=== PATIENT | female | born 1955 | race Caucasian/White ===

== ENCOUNTER 2019-08-26 16:29 | Emergency (ER) | payer OTHER, SELFPAY ==
--- NOTE | ~2019-08-26 | CT_ITS ---
EXAMINATION: CTA chest PE protocol DATE: 08/26/2019 17:50 INDICATION: Chest pain TECHNIQUE: Computed tomography angiography (CTA) of the chest was performed with 100 mL Omnipaque-350 intravenous contrast timed to evaluate the pulmonary arteries. Coronal maximum intensity projection 3D-reconstructions were created by the technologist. The dose-length product (DLP) was 184.20 mGy-cm. Automated exposure control and iterative reconstruction technique were employed. COMPARISON: 12/30/2014 FINDINGS: The pulmonary arteries are well-opacified. No pulmonary embolism is identified. The lungs a re free of acute opacities. There is no pleural effusion or pneumothorax. There is chronic pleural-ba sed scarring in the left upper lobe. A few scattered stable pulmonary nodules are consistent with old granulomatous disease. No pathologically enlarged thoracic lymph nodes are identified. The heart siz e is normal. There is mild thoracic spondylosis. IMPRESSION: 1. No pulmonary embolism or acute cardiopulmonary abnormality. Reviewed, dictated and finalized at location A.
--- NOTE | 2019-08-26 16:35 | ECG_ITS ---
Measurements Intervals [place] Rate: 75 P: 19 OR: 142 QRS: 14 QRSD: 93 T: 59 QT: 362 QTc: 405 Interpretive Statements SINUS RHYTHM POSSIBLE LEFT ATRIAL ENLARGEMENT BORDERLINE ECG Electronically Signed On 08-26-2019 17:41:47 CDT by Jhony Segovia D.O.
[2019-08-26 16:40] VITALS: BP 147/63; PULSE 92; RESP 16; TEMP 36.1; O2SAT 97
[2019-08-26 17:08] LABS: Basophils Absolute Auto 0.1 K/mm3 (0.0-0.1); Eosinophils Absolute Auto 0.2 K/mm3 (0-0.3); Eosinophils Percent Auto 2.9 % (0-4.4); Hematocrit 35.3 % (37.0-47.0); Hemoglobin 11.9 g/dL (12.0-15.0); Immature Granulocyte Absolute 0.02 K/mm3 (0.00-0.031); Immature Granulocyte Percent A 0.3 % (0-0.5); Lymphocytes Absolute Auto 2.25 K/mm3 (0.9-3.2); Lymphocytes Percent Auto 31.2 % (18.3-44.2); Mean Corpuscular HGB Conc 33.7 g/dl (32-36); Mean Corpuscular Hemoglobin 31.6 pg (26-34); Mean Corpuscular Volume 93.9 fl (80-100); Mean Platelet Volume 10.4 fl (7.4-10.4); Monocytes Absolute Auto 0.5 K/mm3 (0.1-0.6); Monocytes Percent Auto 7.1 % (2.6-8.5); Neutrophils Absolute Auto 4.2 K/mm3 (1.3-6.7); Neutrophils Percent Auto 57.5 % (45.5-73.1); Platelet Count Result 308 k/mm3 (150-375); Red Blood Count 3.76 M/mm3 (4.2-5.4); Red Cell Distribution Width 12.1 % (11.5-14.5); White Blood Count 7.2 K/mm3 (4.5-10.0)
[2019-08-26 17:18] LABS: INR 0.9; Prothrombin Time 11.4 Seconds (11.1-14.7)
[2019-08-26 17:19] LABS: Partial Thromboplastin Time 24.7 SECONDS (22.3-36.8)
[2019-08-26 17:26] LABS: Blood Urea Nitrogen 12 mg/dL (7-17); Calcium 9.2 mg/dL (8.4-10.2); Carbon Dioxide 24 mmol/L (22-30); Chloride 103 mmol/L (98-107); Estimated CRCL calculation 65 ml/min; Estimated Glomerular Filt Rate > 60; Glucose 86 mg/dL (65-105); Potassium 3.9 mmol/L (3.4-5.0); Sodium 136 mmol/L (137-145)
[2019-08-26 17:37] LABS: Troponin I < 0.012 ng/mL (0.000-0.034)
[2019-08-26 19:39] VITALS: BP 158/86; PULSE 75; RESP 16; TEMP 36.6; O2SAT 99
[2019-08-26 19:41] VITALS: PULSE 77; O2SAT 99
--- NOTE | 2019-08-26 19:53 | ED.CHESTPAIN ---
HPI - Chest Pain General Chief Complaint: Chest Pain Stated Complaint: CHEST HURTING Time Seen by Provider: 08/26/19 19:36 History of Present Illness HPI narrative: Patient is a 63-year-old female who presents ER with chest pain. Central and intermittent over the last 4 days. Worse in the morning and then she will take ibuprofen. Reports its associated with a hacking cough that is nonproductive. Occasional dyspnea. No fevers or chills or sweats. Had a similar episode in March of this year that improved with prednisone. Patient is noticed some wheezing with her symptoms. No exertional chest discomfort. No nausea/vomiting. She had an outpatient infusion today that showed her pulse oximeter reading was in the 80s and so her doctor referred her here for further evaluation for possible PE. Patient had a lower extremity DVT when she was 45 years ago. She also had superficial thrombophlebitis 6 months ago. Related Data Home Medications Medication Instructions Recorded Confirmed Ca cmb no.[id number] 1 tablet PO DAILY 08/26/19 08/26/19 [Vitamin D-3 with Aloe] aspirin [Aspir-81] 81 mg PO DAILY 08/26/19 08/26/19 magnesium 400 mg PO DAILY 08/26/19 08/26/19 Allergies Allergy/AdvReac Type Severity Reaction Status Date / Time propoxyphene Allergy Unknown Unknown Verified 08/26/19 15:51 meperidine AdvReac Intermediate NAUSEA Verified 08/26/19 15:51 Review of Systems Review of Systems: All systems reviewed & are unremarkable except as noted in HPI and below Constitutional: Constitutional: Denies chills, Denies fatigue, Denies fever(s) and Denies weakness ENT: Denies dizziness, Denies nasal congestion and Denies sore throat Cardiovascular: Cardiovascular: Reports chest pain, Denies rapid heart rate and Denies radiating jaw, neck or arm pain Respiratory: Respiratory: Reports cough and Reports dyspnea Gastrointestinal: Gastrointestinal: Denies abdominal pain, Denies nausea and Denies vomiting Musculoskeletal: Musculoskeletal: Denies back pain and Denies myalgias [facility] Past Medical History Medical History (Updated 08/27/19 @ 00:00 by Josué Perdue) Asthma Bronchitis DVT (deep venous thrombosis) GERD (gastroesophageal reflux disease) Surgical History Surgical History (Updated 08/26/19 @ 19:57 by Hilario Velazquez MD) History of appendectomy History of hysterectomy History of tonsillectomy and adenoidectomy Family History Family History (Updated 09/28/18 @ 13:19 by DOCTOR UNKNOWN) Father Family history of elevated blood lipids Family history of diabetes mellitus in first degree relative Family history of coronary artery disease Patient's father is Family history of heart disease in male family member before age 55 Mother Family history of coronary artery disease Patient's mother is Family history of emphysema Family history of heart disease in male family member before age 55 Family history of mental disorder Depression Other Diabetes mellitus Family history of cardiovascular disease Hypertension Social History Social History Smoking status: Former smoker Second hand tobacco smoke exposure: No Smoking end date: 03/06/08 Alcohol intake: current Exam Narrative: Exam Narrative: GENERAL: Well-appearing, well-nourished, and in no acute distress. HEAD: Normocephalic, atraumatic. CHEST: Rare high pitched wheezing. No respiratory distress. HEART: Regular rate and rhythm. No murmur heard. Normal peripheral pulses. ABDOMEN: Soft, nontender, nondistended. EXTREMITIES: Normal range of motion. No edema. SKIN: Warm, dry, no rash. NEURO: Alert and oriented x3. PSYCH: Normal mood and affect. Course Course Emergency Course: Patient resting comfortably. Informed of results. Will start on prednisone for home, likely chronic lung disease flare vs bronchitis. Pt has albuterol at home. Vital Signs Vital signs: Vital Signs Temperature
--- NOTE | 2019-08-26 20:08 | PC.NURSE ---
Per JUANJO Velazquez, no Aspirin needed.
[2019-08-26 20:24] LABS: Troponin I < 0.012 ng/mL (0.000-0.034)
[2019-08-26 21:00] VITALS: BP 144/73; PULSE 77; RESP 17; TEMP 36.7; O2SAT 99
== END 2019-08-26 21:16 | disposition home or self-care (01) ==
PROVIDERS: Emergency Medicine; Emergency Provider Emergency Medicine; PCP Obstetrics & Gynecology
DX: J45.909 Unspecified asthma, uncomplicated (principal); Z86.718 Personal history of other venous thrombosis and embolism; K21.9 Gastro-esophageal reflux disease without esophagitis; Z79.82 Long term (current) use of aspirin; R94.31 Abnormal electrocardiogram [ECG] [EKG]
CPT/HCPCS: 36415; 71275; 80048; 84484; 85025; 85610; 85730; 93005; 99284; Q9967

== ENCOUNTER 2019-09-02 10:54 | Emergency (ER) | payer OTHER, SELFPAY ==
--- NOTE | ~2019-09-02 | CT_ITS ---
EXAMINATION: CT abdomen pelvis w con DATE: 09/02/2019 12:53 INDICATION: Nausea, vomiting and diarrhea TECHNIQUE: Computed tomography (CT) of the abdomen and pelvis was performed with 100 mL Omnipaque-350 intravenous contrast. Automated exposure control and iterative reconstruction technique were employe d. The dose-length product was 262.63 mGy-cm. COMPARISON: 06/28/2018 FINDINGS: A few small regions of atelectasis in the right middle and bilateral lower lobes. Heart size is sravan l. No pericardial or pleural effusion. 1 cm cyst in the left hepatic lobe. Small geographic region of focal hepatic steatosis along the melany hepatis. A few small splenic calcifications consistent with old granulomatous disease. Gallbladder, pancreas, bilateral adrenal glands and right kidney are sravan l. 1.3 cm left renal cyst. There is mild wall thickening in the colon most prominent in the ascending and transverse colon consistent with colitis. Small bowel and appendix are normal. Bladder is normal . The uterus is not identified and has likely been surgically resected. Bilateral adnexa are unremark able. No free intraperitoneal gas or fluid. No pathologically enlarged abdominal or pelvic lymphadeno ra. Severe lower lumbar spondylosis. IMPRESSION: 1. Mild wall thickening in the proximal colon consistent with colitis which could be infectious, infl ammatory or ischemic in etiology. Reviewed, dictated and finalized at location A. IMPRESSION: 1. Mild wall thickening in the proximal colon consistent with colitis which cou ld be infectious, inflammatory or ischemic in etiology.
[2019-09-02 11:03] VITALS: BP 119/60; PULSE 96; RESP 16; TEMP 36.2; O2SAT 99
--- NOTE | 2019-09-02 11:36 | ED.NAVMDI ---
HPI - Nausea/Vomiting/Diarrhea General Chief complaint: Nausea/Vomiting/Diarrhea <Emilee Smith PA-C - Last Filed: 09/02/19 13:47> Stated complaint: ABD PAIN, DIARRHEA <TARIQ Hough Last Filed: 09/02/19 13:47> Time Seen by Provider: 09/02/19 11:28 <TARIQ Hough Last Filed: 09/02/19 13:47> Source: patient <TARIQ Hough Last Filed: 09/02/19 13:47> Mode of arrival: ambulatory <TARIQ Hough Last Filed: 09/02/19 13:47> Limitations: no limitations <TARIQ Hough Last Filed: 09/02/19 13:47> History of Present Illness HPI Narrative: This is a 63-year-old female that presents the emergency department for abdominal pain x2 days. Reports intermittent, crampy abdominal pain. Also reports diarrhea. Denies fever, recent antibiotic use, vomiting, dysuria, hematuria, or hematochezia. <TARIQ Hough Last Filed: 09/02/19 13:47> Related Data Home medications: Home Medications Medication Instructions Recorded Confirmed Ca cmb no.[id number] 1 tablet PO DAILY 08/26/19 08/26/19 [Vitamin D-3 with Aloe] aspirin [Aspir-81] 81 mg PO DAILY 08/26/19 08/26/19 magnesium 400 mg PO DAILY 08/26/19 08/26/19 <TARIQ Hough Last Filed: 09/02/19 13:47> Allergies/Adverse reactions: Allergies Allergy/AdvReac Type Severity Reaction Status Date / Time propoxyphene Allergy Unknown Unknown Verified 09/02/19 11:07 meperidine AdvReac Intermediate NAUSEA Verified 09/02/19 11:07 <TARIQ Hough Last Filed: 09/02/19 13:47> Review of Systems Review of Systems: Narrative: CONSTITUTIONAL: Denies fever GASTROINTESTINAL: Reports abdominal pain, diarrhea. Denies nausea or vomiting GENITOURINARY: Denies dysuria or hematuria. <Emilee Smith PA-C - Last Filed: 09/02/19 13:47> All systems reviewed & are unremarkable except as noted in HPI and below <Emilee Smith PA-C - Last Filed: 09/02/19 13:47> PMFSH Past Medical History Medical History: Medical History (Updated 09/02/19 @ 13:44 by Emilee Smith PA-C) Asthma Bronchitis DVT (deep venous thrombosis) GERD (gastroesophageal reflux disease) <Emilee Smith PA-C - Last Filed: 09/02/19 13:47> Surgical History Surgical History: Surgical History (Updated 08/26/19 @ 19:57 by Hilario Velazquez MD) History of appendectomy History of hysterectomy History of tonsillectomy and adenoidectomy <Emilee Smith PA-C - Last Filed: 09/02/19 13:47> Family History Family History: Family History (Updated 09/28/18 @ 13:19 by DOCTOR UNKNOWN) Father Family history of elevated blood lipids Family history of diabetes mellitus in first degree relative Family history of coronary artery disease Patient's father is Family history of heart disease in male family member before age 55 Mother Family history of coronary artery disease Patient's mother is Family history of emphysema Family history of heart disease in male family member before age 55 Family history of mental disorder Depression Other Diabetes mellitus Family history of cardiovascular disease Hypertension <Emilee Smith PA-C - Last Filed: 09/02/19 13:47> Social History Social History: Social History Smoking status: Former smoker Second hand tobacco smoke exposure: No Smoking end date: 03/06/08 Alcohol intake: current Gender identity (if verbalized by the patient): Female <Emilee Smith PA-C - Last Filed: 09/02/19 13:47> Exam Narrative: Exam Narrative: GENERAL: Well-appearing, well-nourished, and in no acute distress. HEAD: Normocephalic, atraumatic. EYES: EOMI. CHEST: Clear to auscultation. No respiratory distress. No wheezes rales or rhonchi HEART: Regular rate and rhythm. No murmur heard. Normal peripheral pulses. ABDOMEN: Soft, nondistended, normal active bowel sounds. Mild tenderness palpation throughout t
[2019-09-02 11:56] LABS: Basophils Absolute Auto 0.1 K/mm3 (0.0-0.1); Basophils Percent Auto 0.5 % (0.2-1.2); Eosinophils Absolute Auto 0.3 K/mm3 (0-0.3); Eosinophils Percent Auto 2.1 % (0-4.4); Hematocrit 41.9 % (37.0-47.0); Hemoglobin 13.9 g/dL (12.0-15.0); Immature Granulocyte Absolute 0.08 K/mm3 (0.00-0.031); Immature Granulocyte Percent A 0.7 % (0-0.5); Lymphocytes Absolute Auto 3.74 K/mm3 (0.9-3.2); Lymphocytes Percent Auto 30.6 % (18.3-44.2); Mean Corpuscular HGB Conc 33.2 g/dl (32-36); Mean Corpuscular Hemoglobin 31.3 pg (26-34); Mean Corpuscular Volume 94.4 fl (80-100); Mean Platelet Volume 10.2 fl (7.4-10.4); Monocytes Absolute Auto 0.8 K/mm3 (0.1-0.6); Monocytes Percent Auto 6.7 % (2.6-8.5); Neutrophils Absolute Auto 7.3 K/mm3 (1.3-6.7); Neutrophils Percent Auto 59.4 % (45.5-73.1); Platelet Count Result 340 k/mm3 (150-375); Red Blood Count 4.44 M/mm3 (4.2-5.4); White Blood Count 12.2 K/mm3 (4.5-10.0)
[2019-09-02 12:01] LABS: Add Urine Microscopic? YES; Appearance Urine Clear (Clear); Bilirubin Urine Negative (Negative); Blood Urine Negative (Negative); Color Urine Yellow (Yellow); Glucose Urine UA Negative (Negative); Ketones Urine Negative (Negative); Leukocyte Esterase Ur 1+ LEU/UL (Negative); Mucus Urine Rare /lpf; Nitrate Urine Negative (Negative); Protein Urine Negative (Negative); RBC Urine 0-2 /hpf (0-2); Squamous Epithelial Cell Urine Rare /hpf (Few); Transitional Epi Cells Urine Rare /hpf (None Seen)
[2019-09-02 12:13] LABS: Alanine Aminotransferase 17 U/L (4-35); Albumin Level 4.5 g/dL (3.5-5.1); Alkaline Phosphatase 59 U/L (38-126); Aspartate Amino Transferase 23 U/L (14-36); Bilirubin,Total 0.4 mg/dL (0.2-1.3); Blood Urea Nitrogen 19 mg/dL (7-17); Calcium 8.7 mg/dL (8.4-10.2); Carbon Dioxide 25 mmol/L (22-30); Chloride 102 mmol/L (98-107); Estimated CRCL calculation 44 ml/min; Estimated Glomerular Filt Rate > 60; Glucose 99 mg/dL (65-105); Lipase 74 U/L (23-300); Potassium 3.6 mmol/L (3.4-5.0); Sodium 135 mmol/L (137-145)
--- NOTE | 2019-09-02 12:39 | PC.NURSE ---
Pt to CT scan via stretcher.
[2019-09-02] MEDS: SODIUM CHLORIDE 0.9% IV 1,000 ML 999 ML IV CONT (13:13)
[2019-09-02 13:15] VITALS: BP 123/79; PULSE 77; RESP 14; O2SAT 96
--- NOTE | 2019-09-02 14:31 | PC.NURSE ---
Pt attempted to provide stool sample, states not able to go at this time. EDP aware, gave verbal okay for discharge.
[2019-09-02 14:32] VITALS: BP 128/86; PULSE 69; RESP 13; O2SAT 98
== END 2019-09-02 14:33 | disposition home or self-care (01) ==
PROVIDERS: Physician Assistant; Emergency Provider General Practice; PCP Family Medicine
DX: K52.9 Noninfective gastroenteritis and colitis, unspecified (principal); Z86.718 Personal history of other venous thrombosis and embolism; J45.909 Unspecified asthma, uncomplicated; K21.9 Gastro-esophageal reflux disease without esophagitis; Z87.891 Personal history of nicotine dependence
CPT/HCPCS: 36415; 74177; 80053; 81001; 83690; 85025; 87086; 96360; 99284; J7030; Q9967

== ENCOUNTER 2019-09-04 04:58 | Inpatient (IN) | payer OTHER, SELFPAY ==
[2019-09-04] VITALS (10 sets, daily range): BP systolic 111–151; BP diastolic 54–70; PULSE 68–92; RESP 12–24; TEMP 36.2–36.8; O2SAT 96–100; BMI 24.3
--- NOTE | ~2019-09-04 | XR_ITS ---
EXAMINATION: XR abdomen obstructive series DATE: 09/04/2019 07:04 INDICATION: Lower abdominal pain, vomiting and colitis. TECHNIQUE: Frontal supine and upright views of the abdomen were obtained. COMPARISON: CT dated 09/02/2019 FINDINGS: Small amount of gas scattered throughout the bowels. No pneumatosis or dilated gas-filled loops of allison wel. No free intraperitoneal gas. Blunting at the left costophrenic angle corresponding to a pericar dial fat pad. IMPRESSION: 1. No free intraperitoneal gas or dilated gas-filled loops of bowel to suggest obstruction. Reviewed, dictated and finalized at location A.
--- NOTE | ~2019-09-04 | XR_ITS ---
EXAMINATION: XR chest 2V DATE: 09/04/2019 05:38 INDICATION: Midline chest pain TECHNIQUE: PA and lateral views of the chest were obtained. COMPARISON: Chest radiograph dated 11/13/[address] dated 08/26/2019 FINDINGS: Mild biapical pleural-parenchymal scarring. Unchanged mild discoid atelectasis/scarring at the latera l left midlung zone. Calcified nodule at the right upper lung zone along with calcified right hilar a nd mediastinal lymph nodes consistent with old granulomatous disease. No pulmonary edema, pleural eff usion or pneumothorax. The cardiomediastinal silhouette is normal. Mild 3 component S-shaped curvatur e of the thoracolumbar spine. IMPRESSION: 1. No acute cardiopulmonary disease. Reviewed, dictated and finalized at location A.
--- NOTE | ~2019-09-04 | CT_ITS ---
EXAMINATION: CT abdomen pelvis w con EXAM DATE: 09/04/2019 08:34 INDICATION: Recent episode colitis. Chest pain after dry heaving. Diarrhea. TECHNIQUE: Spiral CT of the abdomen and pelvis was performed following intravenous injection of 100 m L Omnipaque 350. Axial, coronal and sagittal images were reviewed. The dose-length product (DLP) fo r this examination was 255.19 mGy-cm. The exposure was tailored according to patient size (auto mA e xposure control), and iterative reconstruction (ASIR) was used as additional dose reduction technique . Comparison is made to prior examination from 09/02/2019. FINDINGS: There is more fluid and stool in the colon than on previous examination, equivocal mild per sistent ascending and transverse colonic wall edema. Again there is small geographic region hepatic steatosis in the left liver lobe. The liver, spleen, adrenal glands and pancreas are otherwise unrem arkable. Gallbladder is unremarkable. No biliary obstruction. Portal and splenic veins are patent. Kidneys enhance symmetrically. There is no hydronephrosis. The uterus is not identified and has likely been surgically resected. The bladder is unremarkable. There is no retroperitoneal or pelvic lymphadenopathy. There is mild scattered arteriosclerotic disease. The appendix is not positively visualized. There is no pericecal inflammatory change to suggest appe ndicitis. There is small sliding gastroesophageal hiatal hernia. No free intraperitoneal gas. T he heart is normal in size. There are no pericardial or pleural effusions. The lung bases are unrem arkable. There are no osteoblastic or osteolytic lesions identified. IMPRESSION: 1. Equivocal mild persistent ascending and transverse colonic colitis. Reviewed, dictated and finalized at location B.
--- NOTE | 2019-09-04 05:15 | ECG_ITS ---
Measurements Intervals [place] Rate: 89 P: 49 [place]: 133 QRS: 55 QRSD: 94 T: 33 QT: 336 QTc: 409 Interpretive Statements SINUS RHYTHM POSSIBLE LEFT ATRIAL ENLARGEMENT BASELINE ARTIFACT- V5 BORDERLINE ECG Electronically Signed On 09-04-2019 7:15:32 CDT by Jhony Segovia D.O.
[2019-09-04 05:37] LABS: Basophils Percent Auto 0.3 % (0.2-1.2); Eosinophils Absolute Auto 0.2 K/mm3 (0-0.3); Eosinophils Percent Auto 1.8 % (0-4.4); Hematocrit 34.4 % (37.0-47.0); Hemoglobin 11.7 g/dL (12.0-15.0); Immature Granulocyte Absolute 0.04 K/mm3 (0.00-0.031); Immature Granulocyte Percent A 0.4 % (0-0.5); Lymphocytes Percent Auto 8.8 % (18.3-44.2); Mean Corpuscular Hemoglobin 31.7 pg (26-34); Mean Corpuscular Volume 93.2 fl (80-100); Mean Platelet Volume 10.5 fl (7.4-10.4); Monocytes Absolute Auto 0.6 K/mm3 (0.1-0.6); Monocytes Percent Auto 4.8 % (2.6-8.5); Neutrophils Absolute Auto 9.5 K/mm3 (1.3-6.7); Neutrophils Percent Auto 83.9 % (45.5-73.1); Platelet Count Result 274 k/mm3 (150-375); Red Blood Count 3.69 M/mm3 (4.2-5.4); Red Cell Distribution Width 11.9 % (11.5-14.5); White Blood Count 11.4 K/mm3 (4.5-10.0)
[2019-09-04] MEDS: FAMOTIDINE 20 MG/2 ML VIAL (05:40)
[2019-09-04] MEDS: SODIUM CHLORIDE 0.9% IV 1,000 ML 999 ML IV CONT (05:40)
[2019-09-04] MEDS: ONDANSETRON INJ 4 MG/2 ML VIAL IV PUSH ×5 (05:42→19:53)
[2019-09-04 05:49] LABS: Partial Thromboplastin Time 28.1 SECONDS (22.3-36.8)
[2019-09-04 05:55] LABS: Alanine Aminotransferase 16 U/L (4-35); Albumin Level 4.1 g/dL (3.5-5.1); Alkaline Phosphatase 62 U/L (38-126); Aspartate Amino Transferase 23 U/L (14-36); Bilirubin,Total 0.4 mg/dL (0.2-1.3); Blood Urea Nitrogen 13 mg/dL (7-17); Calcium 8.6 mg/dL (8.4-10.2); Carbon Dioxide 21 mmol/L (22-30); Chloride 105 mmol/L (98-107); Estimated CRCL calculation 65 ml/min; Estimated Glomerular Filt Rate > 60; Glucose 133 mg/dL (65-105); Potassium 3.7 mmol/L (3.4-5.0); Sodium 134 mmol/L (137-145)
[2019-09-04 05:59] LABS: Prothrombin Time 12.4 Seconds (11.1-14.7)
[2019-09-04 06:03] LABS: Troponin I < 0.012 ng/mL (0.000-0.034)
[2019-09-04 06:26] LABS: Add Urine Microscopic? YES; Appearance Urine Clear (Clear); Bilirubin Urine Negative (Negative); Blood Urine Negative (Negative); Color Urine Yellow (Yellow); Glucose Urine UA Negative (Negative); Ketones Urine Negative (Negative); Leukocyte Esterase Ur Trace LEU/UL (Negative); Nitrate Urine Negative (Negative); Protein Urine Negative (Negative); RBC Urine 0-2 /hpf (0-2); Specific Grav Ur 1.017 (1.001-1.035); Squamous Epithelial Cell Urine Occasional /hpf (Few); Urobilinogen Urine Negative mg/dL (<2.0); WBC Urine 0-3 /hpf
--- NOTE | 2019-09-04 06:35 | ED.GENADULT ---
HPI - General Adult General Chief complaint: Unspecified <Rachele Piper MD - Last Filed: 09/05/19 19:42> Stated complaint: n/v <Rachele Piper MD - Last Filed: 09/05/19 19:42> Time Seen by Provider: 09/04/19 05:00 <Rachele Piper MD - Last Filed: 09/05/19 19:42> History of Present Illness HPI narrative: Patient presents with her for increasing abdominal pain and vomiting. This illness started 4 days ago with diarrhea. She was seen here 2 days ago in the emergency room with Emilee Smith and diagnosed with colitis by CAT scan. She was treated with antibiotic. She has not had any fever, but has had chills. She has not had colitis previously. She had a colonoscopy with Dr. Gonzalez in June, which did not show colitis. Yesterday she started vomiting, her last emesis was in the car arriving here. Her pain at home was 10 out of 10. Her pain now is 9-1/2 out of 10. She has not had blood in either the stool or the emesis. See the note from Emilee Smith 2 days ago. <Rachele Piper MD - Last Filed: 09/05/19 19:42> Onset (ago): day(s) <Rachele Piper MD - Last Filed: 09/05/19 19:42> Related Data Home medications: Home Medications Medication Instructions Recorded Confirmed Ca cmb no.[id number]-[id number] 1 tablet PO DAILY 08/26/19 09/04/19 [Vitamin D-3 with Aloe] aspirin [Aspir-81] 81 mg PO DAILY 08/26/19 09/04/19 magnesium 400 mg PO DAILY 08/26/19 09/04/19 <Rachele Piper MD - Last Filed: 09/05/19 19:42> Allergies/adverse reactions: Allergies Allergy/AdvReac Type Severity Reaction Status Date / Time propoxyphene Allergy Unknown Unknown Verified 09/04/19 05:13 meperidine AdvReac Intermediate NAUSEA Verified 09/04/19 05:13 <Rachele Piper MD - Last Filed: 09/05/19 19:42> Review of Systems Review of Systems: Narrative: CONSTITUTIONAL: Denies fever, but has had chills. EYES: Denies visual changes, redness, or discharge. ENT: Denies rhinorrhea, congestion, sore throat, or otalgia. CARDIOVASCULAR: Denies chest pain, palpitations, or edema. RESPIRATORY: Denies cough or dyspnea. GASTROINTESTINAL: She has abdominal pain, nausea, vomiting, and diarrhea. GENITOURINARY: Denies dysuria or hematuria. SKIN: Denies rash or itching. MUSCULOSKELETAL: Denies back pain, joint pain, or myalgia. NEUROLOGIC. <Rachele Piper MD - Last Filed: 09/05/19 19:42> [facility] Past Medical History Medical History: Medical History (Updated 09/04/19 @ 23:43 by Chelle Austin PA-C) Asthma Gastritis [place] EGD in [address] Gonzalez. Gastroesophageal reflux disease Osteoporosis <Rachele Piper MD - Last Filed: 09/05/19 19:42> Surgical History Surgical History: Surgical History (Updated 09/04/19 @ 23:40 by Chelle Austin PA-C) History of appendectomy History of basal cell carcinoma excision History of bunionectomy of both great toes History of hysterectomy (~1984) History of tonsillectomy and adenoidectomy <Rachele Piper MD - Last Filed: 09/05/19 19:42> Family History Family History: Family History Father Family history of elevated blood lipids Family history of diabetes mellitus in first degree relative Family history of coronary artery disease Patient's father is Family history of heart disease in male family member before age 55 Mother Family history of coronary artery disease Patient's mother is Family history of emphysema Family history of heart disease in male family member before age 55 Family history of mental disorder Depression Other Diabetes mellitus Family history of cardiovascular disease Hypertension <Rachele Piper MD - Last Filed: 09/05/19 19:42> Social History Social History: Social History (Updated 09/04/19 @ 23:41 by Chelle Austin PA-C) Social History: Surrogate decision maker: Escobar Olea, . Code status: Full code.
[2019-09-04] MEDS: MORPHINE SULFATE 4 MG/ML INJ IV PUSH (06:54)
--- NOTE | 2019-09-04 07:10 | PC.NURSE ---
Report received from MALIA Og, to continue care. Pt resting on stretcher, continues to c/o abd pain. Pt has received morpine IVP.
[2019-09-04] MEDS: CIPROFLOXACIN 400 MG/D5W 200ML 200 ML 200 MG IVPB ×2 (08:43→19:59)
--- NOTE | 2019-09-04 09:15 | ADMGEN ---
This patient, Carol Olea, was admitted to Medical Room 349-01. Patient/family oriented to hospital policies and general routines including ID bracelet, bed and alarms, visiting hours, pain management, procedures, bathroom and other care routines, personal items, smoking policy, room service/diet, and visiting hours. Valuables list has been completed. Information on how to activate the Rapid Response Team has been discussed. Patient/Family are encouraged to report perceived risks to care and to ask questions if they do not understand what they are told or what they should do.
[2019-09-04 09:16] LABS: Troponin I < 0.012 ng/mL (0.000-0.034)
--- NOTE | 2019-09-04 11:22 | WPDGICN ---
Assessment and Plan Assessment and plan (1) Abdominal pain: Code(s): R10.9 - Unspecified abdominal pain Status: Acute Assessment and Plan: Abdominal pain is rather severe. Most likely related to the colitis identified by CT scan. However abdominal pain appears much more significant and out of proportion to physical findings. We need to be cautious about whether this could be ischemic injury. (2) Colitis: Code(s): K52.9 - Noninfective gastroenteritis and colitis, unspecified Status: Acute Assessment and Plan: Colitis suggested by recent CT scan. This would correlate with a recent diarrheal illness. Plan is to obtain stool cultures. Continue intravenous broad-spectrum antibiotic coverage until culture reports are available. Most likely the abdominal pain is related to this colitis. GI Consult Note Consult date/time: 09/04/19 11:22 HPI: Carol Olea is a 63 year old female seen in evaluation at the request of the emergency room. Patient reports that on Monday 4-5 days ago began to have diarrhea. Diarrhea is rather profuse. She presented to the emergency room [address] scan was performed revealing ascending colon colitis. Patient was treated with Cipro Flagyl allowed to go home. Pre yesterday she began to have rather severe abdominal pain. The pain became very intense and this prompted her to come to the emergency room. A CT scan reveals the colitis is improved to some degree. The pain is very intense and for this reason she was admitted for further evaluation observation and therapy. Patient denies any recent travel. She has not eaten any unusual foods. No one else in the family is sick. She denies a fever. She denies any weight loss. She denies any bleeding. In the past she describes having had upper abdominal pain 1 year ago. Endoscopy at that period time did reveal gastritis. A colonoscopy in 2009 was unremarkable. recent colonoscopy several weeks ago for surveillance was also unremarkable. Review of Systems Review of Systems: All systems reviewed & are unremarkable except as noted in HPI and below PMFSH Past Medical History Medical History Asthma Bronchitis Colitis DVT (deep venous thrombosis) GERD (gastroesophageal reflux disease) Surgical History Surgical History History of appendectomy History of hysterectomy History of tonsillectomy and adenoidectomy Family History Family History Father Family history of elevated blood lipids Family history of diabetes mellitus in first degree relative Family history of coronary artery disease Patient's father is Family history of heart disease in male family member before age 55 Mother Family history of coronary artery disease Patient's mother is Family history of emphysema Family history of heart disease in male family member before age 55 Family history of mental disorder Depression Other Diabetes mellitus Family history of cardiovascular disease Hypertension Social History Social History Smoking status: Never smoker Second hand tobacco smoke exposure: No Smoking end date: 03/06/08 Alcohol intake: current Drinks per week: 14 Substance use: never Gender identity (if verbalized by the patient): Female Spiritual care concerns: No Meds Home Medications and Allergies Home Medications Medication Instructions Recorded Confirmed Type bupropion HCl 75 mg tablet 75 mg PO BID #180 tablet 01/08/19 08/26/19 Rx pantoprazole 40 mg tablet,delayed 40 mg PO BID #180 tablet 04/04/19 08/26/19 Rx release lorazepam 0.5 mg tablet 0.5 mg PO TID PRN #90 tablet 08/19/19 08/26/19 Rx Ca cmb no.2-K7-[id number]-[id number] 1 tablet PO DAILY 08/26/19 08/26/19 History [Vitami
[2019-09-04] MEDS: SODIUM CHLORIDE 0.9% IV 1,000 ML 125 ML IV CONT (11:29)
[2019-09-04] MEDS: metroNIDAZOLE 500 MG/ISO 100ML 500 MG/100 ML BAG 100 MG IVPB ×2 (11:31→18:07)
[2019-09-04 11:39] LABS: Troponin I < 0.012 ng/mL (0.000-0.034)
[2019-09-04] MEDS: MORPHINE SULFATE 2 MG/ML INJ 1 MG IV PUSH ×2 (12:33→18:06)
[2019-09-04 16:44] LABS: IFOB Positive Control Positive; Immunochemical Fecal Occult Bl Negative (N)
--- NOTE | 2019-09-04 22:45 | PM.IMHP ---
H&P: HPI History of Present Illness Chief complaint: Abdominal pain and dry heaves. Narrative: Carol Olea is a very pleasant 63-year-old female with a history of GERD who presented to the emergency department earlier this morning via private vehicle from home for evaluation of abdominal pain and dry heaves. About 5 days ago she began having diarrhea, upwards of 10 to 15 bouts per day, for which she was seen in the emergency department 2 days ago. At that time a CT of the abdomen and pelvis showed ascending colitis for which she was given ciprofloxacin and metronidazole. Since that time she has had frequent nausea, anorexia, dry heaves, and more recently she has had a burning sensation in the epigastrium radiating up into the chest. She continues to have mid upper quadrant abdominal pain that she has a difficult time describing but it seems to be quite intense. Her abdomen is also been a bit distended and she has also been belching and passing flatus. She denies fever, chills, and sweats. No hematemesis, melena, or hematochezia. She denies change in weight. No recent travel or sick contacts. She has not been on antibiotics recently. No history of C diff. Review of Systems Review of Systems: Narrative: Twelve systems were reviewed with pertinent positives and negatives as per HPI. She denies headache. Weight has remained stable. No sinus congestion, rhinorrhea, otalgia, or odynophagia. She denies exertional chest pain and shortness of breath. No cough. No sick contacts. She denies dysuria. Except as documented, all other systems were reviewed and are negative. [facility] Past Medical History Medical History (Updated 09/04/19 @ 23:43 by Chelle Austin PA-C) Asthma Gastritis [place] EGD [place] [address] Gonzalez. Gastroesophageal reflux disease Osteoporosis Surgical History Surgical History (Updated 09/04/19 @ 23:40 by Chelle Austin PA-C) History of appendectomy History of basal cell carcinoma excision History of bunionectomy of both great toes History of hysterectomy (~1984) History of tonsillectomy and adenoidectomy Family History Family History Father Family history of elevated blood lipids Family history of diabetes mellitus in first degree relative Family history of coronary artery disease Patient's father is Family history of heart disease in male family member before age 55 Mother Family history of coronary artery disease Patient's mother is Family history of emphysema Family history of heart disease in male family member before age 55 Family history of mental disorder Depression Other Diabetes mellitus Family history of cardiovascular disease Hypertension Social History Social History (Updated 09/04/19 @ 23:41 by Chelle Austin PA-C) Social History: Surrogate decision maker: Escobar Olea, . Code status: Full code. Smoking packs per day: 1 Smoking cigarettes per day: 20.0 Years smoked: 30 Smoking pack-years: 30.00 Smoking status: Former smoker Tobacco type: cigarettes Second hand tobacco smoke exposure: Yes Smoking end date: 03/06/09 Alcohol intake: current Drinks per week: 14 Substance use: never Gender identity (if verbalized by the patient): Female Spiritual care concerns: No Meds Home Medications and Allergies Home Medications Medication Instructions Recorded Confirmed Type bupropion HCl 75 mg tablet 75 mg PO BID #180 tablet 01/08/19 09/04/19 Rx pantoprazole 40 mg tablet,delayed 40 mg PO BID #180 tablet 04/04/19 09/04/19 Rx release lorazepam 0.5 mg tablet 0.5 mg PO TID PRN #90 tablet 08/19/19 09/04/19 Rx Ca cmb no.7-[id number]-[id number] 1 tablet PO DAILY 08/26/19 09/04/19 History [Vitamin D-3 with Aloe] aspirin [Aspir-81] 81 mg PO DAILY 08/26/19 09/04/19 History magnesium 400 mg PO DAILY 08/26/19 09/04/19 History ciprofloxacin HCl 500 mg PO
[2019-09-05] VITALS: BP 125/55; PULSE 77; RESP 18; TEMP 36.4; O2SAT 99
[2019-09-05] MEDS: PANTOPRAZOLE SODIUM IV 40 MG VIAL IV PUSH ×3 (00:05→21:18)
[2019-09-05] MEDS: MORPHINE SULFATE 2 MG/ML INJ 1 MG IV PUSH ×2 (00:05→06:03)
[2019-09-05] MEDS: ONDANSETRON INJ 4 MG/2 ML VIAL IV PUSH ×3 (00:05→09:29)
[2019-09-05] MEDS: SODIUM CHLORIDE 0.9% IV 1,000 ML 75 ML IV CONT ×2 (00:06→14:44)
[2019-09-05] MEDS: buPROPion HCL 75 MG TABLET PO ×3 (00:07→17:23)
[2019-09-05] MEDS: metroNIDAZOLE 500 MG/ISO 100ML 500 MG/100 ML BAG 100 MG IVPB ×3 (02:58→18:03)
[2019-09-05 04:00] VITALS: BP 119/57; PULSE 78; RESP 16; TEMP 37; O2SAT 97
[2019-09-05 05:36] LABS: Hematocrit 33.1 % (37.0-47.0); Hemoglobin 11.2 g/dL (12.0-15.0); Mean Corpuscular HGB Conc 33.8 g/dl (32-36); Mean Corpuscular Hemoglobin 31.4 pg (26-34); Mean Corpuscular Volume 92.7 fl (80-100); Mean Platelet Volume 10.3 fl (7.4-10.4); Platelet Count Result 256 k/mm3 (150-375); Red Blood Count 3.57 M/mm3 (4.2-5.4); Red Cell Distribution Width 11.9 % (11.5-14.5)
[2019-09-05 05:50] LABS: Blood Urea Nitrogen 4 mg/dL (7-17); Calcium 7.4 mg/dL (8.4-10.2); Carbon Dioxide 22 mmol/L (22-30); Chloride 104 mmol/L (98-107); Estimated CRCL calculation 65 ml/min; Estimated Glomerular Filt Rate > 60; Glucose 90 mg/dL (65-105); Magnesium 1.8 mg/dL (1.6-2.3); Potassium 3.2 mmol/L (3.4-5.0); Sodium 134 mmol/L (137-145)
[2019-09-05 08:00] VITALS: BP 118/62; PULSE 65; RESP 16; TEMP 35.9; O2SAT 100
--- NOTE | 2019-09-05 08:07 | WPDGIPROGNO ---
Progress Note: A&P Additional Plan patient alert and oriented this morning. Continues to complain diffuse abdominal pain. She notes ongoing significant diarrhea. Complains of nausea and with no appetite at present. Physical exam reveals her to be afebrile. She is anicteric. Vital signs are stable. Lungs are clear to auscultation percussion. Heart without murmur. Abdomen bowel sounds are present. Soft no localized tenderness. Impression 1. Diffuse abdominal pain. With minimal abdominal findings somewhat concerned about ischemia. Plan is check lactic acid levels. continue empiric antibiotics for presumed colitis. 2. Diarrhea. [place] to be infectious in etiology. CT scan reveals colitis that is appears to be improving for compared to recent CT scan. Will continue broad-spectrum antibiotic coverage. Pending stool culture reports. 3. Abnormal CT scan suggesting colitis appears improved by this exam. Subjective Date/time seen: 09/05/19 08:07 Objective Data Vital Signs Vital Signs: Vital Signs - 24 hr 09/04/19 08:44 09/04/19 09:22 09/04/19 15:09 Temperature 98.2 F 97.6 F Pulse Rate 84 68 79 Respiratory Rate 16 12 12 Blood Pressure 111/69 135/68 113/54 L Pulse Oximetry 99 99 99 09/04/19 16:50 09/04/19 20:00 09/05/19 00:00 Temperature 98.2 F 97.1 F L 97.5 F L Pulse Rate 77 86 77 Respiratory Rate 12 24 H 18 Blood Pressure 151/67 H 130/65 125/55 L Pulse Oximetry 100 100 99 09/05/19 04:00 Temperature 98.6 F Pulse Rate 78 Respiratory Rate 16 Blood Pressure 119/57 L Pulse Oximetry 97 Intake/Output Intake/Output: Intake & Output 09/02/19 09/03/19 09/04/19 09/05/19 23:59 23:59 23:59 23:59 Intake Total 2850 300 Output Total 600 600 Balance 2250 -300 Meds/Results Medications: Active Medications Generic Name Dose Route Start Last Admin Trade Name Freq PRN Reason Stop Dose Admin Bupropion HCl 75 mg 09/04/19 23:55 09/05/19 00:07 Wellbutrin PO 75 mg BID CISCO Administration Sodium Chloride 1,000 mls @ 75 mls/hr 09/04/19 08:05 09/05/19 01:06 Normal Saline Iv IV CONT Not Given .[id number] CISCO Ciprofloxacin/Dextrose 200 mls @ 200 mls/hr 09/04/19 09:00 09/04/19 21:00 Cipro 400 Mg/D5w 200 Ml IVPB Infused Q12H CISCO Infusion Metronidazole 500 mg in 100 mls @ 100 mls/hr 09/04/19 10:00 09/05/19 04:57 Flagyl 500 Mg/Iso Soln 100 Ml IVPB Infused Q8H CISCO Infusion Acetaminophen 1,000 mg in 100 mls @ 400 mls/hr 09/05/19 08:03 Ofirmev 1,000 Mg Ivpb IVPB 09/06/19 08:04 Q6H PRN Pain Rated 4-6 Potassium Chloride 500 mls @ 125 mls/hr 09/05/19 08:03 Kcl 40 Meq/D5w 500 Ml Peripheral IVPB 09/05/19 12:02 ONCE ONE Lorazepam 0.5 mg 09/04/19 23:45 Ativan Tablet PO TID PRN anxiety Morphine Sulfate 1 mg 09/04/19 11:47 09/05/19 06:03 Morphine Sulfate Inj IV PUSH 1 mg Q6HR PRN Administration Pain Rated 7-10 Ondansetron HCl 4 mg 09/04/19 08:00 09/05/19 05:02 Zofran Inj IV PUSH 4 mg Q4H PRN Administration Nausea Pantoprazole Sodium 40 mg 09/04/19 23:45 09/05/19 00:05 Protonix Iv IV PUSH 40 mg Q12HR CISCO Administration Radiology Results: ITS Impressions Chest X-Ray 09/04/19 06:58 IMPRESSION: 1. No acute cardiopulmonary disease. Abdomen X-Ray 09/04/19 07:07 IMPRESSION: 1. No free intraperitoneal gas or dilated gas-filled loops of bowel to suggest obstruction. Abdomen/Pelvis CT 09/04/19 08:35 IMPRESSION: 1. Equivocal mild persistent ascending and transverse colonic colitis. Labs Labs: Laboratory Results - last 24 hr 09/04/19 09/04/19 09/04/19 08:38 11:08 15:44 WBC RBC Hgb Hct MCV MCH MCHC RDW Plt Count MPV Sodium Potassium Chloride Carbon Dioxide BUN Creatinine Estim Creat Clear Calc Estimated GFR Glucose Calcium Magnesium Troponin I < 0.012 < 0.012 St
[2019-09-05] MEDS: CIPROFLOXACIN 400 MG/D5W 200ML 200 ML 200 MG IVPB ×2 (09:36→21:32)
--- NOTE | 2019-09-05 11:52 | PM.IMPN ---
Progress Note: A&P Assessment and Plan (1) Colitis: Code(s): K52.9 - Noninfective gastroenteritis and colitis, unspecified Status: Acute Assessment and Plan: Mild persistent ascending and transverse colonic colitis noted on CT. Lactic acid is within normal limits. Continue IV levofloxacin and metronidazole. Will attempt trial of phenergan to see if that gives any relief. Stool studies have been obtained and are pending. Appreciate Dr Gonzalez's input. (2) Dehydration: Code(s): E86.0 - Dehydration Status: Acute Assessment and Plan: Continue IV fluids for now. (3) Gastroesophageal reflux disease: Code(s): K21.9 - Gastro-esophageal reflux disease without esophagitis Status: Acute Assessment and Plan: IV Protonix BID. Subjective Date/time seen: 09/05/19 11:45 Interval history: Ms. Olea is a 63yo F admitted for colitis. She reports her abdominal pain is a little improved from yesterday but her nausea and dry heaving is persistent with no improvement. She continues with diarrhea this morning. Denies hematochezia or melena. She reports some midsternal burning with her dry heaving but no chest pain or shortness of breath. Her symptoms began 6 days ago. Review of Systems Review of Systems: Narrative: Twelve systems were reviewed with pertinent positives and negatives as per HPI. Exam Narrative: Exam Narrative: General: Female resting sitting up in bed, dry heaving. Tearful. HEENT: Normocephalic, EOMI, oral mucosa tacky. Cardiovascular: Rate and rhythm are regular. Respiratory: Very faint expiratory wheeze CARIE. Non-labored breathing. Abdomen: Soft, some mild mid upper quadrant tenderness to palpation without guarding, bowel sounds present. Extremities: Peripheral pulses intact. No edema. Neuro: No focal neurological deficits. Speech is clear. Objective Data Vital Signs Vital Signs: Last Vital Signs Temp 96.6 F L 09/05/19 08:00 Pulse 65 09/05/19 08:00 Resp 16 09/05/19 08:00 BP 118/62 09/05/19 08:00 Pulse Ox 100 09/05/19 08:00 Intake/Output Intake/Output: Intake & Output 09/02/19 09/03/19 09/04/19 09/05/19 23:59 23:59 23:59 23:59 Intake Total 2850 490 Output Total 600 600 Balance 2250 -110 Meds/Results Medications: Active Medications Generic Name Dose Route Start Last Admin Trade Name Freq PRN Reason Stop Dose Admin Bupropion HCl 75 mg 09/04/19 23:55 09/05/19 09:31 Wellbutrin PO 75 mg BID CISCO Administration Sodium Chloride 1,000 mls @ 75 mls/hr 09/04/19 08:05 09/05/19 01:06 Normal Saline Iv IV CONT Not Given .[id number] CISCO Ciprofloxacin/Dextrose 200 mls @ 200 mls/hr 09/04/19 09:00 09/05/19 10:36 Cipro 400 Mg/D5w 200 Ml IVPB Infused Q12H CISCO Infusion Metronidazole 500 mg in 100 mls @ 100 mls/hr 09/04/19 10:00 09/05/19 10:58 Flagyl 500 Mg/Iso Soln 100 Ml IVPB 100 mls/hr Q8H CISCO Administration Acetaminophen 1,000 mg in 100 mls @ 400 mls/hr 09/05/19 08:03 Ofirmev 1,000 Mg Ivpb IVPB 09/06/19 08:04 Q6H PRN Pain Rated 4-6 Potassium Chloride 500 mls @ 125 mls/hr 09/05/19 08:03 Kcl 40 Meq/D5w 500 Ml Peripheral IVPB 09/05/19 12:02 ONCE ONE Lorazepam 0.5 mg 09/04/19 23:45 Ativan Tablet PO TID PRN anxiety Morphine Sulfate 1 mg 09/04/19 11:47 09/05/19 06:03 Morphine Sulfate Inj IV PUSH 1 mg Q6HR PRN Administration Pain Rated 7-10 Ondansetron HCl 4 mg 09/04/19 08:00 09/05/19 09:29 Zofran Inj IV PUSH 4 mg Q4H PRN Administration Nausea Pantoprazole Sodium 40 mg 09/04/19 23:45 09/05/19 09:32 Protonix Iv IV PUSH 40 mg Q12HR CISCO Administration Radiology Results: ITS Impressions Chest X-Ray 09/04/19 06:58 IMPRESSION: 1. No acute cardiopulmonary disease. Abdomen X-Ray 09/04/19 07:07 IMPRESSION:
[2019-09-05] MEDS: PROMETHAZINE HCL 25 MG/ML AMPUL 12.5 MG IV PUSH ×2 (12:06→21:13)
--- NOTE | 2019-09-05 13:34 | PCDIET ---
MD consult received and completed. See Nutritional Teaching for additional details.
[2019-09-05 14:00] VITALS: BP 134/64; PULSE 74; RESP 16; TEMP 36.1; O2SAT 100
[2019-09-05 19:48] VITALS: BP 121/60; PULSE 72; RESP 16; TEMP 37.1; O2SAT 98
[2019-09-06] MEDS: metroNIDAZOLE 500 MG/ISO 100ML 500 MG/100 ML BAG 100 MG IVPB ×3 (01:41→17:20)
[2019-09-06 04:17] VITALS: BP 122/59; PULSE 71; RESP 14; TEMP 36.1; O2SAT 100
[2019-09-06 06:37] LABS: Basophils Percent Auto 0.6 % (0.2-1.2); Eosinophils Absolute Auto 0.2 K/mm3 (0-0.3); Hematocrit 32.5 % (37.0-47.0); Hemoglobin 11.1 g/dL (12.0-15.0); Immature Granulocyte Absolute 0.04 K/mm3 (0.00-0.031); Immature Granulocyte Percent A 0.6 % (0-0.5); Lymphocytes Absolute Auto 1.26 K/mm3 (0.9-3.2); Lymphocytes Percent Auto 17.9 % (18.3-44.2); Mean Corpuscular HGB Conc 34.2 g/dl (32-36); Mean Corpuscular Hemoglobin 31.4 pg (26-34); Mean Corpuscular Volume 92.1 fl (80-100); Mean Platelet Volume 9.7 fl (7.4-10.4); Monocytes Absolute Auto 0.5 K/mm3 (0.1-0.6); Monocytes Percent Auto 7.2 % (2.6-8.5); Neutrophils Percent Auto 70.7 % (45.5-73.1); Platelet Count Result 215 k/mm3 (150-375); Red Blood Count 3.53 M/mm3 (4.2-5.4); Red Cell Distribution Width 12.4 % (11.5-14.5)
[2019-09-06 06:56] LABS: Alanine Aminotransferase 29 U/L (4-35); Albumin Level 3.8 g/dL (3.5-5.1); Alkaline Phosphatase 59 U/L (38-126); Aspartate Amino Transferase 48 U/L (14-36); Bilirubin,Total 0.1 mg/dL (0.2-1.3); Blood Urea Nitrogen 3 mg/dL (7-17); Calcium 7.6 mg/dL (8.4-10.2); Carbon Dioxide 21 mmol/L (22-30); Chloride 108 mmol/L (98-107); Estimated CRCL calculation 65 ml/min; Estimated Glomerular Filt Rate > 60; Glucose 84 mg/dL (65-105); Potassium 3.6 mmol/L (3.4-5.0); Sodium 137 mmol/L (137-145)
--- NOTE | 2019-09-06 07:51 | WPDGIPROGNO ---
Progress Note: A&P Additional Plan Patient reports abdominal pain is lessened to some degree. She continues to complain rather profuse ongoing watery diarrhea. Physical exam reveals her to be alert. Vital signs stable. HEENT exam unremarkable. Lungs are clear to auscultation and percussion. Heart is without murmur. Abdomen is soft no localized tenderness. Labs are stable. White count 7, hemoglobin 11, lactic acid normal. Impression : colitis suggested by CT scan. Infectious colitis most likely. Await stool culture reports. Stool for C difficile toxin will be repeated. It is been canceled several times this admission but felt strongly indicated because of ongoing severe diarrhea. Colitis on CT scan remain lungs of obscure origin. I feel this test is important. I am unclear how it has been canceled without my being notified. she may benefit from colonoscopy as an outpatient if all labs are negative. I would defer this till next week at least. Plan to start advancing diet. Subjective Date/time seen: 09/06/19 07:51 Objective Data Vital Signs Vital Signs: Vital Signs - 24 hr 09/05/19 08:00 09/05/19 14:00 09/05/19 19:48 Temperature 96.6 F L 97.0 F L 98.8 F Pulse Rate 65 74 72 Respiratory Rate 16 16 16 Blood Pressure 118/62 134/64 121/60 Pulse Oximetry 100 100 98 09/06/19 04:17 Temperature 97 F L Pulse Rate 71 Respiratory Rate 14 Blood Pressure 122/59 L Pulse Oximetry 100 Intake/Output Intake/Output: Intake & Output 09/03/19 09/04/19 09/05/19 09/06/19 23:59 23:59 23:59 23:59 Intake Total 2850 3140 200 Output Total 600 2050 850 Balance 2250 1090 -650 Meds/Results Medications: Active Medications Generic Name Dose Route Start Last Admin Trade Name Freq PRN Reason Stop Dose Admin Bupropion HCl 75 mg 09/04/19 23:55 09/05/19 17:23 Wellbutrin PO 75 mg BID CISCO Administration Sodium Chloride 1,000 mls @ 75 mls/hr 09/04/19 08:05 09/05/19 17:43 Normal Saline Iv IV CONT 75 mls/hr .[id number] CISCO Infusion Ciprofloxacin/Dextrose 200 mls @ 200 mls/hr 09/04/19 09:00 09/05/19 22:37 Cipro 400 Mg/D5w 200 Ml IVPB Infused Q12H CISCO Infusion Metronidazole 500 mg in 100 mls @ 100 mls/hr 09/04/19 10:00 09/06/19 02:41 Flagyl 500 Mg/Iso Soln 100 Ml IVPB Infused Q8H CISCO Infusion Acetaminophen 1,000 mg in 100 mls @ 400 mls/hr 09/05/19 08:03 09/05/19 17:35 Ofirmev 1,000 Mg Ivpb IVPB 09/06/19 08:04 Infused Q6H PRN Infusion Pain Rated 4-6 Lorazepam 0.5 mg 09/04/19 23:45 Ativan Tablet PO TID PRN anxiety Morphine Sulfate 1 mg 09/04/19 11:47 09/05/19 06:03 Morphine Sulfate Inj IV PUSH 1 mg Q6HR PRN Administration Pain Rated 7-10 Pantoprazole Sodium 40 mg 09/04/19 23:45 09/05/19 21:18 Protonix Iv IV PUSH 40 mg Q12HR CISCO Administration Promethazine HCl 12.5 mg 09/05/19 12:00 09/05/19 21:13 Phenergan Inj IV PUSH 12.5 mg Q4H PRN Administration Nausea And Vomiting Radiology Results: ITS Impressions Chest X-Ray 09/04/19 06:58 IMPRESSION: 1. No acute cardiopulmonary disease. Abdomen X-Ray 09/04/19 07:07 IMPRESSION: 1. No free intraperitoneal gas or dilated gas-filled loops of bowel to suggest obstruction. Abdomen/Pelvis CT 09/04/19 08:35 IMPRESSION: 1. Equivocal mild persistent ascending and transverse colonic colitis. Labs Labs: Laboratory Results - last 24 hr 09/05/19 09/06/19 09/06/19 08:27 06:27 06:27 WBC 7.0 RBC 3.53 L Hgb 11.1 L Hct 32.5 L MCV 92.1 MCH 31.4 MCHC 34.2 RDW 12.4 Plt Count 215 MPV 9.7 Immature Gran % (Auto) 0.6 H Neut % (Auto) 70.7 Lymph % (Auto) 17.9 L [place] % (Auto) 7.2 Eos % (Auto) 3.0 Baso % (Auto) 0.6 Lymph # (Auto) 1.26 [place] # (Auto) 0.5 Eos # (Auto) 0.2 Baso # (Auto) 0.0 Abs Immat Gran (auto) 0.04 H Absolute Neuts (auto) 5.0 Absolute Nucleated RB
[2019-09-06] MEDS: SODIUM CHLORIDE 0.9% IV 1,000 ML 75 ML IV CONT ×2 (08:05→21:30)
[2019-09-06] MEDS: CIPROFLOXACIN 400 MG/D5W 200ML 200 ML 200 MG IVPB ×2 (08:09→21:26)
[2019-09-06] MEDS: buPROPion HCL 75 MG TABLET PO ×2 (08:11→17:22)
[2019-09-06] MEDS: PANTOPRAZOLE SODIUM IV 40 MG VIAL IV PUSH ×2 (08:12→21:26)
--- NOTE | 2019-09-06 12:21 | PM.IMPN ---
Progress Note: A&P Assessment and Plan (1) Colitis: Code(s): K52.9 - Noninfective gastroenteritis and colitis, unspecified Status: Acute Assessment and Plan: Mild persistent ascending and transverse colonic colitis noted on CT. Lactic acid is within normal limits. Continue IV levofloxacin and metronidazole. Nausea is improved with phenergen. Stool studies have been obtained, most are negative but campylobacter and c diff pending. Appreciate Dr Gonzalez's input. Plan to advance diet today and continue IV antibiotics. May be appropriate for discharge 09/06 if stable. (2) Dehydration: Code(s): E86.0 - Dehydration Status: Acute Assessment and Plan: Continue gentle IV fluids for now until she is tolerating more PO intake. (3) Gastroesophageal reflux disease: Code(s): K21.9 - Gastro-esophageal reflux disease without esophagitis Status: Acute Assessment and Plan: IV Protonix BID. Subjective Date/time seen: 09/06/19 12:00 Interval history: Ms. Olea is a 63yo F admitted for colitis. At time of my encounter, she notes abdominal pain has resolved and her nausea/dry heaving has improved. She has had 4 episodes of diarrhea this morning. She tells me they are not liquidy but a bit formed, very soft. Denies hematochezia or melena. Tolerated some full liquid diet so far. Review of Systems Review of Systems: Narrative: Twelve systems were reviewed with pertinent positives and negatives as per HPI. Exam Narrative: Exam Narrative: General: Female resting sitting up in bed, appears more comfortable. HEENT: Normocephalic, EOMI, oral mucosa moist. Cardiovascular: Rate and rhythm are regular. Respiratory: Lungs clear to auscultation. Nonlabored breathing. Tolerating room air. Abdomen: Soft, nondistended, no point tenderness to palpation, bowel sounds present. Extremities: Peripheral pulses intact. No edema. Neuro: No focal neurological deficits. Speech is clear. Objective Data Vital Signs Vital Signs: Vital Signs - 24 hr 09/05/19 14:00 09/05/19 19:48 09/06/19 04:17 Temperature 97.0 F L 98.8 F 97 F L Pulse Rate 74 72 71 Respiratory Rate 16 16 14 Blood Pressure 134/64 121/60 122/59 L Pulse Oximetry 100 98 100 Intake/Output Intake/Output: Intake & Output 09/03/19 09/04/19 09/05/19 09/06/19 23:59 23:59 23:59 23:59 Intake Total 2850 3140 1550 Output Total 600 2050 850 Balance 2250 1090 700 Meds/Results Medications: Active Medications Generic Name Dose Route Start Last Admin Trade Name Freq PRN Reason Stop Dose Admin Bupropion HCl 75 mg 09/04/19 23:55 09/06/19 08:11 Wellbutrin PO 75 mg BID CISCO Administration Sodium Chloride 1,000 mls @ 75 mls/hr 09/04/19 08:05 09/06/19 08:05 Normal Saline Iv IV CONT 75 mls/hr .[id number] CISCO Administration Ciprofloxacin/Dextrose 200 mls @ 200 mls/hr 09/04/19 09:00 09/06/19 09:09 Cipro 400 Mg/D5w 200 Ml IVPB Infused Q12H CISCO Infusion Metronidazole 500 mg in 100 mls @ 100 mls/hr 09/04/19 10:00 09/06/19 10:31 Flagyl 500 Mg/Iso Soln 100 Ml IVPB Infused Q8H CISCO Infusion Lorazepam 0.5 mg 09/04/19 23:45 Ativan Tablet PO TID PRN anxiety Morphine Sulfate 1 mg 09/04/19 11:47 09/05/19 06:03 Morphine Sulfate Inj IV PUSH 1 mg Q6HR PRN Administration Pain Rated 7-10 Pantoprazole Sodium 40 mg 09/04/19 23:45 09/06/19 08:12 Protonix Iv IV PUSH 40 mg Q12HR CISCO Administration Promethazine HCl 12.5 mg 09/05/19 12:00 09/05/19 21:13 Phenergan Inj IV PUSH 12.5 mg Q4H PRN Administration Nausea And Vomiting Radiology Results: ITS Impressions Chest X-Ray 09/04/19 06:58 IMPRESSION: 1. No acute cardiopulmonary disease. Abdomen X-Ray 09/04/19 07:07 IMPRESSION: 1. No free intraperitoneal gas or dilated gas-filled loops of bowel to sugge
[2019-09-06 14:00] VITALS: BP 136/68; PULSE 82; RESP 16; TEMP 35.8; O2SAT 98
[2019-09-06 22:00] VITALS: BP 115/51; PULSE 79; RESP 16; TEMP 36.6; O2SAT 98
[2019-09-07] MEDS: metroNIDAZOLE 500 MG/ISO 100ML 500 MG/100 ML BAG 100 MG IVPB ×2 (01:33→10:30)
[2019-09-07 05:49] VITALS: BP 124/61; PULSE 79; RESP 16; TEMP 36; O2SAT 97
[2019-09-07] MEDS: ACETAMINOPHEN 325 MG TABLET 650 MG PO (06:18)
[2019-09-07 06:56] LABS: Blood Urea Nitrogen 3 mg/dL (7-17); Calcium 7.8 mg/dL (8.4-10.2); Carbon Dioxide 23 mmol/L (22-30); Chloride 107 mmol/L (98-107); Estimated CRCL calculation 65 ml/min; Estimated Glomerular Filt Rate > 60; Glucose 106 mg/dL (65-105); Potassium 3.5 mmol/L (3.4-5.0); Sodium 137 mmol/L (137-145)
[2019-09-07] MEDS: buPROPion HCL 75 MG TABLET PO (09:12)
[2019-09-07] MEDS: PANTOPRAZOLE SODIUM IV 40 MG VIAL IV PUSH (09:12)
[2019-09-07] MEDS: CIPROFLOXACIN 400 MG/D5W 200ML 200 ML 200 MG IVPB (09:12)
[2019-09-07 09:13] VITALS: RESP 16; O2SAT 98
[2019-09-07 14:13] VITALS: BP 126/60; PULSE 68; RESP 12; TEMP 36.8; O2SAT 100
--- NOTE | 2019-09-07 14:50 | PM.DS ---
DS: Admitting Diagnosis Admitting Diagnosis Admitting Diagnosis: Unspecified abdominal pain DS: Discharge Diagnosis Discharge Diagnosis (1) Colitis: Code(s): K52.9 - Noninfective gastroenteritis and colitis, unspecified Status: Acute Assessment and Plan: Date of Service 09/07/19 Ms. Olea is a pleasant 63yo F with history of GERD and anxiety who presented to the ED for evaluation of significant diffuse abdominal pain with persistent nausea and dry heaves as well as diarrhea. She was previously seen in the ED 09/02/19 with milder symptoms and was discharged home with oral antibiotics when CT in the ED demonstrated colitis. She presented again to the ED as her symptoms were worsening; CT abdomen again demonstrated a mild persistent ascending and transverse colitis without evidence of perforation or abscess. She was started on IV levaquin and metronidazole and treated with supportive care including IV hydration, antiemetics and analgesia. She was seen by Dr Gonzalez, GI. EGD about 1 year ago demonstrated gastritis and recent screening colonoscopy was unremarkable per Dr Gonzalez. She was maintained on protonix BID. She showed clinical improvement and her diet was advanced slowly. She was tolerating a low fiber diet on day of discharge and denied abdominal pain, nausea or vomiting. She was still having loose stools day of discharge and noted them to be darker in color. H&H remained stable. She was instructed on short-interval follow up with Dr Gonzalez who planned to perform colonoscopy after acute colitis is improved. She was educated on [id number] instructions and worrisome s/s to monitor for. Stool culture and C diff testing were negative. Started probiotic. She was hemodynamically stable for discharge 09/07/19 with levaquin and flagyl to complete the course, and plans to follow up with PCP and Dr Gonzalez. (2) Dehydration: Code(s): E86.0 - Dehydration Status: Resolved Assessment and Plan: Resolved with IV hydration. (3) Gastroesophageal reflux disease: Code(s): K21.9 - Gastro-esophageal reflux disease without esophagitis Status: Chronic Assessment and Plan: IV Protonix BID. DS: Summary Time Spent with Patient Time attestation: Total time spent providing and/or coordinating discharge services: 35 minutes Exam Narrative: Exam Narrative: Last Vital Signs Temp 98.2 F 09/07/19 14:13 Pulse 68 09/07/19 14:13 Resp 12 09/07/19 14:13 BP 126/60 09/07/19 14:13 Pulse Ox 100 09/07/19 14:13 General: Female resting sitting up in bed in no acute distress. HEENT: Normocephalic, EOMI, oral mucosa moist. Cardiovascular: Rate and rhythm are regular. Respiratory: Lungs clear to auscultation. Nonlabored breathing. Tolerating room air. Abdomen: Soft, nondistended, no point tenderness to palpation, bowel sounds present. Extremities: Peripheral pulses intact. No edema. Neuro: No focal neurological deficits. Speech is clear. DS: Data Data Completed and Pending Labs on day of discharge: Labs from last 24 hours 09/07/19 06:23 Sodium 137 Potassium 3.5 Chloride 107 Carbon Dioxide 23 BUN 3 L Creatinine 0.60 L Estim Creat Clear Calc 65 Estimated GFR > 60 Glucose 106 H Calcium 7.8 L Imaging Radiologist's impression: ITS Impressions Chest X-Ray 09/04/19 06:58 IMPRESSION: 1. No acute cardiopulmonary disease. Abdomen X-Ray 09/04/19 07:07 IMPRESSION: 1. No free intraperitoneal gas or dilated gas-filled loops of bowel to suggest obstruction. Abdomen/Pelvis CT 09/04/19 08:35 IMPRESSION: 1. Equivocal mild persistent ascending and transverse colonic colitis. Discharge Plan Discharge Attending physician on discharge:
== END 2019-09-07 14:25 | disposition home or self-care (01) | DRG 392 ==
LOC: ANHED 07:59 → ANH3MED 18:59
PROVIDERS: Emergency Medicine; Internal Medicine Gastroenterology; Physician Assistant; Admitting Provider Family Medicine; Emergency Provider Emergency Medicine; PCP Family Medicine; Visit Provider Physician Assistant
DX: K52.9 Noninfective gastroenteritis and colitis, unspecified (principal); E86.0 Dehydration; K21.9 Gastro-esophageal reflux disease without esophagitis
CPT/HCPCS: 36415; 71046; 74019; 74177; 80048; 80053; 81001; 82274; 83605; 83735; 84484; 85025; 85027; 85610; 85730; 87015; 87045; 87046; 87177; 87209; 87269; 87272; 87324; 87427; 89055; 93005; 96361; 96375; 99285; A9270; C9113; J0131; J0744; J1170; J2270; J2405; J2550; J3480; J7030; Q9967

== ENCOUNTER 2020-01-09 06:51 | Outpatient (NON) | payer OTHER, SELFPAY ==
[2020-01-09 17:22] LABS: SARS-CoV-2 RNA PCR Negative
== END 2020-01-09 06:52 ==
LOC: ANHCOVIDDT 06:58
PROVIDERS: PCP Family Medicine; Visit Provider Physician Assistant
DX: R09.89 Other specified symptoms and signs involving the circulatory and respiratory systems (principal); Z20.828 Contact with and (suspected) exposure to other viral communicable diseases
CPT/HCPCS: 87635; C9803; U0003

== ENCOUNTER 2020-02-21 15:48 | Outpatient (CLI) | payer OTHER, SELFPAY ==
--- NOTE | ~2020-02-21 | MM_ITS ---
EXAMINATION: MM screening [facility] BI w dave HISTORY: Screening mammogram TECHNIQUE: Craniocaudal and mediolateral oblique 3-D tomosynthesis images were obtained and synthetic 2-D images were generated. CAD analysis was submitted and interpreted. COMPARISON: 02/22/2019, 02/28/2018, 02/23/2017 BREAST PARENCHYMAL COMPOSITION: The breasts are heterogeneously dense, which may obscure small masses . FINDINGS: There is no evidence of suspicious mass, calcification, or architectural distortion to sugg est malignancy in either breast. There has been no suspicious interval change. IMPRESSION: 1. No mammographic evidence of malignancy. 2. Recommend routine screening mammography in one year. BI-RADS Category 1: Negative Reviewed, dictated and finalized at location A. ND [employer]
== END 2020-02-21 15:49 | disposition home or self-care (01) ==
LOC: ANHIMG 15:54
PROVIDERS: PCP Physician Assistant; Visit Provider Obstetrics & Gynecology
DX: Z12.31 Encounter for screening mammogram for malignant neoplasm of breast (principal)
CPT/HCPCS: 77063; 77067

== ENCOUNTER 2020-03-02 13:39 | Emergency (ER) | payer OTHER, SELFPAY ==
[2020-03-02] VITALS (26 sets, daily range): BP systolic 116–143; BP diastolic 51–77; PULSE 75–92; RESP 13–34; TEMP 36.8; O2SAT 96–100
--- NOTE | ~2020-03-02 | XR_ITS ---
EXAMINATION: XR chest 1V portable DATE: 03/02/2020 14:35 INDICATION: Chest pain TECHNIQUE: frontal view of the chest was obtained. COMPARISON: Chest radiograph dated 09/04/2019 FINDINGS: Calcite nodules at the right upper lung zone consistent with old granulomatous disease. Chronic mild lingular discoid atelectasis in the right middle lobe. No new airspace opacities, pulmonary edema, pl eural effusion or pneumothorax. Heart size is normal with mildly prominent left paracardial fat pad. Mild lower thoracic dextrocurvature. IMPRESSION: 1. No acute cardiopulmonary disease. Reviewed, dictated and finalized at location A. ING INSPECTOR
--- NOTE | 2020-03-02 13:52 | ECG_ITS ---
Measurements Intervals [place] Rate: 79 P: 51 CO: 141 QRS: 54 QRSD: 92 T: 14 QT: 352 QTc: 406 Interpretive Statements SINUS RHYTHM POSSIBLE LEFT ATRIAL ENLARGEMENT BORDERLINE ECG Electronically Signed On 03-02-2020 14:08:01 QUALITY ASSURANCE MONITOR BODY by Jhony Segovia D.O.
[2020-03-02] MEDS: ASPIRIN 81 MG CHEWABLE TABLET 324 MG PO (14:10)
--- NOTE | 2020-03-02 14:13 | PC.NURSE ---
Bill : [phone]
[2020-03-02 14:21] LABS: Basophils Absolute Auto 0.1 K/mm3 (0.0-0.1); Basophils Percent Auto 0.6 % (0.2-1.2); Eosinophils Absolute Auto 0.2 K/mm3 (0-0.3); Eosinophils Percent Auto 1.9 % (0-4.4); Hematocrit 34.8 % (37.0-47.0); Immature Granulocyte Absolute 0.04 K/mm3 (0.00-0.031); Immature Granulocyte Percent A 0.4 % (0-0.5); Lymphocytes Absolute Auto 3.16 K/mm3 (0.9-3.2); Lymphocytes Percent Auto 33.2 % (18.3-44.2); Mean Corpuscular HGB Conc 34.5 g/dl (32-36); Mean Corpuscular Volume 92.8 fl (80-100); Mean Platelet Volume 10.1 fl (7.4-10.4); Monocytes Absolute Auto 0.5 K/mm3 (0.1-0.6); Monocytes Percent Auto 5.6 % (2.6-8.5); Neutrophils Absolute Auto 5.6 K/mm3 (1.3-6.7); Neutrophils Percent Auto 58.3 % (45.5-73.1); Platelet Count Result 326 k/mm3 (150-375); Red Blood Count 3.75 M/mm3 (4.2-5.4); Red Cell Distribution Width 12.5 % (11.5-14.5); White Blood Count 9.5 K/mm3 (4.5-10.0)
--- NOTE | 2020-03-02 14:23 | ED.GENADULT ---
HPI - General Adult General Chief complaint: Chest Pain Stated complaint: cp Time Seen by Provider: 03/02/20 13:59 Source: patient History of Present Illness HPI narrative: Patient is a 64 y/o female complaining mid sternal chest pain starting earlier this morning. She describes her pain as aching and pressure. She rates her pain as 5/10. She took Ibuprofen earlier which helped some with her pain. She has a sore throat. She denies any cough or SOB. She states that her daughter just tested positive for COVID yesterday and she was with her daughter 4 days ago. Related Data Home Medications Medication Instructions Recorded Confirmed Vitamin D-3 with Aloe 1 tablet PO DAILY 08/26/19 02/26/20 aspirin [Aspir-81] 81 mg PO DAILY 08/26/19 02/26/20 magnesium 400 mg PO DAILY 08/26/19 02/26/20 denosumab 60 mg/mL subcutaneous 60 mg SUBCUT [id number] 12/31/19 02/26/20 syringe Allergies Allergy/AdvReac Type Severity Reaction Status Date / Time propoxyphene Allergy Unknown Unknown Verified 03/02/20 13:50 meperidine AdvReac Intermediate NAUSEA Verified 03/02/20 13:50 Review of Systems Constitutional: Constitutional: Denies chills, Denies fever(s), Denies headache(s) and Denies weakness Eyes: Eyes: Denies blurry vision ENT: Denies headache(s), Denies neck pain and Reports sore throat Cardiovascular: Cardiovascular: Reports chest pain and Denies dyspnea Respiratory: Respiratory: Denies cough and Denies dyspnea Gastrointestinal: Gastrointestinal: Denies abdominal pain, Denies diarrhea, Denies nausea and Denies vomiting Genitourinary: Genitourinary: Denies hematuria and Denies dysuria Musculoskeletal: Musculoskeletal: Denies back pain and Denies neck pain Neurologic: Denies headache(s) and Denies weakness [facility] Past Medical History Medical History Asthma Gastritis [place] EGD [place] [address] Gonzalez. Gastroesophageal reflux disease Osteoporosis Surgical History Surgical History History of appendectomy History of basal cell carcinoma excision History of bunionectomy of both great toes History of hysterectomy (~1984) History of tonsillectomy and adenoidectomy Family History Family History Father Family history of elevated blood lipids Family history of diabetes mellitus in first degree relative Family history of coronary artery disease Patient's father is Family history of heart disease in male family member before age 55 Mother Family history of coronary artery disease Patient's mother is Family history of emphysema Family history of heart disease in male family member before age 55 Family history of mental disorder Depression Other Diabetes mellitus Family history of cardiovascular disease Hypertension Social History Social History Social History: Surrogate decision maker: Escobar Olea, . Code status: Full code. Smoking packs per day: 1 Smoking cigarettes per day: 20.0 Years smoked: 30 Smoking pack-years: 30.00 Smoking status: Former smoker (Quit Nov 2009) Tobacco type: cigarettes Second hand tobacco smoke exposure: Yes Smoking end date: 03/06/09 Alcohol intake: current Drinks per week: 14 Substance use: never Gender identity (if verbalized by the patient): Female Spiritual care concerns: No Exam Const: General: no acute distress and well developed Orientation/consciousness: oriented to person, oriented to place, oriented to time and patient oriented x3 HENMT: Head: normocephalic Ears: external ears normal General nose exam: Normal external nose present Eyes: General: appearance normal, both eyes and all related structures Conjunctivae: conjunctivae normal Neck: Neck: normal visual inspection and full ROM Chest: Chest pa
[2020-03-02 14:30] LABS: INR 0.8; Prothrombin Time 12.1 Seconds (11.1-14.7)
[2020-03-02 14:31] LABS: Partial Thromboplastin Time 24.8 SECONDS (22.3-36.8)
[2020-03-02 14:33] LABS: Anion Gap 10 mmol/L (8-16); Blood Urea Nitrogen 15 mg/dL (7-17); Calcium 8.9 mg/dL (8.4-10.2); Carbon Dioxide 26 mmol/L (22-30); Chloride 99 mmol/L (98-107); Estimated CRCL calculation 55 ml/min; Estimated Glomerular Filt Rate > 60; Glucose 134 mg/dL (65-105); Potassium 3.7 mmol/L (3.4-5.0); Sodium 135 mmol/L (137-145)
[2020-03-02 14:45] LABS: Troponin I < 0.012 ng/mL (0.000-0.034)
[2020-03-02 14:57] LABS: D Dimer < 0.22 ug/mL (<0.48)
[2020-03-02 17:41] LABS: Troponin I < 0.012 ng/mL (0.000-0.034)
[2020-03-02 21:33] LABS: SARS-CoV-2 RNA PCR Negative
== END 2020-03-02 18:43 | disposition home or self-care (01) ==
PROVIDERS: Emergency Medicine; Emergency Provider Emergency Medicine; PCP Physician Assistant
DX: R07.2 Precordial pain (principal); Z20.828 Contact with and (suspected) exposure to other viral communicable diseases; J45.909 Unspecified asthma, uncomplicated; K21.9 Gastro-esophageal reflux disease without esophagitis; M81.0 Age-related osteoporosis without current pathological fracture; Z85.828 Personal history of other malignant neoplasm of skin; Z87.891 Personal history of nicotine dependence; Z79.82 Long term (current) use of aspirin
CPT/HCPCS: 36415; 71045; 80048; 84484; 85025; 85380; 85610; 85730; 87081; 87635; 87880; 93005; 99284; A9270; C9803; U0003

== ENCOUNTER 2020-12-15 10:02 | Outpatient (CLI) | payer MEDICARE, SELFPAY ==
--- NOTE | ~2020-12-15 | DEXA_ITS ---
Bone Density Report Name: Carol Olea Age: 65 Sex: Female Ethnicity: White Date of : 1955 Indication: osteopenia; monitoring treatment; postmenopausal Referring Provider: JOLEEN EATON Study: Bone densitometry was performed. Exam Date: December 15, 2020 Accession number: [id number] Bone Density: Region BMD T-score Z-score Classification AP Spine (L1-L4) 0.846 -1.8 -0.1 Osteopenia Femoral Neck (Left) 0.575 -2.5 -1.0 Osteoporosis Total Hip (Left) 0.754 -1.5 -0.3 Osteopenia Total Hip Bilateral Avg 0.744 -1.6 -0.4 Osteopenia Femoral Neck (Right) 0.615 -2.1 -0.6 Osteopenia Total Hip (Right) 0.732 -1.7 -0.5 Osteopenia World Health Organization criteria for BMD impression classify patients as: Normal (T-score at or above -1.0), Osteopenia (T-score between -1.0 and -2.5), or Osteoporosis (T-score at or below -2.5). 10-year Fracture Risk: FRAX not reported because: Some T-score for Spine Total or Hip Total or Femoral Neck at or below -2.5 Treated for osteoporosis Previous Exams: Region Exam Age BMD T-score BMD Change BMD Change Date g/cm2 vs Baseline vs Previous AP Spine(L1-L4) 12/15/2020 65 0.846 -1.8 -0.003(-0.4%)# 0.020(2.4%) 12/13/2018 62 0.825 -2.0 -0.023(-2.7%)# 0.010(1.2%) 10/04/2016 60 0.816 -2.1 -0.033(-3.9%)# 0.024(3.0%)* 08/25/2014 58 0.792 -2.3 -0.057(-6.7%)# 0.028(3.6%)# 07/25/2012 56 0.764 -2.6 -0.085(-10.0%) 0.031(4.2%)# 05/24/2008 52 0.733 -2.9 -0.115(-13.6%) -0.016(-2.1%) 03/04/2006 50 0.749 -2.7 -0.099(-11.7%) -0.102(-12.0%) 08/20/2002 46 0.851 -1.8 0.003(0.3%) 0.003(0.3%) 05/01/2001 45 0.849 -1.8 Total Hip(Left) 12/15/2020 65 0.754 -1.5 0.080(11.8%)# 0.007(1.0%) 12/13/2018 62 0.747 -1.6 0.072(10.7%)# 0.023(3.2%) 10/04/2016 60 0.724 -1.8 0.049(7.3%)# 0.029(4.1%)* 08/25/2014 58 0.695 -2.0 0.021(3.1%)# 0.020(3.0%)# 07/25/2012 56 0.675 -2.2 0.000(0.1%)# 0.044(7.0%)# 05/24/2008 52 0.631 -2.6 -0.044(-6.5%)* -0.016(-2.5%) 03/04/2006 50 0.647 -2.4 -0.028(-4.1%)* -0.013(-1.9%) 08/20/2002 46 0.659 -2.3 -0.015(-2.3%) -0.015(-2.3%) 05/01/2001 45 0.675 -2.2 Total Hip(Right) 12/15/2020 65 0.732 -1.7 0.059(8.8%)# -0.010(-1.3%) 12/13/2018 62 0.742 -1.6 0.069(10.2%)# 0.021(3.0%) 10/04/2016 60 0.721 -1.8 0.048(7.1%)# 0.018(2.6%) 08/25/2014 58 0.703 -2.0 0.030(4.4%)# 0.059(9.1%)# 07/25/2012 56 0.644 -2.4 -0.029(-4.3%)# 0.001(0.2%)# 05/24/2008 52 0.643 -2.5 -0.030(-4.5%)* -0.002(-0.3%) 03/04/2006 50 0.645 -2.4 -0.029(-4.2%)* -0.044(-6.4%)*
== END 2020-12-15 10:03 | disposition home or self-care (01) ==
LOC: ANHIMG 10:05
PROVIDERS: PCP Family Medicine; Visit Provider Obstetrics & Gynecology
DX: Z78.0 Asymptomatic menopausal state (principal); M85.88 Other specified disorders of bone density and structure, other site; M81.0 Age-related osteoporosis without current pathological fracture; M85.852 Other specified disorders of bone density and structure, left thigh; M85.851 Other specified disorders of bone density and structure, right thigh
CPT/HCPCS: 77080

== ENCOUNTER 2021-01-23 08:27 | Outpatient (CLI) | payer MEDICARE, SELFPAY ==
[2021-01-23 09:49] LABS: Anion Gap 8 mmol/L (8-16); Blood Urea Nitrogen 14 mg/dL (7-17); Calcium 9.6 mg/dL (8.4-10.2); Carbon Dioxide 29 mmol/L (22-30); Chloride 98 mmol/L (98-107); Estimated Glomerular Filt Rate > 60; Glucose 102 mg/dL (65-110); Potassium 4.2 mmol/L (3.4-5.0); Sodium 135 mmol/L (137-145)
== END 2021-01-23 08:28 | disposition home or self-care (01) ==
PROVIDERS: PCP Family Medicine; Visit Provider Physician Assistant
DX: E87.5 Hyperkalemia (principal)
CPT/HCPCS: 36415; 80048

== ENCOUNTER 2021-06-21 10:37 | Outpatient (CLI) | payer MEDICARE, SELFPAY ==
--- NOTE | ~2021-06-21 | MM_ITS ---
EXAMINATION: MM screening mirza BI w dave HISTORY: Screening mammogram TECHNIQUE: Craniocaudal and mediolateral oblique 3-D tomosynthesis images were obtained and synthetic 2-D images were generated. CAD analysis was submitted and interpreted. COMPARISON: 02/21/2020, 03/02/2019, 02/28/2018 bilateral screening mammogram examinations BREAST PARENCHYMAL COMPOSITION: The breasts are heterogeneously dense, which may obscure small masses . FINDINGS: There is no evidence of suspicious mass, calcification, or architectural distortion to sugg est malignancy in either breast. There has been no suspicious interval change. IMPRESSION: 1. No mammographic evidence of malignancy. 2. Recommend routine screening mammography in one year. BI-RADS Category 1: Negative Reviewed, dictated and finalized at location A.
== END 2021-06-21 10:38 | disposition home or self-care (01) ==
LOC: ANHIMG 10:39
PROVIDERS: PCP Family Medicine; Visit Provider Obstetrics & Gynecology
DX: Z12.31 Encounter for screening mammogram for malignant neoplasm of breast (principal)
CPT/HCPCS: 77063; 77067

== ENCOUNTER 2021-09-21 08:57 | Outpatient (CLI) | payer MEDICARE, SELFPAY ==
--- NOTE | ~2021-09-21 | XR_ITS ---
XR lumbar spine min 4V DATE: 09/21/2021 09:23 INDICATION: Bilateral back pain radiating to the knees TECHNIQUE: AP, lateral, bilateral oblique views and coned lateral lumbosacral view COMPARISON: 12/10/2015 lumbar spine FINDINGS: There is mild thoracolumbar levoscoliosis. Normal alignment of the lumbar vertebrae. No fracture or bone destruction, spondylolysis or spondylol isthesis is detected. There is severe degenerative disc disease at L5-S1. Lumbar interspaces are relatively well preserved. The lumbar pedicles are intact. The sacroiliac joints are unremarkable other than mild degenerative change. IMPRESSION: Severe degenerative disc disease at L5-S1 Mild levoscoliosis Reviewed, dictated and finalized at location B.
== END 2021-09-21 08:58 | disposition home or self-care (01) ==
PROVIDERS: PCP Family Medicine; Visit Provider Physician Assistant
DX: M54.16 Radiculopathy, lumbar region (principal); M51.37 Other intervertebral disc degeneration, lumbosacral region
CPT/HCPCS: 72110

== ENCOUNTER 2021-09-21 09:26 | Outpatient (CLI) | payer MEDICARE, SELFPAY ==
[2021-09-21 10:20] LABS: Erythrocyte Sedimentation Rate 15 mm/hr (0-20)
[2021-09-21 17:21] LABS: Creatine Kinase 36 U/L (30-135)
== END 2021-09-21 09:27 | disposition home or self-care (01) ==
LOC: ANHLAB 09:27
PROVIDERS: PCP Family Medicine; Visit Provider Physician Assistant
DX: G72.9 Myopathy, unspecified (principal)
CPT/HCPCS: 36415; 72110; 82550; 85652

== ENCOUNTER 2021-12-19 21:38 | Emergency (ER) | payer MEDICARE, SELFPAY ==
[2021-12-19 22:58] VITALS: BP 122/56; PULSE 91; RESP 18; TEMP 36.9; O2SAT 99
[2021-12-19 23:23] LABS: Basophils Percent Auto 0.3 % (0.2-1.2); Eosinophils Absolute Auto 0.2 K/mm3 (0-0.3); Eosinophils Percent Auto 1.7 % (0-4.4); Hematocrit 37.9 % (37.0-47.0); Hemoglobin 12.5 g/dL (12.0-15.0); Immature Granulocyte Absolute 0.03 K/mm3 (0.00-0.031); Immature Granulocyte Percent A 0.2 % (0-0.5); Lymphocytes Absolute Auto 1.95 K/mm3 (0.9-3.2); Lymphocytes Percent Auto 15.9 % (18.3-44.2); Mean Corpuscular Hemoglobin 31.7 pg (26-34); Mean Corpuscular Volume 96.2 fl (80-100); Mean Platelet Volume 10.1 fl (7.4-10.4); Monocytes Absolute Auto 0.8 K/mm3 (0.1-0.6); Monocytes Percent Auto 6.2 % (2.6-8.5); Neutrophils Absolute Auto 9.3 K/mm3 (1.3-6.7); Neutrophils Percent Auto 75.7 % (45.5-73.1); Platelet Count Result 324 k/mm3 (150-375); Red Blood Count 3.94 M/mm3 (4.2-5.4); Red Cell Distribution Width 12.9 % (11.5-14.5); White Blood Count 12.2 K/mm3 (4.5-10.0)
[2021-12-19 23:34] LABS: Add Urine Microscopic? YES; Appearance Urine Cloudy (Clear); Bacteria Urine Trace /hpf; Bilirubin Urine Negative (Negative); Blood Urine 1+ (Negative); Color Urine Yellow (Yellow); Glucose Urine UA Negative (Negative); Ketones Urine Negative (Negative); Leukocyte Esterase Ur Trace LEU/UL (Negative); Mucus Urine Rare /lpf; Nitrate Urine Negative (Negative); Protein Urine Negative (Negative); Specific Grav Ur 1.019 (1.001-1.035); Squamous Epithelial Cell Urine Few /hpf (Few); Urobilinogen Urine Negative mg/dL (<2.0)
[2021-12-19 23:35] LABS: Alanine Aminotransferase 22 U/L (6-35); Alkaline Phosphatase 70 U/L (38-126); Anion Gap 13 mmol/L (8-16); Aspartate Amino Transferase 27 U/L (14-36); Bilirubin,Total 0.7 mg/dL (0.2-1.3); Blood Urea Nitrogen 15 mg/dL (7-17); Calcium 9.1 mg/dL (8.4-10.2); Carbon Dioxide 21 mmol/L (22-30); Chloride 104 mmol/L (98-107); Estimated CRCL calculation 62 ml/min; Estimated Glomerular Filt Rate > 60; Glucose 101 mg/dL (65-110); Lipase 72 U/L (23-300); Potassium 3.8 mmol/L (3.4-5.0); Sodium 138 mmol/L (137-145)
[2021-12-20] VITALS (14 sets, daily range): BP systolic 93–141; BP diastolic 52–69; PULSE 74–85; RESP 17–18; TEMP 36.9; O2SAT 95–100
--- NOTE | 2021-12-20 01:57 | ED.ABDPAIN ---
HPI - Abdominal Pain General Chief Complaint: Abdominal Pain Stated Complaint: ABD Pain Time Seen by Provider: 12/20/21 01:50 History of Present Illness HPI narrative: 66-year-old female history of anxiety hyperlipidemia social alcohol use presents to the emergency room for evaluation of abdominal cramping since earlier this afternoon with associated multiple episodes of nonmelanotic nonbloody diarrhea. Patient states abdominal cramping is worse after her episodes of diarrhea. Denies taking any medications to attempt to alleviate her symptoms. Denies fever. Denies nausea or vomiting. History of hysterectomy. Related Data Home Medications Medication Instructions Recorded Confirmed aspirin 81 mg tablet,delayed 81 mg PO DAILY 08/26/19 09/21/21 release (Aspir-) magnesium 200 mg tablet 400 mg PO DAILY 08/26/19 09/21/21 denosumab 60 mg/mL subcutaneous 60 mg subcut [id number] 12/31/19 09/21/21 syringe (Prolia) lactobacillus combination no.9 4 4,000 mmu cells PO DAILY 07/06/20 09/21/21 billion cell capsule (Adult 50 Plus Probiotic) calcium carbonate 600 mg calcium 600 mg PO DAILY 07/07/21 09/21/21 (1,500 mg) tablet (Calcium) mecobalamin (vitamin B12) 1,000 1,000 mcg sublingual DAILY 07/07/21 09/21/21 mcg disintegrating tablet,sublingual zinc 50 mg tablet 50 mg PO DAILY 07/07/21 09/21/21 Allergies Allergy/AdvReac Type Severity Reaction Status Date / Time propoxyphene Allergy Unknown Unknown Verified 12/13/21 12:03 meperidine AdvReac Intermediate NAUSEA Verified 12/13/21 12:03 Review of Systems Review of Systems: CONSTITUTIONAL: Denies fever, chills, or sweats. EYES: Denies visual changes, redness, or discharge. ENT: Denies rhinorrhea, congestion, sore throat, or otalgia. CARDIOVASCULAR: Denies chest pain, palpitations, or edema. RESPIRATORY: Denies cough or dyspnea. GASTROINTESTINAL: Reports upper abdominal cramping, diarrhea GENITOURINARY: Denies dysuria or hematuria. SKIN: Denies rash or itching. MUSCULOSKELETAL: Denies back pain, joint pain, or myalgia. NEUROLOGIC: Denies headache, numbness, dizziness, or weakness. PSYCHIATRIC: Denies anxiety or depression. [facility] Past Medical History Medical History Asthma Gastritis On EGD [place] [address] Gonzalez. Gastroesophageal reflux disease Osteoporosis Surgical History Surgical History History of appendectomy History of basal cell carcinoma excision History of bunionectomy of both great toes History of hysterectomy (~1984) History of tonsillectomy and adenoidectomy Family History Family History Father Family history of elevated blood lipids Family history of diabetes mellitus in first degree relative Family history of coronary artery disease Patient's father is Family history of heart disease in male family member before age 55 Mother Family history of coronary artery disease Patient's mother is Family history of emphysema Family history of heart disease in male family member before age 55 Family history of mental disorder Depression Other Diabetes mellitus Family history of cardiovascular disease Hypertension Social History Social History Social History: Surrogate decision maker: Escobar Olea, . Code status: Full code. Travels to [place] for Winter, drives in their camper. Smoking packs per day: 1 Smoking cigarettes per day: 20.0 Years smoked: 30 Smoking pack-years: 30.00 Smoking status: Never smoker Tobacco type: cigarettes Second hand tobacco smoke exposure: Yes Smoking end date: 03/06/09 Alcohol intake: current Drinks per week: 12 Substance use: never Substance use type: does not use Gender identity (if verbalized by the patient): Female Spiritual c
[2021-12-20] MEDS: DICYCLOMINE HCL INJ 20 MG/2 ML VIAL IM (02:16)
[2021-12-20] MEDS: SODIUM CHLORIDE 0.9% IV 1,000 ML 999 ML IV CONT ×2 (02:16→03:15)
== END 2021-12-20 04:16 | disposition home or self-care (01) ==
PROVIDERS: Emergency Medicine; Emergency Provider Nurse Practitioner Family; PCP Family Medicine
DX: R19.7 Diarrhea, unspecified (principal); E78.5 Hyperlipidemia, unspecified; Z79.82 Long term (current) use of aspirin; J45.909 Unspecified asthma, uncomplicated; K21.9 Gastro-esophageal reflux disease without esophagitis; M81.0 Age-related osteoporosis without current pathological fracture; Z85.828 Personal history of other malignant neoplasm of skin; Z90.710 Acquired absence of both cervix and uterus; Z87.891 Personal history of nicotine dependence
CPT/HCPCS: 36415; 80053; 81001; 83690; 85025; 87086; 87088; 96361; 96365; 96372; 99284; J0500; J0696; J7030

== ENCOUNTER 2021-12-29 13:31 | Outpatient (CLI) | payer MEDICARE, SELFPAY ==
--- NOTE | ~2021-12-29 | MR_ITS ---
EXAMINATION: MR lumbar spine wo con DATE: 12/29/2021 14:19 INDICATION: Low back pain. TECHNIQUE: Magnetic resonance imaging (MRI) of the lumbar spine was performed without intravenous con trast. Sequences included sagittal T2-weighted FSE, sagittal T2-weighted FS FSE, sagittal T1-weighted FSE, and axial T2-weighted FSE. COMPARISON: Lumbar spine radiographs 09/21/2021 FINDINGS: There is 5 degrees levocurvature of thoracolumbar spine. There is 3 mm retrolisthesis of L5 on S1. Vertebral body heights are normal. There is severely decreased disc height at L5-S1 with endp late remodeling. There is a 15 mm cyst in left kidney. The following disc levels are specifically dis cussed: L1-L2: The disc is bulging. There is mild bilateral facet joint osteoarthritis. There is no neural fo raminal stenosis. There is mild central canal stenosis. L2-L3: The disc is bulging. There is mild right facet joint osteoarthritis. There is mild right neura l foraminal stenosis. There is mild central canal stenosis. L3-L4: The disc is bulging and has an annular fissure. There is mild bilateral facet joint osteoarthr itis. There is mild bilateral neural foraminal stenosis. There is mild central canal stenosis. L4-L5: The disc is bulging and has an annular fissure. There is no facet joint osteoarthritis. There is mild bilateral neural foraminal stenosis. There is mild central canal stenosis. L5-S1: The disc is bulging and has an annular fissure. There is no facet joint osteoarthritis. There is mild right and moderate left neural foraminal stenosis. There is mild central canal stenosis. IMPRESSION: 1. Severe lower lumbar spondylosis. Reviewed, dictated and finalized at location A.
== END 2021-12-29 13:32 | disposition home or self-care (01) ==
PROVIDERS: PCP Family Medicine; Visit Provider Physician Assistant
DX: M51.36 Other intervertebral disc degeneration, lumbar region (principal); M47.896 Other spondylosis, lumbar region
CPT/HCPCS: 72148

== ENCOUNTER 2022-01-12 10:21 | Outpatient (CLI) | payer MEDICARE, SELFPAY ==
--- NOTE | ~2022-01-12 | US_ITS ---
EXAMINATION: US renal BI DATE: 01/12/2022 11:16 INDICATION: N28.1 - Cyst of kidney, acquired TECHNIQUE: Multiple grayscale and Doppler ultrasound images of the kidneys were obtained. COMPARISON: CT abdomen and pelvis, 09/04/2019 MRI lumbar spine 12/29/2021 FINDINGS: The right kidney measures 9.0 x 4.2 x 4.9 cm. The left kidney measures 10.3 x 4.5 x 4.2 cm. The kidne ys demonstrate normal parenchymal echogenicity. 1.3 cm simple left midpole cyst. There is no hydronep hrosis. The bladder is normal. IMPRESSION: Unremarkable renal sonogram findings. Reviewed, dictated and finalized at location K. F BOX FINISHER
== END 2022-01-12 10:22 | disposition home or self-care (01) ==
PROVIDERS: PCP Family Medicine; Visit Provider Physician Assistant
DX: N28.1 Cyst of kidney, acquired (principal)
CPT/HCPCS: 76775

== ENCOUNTER 2022-08-22 08:59 | Outpatient (CLI) | payer MEDICARE, SELFPAY ==
--- NOTE | ~2022-08-22 | MM_ITS ---
EXAMINATION: MM screening mirza BI w dave HISTORY: Screening mammogram TECHNIQUE: Craniocaudal and mediolateral oblique 3-D tomosynthesis images were obtained and synthetic 2-D images were generated. CAD analysis was submitted and interpreted. COMPARISON: June 21, 2021, February 21, 2020, March 02, 2019 bilateral screening mammogram examin ations BREAST PARENCHYMAL COMPOSITION: The breasts are heterogeneously dense, which may obscure small masses . FINDINGS: There is no evidence of suspicious mass, calcification, or architectural distortion to sugg est malignancy in either breast. There has been no suspicious interval change. IMPRESSION: 1. No mammographic evidence of malignancy. 2. Recommend routine screening mammography in one year. BI-RADS Category 1: Negative Reviewed, dictated and finalized at location A.
== END 2022-08-22 09:00 | disposition home or self-care (01) ==
LOC: ANHIMG 09:02
PROVIDERS: PCP Family Medicine; Visit Provider Obstetrics & Gynecology
DX: Z12.31 Encounter for screening mammogram for malignant neoplasm of breast (principal)
CPT/HCPCS: 77063; 77067

== ENCOUNTER 2022-09-01 14:07 | Outpatient (CLI) | payer MEDICARE, SELFPAY ==
--- NOTE | ~2022-09-01 | XR_ITS ---
EXAM: XR hip BI 2V w AP pelvis DATE: 09/01/2022 14:36 HISTORY: M16.9Osteoarthritis hip, unspecified, right side, radiating . COMPARISON: None available. FINDINGS: Normal mineralization. No fracture or dislocation. No lytic or blastic lesion. Calcificati on of the gluteus medius tendon on the left. Mild degenerative change in the bilateral SI joints, lef t hip, and pubic symphysis. Moderate degenerative change in the right hip. No erosion or periosteal c hange. Soft tissues within normal limits. IMPRESSION: Moderate right and mild left hip osteoarthritis. Mild osteitis pubis and bilateral SI layla nt osteoarthritis. Left gluteus medius calcific tendinitis. Reviewed, dictated and finalized at location K. IMPRESSION: Moderate right and mild left hip osteoarthritis. Mild osteitis pubi s and bilateral SI joint osteoarthritis. Left gluteus medius calcific tendiniti s.
--- NOTE | ~2022-09-01 | XR_ITS ---
EXAM: XR lumbar spine min 4V DATE: 09/01/2022 14:37 HISTORY: M47.816 - Spondylosis without myelopathy or radiculopathy... . COMPARISON: 09/21/2021; MRI lumbar spine 12/29/2021. FINDINGS: Mild lumbar scoliosis. 5 nonrib-bearing lumbar-type vertebral bodies. Pedicles intact. Mini mal 2 mm retrolisthesis at L5-S1, stable in flexion and extension. No dynamic listhesis elicited in f lexion or extension at any other level. Vertebral body heights preserved. Severe disc space narrowing at L5-S1. Mild facet hypertrophy and sclerosis in the mid and lower lumbar spine. No fracture or dis location. IMPRESSION: Stable rate 1 retrolisthesis and severe degenerative disc disease at L5-S1. Multilevel mi ld facet arthropathy. Reviewed, dictated and finalized at location K. IMPRESSION: Stable rate 1 retrolisthesis and severe degenerative disc disease a t L5-S1. Multilevel mild facet arthropathy.
== END 2022-09-01 14:08 | disposition home or self-care (01) ==
PROVIDERS: PCP Family Medicine; Visit Provider Neurological Surgery
DX: M47.816 Spondylosis without myelopathy or radiculopathy, lumbar region (principal); M16.0 Bilateral primary osteoarthritis of hip; M53.3 Sacrococcygeal disorders, not elsewhere classified; M51.37 Other intervertebral disc degeneration, lumbosacral region
CPT/HCPCS: 72110; 73521

== ENCOUNTER 2022-12-09 12:40 | Outpatient (CLI) | payer MEDICARE, SELFPAY ==
--- NOTE | ~2022-12-09 | XR_ITS ---
XR chest 2V DATE: 12/09/2022 13:06 INDICATION: Wheezing for one month TECHNIQUE: PA and lateral views COMPARISON: 03/02/2020 portable AP chest 08/26/2019 CT pulmonary scan FINDINGS: There is old pulmonary granulomatous disease including calcified right upper lobe pulmonary granuloma, right hilar and mediastinal calcified nodes. Moderate bilateral hyperinflation. No pulmonary infiltrate or consolidation, pleural effusion or pulm onary vascular congestion or pneumothorax is detected. Normal heart size. No hilar or mediastinal enlargement. Diffuse osteopenia. Mild thoracic scoliosis. IMPRESSION: Moderate hyperinflation; otherwise no active cardiopulmonary disease Reviewed, dictated and finalized at location B. IMPRESSION: Moderate hyperinflation; otherwise no active cardiopulmonary diseas e
== END 2022-12-09 12:41 | disposition home or self-care (01) ==
PROVIDERS: PCP Family Medicine; Visit Provider Physician Assistant Medical
DX: R06.2 Wheezing (principal); R91.8 Other nonspecific abnormal finding of lung field
CPT/HCPCS: 71046

== ENCOUNTER 2023-02-13 12:00 | Outpatient (CLI) | payer MEDICARE, SELFPAY ==
[2023-02-13 16:29] LABS: Alanine Aminotransferase 65 U/L (6-35); Albumin Level 4.5 g/dL (3.5-5.1); Alkaline Phosphatase 92 U/L (38-126); Anion Gap 6 mmol/L (8-16); Aspartate Amino Transferase 62 U/L (14-36); Bilirubin,Total 0.5 mg/dL (0.2-1.3); Blood Urea Nitrogen 14 mg/dL (7-17); Calcium 9.2 mg/dL (8.4-10.2); Carbon Dioxide 27 mmol/L (22-30); Chloride 103 mmol/L (98-107); Cholesterol 214 mg/dL (0-200); Estimated Glomerular Filt Rate > 60; Glucose 83 mg/dL (65-110); HDL Direct 96 mg/dL; Potassium 4.2 mmol/L (3.4-5.0); Sodium 136 mmol/L (137-145); Triglycerides 86 mg/dL (<150)
[2023-02-13 16:39] LABS: LDL Cholesterol Direct 87 mg/dL
[2023-02-17 00:02] LABS: Vitamin D 1,25 (OH)2 Total 49 pg/mL (18-72); Vitamin D2 1,25 (OH)2 <8 pg/mL; Vitamin D3 1,25 (OH)2 49 pg/mL
== END 2023-02-13 12:01 | disposition home or self-care (01) ==
LOC: ANHLAB 12:03
PROVIDERS: PCP Family Medicine; Visit Provider Physician Assistant
DX: E55.9 Vitamin D deficiency, unspecified (principal); Z13.1 Encounter for screening for diabetes mellitus; Z13.220 Encounter for screening for lipoid disorders; E78.5 Hyperlipidemia, unspecified
CPT/HCPCS: 36415; 80053; 80061; 82652

== ENCOUNTER 2023-09-21 10:25 | Outpatient (CLI) | payer MEDICARE, SELFPAY ==
--- NOTE | 2023-09-21 20:19 | WPDPFTINT ---
PFT Procedure Performed PFT Procedure Performed Spirometry with Pre/Post Bronchodilator Plethysmography (Lung Vol) Diffusing Cap (DLCO) Flow Vol Loop PFT Interpretation DOS: 09/21/2023 REQUESTING: Renetta Roper MD REASON FOR TESTING: Shortness of breath PULMONARY FUNCTION TESTS Results are reliable and reproducible. Repeatability of spirometry FEV1 maneuver pre and post bronchodilator is Grade A. Spirometry: The pre-bronchodilator FEV1 is 1.70 L, 77%, within the normal range. The pre-bronchodilator FVC is 2.24 L, 79%, normal. The FEV1/FVC ratio is 76%, normal.. After bronchodilator, the FEV1 is 1.73 L, 78%, +2%. After bronchodilator, the FVC is 2.17 L, 76%,-3%. The FEV1/FVC ratio is 80%. Lung volumes: The total lung capacity is 3.60 L, 74%, reduced. This is consistent with mild restriction. The residual volume is 1.27 L, 61%, reduced. The RV/TLC is 35 %, normal. Airway resistance is increased. Diffusion: DLCO is 14.2, 69%, normal. The DLCO/VA is 4.43, 101%, normal. Flow volume loop: The flow volume loop is consistent with restriction. IMPRESSION: This study shows a mild restrictive impairment, no obstruction, normal diffusion. No response to bronchodilator. No prior studies for comparison. Jessica Arguello MD
== END 2023-09-21 10:26 | disposition home or self-care (01) ==
LOC: ANHPFT 10:26
PROVIDERS: PCP Family Medicine; Visit Provider Family Medicine
DX: R06.00 Dyspnea, unspecified (principal); R94.2 Abnormal results of pulmonary function studies
CPT/HCPCS: 94060; 94726; 94729

== ENCOUNTER 2023-09-22 10:07 | Outpatient (CLI) | payer MEDICARE, SELFPAY ==
--- NOTE | ~2023-09-22 | MM_ITS ---
EXAMINATION: MM screening mirza BI w dave HISTORY: Screening TECHNIQUE: Craniocaudal and mediolateral oblique 3-D tomosynthesis images were obtained and synthetic 2-D images were generated. CAD analysis was submitted and interpreted. COMPARISON: Comparison to multiple prior studies sequentially, with oldest reviewed study dated 02/04. BREAST PARENCHYMAL COMPOSITION: Dense: The breasts are heterogeneously dense, which may obscure small masses FINDINGS: There is no evidence of suspicious mass, calcification, or architectural distortion to sugg est malignancy in either breast. There has been no suspicious interval change. IMPRESSION: 1. No mammographic evidence of malignancy. 2. Recommend routine screening mammography in one year. BI-RADS Category 1: Negative Reviewed, dictated and finalized at location B.
== END 2023-09-22 10:08 | disposition home or self-care (01) ==
PROVIDERS: PCP Family Medicine; Visit Provider Obstetrics & Gynecology
DX: Z12.31 Encounter for screening mammogram for malignant neoplasm of breast (principal)
CPT/HCPCS: 77063; 77067

== ENCOUNTER 2023-12-13 13:41 | Outpatient (CLI) | payer MEDICARE, SELFPAY ==
--- NOTE | ~2023-12-13 | DEXA_ITS ---
Bone Density Report Name: DELMY HAMILTON Age: 67 Sex: Female Ethnicity: White Date of : 1955 Indication: osteopenia; asthma or emphysema; hysterectomy; Referring Provider: JOLEEN EATON Study: Bone densitometry was performed. Exam Date: December 13, 2023 Accession number: [id number] Bone Density: Region BMD T-score Z-score Classification AP Spine(L1-L4) 0.832 -2.0 0.0 Osteopenia Femoral Neck (Left) 0.586 -2.4 -0.7 Osteopenia Total Hip (Left) 0.770 -1.4 0.0 Osteopenia Femoral Neck (Right) 0.727 -1.1 0.6 Osteopenia Total Hip (Right) 0.733 -1.7 -0.3 Osteopenia Total Hip Mean 0.752 -1.6 -0.2 Osteopenia World Health Organization criteria for BMD impression classify patients as: Normal (T-score at or above -1.0), Osteopenia (T-score between -1.0 and -2.5), or Osteoporosis (T-score at or below -2.5). 10-year Fracture Risk(1): Major Osteoporotic Fracture 12% Hip Fracture 2.7% Reported Risk Factors: [place] (), Neck BMD=0.586, BMI=22.6 (1) FRAX(R) Version 3.08. Fracture probability calculated for an untreated patient. Fracture probability may be lower if the patient has received treatment. Previous Exams: Region Exam Age BMD T-score BMD Change BMD Change Date g/cm2 vs Baseline vs Previous AP Spine (L1-L4) 12/13/2023 67 0.832 -2.0 0.068 (8.9%)# -0.014 (-1.6%) 12/15/2020 65 0.846 -1.8 0.082 (10.7%)# 0.020 (2.4%) 12/13/2018 62 0.825 -2.0 0.061 (8.0%)# 0.010 (1.2%) 10/04/2016 60 0.816 -2.1 0.052 (6.8%)# 0.024 (3.0%)* 08/25/2014 58 0.792 -2.3 0.028 (3.6%)# 0.028 (3.6%)# 07/25/2012 56 0.764 -2.6 Total Hip(Left) 12/13/2023 67 0.770 -1.4 0.095 (14.1%)# 0.016 (2.1%) 12/15/2020 65 0.754 -1.5 0.079 (11.8%)# 0.007 (1.0%) 12/13/2018 62 0.747 -1.6 0.072 (10.7%)# 0.023 (3.2%) 10/04/2016 60 0.724 -1.8 0.049 (7.2%)# 0.029 (4.1%)* 08/25/2014 58 0.695 -2.0 0.020 (3.0%)# 0.020 (3.0%)# 07/25/2012 56 0.675 -2.2 Total Hip(Right) 12/13/2023 67 0.733 -1.7 0.089 (13.9%)# 0.001 (0.1%) 12/15/2020 65 0.732 -1.7 0.088 (13.7%)# -0.010 (-1.3%) 12/13/2018 62 0.742 -1.6 0.098 (15.2%)# 0.021 (3.0%) 10/04/2016 60 0.721 -1.8 0.076 (11.9%)# 0.018 (2.6%) 08/25/2014 58 0.703 -2.0 0.059 (9.1%)# 0.059 (9.1%)# 07/25/2012 56 0.644 -2.4 *Denotes significance at 95% confidence level, LSC for AP Spine = 0.022 g/cm2, LSC for Total Hip = 0.027 g/cm2 # Denotes dissimilar scan types or analysis methods Clinical Information Provided
== END 2023-12-13 13:42 | disposition home or self-care (01) ==
PROVIDERS: PCP Family Medicine; Visit Provider Obstetrics & Gynecology
DX: M85.89 Other specified disorders of bone density and structure, multiple sites (principal); M81.0 Age-related osteoporosis without current pathological fracture
CPT/HCPCS: 77080

== ENCOUNTER 2023-12-25 17:09 | Emergency (ER) | payer MEDICARE, SELFPAY ==
--- NOTE | ~2023-12-25 | US_ITS ---
EXAMINATION: US venous doppler LE RT DATE: 12/25/2023 20:09 INDICATION: Right lower leg pain TECHNIQUE: Grayscale ultrasound images without and with compression and Doppler ultrasound images of the right lower extremity veins were obtained. COMPARISON: None. FINDINGS: The visualized portions of right common femoral vein, profunda (deep) femoral vein, femoral vein, pop liteal vein, peroneal trunk, posterior tibial veins, peroneal veins, and greater saphenous vein outfl ow are patent. 2.6 x 1.3 x 2.2 cm fluid collection on the anterior margin of the right hip and deep t o the femoral vessels which could represent either fluid within a recess of the right hip joint or fl uid within the right iliopsoas bursa IMPRESSION: 1. No deep venous thrombosis in the right lower limb. 2. 2.6 x 1.3 x 2.2 cm fluid collection anterior to the right hip and deep to the femoral vessels whic h represent either fluid within the recess of the right hip or more likely fluid within the right katerin opsoas bursa. Reviewed, dictated and finalized at location A. IMPRESSION: 1. No deep venous thrombosis in the right lower limb. 2. 2.6 x 1.3 x 2.2 cm fluid collection anterior to the right hip and deep to th e femoral vessels which represent either fluid within the recess of the right h ip or more likely fluid within the right iliopsoas bursa.
--- NOTE | ~2023-12-25 | XR_ITS ---
EXAMINATION: XR hip RT min 2V DATE: 12/25/2023 19:00 INDICATION: Right hip pain radiating down the right leg TECHNIQUE: Anteroposterior and frog-leg lateral views of the right hip were obtained. COMPARISON: 09/01/2022 FINDINGS: Bone alignment is normal. No fracture or suspected osteonecrosis. Interval progression of now severe osteoarthritis at the right hip with superior predominant nonuniform joint space narrowing and modera te size marginal osteophytes. Mild osteoarthritis at the bilateral sacralized joints and visualized p ortion of the left hip. IMPRESSION: 1. Progression of now severe right hip osteoarthritis. No acute osseous abnormality. Reviewed, dictated and finalized at location A. IMPRESSION: 1. Progression of now severe right hip osteoarthritis. No acute osseous abnorma lity.
[2023-12-25 17:10] VITALS: BP 126/43; PULSE 81; RESP 18; TEMP 36.4; O2SAT 99
--- NOTE | 2023-12-25 18:48 | ED.EXTPRO ---
HPI - Extremity Problem General Chief complaint: Extremity Problem,Nontraumatic <Danni Damon APRN - Last Filed: 12/25/23 18:51> Stated complaint: right leg pain <Danni Daomn APRN - Last Filed: 12/25/23 18:51> Time Seen by Provider: 12/25/23 18:40 <Danni Damon APRN - Last Filed: 12/25/23 18:51> Focused HPI: Patient is a 68-year-old female who presents to the ER with right-sided hip, leg, and foot pain. She reports she sees a pain specialist and gets injections into her right hip. Patient last had a steroid injection December 14, 2023. She reports the pain has continually worsened since then. Patient reports the pain is so significant at night that she can not sleep. She describes the pain as throbbing. Patient denies any incontinence, or shortness of breath. GENERAL: Well-appearing, well-nourished, and in no acute distress. HEAD: Normocephalic, atraumatic. CHEST: Clear to auscultation. ?No respiratory distress. HEART: Regular rate and rhythm.? NEURO: ?Alert and oriented x3. Cranial nerves intact. Patient screened in triage and initial orders placed.? ?Additional care and disposition to be based upon?diagnostic testing and treatment. <Danni Damon APRN - Last Filed: 12/25/23 18:51> History of Present Illness HPI Narrative: Brief HPI. Also has history of DVT would like to rule out clot. Has been performing exercises to help with back discomfort. Recent epidural last week. No trauma. Has some pain to the anterior mallory without swelling to the leg. <Hilario Velazquez MD - Last Filed: 12/25/23 21:27> Related Data Home medications: Home Medications Medication Instructions Recorded Confirmed aspirin 81 mg tablet,delayed 81 mg PO DAILY 08/26/19 11/15/23 release (Aspir-) magnesium 200 mg tablet 400 mg PO DAILY 08/26/19 11/15/23 lactobacillus combination no.9 4 4,000 mmu cells PO DAILY 07/06/20 11/15/23 billion cell capsule (Adult 50 Plus Probiotic) calcium carbonate (Calcium 600) 600 mg PO DAILY 07/07/21 11/15/23 mecobalamin (vitamin B12) 1,000 1,000 mcg sublingual DAILY 07/07/21 11/15/23 mcg disintegrating tablet,sublingual zinc 50 mg tablet 50 mg PO DAILY 07/07/21 11/15/23 <Danni Damon APRN - Last Filed: 12/25/23 18:51> Allergies/Adverse reactions: Allergies Allergy/AdvReac Type Severity Reaction Status Date / Time propoxyphene Allergy Unknown Unknown Verified 12/25/23 17:09 meperidine AdvReac Intermediate NAUSEA Verified 12/25/23 17:09 <Danni Damon APRN - Last Filed: 12/25/23 18:51> Review of Systems Constitutional: Constitutional: Reports no additional constitutional complaints <Hilario Velazquez MD - Last Filed: 12/25/23 21:27> Cardiovascular: Cardiovascular: Reports no additional cardiovascular complaints <Hilario Velazquez MD - Last Filed: 12/25/23 21:27> Respiratory: Respiratory: Reports no additional respiratory complaints <Hilario Velazquez MD - Last Filed: 12/25/23 21:27> Musculoskeletal: Musculoskeletal: Reports back pain, Reports arthralgias, Denies joint swelling and Denies muscle cramps <Hilario Velazquez MD - Last Filed: 12/25/23 21:27> Neurologic: Reports system reviewed and no additional complaints, except as documented <Hilario Velazquez MD - Last Filed: 12/25/23 21:27> [facility] Past Medical History Medical History: Medical History Anxiety Asthma JLUIS (generalized anxiety disorder) Gastritis On EGD in [address] Gonzalez. Gastroesophageal reflux disease GERD (gastroesophageal reflux disease) Nicotine dependence, cigarettes, uncomplicated Osteoporosis Spondylosis of cervical joint with myelopathy <Danni Damon APRN - Last Filed: 12/25/23 18:51> Surgical History Surgical History: Surgical History History of appendectomy History of basal cell carci
[2023-12-25] MEDS: methylPREDNISolone SOD SUCC 125 MG VIAL IM (19:28)
[2023-12-25] MEDS: KETOROLAC (*BKC) 60 MG/2 ML VIAL IM (19:28)
[2023-12-25 19:32] VITALS: BP 128/61; PULSE 77; RESP 16; TEMP 36.8; O2SAT 99
[2023-12-25 20:13] VITALS: BP 127/67; PULSE 77; RESP 16; TEMP 36.7; O2SAT 99
[2023-12-25] MEDS: HYDROcodone/acetaminophen (*CRX) 5-325 MG TABLET 1 TAB PO (20:49)
== END 2023-12-25 21:30 | disposition home or self-care (01) ==
PROVIDERS: Emergency Provider Emergency Medicine; PCP Family Medicine
DX: M16.11 Unilateral primary osteoarthritis, right hip (principal); M70.71 Other bursitis of hip, right hip; J45.909 Unspecified asthma, uncomplicated; K21.9 Gastro-esophageal reflux disease without esophagitis; M81.0 Age-related osteoporosis without current pathological fracture; F41.1 Generalized anxiety disorder; Z87.891 Personal history of nicotine dependence; Z85.828 Personal history of other malignant neoplasm of skin; Z90.710 Acquired absence of both cervix and uterus; Z79.82 Long term (current) use of aspirin; Z79.899 Other long term (current) drug therapy
CPT/HCPCS: 73502; 93971; 96372; 99284; A9270; J1885; J2919

== ENCOUNTER 2024-01-26 15:05 | Outpatient (CLI) | payer MEDICARE, SELFPAY ==
--- NOTE | 2024-01-26 15:22 | ECG_ITS ---
Test Date: 2024-01-26 15:30:42 Measurements Intervals [place] Rate: 81 P: 50 W[place]: 138 QRS: 61 QRSD: 87 T: 32 QT: 358 QTc: 418 Interpretive Statements SINUS RHYTHM POSSIBLE LEFT ATRIAL ENLARGEMENT BORDERLINE ST-T WAVE ABNORMALITY- ANT/INF LEADS BASELINE ARTIFACT- I, II, III, AVR, AVL, AVF BORDERLINE ECG No previous ECG available for comparison Electronically Signed On 01-26-2024 15:34:55 OIL FURNACE INSTALLER by Jhony Segovia D.O.
== END 2024-01-26 15:06 | disposition home or self-care (01) ==
PROVIDERS: PCP Family Medicine; Visit Provider Family Medicine
DX: Z01.818 Encounter for other preprocedural examination (principal)
CPT/HCPCS: 93005

== ENCOUNTER 2024-01-30 12:50 | Outpatient (CLI) | payer MEDICARE, SELFPAY ==
[2024-01-30 13:26] LABS: Hematocrit 34.3 % (37.0-47.0); Hemoglobin 11.3 g/dL (12.0-15.0)
[2024-01-30 13:42] LABS: Albumin Level 4.8 g/dL (3.5-5.1); Estimated Glomerular Filt Rate > 60; Glucose 90 mg/dL (65-110)
[2024-01-30 14:19] LABS: Urine Cotinine NEGATIVE
== END 2024-01-30 12:51 | disposition home or self-care (01) ==
PROVIDERS: PCP Family Medicine; Visit Provider Orthopaedic Surgery
DX: M16.11 Unilateral primary osteoarthritis, right hip (principal); F17.210 Nicotine dependence, cigarettes, uncomplicated; M47.816 Spondylosis without myelopathy or radiculopathy, lumbar region; Z79.899 Other long term (current) drug therapy; E78.5 Hyperlipidemia, unspecified
CPT/HCPCS: 80307; 82040; 82565; 82947; 85014; 85018

== ENCOUNTER 2024-06-08 09:56 | Outpatient (CLI) | payer MEDICARE, SELFPAY ==
--- OUTSIDE RECORDS SUMMARY | 2024-06-08 10:00 | XMS_ITS | Clinical Summary ---
Author Organization [facility] [employer] Address [address] [place] [address] Care Team Providers Care Maintenance Technician 3Rd Shift Name Role Phone Gloria Vaughn MD Primary Care Provider [phone] Source Comments [facility] [employer],non-owned Affiliates and Associated Physician Practices is amultiple site organization consisting of ambulatory clinics and hospital sitesin [place], [place], [place] and [place]. This disclosure is being madepursuant to the Care Everywhere program and may not contain all information available regarding this patient. Last updated 17.[facility] [employer] Allergies Active Allergy Reactions Criticality Noted Date Comments Meperidine Nausea and/or Vomiting 07/30/2018 Nitrofurantoin Dizziness 07/31/2018 Medications * Be aware that medications may not be up to date on this document. Alwaysverify current medications with the patient. Medication Sig Dispensed Refills Start Date End Date Status PANTOPRAZOLE SODIUM PO Ac tive indapamide (LOZOL) 1.25 mg tablet Take 1.25 mg by mouth once daily Active Denosumab (PROLIA SC)Indications:every 6 months Reasons: every 6 months Active Other For anxiety Active Social History Tobacco Use Types Packs/Day Years Used Date Smoking Tobacco: Former Smokeless Tobacco: Never Sex and Gender Information Value Date Recorded Sex Assigned at Not on file Gender Identity Not on file Sexual Orientation Not on file Last Filed Vital Signs Vital Sign Reading Time Taken Comments Blood Pressure 112/64 10/22/2018 11:37 AM CDT Pulse 77 10/22/2018 11:37 AM CDT Temperature 37.1 C (98.7 F) 10/22/2018 11:37 AM CDT Respiratory Rate 16 10/22/2018 11:37 AM CDT Oxygen Saturation 97% 10/22/2018 11:37 AM CDT Inhaled Oxygen Concentration - - Weight 58.1 kg (128 lb) 10/22/2018 11:37 AM CDT Height 157.5 cm (5' 2 ) 10/22/2018 11:37 AM CDT Body Mass Index 23.41 10/22/2018 11:37 AM CDT Plan of Treatment Health Maintenance Due Date Last Done Comments BONE DENSITY TESTING 1955 COLOGUARD (AGES 45-75) - COL ON CA SCREENING 1955 COLON MONITORING 1955 COLONOSCOPY - COLON CA SCREENING 1955 CT COLONOGRAPHY - COLON CA SCREENING 1955 Colorectal Cancer Screening 1955 FIT - COLON CA SCREENING 1955 FLEX SIG - COLON CA SCREENING 1955 LIPID TESTING 1955 MAMMOGRAM 1955 HEPATITIS C SCREENING 12/10/1973 DTAP/TDAP/TD VACCINES (1 - Tdap) 12/14/1974 PNEUMOCOCCAL VACCINE 50+ (1 of 1 - PCV) 12/14/2005 ZOSTER VACCINE (1 of 2) 12/14/2005 COVID-19 VACCINE (1 - 2023-2 5 season) 2023 INFLUENZA VACCINE (#1) 2023 DEPRESSION SCREENING 03/06/2024 Respiratory Syncytial Virus (RSV) Vaccine Pt: or over 60 yrs (1 - 1-dose 75+ series) 12/14/2030 HEPATITIS B VACCINE Aged Out No longe r eligible based on patient's age to complete this topic HIB VACCINE Aged Out No longer eligi ble based on patient's age to complete this topic HPV VACCINE Aged Out No longer eligi ble based on patient's age to complete this topic MENINGOCOCCAL (Group B) VACC INE SHARED DECISION-MAKING Aged Out No longer eligibl e based on patient's age to complete this topic MENINGOCOCCAL GROUPS A/C/Y/W VACCINE Aged Out No longer eligible b ased on patient's age to complete this topic Care Teams Maintenance Technician 3Rd Shift Relationship Specialty Start Date End Date Gloria Vaughn MD PCP - General Family Medicine 07/30/18
[2024-06-08 10:16] LABS: Basophils Absolute Auto 0.1 K/mm3 (0.0-0.1); Basophils Percent Auto 0.6 % (0.2-1.2); Eosinophils Absolute Auto 0.4 K/mm3 (0-0.3); Eosinophils Percent Auto 4.1 % (0-4.4); Hematocrit 37.4 % (37.0-47.0); Hemoglobin 12.4 g/dL (12.0-15.0); Lymphocytes Absolute Auto 2.23 K/mm3 (0.9-3.2); Lymphocytes Percent Auto 22.3 % (18.3-44.2); Mean Corpuscular HGB Conc 33.2 g/dl (32-36); Mean Corpuscular Hemoglobin 33.1 pg (26-34); Mean Corpuscular Volume 99.7 fl (80-100); Mean Platelet Volume 9.9 fl (7.4-10.4); Monocytes Absolute Auto 0.8 K/mm3 (0.1-0.6); Monocytes Percent Auto 7.5 % (2.6-8.5); Neutrophils Absolute Auto 6.4 K/mm3 (1.3-6.7); Neutrophils Percent Auto 64.5 % (45.5-73.1); Platelet Count Result 356 k/mm3 (150-375); Red Blood Count 3.75 M/mm3 (4.2-5.4)
[2024-06-08 10:23] LABS: Iron 92 ug/dL (37-170)
[2024-06-08 10:34] LABS: Percent Iron Saturation 30 % (20-50)
== END 2024-06-08 09:57 | disposition home or self-care (01) ==
LOC: ANHLAB 09:58
PROVIDERS: PCP Family Medicine; Visit Provider Family Medicine
DX: E61.1 Iron deficiency (principal)
CPT/HCPCS: 36415; 82728; 83540; 83550; 85025

== ENCOUNTER 2024-06-10 08:12 | Outpatient (CLI) | payer MEDICARE, SELFPAY ==
--- OUTSIDE RECORDS SUMMARY | 2024-06-10 08:27 | XMS_ITS | Clinical Summary ---
Author Organization [facility] Address [address] [place] [address] Care Team Providers Care Senior Analyst Developer Name Role Phone Renetta Roper MD Primary Care Provider [phone] Allergies No known active allergies Active Problems Problem Noted Date Diagnosed Date Constipation 07/17/2012 Social History Tobacco Use Types Packs/Day Years Used Date Smoking Tobacco: Former Cigarettes 1 34 0 12/04/1975 - 12/03/2009 Comments:2022. 34 pack hx has new quit date 11/2009 Comments Unknown Sex and Gender Information Value Date Recorded Sex Assigned at Not on file Legal Sex Female 7:08 PM MATH AND PHYSICS INSTRUCTOR Gender Identity Not on file Sexual Orientation Not on file Obstetrics History Last Filed Vital Signs Vital Sign Reading Time Taken Comments Blood Pressure 129/78 07/23/2012 2:16 PM CDT Pulse 74 07/23/2012 2:16 PM CDT Temperature - - Respiratory Rate - - Oxygen Saturation - - Inhaled Oxygen Concentration - - Weight 55.8 kg (123 lb) 01/07/2022 1:20 PM CDT Height 157.5 cm (5' 2 ) 01/07/2022 1:20 PM CDT Body Mass Index 22.5 01/07/2022 1:20 PM CDT Plan of Treatment Health Maintenance Due Date Last Done Comments Breast Cancer Screening-Mammogram 1955 Colon Cancer Screening-Colonoscopy 1955 Depression Screening 1955 Fall Risk Assessment 1955 Hepatitis C Screening 1955 Osteoporosis Screening-Bone Density Scan 1955 Hepatitis B Screening 12/14/1973 Zoster Vaccine (1 of 2) 12/14/2005 Pneumococcal vaccine 65+ (2 of 2 - PCV) 12/17/2009 12/17/2008 Well Visit 65+ 12/14/2020 Influenza Vaccine (Season Ended) 2024 11/25/19 18 Lung Cancer Screening 01/17/2025 01/17/2024 , 01/11/2023, 01/07/2022, Additional history exists DTaP/Tdap/Td Vaccine (2 - Td or Tdap) 07/29/2025 07/30/2015, 12/18/2003 Procedures Procedure Name Priority Date/Time Associated Diagnosis Comments CT LUNG CANCER SCREENING Schedule Routine, Read Routine (OP Routine) 01/17/2024 11:06 AM MATH AND PHYSICS INSTRUCTOR Nicotine dependence, cigarettes, uncomplicated from Last 3 Months or Most Recently Relevant to Health Maintenance Results * CT Lung Cancer Screening (01/17/2024 11:06 AM MATH AND PHYSICS INSTRUCTOR) Anatomical Region Laterality Modality Chest N/A Computed Tomogra phy 01/17/2024 11:2 4 AM MATH AND PHYSICS INSTRUCTOR Impressions 01/17/2024 11:24 AM MATH AND PHYSICS INSTRUCTOR 1. LungRADS Category 2 (benign) . Recommend Low dose Screening CT of chest in 12 months. 2. LungRADS Categories: 1 - Negative (no nodules, or only benign calcified or fat-containing nodules) 2 - Benign Appearance or Behavior (nodules with very low likelihood of becoming a clinically active cancer due to size or lack of growth) 3 - Probably Benign (probably benign findings-short term follow up suggested; includes nodules with a low likelihood of becoming a clinically active cancer) 4A,4B,4X - Suspicious (category 3 or 4 nodules with findings for which additional diagnostic testing and/or tissue sampling is recommended) S - Other (clinically significant or potentially clinically significant findings (non-lung cancer) C - Prior Lung Cancer (modifier for patients with a prior diagnosis of lung cancer who return to screening) Electronically signed by: Elvis Giraldo M.D. Narrative 01/17/2024 11:24 AM MATH AND PHYSICS INSTRUCTOR EXAMINATION: Lung cancer screening CT of the Chest without intravenous contrast HISTORY: Lung Cancer Screening TECHNIQUE: Low radiation dose chest protocol. No intravenous contrast. Reconstructed slice width 1.[address] Dose Index 1.56 mGy. Dose-length product 57.4 mGy-cm. COMPARISON: 01/11/2023 FINDINGS: Lung nodules or findings of lung cancer: Stable small scattered lung nodules. Smoking related lung disease: No significant emphysema. Other findings: Mild atherosclerosis includes the coronary arteries. Stable fracture deformities including the sternum previously described. Procedure Note Elvis Giraldo MD - 01/17/2024 EXAMINATION: Lung cancer screening CT of the Chest without intravenous contrast HISTORY: Lung Cancer Screening TECHNIQUE: Low radiation dose chest protocol. No intravenous contrast. Reconstructed slice width 1.[address] Dose Index 1.56 mGy. Dose-length product 57.4 mGy-cm. COMPARISON: 01/11/2023 FINDINGS: Lung nodules or findings of lung cancer: Stable small scattered lung nodules. Smoking related lung disease: No significant emphysema. Other findings: Mild atherosclerosis includes the coronary arteries. Stable fracture deformities including the sternum previously described. IMPRESSION: 1. LungRADS Category 2 (benign) . Recommend Low dose Screening CT of chest in 12 months. 2. LungRADS Categories: 1 - Negative (no nodules, or only benign calcified or fat-containing nodules) 2 - Benign Appearance or Behavior (nodules with very low likelihood of becoming a clinically active cancer due to size or lack of growth) 3 - Probably Benign (probably benign findings-short term follow up suggested; includes nodules with a low likelihood of becoming a clinically active cancer) 4A,4B,4X - Suspicious (category 3 or 4 nodules with findings for which additional diagnostic testing and/or tissue sampling is recommended) S - Other (clinically significant or potentially clinically significant findings (non-lung cancer) C - Prior Lung Cancer (modifier for patients with a prior diagnosis of lung cancer who return to screening) Electronically signed by: Elvis Giraldo M.D. Renetta Roper MD IMG CT PROCEDURES Final Result from Last 3 Months or Most Recently Relevant to Health Maintenance Insurance [facility] UHC MEDICARE ADVANTAGE [facility] MEDICARE [facility] MEDICARE Care Teams Senior Analyst Developer Relationship Specialty Start Date End Date Renetta Roper MD [address] [place] [address] PCP - General Family Medicine 12/06/23
--- OUTSIDE RECORDS SUMMARY | 2024-06-10 08:27 | XMS_ITS | Clinical Summary ---
Author Organization [facility] [employer] Address [address] [place] [address] Care Team Providers Care Electronic Resources Librarian Name Role Phone Gloria Vaughn MD Primary Care Provider [phone] Source Comments [facility] [employer],non-owned Affiliates and Associated Physician Practices is amultiple site organization consisting of ambulatory clinics and hospital sitesin [place], [place], [place] and [place]. This disclosure is being madepursuant to the Care Everywhere program and may not contain all information available regarding this patient. Last updated 17.[facility] [employer] Allergies Active Allergy Reactions Criticality Noted Date [...] age to complete this topic Care Teams Electronic Resources Librarian Relationship Specialty Start Date End Date Gloria Vaughn MD PCP - General Family Medicine 07/30/18
--- OUTSIDE RECORDS SUMMARY | 2024-06-10 08:27 | XMS_ITS | Encounter Summary ---
Author Organization [facility] Address [address] [place] [address] Care Team Providers Care Cake Maker Name Role Phone Gloria Mendieta MD Primary Care Provider + [phone] Renetta Roper MD Primary Care Provider [phone] Renetta Roper MD Primary Care Provider [phone] Renetta Roper MD Primary Care Provider [phone] Encounter Details Date Type Department Care Team (Late st Contact Info) Description 12/11/2019 Telephone [facility] - Imaging [address] [place] [address] Transcribed Order, Provider Social History Tobacco Use Types Packs/Day Years Used Date Smoking Tobacco: Former Comments Unknown Sex and Gender Information Value Date Recorded Sex Assigned at Not on file Legal Sex Female 7:08 PM 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 MAIL 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 Gender Identity Not on file Sexual Orientation Not on file documented as of this encounter Plan of Treatment Not on file documented as of this encounter Visit Diagnoses Not on filedocumented in this encounter Care Teams Cake Maker Relationship Specialty Start Date End Date Gloria Mendieta MD PCP - General 09/12/18 12/10/20 Renetta Roper MD PCP - General Family Medicine 12/11/20 11/20/22 Renetta Roper MD PCP - General Family Medicine 11/21/22 12/05/23 Renetta Roper MD [address] [place] [address] [place] [address] PCP - General Family Medicine 12/06/23 documented as of this encounter
--- OUTSIDE RECORDS SUMMARY | 2024-06-10 08:27 | XMS_ITS | Referral Summary ---
Author Organization [facility] Address [address] [place] [address] Care Team Providers Care Maid Housekeeper Name Role Phone Renetta Roper MD Primary Care Provider [phone] Allergies No known active allergies Active Problems Problem Noted Date Diagnosed Date Constipation 07/17/2012 Social History Tobacco Use Types Packs/Day Years Used Date Smoking Tobacco: Former Cigarettes 1 34 0 12/04/1975 - 12/03/2009 Comments:2022. 34 pack hx has new quit date 11/2009 Comments Unknown Sex and Gender Information Value Date Recorded Sex Assigned at Not on file Legal Sex Female 7:08 PM X RAY OPERATOR Gender Identity Not on file Sexual Orientation [...] 01/07/2022 1:20 PM CDT Plan of Treatment Not on file Procedures Procedure Name Priority Date/Time Associated Diagnosis Comments CT LUNG CANCER SCREENING Schedule Routine, Read Routine (OP Routine) 01/17/2024 11:06 AM X RAY OPERATOR Nicotine dependence, cigarettes, uncomplicated from Last 3 Months or Most Recently Relevant to Health Maintenance Results * CT Lung Cancer Screening (01/17/2024 11:06 AM X RAY OPERATOR) Anatomical Region Laterality Modality Chest N/A Computed Tomogra phy 01/17/2024 11:2 4 AM X RAY OPERATOR Impressions 01/17/2024 11:24 AM X RAY OPERATOR 1. LungRADS Category 2 (benign) . Recommend [...] Elvis Giraldo M.D. Narrative 01/17/2024 11:24 AM X RAY OPERATOR EXAMINATION: Lung cancer screening CT of the [...] Most Recently Relevant to Health Maintenance Insurance [employer] [facility] MEDICARE ADVANTAGE [employer] MEDICARE [facility] MEDICARE Care Teams Maid Housekeeper Relationship Specialty Start Date End Date Renetta Roper MD [address] [place] [address] PCP - General Family Medicine 12/06/23
[2024-06-10 11:15] LABS: Albumin Level 4.7 g/dL (3.5-5.1); Estimated Glomerular Filt Rate > 60; Glucose 94 mg/dL (65-110)
[2024-06-10 11:47] LABS: MRSA (PCR) NOT DETECTED (NOT DETECTE)
[2024-06-10 12:28] LABS: Urine Cotinine NEGATIVE
[2024-06-10 14:17] LABS: Hemoglobin A1C 5.3 % (<5.7)
== END 2024-06-10 08:13 | disposition home or self-care (01) ==
LOC: ANHSURGERY 08:17
PROVIDERS: PCP Family Medicine; Visit Provider Orthopaedic Surgery
DX: M16.11 Unilateral primary osteoarthritis, right hip (principal); Z01.818 Encounter for other preprocedural examination
CPT/HCPCS: 80307; 82040; 82565; 82947; 83036; 87641

== ENCOUNTER 2024-07-02 00:56 | Day surgery (SDC) | payer MEDICARE, SELFPAY ==
--- NOTE | 2024-06-10 08:16 | PC.NURSE ---
Report to the Outpatient Waiting Room, entrance under the green pavilion located off [facility], at time __6 am on date __07/02/24 . Planned Procedure Time: _7:30 am .? Time changes happen often and if your time is changed the preop area will call you the afternoon before. - You and your visitor will be asked to self-screen and do not enter if you have any COVID symptoms. Please call surgeon if you need to reschedule. - A mask is optional within the hospital at this time. Patients may have clear liquids (water, carbonated beverages, clear teas, apple juice) until 3 hours prior to surgery ( 4:30 am) with a maximum of 20 ounces. - No food from midnight until time of surgery and no smoking, or chewing tobacco (or any form of nicotine). No chewing gum, candy or mints. Take only the following medications with a SIP of water on the morning of surgery: __INHALER IF NEEDED,BUPROPION,LORAZEPAM IF NEEDED DO NOT STOP ANY OF YOUR OTHER PRESCRIPTION MEDICATIONS PRIOR TO SURGERY EXCEPT THE FOLLOWING Hold all vitamins and supplements for 3 days per anesthesiologist.LAST DOSE06/28/24 Medications to discontinue per physician NONE MAY TAKE TYLENOL IF NEEDED FOR PAIN Please no make-up, nail grenadian, hairspray, perfume, deodorant, or body powder the day of surgery.? No jewelry (including any body piercings) or valuables the day of surgery, leave them at home.? Please take a shower or bath the night before, or the morning of, surgery with an antibacterial soap.? Wear comfortable, loose fitting clothing.? Children are encouraged to wear pajamas. - Jewelry must be removed prior to entering the operating room.? Rings and piercings that are not removed may be cut off. - The hospital will not accept responsibility for valuables.? - Please leave all valuables, including medications, at home the day of surgery. If you are going home after surgery, a licensed compressed air pile driver operator must drive you home.? - NO public transportation without another adult if you receive anesthesia. - We recommend that an adult stay with you for 24 hours following discharge. - We also recommend that you do not drive, make important decision, drink alcoholic beverages, or take any drugs that were not prescribed by your health care provider for at least 24 hours after your discharge time. For Pediatric surgeries, we recommend two adults accompany the child home. Follow any additional instructions given to you from your surgeon. verbal and written instructions given to __PATIENT and asked if any additional questions and then verbalized understanding. Patient advised to call surgeon office or pre surgery nurse liaison [phone] if any additional questions.
[2024-06-10 08:20] VITALS: BMI 21.7
[2024-06-10 09:03] VITALS: BP 154/74; PULSE 76; RESP 18; TEMP 36.6; O2SAT 98
[2024-07-02] VITALS (13 sets, daily range): BP systolic 102–142; BP diastolic 49–78; PULSE 64–98; RESP 14–18; TEMP 36.1–36.6; O2SAT 94–100; BMI 21.7
--- NOTE | ~2024-07-02 | XR_ITS ---
EXAMINATION: XR hip RT min 2V DATE: 07/02/2024 10:00 INDICATION: Status post right total hip arthroplasty TECHNIQUE: Anteroposterior and cross-table lateral views of the right hip were obtained. COMPARISON: 06/22/24 FINDINGS: Interval placement of a noncemented right total hip arthroplasty which is in near-anatomic alignment. No fracture. The acetabular component is affixed with at least a single screw. Expected small amount of postoperative soft tissue gas about the right hip. IMPRESSION: 1. Expected appearance post right total hip arthroplasty. See procedure note for further detail. Reviewed, dictated and finalized at location B. IMPRESSION: 1. Expected appearance post right total hip arthroplasty. See procedure note fo r further detail.
--- OUTSIDE RECORDS SUMMARY | 2024-07-02 01:00 | XMS_ITS | Clinical Summary ---
Author Organization [facility] Address [address] [place] [address] Care Team Providers Care Hotbed Lever Operator Name Role Phone Renetta Roper MD Primary Care Provider [phone] Allergies No known active allergies Active Problems Problem Noted Date Diagnosed Date Constipation 07/17/2012 Social History Tobacco Use Types Packs/Day Years Used Date Smoking Tobacco: Former Cigarettes 1 34 0 12/04/1975 - 12/03/2009 Comments:2022. 34 pack hx has new quit date 11/2009 Comments Unknown Sex and Gender Information Value Date Recorded Sex Assigned at Not on file Legal Sex Female 7:08 PM SNUBBER Gender Identity Not on file Sexual Orientation [...] Read Routine (OP Routine) 01/17/2024 11:06 AM SNUBBER Nicotine dependence, cigarettes, uncomplicated from Last 3 Months or Most Recently Relevant to Health Maintenance Results * CT Lung Cancer Screening (01/17/2024 11:06 AM SNUBBER) Anatomical Region Laterality Modality Chest N/A Computed Tomogra phy 01/17/2024 11:2 4 AM SNUBBER Impressions 01/17/2024 11:24 AM SNUBBER 1. LungRADS Category 2 (benign) . Recommend [...] Elvis Giraldo M.D. Narrative 01/17/2024 11:24 AM SNUBBER EXAMINATION: Lung cancer screening CT of the [...] Most Recently Relevant to Health Maintenance Insurance [facility] UHC MEDICARE ADVANTAGE [facility] MEDICARE Address: [address] [address] [place] [address] [facility] MEDICARE [facility] MEDICARE Care Teams Hotbed Lever Operator Relationship Specialty Start Date End Date Renetta Roper MD [address] [place] [address] PCP - General Family Medicine 12/06/23
--- OUTSIDE RECORDS SUMMARY | 2024-07-02 01:00 | XMS_ITS | Encounter Summary ---
Author Organization [facility] Healthcare Address [address] [place] [address] Care Team Providers Care Associate Director Data & Analytics Name Role Phone Gloria Mendieta MD Primary Care Provider + [phone] Renetta Roper MD Primary Care Provider [phone] Renetta Roper MD Primary Care Provider [phone] Renetta Roper MD Primary Care Provider [phone] Encounter Details Date Type Department Care Team (Late st Contact Info) Description 12/11/[address] 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 Gender Identity Not on file Sexual Orientation Not on file documented as of this encounter Plan of Treatment Not on file documented as of this encounter Visit Diagnoses Not on filedocumented in this encounter Care Teams Associate Director Data & Analytics Relationship Specialty Start Date End Date Gloria Mendieta MD PCP - General 09/12/18 12/10/20 Rneetta Roper MD PCP - General Family Medicine 12/11/20 11/20/22 Renetta Roper MD PCP - General Family Medicine 11/21/22 12/05/23 Renetta Roper MD [address] [place] [address] [place] [address] PCP - General Family Medicine 12/06/23 documented as of this encounter
--- OUTSIDE RECORDS SUMMARY | 2024-07-02 01:00 | XMS_ITS | Referral Summary ---
Author Organization [facility] Address [address] [place] [address] Care Team Providers Care Electrician Master Name Role Phone Renetta Roper MD Primary Care Provider [phone] Allergies No known active allergies Active Problems Problem Noted Date Diagnosed Date Constipation 07/17/2012 Social History Tobacco Use Types Packs/Day Years Used Date Smoking Tobacco: Former Cigarettes 1 34 0 12/04/1975 - 12/03/2009 Comments:2022. 34 pack hx has new quit date 11/2009 Comments Unknown Sex and Gender Information Value Date Recorded Sex Assigned at Not on file Legal Sex Female 7:08 PM GOLF CADDY Gender Identity Not on file Sexual Orientation [...] Read Routine (OP Routine) 01/17/2024 11:06 AM GOLF CADDY Nicotine dependence, cigarettes, uncomplicated from Last 3 Months or Most Recently Relevant to Health Maintenance Results * CT Lung Cancer Screening (01/17/2024 11:06 AM GOLF CADDY) Anatomical Region Laterality Modality Chest N/A Computed Tomogra phy 01/17/2024 11:2 4 AM GOLF CADDY Impressions 01/17/2024 11:24 AM GOLF CADDY 1. LungRADS Category 2 (benign) . Recommend [...] Elvis Giraldo M.D. Narrative 01/17/2024 11:24 AM GOLF CADDY EXAMINATION: Lung cancer screening CT of the [...] Most Recently Relevant to Health Maintenance Insurance [employer] [facility] MEDICARE ADVANTAGE [employer] MEDICARE [facility] MEDICARE Care Teams Electrician Master Relationship Specialty Start Date End Date Renetta Roper MD [address] [place] [address] PCP - General Family Medicine 12/06/23
--- OUTSIDE RECORDS SUMMARY | 2024-07-02 01:00 | XMS_ITS | Continuity of Care Document ---
Author Organization [facility]. If a dditional information is needed, contact Health Information Management at [phone] Address [address] [place] [address] Phone Care Team Providers Care Warp Tester Name Role Phone Unavailable Unavailable Unavailable Unavailable Unavailable Unavailable Unavailable Unavailable Unavailable Unavailable Unavailable Unavailable Problems Diarrhea Onset:29-May-2022 Sakshi Rizzo MD Colitis Onset:26-May-2022 Sakshi Rizzo MD Chest pain Onset:08-Apr-2021 Lv Denis MD Allergies and Adverse Reactions propoxyphene(Allergy) Onset: 25-May-2022 Reaction:VOMITING acetaminophen(Allergy) Onset: 25-May-2022 Reaction:VOMITING Meperidine(Allergy) Onset: 25-May-2022 Reaction:VOMITING No Known Allergies(Allergy) Onset: 07-Apr-2021 Medications iopamidol;Provider Administr ation Instructions:CAUTION: This is a !!HIGH ALERT!! medicationCaution: This medication is a vesicant. Please take steps tosafely administer contrast agent in order to minimizepotential for extravasation.100ML ISOVUE 300 Quantity:1 Sakshi Rizzo MD Start:29-May-2022 Status:Discontinued Comments:Provider Administration Instructions:CAUTION: This is a !!HIGH ALERT!! medicationCaution: This medication is a vesicant. Please take steps tosafely administer contrast agent in order to minimizepotential for extravasation.100ML ISOVUE 300 iopamidol;Provider Administr ation Instructions:CAUTION: This is a !!HIGH ALERT!! medicationCaution: This medication is a vesicant. Please take steps tosafely administer contrast agent in order to minimizepotential for extravasation.100ML ISOVUE 300 Quantity:1 Sakshi Rizzo MD Start:25-May-2022 Status:Discontinued Comments:Provider Administration Instructions:CAUTION: This is a !!HIGH ALERT!! medicationCaution: This medication is a vesicant. Please take steps tosafely administer contrast agent in order to minimizepotential for extravasation.100ML ISOVUE 300 aspirin 81 MG Chewable Table t;81 MILLIGRAM PO DAILY Start:08-Apr-2021 Comments:81 MG PO DAILY pantoprazole 40 MG Delayed R elease Oral Tablet [Protonix];40 MILLIGRAM PO DAILY Start:08-Apr-2021 Comments:40 MG PO DAILY atorvastatin 20 MG Oral Tabl et;20 MILLIGRAM PO BEDTIME Start:08-Apr-2021 Comments:20 MG PO BEDTIME LORazepam 0.5 MG Oral Tablet ;PO BID PRN As Needed for ANXIETY Start:08-Apr-2021 Comments:PO BID PRN As Needed for ANXIETY Social History Smoking Status Never smoked tobacco Recorded: 29-May-2022 Ex-smoker Recorded: 25-May-2022 Ex-smoker Recorded: 07-Apr-2021
--- OUTSIDE RECORDS SUMMARY | 2024-07-02 01:00 | XMS_ITS | Clinical Summary ---
Author Organization [facility] [employer] Address [address] [place] [address] Care Team Providers Care Animal Cytologist Name Role Phone Gloria Vaughn MD Primary Care Provider [phone] Source Comments [facility] [employer] [employer],non-owned Affiliates and Associated Physician Practices is amultiple site organization consisting of ambulatory clinics and hospital sitesin [place], [place], [place] and [place]. This disclosure is being madepursuant to the Care Everywhere program and may not contain all information available regarding this patient. Last updated 17.[facility] [employer] Allergies Active Allergy Reactions Criticality Noted Date Comments Meperidine Nausea and/or Vomiting 07/30/2018 Nitrofurantoin Dizziness 07/31/2018 Medications * Be aware that medications may not be up to date on this document. Alwaysverify current medications with the patient. PANTOPRAZOLE SODIUM PO Active indapamide (LOZOL) 1.25 mg tablet Take 1.25 mg by mouth once daily Active Denosumab (PROLIA SC)Indications: every 6 months Reasons: every 6 months Active Other For anxiety Active Social History Tobacco Use Types Packs/Day Years Used Date Smoking Tobacco: Former Smokeless Tobacco: Never Comments No Sex and Gender Information Value Date Recorded Sex Assigned at Not on file Legal Sex Female 10:14 AM CDT Gender Identity Not on file Sexual Orientation [...] VACCINE (1 of 2) 12/14/2005 COVID-19 VACCINE ( - 2023-2 5 season) 2023 DEPRESSION SCREENING 03/06/2024 INFLUENZA VACCINE (Season Ended) 2024 Respiratory Syncytial Virus (RSV) Vaccine Pt: or [...] on patient's age to complete this topic Insurance [employer] Care Teams Animal Cytologist Relationship Specialty Start Date End Date Gloria Vaughn MD PCP - General Family Medicine 07/30/18
[2024-07-02] MEDS: LACTATED RINGERS 1,000 ML 30 ML IV CONT ×2 (06:45→09:32)
[2024-07-02] MEDS: ACETAMINOPHEN 500 MG TABLET 1000 MG PO (06:52)
[2024-07-02] MEDS: TRANEXAMIC ACID 1,000MG/ISO100 1,000 MG/100 ML BAG 200 MG IVPB (06:53)
--- NOTE | 2024-07-02 07:13 | P.PNAN_ITS ---
Anes - Initial Pre Proc Eval Procedure: Operation Date: 07/02/24 07:30 Proposed Procedures p Right Total Hip Arthroplasty - Miguel Brown MD Date/Time: 07/02/24 07:13 Surgeon: Miguel Brown MD Pre Op Diagnosis: primary oa right hip Patient Data Age: 68 Gender: F Height: 1.6 m Weight: 55.7 kg Last Vital Signs Temp 97.9 F 06/10/24 09:03 Pulse 76 06/10/24 09:03 Resp 18 06/10/24 09:03 BP 154/74 H 06/10/24 09:03 Pulse Ox 98 06/10/24 09:03 O2 Del Method Room Air 06/10/24 09:03 Allergies Allergy/AdvReac Type Severity Reaction Status Date / Time propoxyphene Allergy Unknown Nausea and Verified 07/02/24 07:09 Vomiting meperidine AdvReac Severe Nausea and Verified 07/02/24 07:09 Vomiting Home Medications ?Medication ?Instructions ?Recorded ?Confirmed ?Type magnesium 200 mg tablet 200 mg PO DAILY 08/26/19 07/02/24 History lactobacillus combination no.9 4 4,000 mmu cells PO DAILY 07/06/20 06/13/24 History billion cell capsule (Adult 50 Plus Probiotic) mecobalamin (vitamin B12) 1,000 1,000 mcg sublingual DAILY 07/07/21 07/02/24 History mcg disintegrating tablet,sublingual albuterol sulfate 90 mcg/actuation See Rx Instructions .Route 12/09/22 06/13/24 Rx aerosol inhaler .COMPLEX #8.5 ea pantoprazole 40 mg tablet,delayed See Rx Instructions .Route 08/09/23 06/13/24 Rx release .COMPLEX #180 tabs peak flow meter #1 ea 08/16/23 06/13/24 Rx montelukast 10 mg tablet 10 mg PO QHS #90 tabs 09/14/23 07/02/24 Rx dicyclomine 20 mg tablet 20 mg PO BID #180 tabs 10/06/23 06/13/24 Rx bupropion HCl 100 mg tablet 100 mg PO BID #180 tabs 11/02/23 07/02/24 Rx lorazepam 0.5 mg tablet (Ativan) 0.5 mg PO TID PRN anxiety #90 tabs 12/28/23 07/02/24 Rx atorvastatin 20 mg tablet 20 mg PO DAILY #90 tabs 01/10/24 06/13/24 Rx tramadol 50 mg tablet 50 mg PO BID PRN pain #60 tabs 02/19/24 06/13/24 Rx acetaminophen 500 mg tablet 1,000 mg PO Q6H PRN pain 06/10/24 07/02/24 History (Acetaminophen Pain Relief) calcium 600 mg (as 1 tablet PO DAILY 06/10/24 07/02/24 History carbonate)-vitamin D3 5 mcg (200 unit) tablet cetirizine 10 mg capsule (All Day 10 mg PO DAILY 06/10/24 06/13/24 History Allergy (cetirizine)) rivaroxaban 10 mg tablet (Xarelto) 10 mg PO DAILY 30 days #30 tabs 06/12/24 06/12/24 Rx triamcinolone acetonide 0.1 % 1 applic topical BID #80 grams 06/13/24 Rx topical cream hydroxyzine HCl 25 mg tablet 25 mg PO TID PRN itching #30 tabs 06/28/24 Rx Laboratory Tests 07/02/24 06:39 Blood Type Pending Antibody Screen Pending Patient hx anesthesia problems: none Family hx anesthesia problems: none Results Review: All pre-operative results and documents have been reviewed as part of the pre- operative evaluation. [facility] Past Medical History Medical History Spondylosis of cervical joint with myelopathy JLUIS (generalized anxiety disorder) GERD (gastroesophageal reflux disease) Anxiety Nicotine dependence, cigarettes, uncomplicated Osteoporosis Gastroesophageal reflux disease Gastritis On EGD [place] [address] Gonzalez. Asthma Surgical History Surgical History S/P epidural steroid injection History of section History of basal cell carcinoma excision History of bunionectomy of both great toes History of appendectomy History of tonsillectomy and adenoidectomy History of hysterectomy (~1984) Family History Family History Father Family history of elevated blood lipids Family history of diabetes mellitus in first degree relative Family history of coronary artery disease Patient's father is Family history of heart disease in male family member before age 55 Mother Family history of coronary artery disease Patient's mother is Family history of emphysema Family history of heart disease in male family member before age 55 Family history of mental disorder Depression Sibling Heart disease Other Diabetes mellitus Family history of cardiovascular disease Hypertension Social History Social History Social History: Date of last mammogram: 08/22/22 @ [facility] (normal) Flu: yes (2022) Tetanus and Pneumonia: no (2022) Dexa Scan: yes (unknown date) Colonoscopy: yes Carol drinks coffee/tea 1-2 cups/day. Surrogate decision maker: Escobar Olea, . Code status: Full code. Travels to [place] for Winter, drives in their camper. Smoking packs per day: 1 Smoking cigarettes per day: 20.0 Years smoked: 30 Smoking pack-years: 30.00 Smoking status: Former smoker Tobacco type: cigarettes Second hand tobacco smoke exposure: Yes Smoking end date: 03/06/09 Additional smoking assessment comments: DENIES ANY FORM OF TOBACCO USE Alcohol intake: current Drinks per week: 7 Alcohol use details: Wine every night Substance use: never Substance use type: does not use Do You Feel Safe in your Home?: Yes Lack of Transportation: No Lack of Food: Never True Current Housing: I Have Housing Concerned About Future Housing: No Difficulty Paying Gas/Electric Bills: No Difficulty Paying for Meds: No Currently Unemployed: No Education: Master's Degree or Higher Difficulty w/ Childcare or Family Care: No Living arrangements: with family Occupation/Education: retired Gender identity (if verbalized by the patient): Female Spiritual care concerns: No Agree to blood products: Yes Anes - Eval Final PreProcedure Day of Procedure 07/02/24 07:13 Patient weight: normal and thin Lungs: normal air movement Airway: Mallampati scale class II and special considerations (Upper caps. ) Neurological: alert and oriented Last oral intake: >/= 8 hours ASA classification: II Emergent: no Anesthetic plan: proceed Anesthesia type and monitoring: general ETT and standard monitoring Results Review: All pre-operative results and documents have been reviewed as part of the pre- operative evaluation. Hyperlipidemia, stress test 2020 neg for ischemia, PFTs 2023 reviewed. Informed Consent: The patient's anesthetic plan and its attendant risks and benefits were discussed with the patient/family/POA. Questions were solicited and answers provided to the satisfaction of the patient/family/POA.
--- NOTE | 2024-07-02 07:16 | WPDHPUPDATE1 ---
History and Physical Update Update Date/Time: 07/02/24 07:16 History and Physical has been reviewed, including an updated exam of the patient. There are NO changes in the patient's condition. Risks, benefits, and alternatives have been discussed and questions answered. Patient agrees to proceed with procedure.
[2024-07-02] MEDS: ceFAZolin 2 GM/D5W 50 ML 2 GM/50 ML BAG IVPB ×3 (07:30→22:48)
[2024-07-02] MEDS: SODIUM CHLORIDE 0.9% IV 37.7 ML, MORPHINE SULFATE INJ (*CRX) 2 MG, ROPivacaine HCL 1% 2... INFILTRATE (08:11)
--- NOTE | 2024-07-02 09:24 | P.OP_ITS ---
Procedure Note - Detailed Date of Procedure 07/02/24 Pre-op Diagnosis Right hip degenerative arthritis. Post-op Diagnosis Same Procedure Performed Right Total Hip Arthroplasty Surgeon Miguel Brown MD Parking Meter Attendant Johanne Dowling PA-C Anesthesia General Findings Good bone quality. Implants matched preoperative templating. Shallow acetabulum with slight dysplasia. Description of Procedure The patient was given preoperative antibiotics. A general anesthetic was administered. The patient was carefully placed in the lateral decubitus position on the PEG board. The shoulders and hips were carefully positioned for component and leg length positioning reference. The hip was prepped and draped in the usual sterile fashion. A longitudinal incision was created over the posterior aspect of the greater trochanter. Careful dissection was brought down through the deep fascia with electrocautery. A minimally invasive optimized posterior approach to the hip was performed. The short external rotators and capsule were taken down in an L-shaped capsulotomy. The piriformis and quadratus femoris were spared. The tissue was tagged for later repair using number 2 high strength suture. The femoral neck was measured and taken in situ. The femoral head was removed. The acetabulum was carefully exposed. The inferior capsule was released. The labrum was resected. The acetabulum was sequentially reamed to the intended cup size. The cup was impacted into position with excellent press-fit. One additional screw was placed due to the slight dysplasia and shallow acetabulum. Typical anatomic landmarks, including the bony contact points as well as the inferior transverse acetabular ligament were used to confirm cup positioning with preoperative templating. Attention was turned to the femur, which was carefully exposed. The hip was reamed and then broached sequentially. Excellent press-fit was obtained with the broach. The hip was trialed. Measurements were utilized, including the lesser trochanter as well as the center of the femoral head and the tip of the trochanter, and excellent assessment of the offset and leg lengths were confirmed. The real component was impacted into position. Trialing confirmed appropriate leg length and offset with soft tissue balancing as well apparent feel of the leg, both at the knee and the heel. Soft tissues were assessed using the the iliotibial band. Reduction of the posterior capsule and external rotators were also used as a secondary assessment. The hip was copiously irrigated with pulsatile lavage periodically throughout the procedure. The real components were then assembled and reduced. The hip was stable throughout typical maneuvers, including extension, external rotation to 70 degrees, the position of sleep as well as flexion to 90 degrees with internal rotation past 35 degrees. The shake test confirmed stability without impingement. Osteophytes were removed as necessary. The short external rotators and capsule were repaired back to the posterior tr ochanter through drill holes. The deep fascia was repaired with running number 2 barbed suture, followed by 2-0 Stratafix suture and 3-0 Stratafix suture in the dermis. Steri-Strips were placed on the skin, followed by a sterile occlusive dressing. There were no complications. Meticulous hemostasis was maintained with the AquaMantys device. The patient was brought to the recovery room in stable condition. There were no complications. Physician health center assistant, Johanne Dowling PA-C, required for surgery; including patient positioning, draping, tissue retraction, maintaining instrument position, hip dislocation/ relocation, wound closure, and dressing placement. Implants The Strykder Insignia hip stem, standard offset size 3 , was utilized with excellent press-fit. The 48 mm Trident II acetabular component was impacted with excellent press-fit stability. Standard polyethylene liner the +0, 36 mm Biolox ceramic femoral head was utilized. Estimated Blood Loss 150 Drains No Packing No Pathology None sent Complications No immediate complications Condition Stable Disposition PACU [facility] Billing Surgery - Charge Forward: Surgery Billing
[2024-07-02] MEDS: fentaNYL CITRATE INJ (*CRX) 100 MCG/2 ML VIAL 25 MCG IV PUSH ×4 (09:46→10:19)
[2024-07-02] MEDS: ONDANSETRON INJ 4 MG/2 ML VIAL IV PUSH ×3 (10:10→23:02)
--- NOTE | 2024-07-02 11:13 | ADMGEN ---
This patient, Carol Olea, was admitted to 3 [facility] Surg Room 317-01. Patient/family oriented to hospital policies and general routines including ID bracelet, bed and alarms, visiting hours, pain management, procedures, bathroom and other care routines, personal items, smoking policy, room service/diet, and visiting hours. Information on how to activate the Rapid Response Team has been discussed. Patient/Family are encouraged to report perceived risks to care and to ask questions if they do not understand what they are told or what they should do.
[2024-07-02] MEDS: ACETAMINOPHEN 325 MG TABLET 650 MG PO ×2 (12:59→17:24)
[2024-07-02] MEDS: oxyCODONE/ACETAMINOPHEN (*CRX) 5-325 MG TABLET 1 TABLET PO ×2 (14:30→17:26)
[2024-07-02] MEDS: buPROPion HCL 100 MG TABLET PO (17:24)
[2024-07-02] MEDS: SENNA/DOCUSATE SODIUM TABLET 2 TAB PO (17:24)
[2024-07-02] MEDS: DICYCLOMINE HCL 10 MG CAPSULE 20 MG PO (17:24)
[2024-07-02] MEDS: RIVAROXABAN 10 MG TABLET PO (17:25)
[2024-07-02] MEDS: MONTELUKAST SODIUM 10 MG TABLET PO (21:13)
[2024-07-02] MEDS: FAMOTIDINE 20 MG TABLET PO (21:13)
[2024-07-02] MEDS: HYDROmorphone HCL INJ (*CRX) 2 MG/ML VIAL 1 MG IV PUSH (21:14)
[2024-07-02] MEDS: SODIUM CHLORIDE 0.9% IV 1,000 ML 125 ML IV CONT (22:44)
[2024-07-02] MEDS: LORazepam (*CRX) 0.5 MG TABLET PO (23:11)
[2024-07-03 00:24] VITALS: BP 110/53; PULSE 73; RESP 14; TEMP 36.3; O2SAT 100
[2024-07-03] MEDS: METOCLOPRAMIDE HCL INJ 10 MG/2 ML VIAL 5 MG IV PUSH (01:13)
[2024-07-03 04:24] VITALS: BP 124/54; PULSE 87; RESP 16; TEMP 36.9; O2SAT 95
[2024-07-03] MEDS: ACETAMINOPHEN 325 MG TABLET 650 MG PO ×2 (06:06→11:59)
[2024-07-03] MEDS: ceFAZolin 2 GM/D5W 50 ML 2 GM/50 ML BAG IVPB (06:07)
[2024-07-03 08:12] LABS: Anion Gap 9 mmol/L (4-12); Blood Urea Nitrogen 10 mg/dL (7-17); Calcium 8.5 mg/dL (8.4-10.2); Carbon Dioxide 25 mmol/L (22-30); Chloride 98 mmol/L (98-107); Estimated CRCL calculation 62 ml/min; Estimated Glomerular Filt Rate > 60; Glucose 104 mg/dL (65-110); Potassium 3.8 mmol/L (3.4-5.0); Sodium 132 mmol/L (137-145)
[2024-07-03] MEDS: CYCLOBENZAPRINE HCL 10 MG TABLET PO (08:15)
[2024-07-03] MEDS: oxyCODONE/ACETAMINOPHEN (*CRX) 10-325 MG TABLET 1 TAB PO (08:15)
[2024-07-03] MEDS: polyethylene glycoL 3350 17 GM POWD.PACK PO (08:16)
[2024-07-03] MEDS: ATORVASTATIN 20 MG TABLET PO (08:16)
[2024-07-03] MEDS: FAMOTIDINE 20 MG TABLET PO (08:16)
[2024-07-03] MEDS: buPROPion HCL 100 MG TABLET PO (08:16)
[2024-07-03] MEDS: LORATADINE 10 MG TABLET PO (08:16)
[2024-07-03] MEDS: SENNA/DOCUSATE SODIUM TABLET 2 TAB PO (08:16)
[2024-07-03] MEDS: DICYCLOMINE HCL 10 MG CAPSULE 20 MG PO (08:16)
[2024-07-03 10:16] LABS: Basophils Percent Auto 0.3 % (0.2-1.2); Eosinophils Absolute Auto 0.1 K/mm3 (0-0.3); Eosinophils Percent Auto 0.4 % (0-4.4); Hematocrit 31.1 % (37.0-47.0); Hemoglobin 10.2 g/dL (12.0-15.0); Immature Granulocyte Absolute 0.06 K/mm3 (0.00-0.031); Immature Granulocyte Percent A 0.5 % (0-0.5); Lymphocytes Absolute Auto 1.69 K/mm3 (0.9-3.2); Lymphocytes Percent Auto 14.3 % (18.3-44.2); Mean Corpuscular HGB Conc 32.8 g/dl (32-36); Mean Corpuscular Hemoglobin 32.6 pg (26-34); Mean Corpuscular Volume 99.4 fl (80-100); Monocytes Absolute Auto 1.2 K/mm3 (0.1-0.6); Monocytes Percent Auto 9.8 % (2.6-8.5); Neutrophils Absolute Auto 8.8 K/mm3 (1.3-6.7); Neutrophils Percent Auto 74.7 % (45.5-73.1); Platelet Count Result 318 k/mm3 (150-375); Red Blood Count 3.13 M/mm3 (4.2-5.4); White Blood Count 11.8 K/mm3 (4.5-10.0)
== END 2024-07-03 12:10 | disposition home or self-care (01) ==
LOC: ANHSURGERY 10:16 → ANH3MEDSUR 10:42
PROVIDERS: Physician Assistant Surgical; PCP Family Medicine; Visit Provider Orthopaedic Surgery
PROC: (CPT 27130; principal; 2024-07-02 07:30)
DX: M16.11 Unilateral primary osteoarthritis, right hip (principal); M25.751 Osteophyte, right hip; G89.29 Other chronic pain; E78.5 Hyperlipidemia, unspecified; F41.9 Anxiety disorder, unspecified; K21.9 Gastro-esophageal reflux disease without esophagitis; M81.0 Age-related osteoporosis without current pathological fracture; J45.909 Unspecified asthma, uncomplicated; M47.12 Other spondylosis with myelopathy, cervical region; Z79.51 Long term (current) use of inhaled steroids; Z79.891 Long term (current) use of opiate analgesic; Z79.01 Long term (current) use of anticoagulants; Z98.890 Other specified postprocedural states; Z87.891 Personal history of nicotine dependence; Z85.828 Personal history of other malignant neoplasm of skin; Z82.49 Family history of ischemic heart disease and other diseases of the circulatory system
CPT/HCPCS: 27130; 36415; 73502; 80048; 85025; 86850; 86900; 86901; 97110; 97116; 97161; 97165; 97530; 97535; A9270; C1776; J0171; J0690; J1100; J1171; J1885; J2270; J2405; J2704; J2765; J2795; J3010; J7030; J7120

== ENCOUNTER 2024-07-16 15:48 | Inpatient (IN) | payer MEDICARE, SELFPAY ==
[2024-07-16] VITALS (14 sets, daily range): BP systolic 108–134; BP diastolic 59–96; PULSE 88–98; RESP 14–24; TEMP 36.7–36.8; O2SAT 93–100; BMI 21.6; BMI 21.7
--- NOTE | ~2024-07-16 | US_ITS ---
Limited Abdominal Sonogram: Real-time sonographic imaging of the right upper quadrant was performed. Clinical History: Right upper quadrant pain Findings: The liver appears normal with no evidence of mass lesion or bile duct dilatation. Main por shalom vein demonstrates normal direction of flow. The gallbladder is well distended, and appears normal with no evidence of gallstone or wall thickening. The common bile duct measures 3 mm. The visualize d pancreas, aorta, and IVC are unremarkable. Impression: No significant abnormality seen. Reviewed, dictated and finalized at location M. Impression: No significant abnormality seen.
--- NOTE | ~2024-07-16 | CT_ITS ---
EXAMINATION: CT abdomen pelvis w con DATE: 07/16/2024 17:46 INDICATION: VOMITING, ABDOMINAL PAIN TECHNIQUE: Computed tomography (CT) of the abdomen and pelvis was performed with 100 mL Omnipaque-350 intravenous contrast. Automated exposure control and iterative reconstruction technique were employe d. The dose-length product was 228.62 mGy-cm. COMPARISON: 09/04/2019. FINDINGS: Lower thorax: Mild bibasilar atelectasis/scar. Coronary artery calcification. Liver: Diffuse fatty infiltration. Stable 1.6 cm hypoenhancing lesion near the gallbladder fossa, lik morena hemangioma or geographic fat. Biliary/Gallbladder: Gallbladder is normal. No bile duct dilation. Pancreas: No mass or duct dilation. Spleen: Normal. Adrenals:No mass. Kidneys: No suspicious mass, obstructing stone, or hydronephrosis. Simple left renal cyst. GI tract: Distal esophageal and antral wall edema. No small or large bowel dilation. Appendix not con fidently visualized. Mesentery/Peritoneum: No ascites, mass, or free air. Retroperitoneum: No mass. Atherosclerotic calcifications of intra-abdominal arterial vessels. Pelvis: Partially obscured by metal artifact. Grossly normal appearing urinary bladder. Absent uterus . Normal left ovary. Right ovary not confidently visualized. Soft Tissues: Soft tissues and body wall unremarkable. Bones: No acute osseous finding. Uncomplicated appearing right hip arthroplasty hardware. IMPRESSION: Esophagitis and antral gastritis. Hepatic steatosis. Reviewed, dictated and finalized at location K.
--- NOTE | 2024-07-16 15:57 | ECG_ITS ---
Test Date: 2024-07-16 16:05:31 Measurements Intervals [place] Rate: 92 P: 44 WV: 136 QRS: 58 QRSD: 94 T: 42 QT: 357 QTc: 443 Interpretive Statements SINUS RHYTHM WITH OCCASIONAL VENTRICULAR PREMATURE COMPLEXES LEFT ATRIAL ENLARGEMENT [-0.15mV P WAVE IN V1/V2] Compared to ECG 01/26/2024 15:30:42 Ventricular premature complex(es) now present Electronically Signed On 07-17-2024 11:47:05 CDT by Ana Maria Pierson M.D.
[2024-07-16 16:05] LABS: Glucose Point of Care 86 mg/dl (65-105)
[2024-07-16 16:13] LABS: Basophils Absolute Auto 0.1 K/mm3 (0.0-0.1); Basophils Percent Auto 0.4 % (0.2-1.2); Eosinophils Absolute Auto 0.1 K/mm3 (0-0.3); Eosinophils Percent Auto 1.1 % (0-4.4); Hematocrit 35.7 % (37.0-47.0); Hemoglobin 11.7 g/dL (12.0-15.0); Immature Granulocyte Absolute 0.04 K/mm3 (0.00-0.031); Immature Granulocyte Percent A 0.3 % (0-0.5); Lymphocytes Absolute Auto 1.55 K/mm3 (0.9-3.2); Lymphocytes Percent Auto 11.9 % (18.3-44.2); Mean Corpuscular HGB Conc 32.8 g/dl (32-36); Mean Corpuscular Hemoglobin 31.9 pg (26-34); Mean Corpuscular Volume 97.3 fl (80-100); Mean Platelet Volume 9.6 fl (7.4-10.4); Monocytes Absolute Auto 0.7 K/mm3 (0.1-0.6); Neutrophils Absolute Auto 10.6 K/mm3 (1.3-6.7); Neutrophils Percent Auto 81.3 % (45.5-73.1); Platelet Count Result 580 k/mm3 (150-375); Red Blood Count 3.67 M/mm3 (4.2-5.4); Red Cell Distribution Width 11.9 % (11.5-14.5); White Blood Count 13.1 K/mm3 (4.5-10.0)
[2024-07-16 16:23] LABS: Alanine Aminotransferase 18 U/L (6-35); Albumin Level 4.8 g/dL (3.5-5.1); Alkaline Phosphatase 165 U/L (38-126); Anion Gap 16 mmol/L (4-12); Aspartate Amino Transferase 38 U/L (14-36); Bilirubin,Total 0.6 mg/dL (0.2-1.3); Blood Urea Nitrogen 12 mg/dL (7-17); Calcium 9.9 mg/dL (8.4-10.2); Carbon Dioxide 21 mmol/L (22-30); Chloride 101 mmol/L (98-107); Estimated CRCL calculation 72 ml/min; Estimated Glomerular Filt Rate > 60; Glucose 81 mg/dL (65-110); Lipase 83 U/L (23-300); Potassium 3.8 mmol/L (3.4-5.0); Sodium 138 mmol/L (137-145)
--- NOTE | 2024-07-16 17:10 | ED.NAVMDI ---
HPI - Nausea/Vomiting/Diarrhea General Chief complaint: Nausea/Vomiting/Diarrhea Stated complaint: n/v, abd pain Time Seen by Provider: 07/16/24 17:10 Source: patient, family and EMS Mode of arrival: EMS Limitations: no limitations History of Present Illness HPI Narrative: 68 YEARS OLD WHITE FEMALE STATUS POST RIGHT HIP SURGERY 2 WEEKS AGO, HAD QUITE A BIT OF VOMITING IMMEDIATELY AFTER THE SURGERY IN THE HOSPITAL, WENT HOME ON OXYCODONE, INTERMITTENT VOMITING, BEEN AT HER DAUGHTER'S HOUSE FOR FEW DAYS, NO VOMITING, WENT BACK HOME ON HER OWN FOR 2 DAYS AND DEVELOPED SEVERE INTRACTABLE VOMITING SINCE LAST NIGHT ROUGHLY ONCE EVERY 10 MINUTES, CURRENTLY COMPLAINING OF FEELING DRY ALL OVER, WITH EPIGASTRIC PAIN. HISTORY OF DEPRESSION, HYPERLIPIDEMIA, APPENDECTOMY, HYSTERECTOMY, PATIENT DOES NOT SMOKE OR USE DRUGS, DRINK ALCOHOL DAILY. PATIENT DENIES ANY CHEST PAIN OR SHORTNESS OF BREATH. Related Data Home Medications Medication Instructions Recorded Confirmed Last Taken Type magnesium 200 mg tablet 200 mg PO DAILY 08/26/19 07/02/24 06/29/24 History lactobacillus combination no.9 4 4,000 mmu cells PO DAILY 07/06/20 06/13/24 Unknown History billion cell capsule (Adult 50 Plus Probiotic) mecobalamin (vitamin B12) 1,000 1,000 mcg sublingual DAILY 07/07/21 07/02/24 06/29/24 History mcg disintegrating tablet,sublingual acetaminophen 500 mg tablet 1,000 mg PO Q6H PRN pain 06/10/24 07/02/24 Unknown History (Acetaminophen Pain Relief) calcium 600 mg (as 1 tablet PO DAILY 06/10/24 07/02/24 06/29/24 History carbonate)-vitamin D3 5 mcg (200 unit) tablet cetirizine 10 mg capsule (All Day 10 mg PO DAILY 06/10/24 06/13/24 Unknown History Allergy (cetirizine)) Allergies Allergy/AdvReac Type Severity Reaction Status Date / Time meperidine AdvReac Severe Nausea and Verified 07/16/24 16:08 Vomiting propoxyphene AdvReac Unknown Nausea and Verified 07/16/24 16:08 Vomiting Review of Systems Review of Systems: All systems reviewed & are unremarkable except as noted in HPI and below PMFSH Past Medical History Medical History Spondylosis of cervical joint with myelopathy JLUIS (generalized anxiety disorder) GERD (gastroesophageal reflux disease) Anxiety Nicotine dependence, cigarettes, uncomplicated Osteoporosis Gastroesophageal reflux disease Gastritis On EGD in [address] Gonzalez. Asthma Surgical History Surgical History S/P epidural steroid injection History of section History of basal cell carcinoma excision History of bunionectomy of both great toes History of appendectomy History of tonsillectomy and adenoidectomy History of hysterectomy (~1984) Family History Family History Father Family history of elevated blood lipids Family history of diabetes mellitus in first degree relative Family history of coronary artery disease Patient's father is Family history of heart disease in male family member before age 55 Mother Family history of coronary artery disease Patient's mother is Family history of emphysema Family history of heart disease in male family member before age 55 Family history of mental disorder Depression Sibling Heart disease Other Diabetes mellitus Family history of cardiovascular disease Hypertension Social History Social History Social History: Date of last mammogram: 08/22/22 @ [facility] (normal) Flu: yes (2022) Tetanus and Pneumonia: no (2022) Dexa Scan: yes (unknown date) Colonoscopy: yes Carol drinks coffee/tea 1-2 cups/day. Surrogate decision maker: Escobar Olea, . Code status: Full code. Travels to [place] for Winter, drives in their camper. Smoking packs per day: 1 Smoking cigarettes per day: 20.0 Years smoked: 30 Smoking pack-years: 30.00 Smoking status: Former smoker Tobacco type: cigarettes Second hand tobacco smoke exposure: Yes Smoking end date: 03/06/09 Additional smoking assessment comments: DENIES ANY FORM OF TOBACCO USE Alcohol intake: current Drinks per week: 7 Alcohol use details: Wine every night Substance use: never Substance use type: does not use Do You Feel Safe in your Home?: Yes Lack of Transportation: No Lack of Food: Never True Current Housing: I Have Housing Concerned About Future Housing: No Difficulty Paying Gas/Electric Bills: No Difficulty Paying for Meds: No Currently Unemployed: No Education: Decline to Answer Difficulty w/ Childcare or Family Care: No Living arrangements: with family Occupation/Education: retired Gender identity (if verbalized by the patient): Female Spiritual care concerns: No Agree to blood products: Yes Exam Narrative: GENERAL APPEARANCE: WELL-DEVELOPED, WELL-NOURISHED SKIN: NORMAL COLOR HEAD: NORMOCEPHALIC, NONTRAUMATIC EYES: CLEAR CONJUNCTIVA ENT: OROPHARYNX NORMAL, EARS NORMAL, NOSE NORMAL NECK: SUPPLE, NONTENDER CHEST AND RESPIRATORY: AIRWAY PATENT, NO RESPIRATORY DISTRESS, NO ACCESSORY MUSCLE USE HEART: REGULAR RATE/RHYTHM ABDOMEN: SOFT, DIFFUSE ABDOMINAL TENDERNESS, NO ORGANOMEGALY, QUIET BOWEL SOUNDS MUSCULOSKELETAL: NORMAL RANGE OF MOTION, NONTENDER BACK NEUROLOGIC: ALERT AND ORIENTED ×3, 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 Date: 07/16/24 Time: 19:42 Vital Signs Vital signs: Vital Signs Temperature 36.8 C 07/16/24 15:50 Pulse Rate 96 07/16/24 15:50 Respiratory Rate 24 H 07/16/24 15:50 Blood Pressure 108/59 L 07/16/24 15:50 Pulse Oximetry 98 07/16/24 15:50 Oxygen Delivery Room Air 07/16/24 15:50 Temperature 36.8 C 07/16/24 15:50 Pulse Rate 94 07/16/24 19:31 Respiratory Rate 14 07/16/24 19:31 Blood Pressure 119/66 07/16/24 19:31 Pulse Oximetry 99 07/16/24 19:31 Oxygen Delivery Room Air 07/16/24 15:50 MDM - Nausea/Vomiting/Diarrhea MDM Narrative Medical decision making narrative: PATIENT CAME TO THE ED WITH DRY HEAVES AND VOMITING STARTED 2 WEEKS AGO, INTERMITTENT WORSE LAST NIGHT VITAL SIGN SHOWING BLOOD PRESSURE 108/59, RESPIRATION 24 OTHERWISE WITHIN NORMAL LIMIT PHYSICAL EXAMINATION SHOWING STRESSED PATIENT, RESTLESS, DIFFUSE ABDOMINAL TENDERNESS DIFFERENTIAL DIAGNOSIS INCLUDE ANXIETY LIKE SYMPTOMS, OXYCODONE RELATED NAUSEA/VOMITING, GASTRITIS, ESOPHAGITIS, PANCREATITIS, ELECTROLYTE IMBALANCE, DEHYDRATION BLOOD WORKUP TODAY INCLUDES CBC, CMP, LIPASE, TROPONIN SHOWED WBC 13.1, PLATELET COUNT 580, TROPONIN 0.761 OTHERWISE WITHIN NORMAL LIMIT NONCARDIAC CAUSES OF ELEVATED TROPONIN COULD BE TACHYCARDIA, HYPOVOLEMIA, CT ABDOMEN AND PELVIS WITH IV CONTRAST SHOWED GASTRITIS, ESOPHAGITIS OTHERWISE INSIGNIFICANT DIAGNOSIS INTRACTABLE VOMITING, ANXIETY LIKE SYMPTOMS, ELEVATED TROPONIN ADMIT TO HOSPITALIST. Differential Diagnosis Differential diagnosis: Likely other ( ABOVE) Medical Records Attestation: I reviewed the patient's medical records. Lab Data Attestation: I reviewed the patient's lab results. 07/16/24 16:07 07/16/24 16:07 Labs: Lab Results 07/16/24 07/16/24 07/16/24 Range/Units 16:03 16:07 19:01 WBC 13.1 H (4.5-10.0) K/mm3 RBC 3.67 L (4.2-5.4) M/mm3 Hgb 11.7 L (12.0-15.0) g/dL Hct 35.7 L (37.0-47.0) % MCV 97.3 (80-100) fl MCH 31.9 (26-34) pg MCHC 32.8 (32-36) g/dl RDW 11.9 (11.5-14.5) % Plt Count 580 H D (150-375) k/mm3 MPV 9.6 (7.4-10.4) fl Immature Gran % (Auto) 0.3 (0-0.5) % Neut % (Auto) 81.3 H (45.5-73.1) % Lymph % (Auto) 11.9 L (18.3-44.2) % [place] % (Auto) 5.0 (2.6-8.5) % Eos % (Auto) 1.1 (0-4.4) % Baso % (Auto) 0.4 (0.2-1.2) % Lymph # (Auto) 1.55 (0.9-3.2) K/mm3 Barton # (Auto) 0.7 H (0.1-0.6) K/mm3 Eos # (Auto) 0.1 (0-0.3) K/mm3 Baso # (Auto) 0.1 (0.0-0.1) K/mm3 Abs Immat Gran (auto) 0.04 H (0.00-0.031) K/mm3 Absolute Neuts (auto) 10.6 H (1.3-6.7) K/mm3 Absolute Nucleated RBC 0.000 (0.0-0.012) K/mm3 Nucleated RBC % 0.0 (0.0-0.2) % ESR 81 H (0-20) mm/hr Sodium 138 (137-145) mmol/L Potassium 3.8 (3.4-5.0) mmol/L Chloride 101 (98-107) mmol/L Carbon Dioxide 21 L (22-30) mmol/L Anion Gap 16 H (4-12) mmol/L BUN 12 (7-17) mg/dL Creatinine 0.52 L (0.7-1.0) mg/dL Estim Creat Clear Calc 72 ml/min Estimated GFR > 60 (59 - ) Glucose 81 (65-110) mg/dL POC Capillary Glucose 86 (65-105) mg/dl Calcium 9.9 (8.4-10.2) mg/dL Total Bilirubin 0.6 (0.2-1.3) mg/dL AST 38 H (14-36) U/L ALT 18 (6-35) U/L Alkaline Phosphatase 165 H (38-126) U/L Troponin I 0.761 H* 0.781 H* (0.000-0.034) ng/mL Total Protein 8.0 (6.3-8.2) g/dL Albumin 4.8 (3.5-5.1) g/dL Lipase 83 (23-300) U/L Urine Color Urine Appearance Urine pH Ur Specific [place] Urine Protein Urine Glucose (UA) Urine Ketones Ur Blood (Man) Urine Nitrate Urine Bilirubin Urine Urobilinogen Leukocyte Esterase Rfl 07/16/24 Range/Units 19:32 WBC (4.5-10.0) K/mm3 RBC (4.2-5.4) M/mm3 Hgb (12.0-15.0) g/dL Hct (37.0-47.0) % MCV (80-100) fl MCH (26-34) pg MCHC (32-36) g/dl RDW (11.5-14.5) % Plt Count (150-375) k/mm3 MPV (7.4-10.4) fl Immature Gran % (Auto) (0-0.5) % Neut % (Auto) (45.5-73.1) % Lymph % (Auto) (18.3-44.2) % Barton % (Auto) (2.6-8.5) % Eos % (Auto) (0-4.4) % Baso % (Auto) (0.2-1.2) % Lymph # (Auto) (0.9-3.2) K/mm3 Barton # (Auto) (0.1-0.6) K/mm3 Eos # (Auto) (0-0.3) K/mm3 Baso # (Auto) (0.0-0.1) K/mm3 Abs Immat Gran (auto) (0.00-0.031) K/mm3 Absolute Neuts (auto) (1.3-6.7) K/mm3 Absolute Nucleated RBC (0.0-0.012) K/mm3 Nucleated RBC % (0.0-0.2) % ESR (0-20) mm/hr Sodium (137-145) mmol/L Potassium (3.4-5.0) mmol/L Chloride (98-107) mmol/L Carbon Dioxide (22-30) mmol/L Anion Gap (4-12) mmol/L BUN (7-17) mg/dL Creatinine (0.7-1.0) mg/dL Estim Creat Clear Calc ml/min Estimated GFR (59 - ) Glucose (65-110) mg/dL POC Capillary Glucose (65-105) mg/dl Calcium (8.4-10.2) mg/dL Total Bilirubin (0.2-1.3) mg/dL AST (14-36) U/L ALT (6-35) U/L Alkaline Phosphatase (38-126) U/L Troponin I (0.000-0.034) ng/mL Total Protein (6.3-8.2) g/dL Albumin (3.5-5.1) g/dL Lipase (23-300) U/L Urine Color Pending Urine Appearance Pending Urine pH Pending Ur Specific [place] Pending Urine Protein Pending Urine Glucose (UA) Pending Urine Ketones Pending Ur Blood (Man) Pending Urine Nitrate Pending Urine Bilirubin Pending Urine Urobilinogen Pending Leukocyte Esterase Rfl Pending Imaging Data Radiologist's impression: Impressions Abdomen/Pelvis CT 07/16/24 17:50 IMPRESSION: Esophagitis and antral gastritis. Hepatic steatosis. ECG Data EKG #1: Attestation: I personally reviewed and interpreted this ECG as follows: ECG completion date: 07/16/24 Interpretation: NORMAL SINUS RHYTHM AT 92 BEATS PER MINUTE, WITH OCCASIONAL PVCS, LEFT ATRIAL ENLARGEMENT, COMPARED TO EKG ON 01/26/2024 PVCS NOW PRESENT. EKG #2: Attestation: I personally reviewed and interpreted this ECG as follows: ECG completion date: 07/16/24 Interpretation: NORMAL SINUS RHYTHM WITH OCCASIONAL PVCS AT 96 BEATS PER MINUTE, LEFT ATRIAL ENLARGEMENT, COMPARED TO EKG EARLY TODAY NO SIGNIFICANT CHANGES Critical Care Time Critical Care Time Critical Care Time: No Discharge Plan Discharge Clinical Impression: Intractable vomiting, Elevated troponin, Stress Patient Disposition: Still a Patient Condition: Stable Patient Language: Vietnamese Prescriptions: No Action magnesium 200 mg Tablet 200 mg PO DAILY albuterol sulfate 90 mcg/actuation HFA aerosol inhaler See Rx Instructions .ROUTE .COMPLEX Qty: 8.5 6RF Dose Instruction: INHALE 2 PUFFS BY MOUTH EVERY 4 HOURS NEEDED Rx Instructions: INHALE 2 PUFFS BY MOUTH EVERY 4 HOURS NEEDED montelukast 10 mg tablet 10 mg PO QHS Qty: 90 3RF Adult 50 Plus Probiotic 4 billion cell capsule 4,000 mmu cells PO DAILY Rx Instructions: administer with a meal mecobalamin (vitamin B12) 1,000 mcg tablet,disintegrating 1,000 mcg sublingual DAILY Rx Instructions: place tablet under tongue and allow to dissolve for at least30 secs before swallowing (DME) peak flow meter See Rx Instructions .Route .MEDSUPPLY Qty: 1 0RF Rx Instructions: As directed daily calcium carbonate-vitamin D3 600 mg-5 mcg (200 unit) tablet 1 tablet PO DAILY All Day Allergy (cetirizine) 10 mg capsule 10 mg PO DAILY acetaminophen [Acetaminophen Pain Relief] 500 mg tablet 1,000 mg PO Q6H PRN (Reason: pain) pantoprazole 40 mg tablet,delayed release (DR/EC) See Rx Instructions .ROUTE .COMPLEX Qty: 180 3RF Dose Instruction: TAKE ONE TABLET BY MOUTH TWICE A DAY Rx Instructions: TAKE ONE TABLET BY MOUTH TWICE A DAY dicyclomine 20 mg tablet 20 mg PO BID Qty: 180 3RF bupropion HCl 100 mg tablet 100 mg PO BID Qty: 180 2RF lorazepam [Ativan] 0.5 mg tablet 0.5 mg PO TID PRN (Reason: anxiety) Qty: 90 0RF atorvastatin 20 mg tablet 20 mg PO DAILY Qty: 90 1RF tramadol 50 mg tablet 50 mg PO BID PRN (Reason: pain) Qty: 60 0RF hydroxyzine HCl 25 mg tablet 25 mg PO TID PRN (Reason: itching) Qty: 30 0RF ondansetron HCl 4 mg tablet 4 mg PO Q8H PRN (Reason: nausea and vomiting) Qty: 30 0RF oxycodone-acetaminophen 5-325 mg tablet 1 - 2 tablet PO Q4-6H PRN (Reason: pain) 7 Days Qty: 30 0RF ondansetron HCl 4 mg tablet 4 mg PO Q8H PRN (Reason: nausea and vomiting) Qty: 10 0RF Follow-up/Referrals: Renetta Roper MD [Primary Care Provider] -
[2024-07-16 17:11] LABS: Troponin I 0.761 ng/mL (0.000-0.034)
[2024-07-16] MEDS: ONDANSETRON INJ 4 MG/2 ML VIAL 8 MG IV PUSH (17:54)
[2024-07-16] MEDS: LORazepam INJ (*CRX) 2 MG/ML VIAL 1 MG IV PUSH (17:55)
[2024-07-16] MEDS: SODIUM CHLORIDE 0.9% IV 2,000 ML 999 ML IV CONT (17:55)
--- OUTSIDE RECORDS SUMMARY | 2024-07-16 18:36 | XMS_ITS | Clinical Summary ---
Author Organization [facility] Address [address] [place] [address] Care Team Providers Care Head Field Hockey Coach Name Role Phone Gloria Vaughn MD Primary Care Provider [phone] Source Comments [facility],non-owned Affiliates and Associated Physician Practices is amultiple site organization consisting of ambulatory clinics and hospital sitesin [place], [place], [place] and [place]. This disclosure is being madepursuant to the Care Everywhere program and may not contain all information available regarding this patient. Last updated 17.[facility] Allergies Active Allergy Reactions Criticality Noted Date [...] this topic Insurance [employer] HE[employer] Care Teams Head Field Hockey Coach Relationship Specialty Start Date End Date Gloria Vaughn MD PCP - General Family Medicine 07/30/18
--- OUTSIDE RECORDS SUMMARY | 2024-07-16 18:36 | XMS_ITS | Continuity of Care Document ---
Author Organization [facility]. If a dditional information is needed, contact Health Information Management at [phone] Address [address] [place] [address] Phone Care Team Providers Care Awning Craftsman Name Role Phone Unavailable Unavailable Unavailable Unavailable [...]
--- NOTE | 2024-07-16 18:48 | ECG_ITS ---
Test Date: 2024-07-16 18:53:21 Measurements Intervals [place] Rate: 96 P: 62 MT: 149 QRS: 76 QRSD: 93 T: 62 QT: 341 QTc: 433 Interpretive Statements SINUS RHYTHM WITH OCCASIONAL VENTRICULAR PREMATURE COMPLEXES POSSIBLE LEFT ATRIAL ENLARGEMENT [-0.1mV P-WAVE IN V1/V2] NONSPECIFIC ST AND T-WAVE ABNORMALITY Compared to ECG 07/16/2024 16:05:31 NO SIGNIFICANT CHANGES Electronically Signed On 07-17-2024 11:51:06 CDT by Ana Maria Pierson M.D.
[2024-07-16 19:06] LABS: Erythrocyte Sedimentation Rate 81 mm/hr (0-20)
[2024-07-16] MEDS: PANTOPRAZOLE SODIUM IV 40 MG VIAL IV PUSH (19:28)
[2024-07-16 19:37] LABS: Troponin I 0.781 ng/mL (0.000-0.034)
[2024-07-16 19:42] LABS: Add Urine Microscopic? YES; Appearance Urine Clear (Clear); Bacteria Urine None Seen /hpf; Bilirubin Urine Negative (Negative); Blood Urine Negative (Negative); Color Urine Yellow (Yellow); Glucose Urine UA Negative (Negative); Ketones Urine 2+ mg/dL (Negative); Leukocyte Esterase Ur Trace LEU/UL (Negative); Nitrate Urine Negative (Negative); Non Pathogenic Casts 0-2; Protein Urine Negative (Negative); RBC Urine 0-2 /hpf (0-2); Specific Grav Ur > 1.045 (1.001-1.035); Squamous Epithelial Cell Urine None Seen /hpf (Few); pH Urine 8.5 (5.0-9.0)
[2024-07-16] MEDS: SODIUM CHLORIDE 0.9% IV 1,000 ML 150 ML IV CONT (19:50)
[2024-07-16] MEDS: ONDANSETRON INJ 4 MG/2 ML VIAL IV PUSH (20:04)
--- NOTE | 2024-07-16 20:57 | PM.IMHP ---
H&P: HPI History of Present Illness Date/Time: 07/16/24 20:57 Chief Complaint: Abdominal pain Narrative: A 60-year-old female with a past medical history of recent right hip surgery 2 weeks ago on 07/02/2024 presented to the ED due to vomiting. Pertinent ED labs: WBC 13.1, hemoglobin 11.7, hematocrit 35.7, platelet 580, sodium 138, potassium 3.8, carbon dioxide 21, anion gap 16, creatinine 0.5, glucose 86 Troponin 0.781 Abdominal/pelvis CT shows esophagitis and antral gastritis. The patient is admitted to the setting of nausea and vomiting. GI will be consulted regarding esophagitis and antral gastritis. Patient will be NPO and started on PPI twice a day and sucralfate, elevated troponin possibly due to type 2 [place]. An echocardiogram will be ordered, and Cardiology will be consulted. Patient has a remote history of a blood clot during her in 1973 and another recent clot on her left arm 4 years ago when she was living in [place] but some reason she says was taking only ASA. Patient is currently on Xarelto 10 mg due to recent surgery, which will be continued. Patient reports that after the surgery on 07/02/2024, right hip with replacement, she went to her daughter's home, and then 2 days later, she returned to her house where she was living alone. The patient started having intractable vomiting from 9:00 p.m. yesterday. Patient denies using any NSAIDs. Patient reports having EGD in 2019, but does not remember when the colonoscopy was performed. Patient drinks a daily glass of wine, 9 oz. A previous smoker quit 20-30 years ago. [facility] Past Medical History Medical History Spondylosis of cervical joint with myelopathy JLUIS (generalized anxiety disorder) GERD (gastroesophageal reflux disease) Anxiety Nicotine dependence, cigarettes, uncomplicated Osteoporosis Gastroesophageal reflux disease Gastritis On EGD in [address] Gonzalez. Asthma Surgical History Surgical History S/P epidural steroid injection History of section History of basal cell carcinoma excision History of bunionectomy of both great toes History of appendectomy History of tonsillectomy and adenoidectomy History of hysterectomy (~1984) Family History Family History Father Family history of elevated blood lipids Family history of diabetes mellitus in first degree relative Family history of coronary artery disease Patient's father is Family history of heart disease in male family member before age 55 Mother Family history of coronary artery disease Patient's mother is Family history of emphysema Family history of heart disease in male family member before age 55 Family history of mental disorder Depression Sibling Heart disease Other Diabetes mellitus Family history of cardiovascular disease Hypertension Social History Social History Social History: Date of last mammogram: 08/22/22 @ [facility] (normal) Flu: yes (2022) Tetanus and Pneumonia: no (2022) Dexa Scan: yes (unknown date) Colonoscopy: yes Carol drinks coffee/tea 1-2 cups/day. Surrogate decision maker: Escobar Olea, . Code status: Full code. Travels to [place] for Winter, drives in their camper. Smoking packs per day: 1 Smoking cigarettes per day: 20.0 Years smoked: 30 Smoking pack-years: 30.00 Smoking status: Former smoker Tobacco type: cigarettes Second hand tobacco smoke exposure: Yes Smoking end date: 03/06/09 Additional smoking assessment comments: DENIES ANY FORM OF TOBACCO USE Alcohol intake: current Drinks per week: 7 Alcohol use details: Wine every night Substance use: never Substance use type: does not use Do You Feel Safe in your Home?: Yes Lack of Transportation: No Lack of Food: Never True Current Housing: I Have Housing Concerned About Future Housing: No Difficulty Paying Gas/Electric Bills: No Difficulty Paying for Meds: No Currently Unemployed: No Education: Master's Degree or Higher Difficulty w/ Childcare or Family Care: No Living arrangements: with family Occupation/Education: retired Gender identity (if verbalized by the patient): Female Spiritual care concerns: No Agree to blood products: Yes Meds Home Medications and Allergies Home Medications Medication Instructions Recorded Confirmed Type magnesium 200 mg tablet 200 mg PO DAILY 08/26/19 07/16/24 History lactobacillus combination no.9 4 4,000 mmu cells PO DAILY 07/06/20 07/16/24 History billion cell capsule (Adult 50 Plus Probiotic) mecobalamin (vitamin B12) 1,000 1,000 mcg sublingual DAILY 07/07/21 07/16/24 History mcg disintegrating tablet,sublingual albuterol sulfate 90 mcg/actuation See Rx Instructions .Route 12/09/22 07/16/24 Rx aerosol inhaler .COMPLEX #8.5 ea pantoprazole 40 mg tablet,delayed See Rx Instructions .Route 08/09/23 07/16/24 Rx release .COMPLEX #180 tabs peak flow meter #1 ea 08/16/23 07/16/24 Rx montelukast 10 mg tablet 10 mg PO QHS #90 tabs 09/14/23 07/16/24 Rx dicyclomine 20 mg tablet 20 mg PO BID #180 tabs 10/06/23 07/16/24 Rx bupropion HCl 100 mg tablet 100 mg PO BID #180 tabs 11/02/23 07/16/24 Rx atorvastatin 20 mg tablet 20 mg PO DAILY #90 tabs 01/10/24 07/16/24 Rx acetaminophen 500 mg tablet 1,000 mg PO Q6H PRN pain 06/10/24 07/16/24 History (Acetaminophen Pain Relief) calcium 600 mg (as 1 tablet PO DAILY 06/10/24 07/16/24 History carbonate)-vitamin D3 5 mcg (200 unit) tablet cetirizine 10 mg capsule (All Day 10 mg PO DAILY 06/10/24 07/16/24 History Allergy (cetirizine)) hydroxyzine HCl 25 mg tablet 25 mg PO TID PRN itching #30 tabs 06/28/24 07/16/24 Rx ondansetron HCl 4 mg tablet 4 mg PO Q8H PRN nausea and 07/09/24 07/16/24 Rx vomiting #30 tabs oxycodone-acetaminophen 5 mg-325 1 - 2 tablet PO Q4-6H PRN pain 7 07/09/24 07/16/24 Rx mg tablet days #30 tabs ondansetron HCl 4 mg tablet 4 mg PO Q8H PRN nausea and 07/16/24 07/16/24 Rx vomiting #10 tabs rivaroxaban 10 mg tablet (Xarelto) 10 mg PO DAILY 07/16/24 07/16/24 History Allergies Allergy/AdvReac Type Severity Reaction Status Date / Time meperidine AdvReac Severe Nausea and Verified 07/16/24 16:08 Vomiting propoxyphene AdvReac Unknown Nausea and Verified 07/16/24 16:08 Vomiting Vital Signs Vital Signs - 24 hr 07/16/24 15:50 07/16/24 16:16 07/16/24 16:46 Temperature 98.3 F Pulse Rate 96 93 88 Respiratory Rate 24 H 17 20 Blood Pressure 108/59 L 111/64 110/64 Pulse Oximetry 98 99 97 Oxygen Delivery Room Air 07/16/24 17:31 07/16/24 17:51 07/16/24 17:57 Temperature Pulse Rate 92 92 94 Respiratory Rate 17 14 18 Blood Pressure 127/83 134/96 H 113/89 Pulse Oximetry 97 100 100 Oxygen Delivery 07/16/24 18:00 07/16/24 18:15 07/16/24 19:04 Temperature Pulse Rate 98 93 94 Respiratory Rate 19 23 H 19 Blood Pressure 123/91 H 123/82 129/79 Pulse Oximetry 100 93 100 Oxygen Delivery 07/16/24 19:31 Temperature Pulse Rate 94 Respiratory Rate 14 Blood Pressure 119/66 Pulse Oximetry 99 Oxygen Delivery H&P: Results Labs Labs: Short CBC 07/16/24 Range/Units 16:07 WBC 13.1 H (4.5-10.0) K/mm3 Hgb 11.7 L (12.0-15.0) g/dL Hct 35.7 L (37.0-47.0) % Plt Count 580 H D (150-375) k/mm3 BMP 07/16/24 16:07 Sodium 138 Potassium 3.8 Chloride 101 Carbon Dioxide 21 L BUN 12 Creatinine 0.52 L Glucose 81 Calcium 9.9 Cardiac Enzymes 07/16/24 07/16/24 Range/Units 16:07 19:01 Troponin I 0.761 H* 0.781 H* (0.000-0.034) ng/mL Liver Function 07/16/24 Range/Units 16:07 Total Bilirubin 0.6 (0.2-1.3) mg/dL AST 38 H (14-36) U/L ALT 18 (6-35) U/L Alkaline Phosphatase 165 H (38-126) U/L Albumin 4.8 (3.5-5.1) g/dL Urine 07/16/24 Range/Units 19:32 Urine Color Yellow (Yellow) Urine Appearance Clear (Clear) Urine pH 8.5 (5.0-9.0) Ur Specific Marion > 1.045 H (1.001-1.035) Urine Protein Negative (Negative) mg/dL Urine Glucose (UA) Negative (Negative) mg/dL Assessment and Plan Assessment and plan (1) Anxiety and depression: Code(s): F41.9 - Anxiety disorder, unspecified; F32.9 - Major depressive disorder, single episode, unspecified Status: Acute (2) Anxiety: Code(s): F41.9 - Anxiety disorder, unspecified Status: Acute (3) Daily consumption of alcohol: Code(s): Z78.9 - Other specified health status Status: Acute (4) Elevated troponin: Code(s): R79.89 - Other specified abnormal findings of blood chemistry Status: Acute (5) Intractable vomiting: Code(s): R11.10 - Vomiting, unspecified Status: Acute (6) Abdominal pain: Code(s): R10.9 - Unspecified abdominal pain Status: Acute (7) Orthopedic aftercare for joint replacement: Code(s): Z47.1 - Aftercare following joint replacement surgery Status: Acute (8) Status post total hip replacement, right: Code(s): Z96.641 - Presence of right artificial hip joint Status: Acute Plan Nausea and vomiting CT scan is shows esophagitis and gastritis Possibly due to anxiety/stress Protonix 40 mg IV b.i.d. Sucralfate Lipase normal No evidence of bowel obstruction Zofran p.r.n. Trial of clear liquid for 24-48 hours and advance diet as tolerated Will check for H pylori GI consulted and appreciate recommendations Elevated troponin Possibly due to type 2 Reviewed EKG which shows sinus rhythm with occasional ventricular premature complex Troponin 0.7 Trend troponin Consider cardiology Right total hip arthroplasty on 0 07/02/2024 Consult PT OT If needed will consult Ortho Continue Xarelto 10 mg p.o. q.d. Chronic alcoholism CIWA induced ativan Thiamine and folic acid Lorazepam 2 mg q.4 hours p.r.n. for anxiety Consider Bentyl 20 mg p.o. q.6 hours p.r.n. for abdominal discomfort Consider Methocarbamol 750 mg p.o. q.6 hours p.r.n. for muscle spasm Monitor development of withdrawal symptoms Monitor LFTs Hypoglycemic med protocol CBC and CMP including Mag and phos AST ALT Medication reconciliation pending DVT prophylaxis continue Xarelto 10 mg p.o. q.d. Hospitalist MIPS Advance Care Plan I have confirmed that the patient's Advanced Care Plan is present, code status is documented, or surrogate decision maker is listed in patient medical record.: Yes Medication Reconciliation I have utilized all available resources to obtain, update and review the patients current medications (includes all prescriptions, OTC, herbals, cannabis, and nutritional supplements).: Yes
--- NOTE | 2024-07-16 21:21 | ADMGEN ---
This patient, Carol Olea, was admitted to IMU Room 210-01. Patient/family oriented to hospital policies and general routines including ID bracelet, bed and alarms, visiting hours, pain management, procedures, bathroom and other care routines, personal items, smoking policy, room service/diet, and visiting hours. Information on how to activate the Rapid Response Team has been discussed. Patient/Family are encouraged to report perceived risks to care and to ask questions if they do not understand what they are told or what they should do.
[2024-07-16] MEDS: SUCRALFATE 1 GM TABLET PO (21:53)
--- NOTE | 2024-07-16 22:38 | ECG_ITS ---
Test Date: 2024-07-16 22:42:39 Measurements Intervals Lynn Rate: 92 P: 45 ME: 144 QRS: 46 QRSD: 88 T: 60 QT: 355 QTc: 440 Interpretive Statements SINUS RHYTHM LEFT ATRIAL ENLARGEMENT [-0.15mV P WAVE IN V1/V2] NONSPECIFIC ST AND T-WAVE ABNORMALITY Compared to ECG 07/16/2024 18:53:21 NO SIGNIFICANT CHANGES Electronically Signed On 07-17-2024 11:55:34 CDT by Ana Maria Pierson M.D.
[2024-07-17] VITALS (21 sets, daily range): BP systolic 117–131; BP diastolic 57–67; PULSE 89–114; RESP 16–20; TEMP 36.8–37.1; O2SAT 94–100
--- NOTE | 2024-07-17 | ECHO_ITS ---
Patient Info Name: Carol Olea Age: 68 years : 1955 Gender: Female Ht: 63 in Wt: 122 lbs BSA: 1.57 m2 HR: 91 bpm BP: 117 / 59 mmHg Heart Rhythm: Sinus Rhythm Technical Quality: Good Exam Date: 07/17/2024 3:06 PM Patient Status: I Admit Date: 07/17/2024 Exam Type: CA echo doppler color flow Complete two-dimensional, color flow and Doppler transthoracic echocardiogram is performed. Staff Referring Physician: Payton Bravo Service Order Expediter: Genna Philip Attending Provider: Sharon Marreor Summary 1. Complete two-dimensional, color flow and Doppler transthoracic echocardiogram is performed. 2. There is normal biventricular size and systolic function. 3. There are no significant valvular abnormalities. Left Ventricle The left ventricle is normal in size and systolic function. There is concentric left ventricular remodeling. The left ventricular ejection fraction is visually estimated to be 60-65%. Right Ventricle The right ventricle is normal in size and systolic function. Left Atria The left atrium is normal size. Right Atria The right atrium is normal size. Atrial Septum The atrial septum is not well visualized. Aortic Valve The aortic valve is trileaflet and opens well. There is no aortic regurgitation. Pulmonic Valve The pulmonic valve is not well visualized. There is no color Doppler evidence of pulmonic valve regurgitation. Mitral Valve The mitral valve leaflets are sclerotic. There is no mitral regurgitation. Tricuspid Valve The tricuspid valve is grossly normal. There is no tricuspid regurgitation. Pericardium/Pleural There is trace pericardial effusion. Inferior Vena Cava Normal inferior vena cava with <50% collapse upon inspiration consistent with elevated right atrial pressure, 8 mmHg. Aorta The aortic root at the level of the sinus of Valsalva measures 2.8 cm in diameter. Left Ventricular Outflow Tract Name Value Normal LVOT 2D LVOT Diameter 2.0 cm LVOT Doppler LVOT Peak Velocity 96 cm/s LVOT Peak Gradient 4 mmHg LVOT Mean Gradient 2 mmHg LVOT VTI 19 cm LVOT VTI/AV VTI Ratio 0.8 LVOT Stroke Volume 57 ml LVOT CO 5.3 l/min LVOT CI 3.4 l/min/m2 Pulmonic Valve Name Value Normal RVOT Doppler RVOT Peak Velocity 67 cm/s RVOT Peak Gradient 2 mmHg PV Doppler PV Peak Velocity 80 cm/s PV Peak Gradient 3 mmHg Mitral Valve Name Value Normal MV Diastolic Function MV E Peak Velocity 78 cm/s MV A Peak Velocity 64 cm/s MV E/A 1.2 MV Decel Time (PW) 177 ms MV Annular TDI MV E/e' (Septal) 9.1 MV E/e' (Lateral) 8.4 MV E/e' (Average) 8.7 Tricuspid Valve Name Value Normal Estimated PAP/RSVP RA Pressure 8 mmHg <=5 TV Annular TDI TV Lateral Nani s' Velocity 13.3 cm/s >=9.5 Aorta Name Value Normal Ascending Aorta Ao Root Diameter (MM) 2.4 cm Ao Root Diam Index (MM) 1.6 cm/m2 Aortic Valve Name Value Normal AV Doppler AV Peak Velocity 117 cm/s AV Peak Gradient 5 mmHg AV Mean Gradient 3 mmHg AV VTI 24 cm AV Area (Cont Eq VTI) 2.4 cm2 >=3.0 AV Area (Cont Eq Williams) 2.5 cm2 AV DI (Williams) 0.82 AV Regurgitation 2D LVOT Area 3.0 cm2 Ventricles Name Value Normal LV Dimensions 2D/MM IVS Diastolic Thickness (2D) 1.1 cm 0.6-1.0 LVID Diastole (2D) 3.8 cm 3.8-5.2 LVIW Diastolic Thickness (2D) 1.0 cm 0.6-0.9 LVID Systole (2D) 2.6 cm 2.2-3.5 LVOT Diameter 2.0 cm LV Mass (2D Cubed) 127.18 g 67.00-162.00 LV Mass Index (2D Cubed) 81 g/m2 43-95 Relative Wall Thickness (2D) 0.54 <=0.42 LV Fractional Shortening/Ejection Fraction 2D/MM LV Fractional Shortening (2D) 32 % 27-45 LV EF (2D Teichholz) 60 % LV Diastolic Volume (4C MOD) 56 ml LV EF (4C MOD) 67 % LV Diastolic Volume (2C MOD) 44 ml LV EF (2C MOD) 63 % LV Diastolic Volume (BP MOD) 51 ml 46-106 LV Diastolic Volume Index (BP MOD) 33 ml/m2 29-61 LV Systolic Volume (BP MOD) 18 ml 14-42 LV Systolic Volume Index (BP MOD) 11 ml/m2 8-24 LV EF (BP MOD) 65 % 54-74 LV Diastolic Length (4C) 6.9 cm LV Systolic Length (4C) 5.1 cm LV Stroke Volume (4C MOD) 38 ml Atria Name Value Normal LA Dimensions LA Dimension (MM) 3.4 cm 2.7-3.8 LA Volume (4C A-L) 37 ml LA Volume (BP A-L) 39 ml RA Dimensions RA Area (4C) 12.5 cm2 <=18.0 Report Signatures
[2024-07-17 02:15] LABS: Troponin I 0.575 ng/mL (0.000-0.034)
[2024-07-17] MEDS: SODIUM CHLORIDE 0.9% IV 1,000 ML 150 ML IV CONT ×4 (04:05→23:50)
[2024-07-17] MEDS: ONDANSETRON INJ 4 MG/2 ML VIAL IV PUSH (07:43)
--- NOTE | 2024-07-17 08:23 | P.CONGI_ITS ---
Assessment and Plan Assessment and plan (1) Epigastric pain: Code(s): R10.13 - Epigastric pain Status: Acute (2) Elevated troponin: Code(s): R79.89 - Other specified abnormal findings of blood chemistry Status: Acute (3) Intractable vomiting: Code(s): R11.10 - Vomiting, unspecified Status: Acute (4) RUQ pain: Code(s): R10.11 - Right upper quadrant pain Status: Acute (5) Elevated liver enzymes: Code(s): R74.8 - Abnormal levels of other serum enzymes Status: Acute (6) Orthopedic aftercare for joint replacement: Code(s): Z47.1 - Aftercare following joint replacement surgery Status: Acute (7) Status post total hip replacement, right: Code(s): Z96.641 - Presence of right artificial hip joint Status: Acute (8) Hepatic steatosis: Code(s): K76.0 - Fatty (change of) liver, not elsewhere classified Status: Acute Plan 1. Acute Nausea & Vomiting/Epigastric Pain/RUQ pain/Abnormal CT-Digestive: She reports sudden onset of intractable vomiting with dry heaves on Monday evening after consuming pizza then followed with constant epigastric aching pain, this does not radiate. She denies any chest pain. No sick or ill contacts. In the ER, workup included elevated WBC of 13, ESR of 81, elevated AST of 38 and alkaline phosphatase of 167. CT abdomen/pelvis on 07/16/2024 showed esophagitis and antral gastritis. She has been given IV pantoprazole twice per day, Carafate and Zofran 4 mg with no improvement of dry heaving and nausea. There is no underlying blood loss as she denies any hematemesis or black stools. She has been taking opioids due to recent hip surgery 2 weeks ago but denies any NSAIDs. She denies any constipation, and last bowel movement was 2 days ago. She did have an EGD in 2018 with gastritis, STONE test negative. She was also found to have elevated troponins which have been trending down, Cardiology is consulted. She has been on Eliquis, last dose Monday due to recent hip surgery and history of blood clots in the past - Continue IV pantoprazole BID - Increase Zofran 8 mg IV, consider adding another anti-emetic if needd - RUQ US to be arranged to evaluate gallbladder - EGD to be considered pending work up and findings, must be cleared from cardiology stand point first. 2. Elevated Liver Enzymes/Hepatic Steatosis: CT noted diffuse hepatic steatosis this admission, mildly elevated AST of 38 with an elevated alk-phos of 167. SHe has had elevated AST, which is likely due to ETOH but alk phos elevation is new. R factor 0.4, cholestatic injury. She does drink 1 glass of wine nightly. No labs this AM. -Will repeat LFTs and get acute hepatitis panel -RUQ US to be arranged. GI Consult Note Consult date/time: 07/17/24 08:00 Reason for consult: nausea and vomiting HPI: This is a pleasant 68 year old female with a past medical surgical history JLUIS, GERD, anxiety, nicotine dependence (quit 20-30 years ago), history of blood clots, basal cell skin cancer, osteoporosis, gastritis, asthma, and recent right hip surgery on 07/02/2024, and history of tonsil and adenoidectomy, hysterectomy, appendectomy and bunionectomy. She does have a history of colitis in 2020 which she was hospitalized for. She presented to the ER room with complaints of nausea and vomiting. GI consulted for evaluation of esophagitis and antral gastritis. It appears she does have chronic history of epigastric abdominal pain under referring past endoscopy reports. She reports that on Monday at 9:00 pm she began experiencing vomiting occurring approximately every five minutes, which have not really led to dry heaving. She she began having epigastric pain that followed the onset of vomiting. She characterizes the pain as an ache that has been constant since onset. She states Monday evening prior to this occurring she had pizza. She denies anyone else getting sick in the house with similar symptoms. Denies any known sick or ill contacts. She reports continue nausea and dry heaving this morning, Zofran IV has not been helping. She denies any diarrhea and reports her last bowel movement was on Monday. She denies any bloody stools, black stools, or vomiting blood. She also denies any trouble swallowing, painful swallowing, or feeling like things are getting stuck. She reports that after her recent hip surgery, she experienced vomiting but that quickly resolved. She denies any radiation of the epigastric pain to her back or shoulders. She denies any fevers, dizziness, vertigo, or chest pains, though she feels like she is wheezing. She denies taking any NSAIDs. . She reports a history of a recent rash all over her torso, front, back, arms, and legs with associated bruising and intense itching that has mostly resolved, she was given steroids for this. Denies any shingle type rash. She reports drinking one glass of wine nightly. She reports a history of blood clots, including one in 1973 and another three years ago. She last took her blood thinner (Xarelto) on Monday morning, which was the started after her hip surgery. ENDOSCOPY HISTORY: EGD: 07/20/2017 (Dr. Gonzalez) for epigastric abdominal pain Normal, biopsy STONE test negative for H pylori EGD: 11/23/2015 for epigastric abdominal pain Mild acute patchy gastritis in the antrum with no mucosal bleeding FINAL DIAGNOSIS: GASTRIC ANTRUM, ENDOSCOPIC BIOPSY: NONSPECIFIC ACUTE AND CHRONIC GASTRITIS WITH BENIGN ACUTE ULCER. IHC STAIN FOR H. PYLORI NEGATIVE COLONOSCOPY: 12/10/2018 (Dr. Gonzalez) for family history of colon polyps Small uncomplicated internal hemorrhoids that were not bleeding Recommendations to repeat in 5 years LABS AND STOOL STUDIES: 07/16/2024 WBC 13, HGB 11, hematocrit 35, MCV 97, platelets 580, ESR 81 Na 138, K 3.8, BUN 12, creatinine 0.52, glucose 81 Total bilirubin 0.6, AST 38, ALT 18, alkaline phosphatase 165 Troponin 0.761 trending to 0.781, 0.670, 0.575 IMAGING: CT abdomen pelvis with contrast 07/16/2024 IMPRESSION: Esophagitis and antral gastritis. Hepatic steatosis. [facility] Past Medical History Medical History Spondylosis of cervical joint with myelopathy JLUIS (generalized anxiety disorder) GERD (gastroesophageal reflux disease) Anxiety Nicotine dependence, cigarettes, uncomplicated Osteoporosis Gastroesophageal reflux disease Gastritis On EGD in [address] Gonzalez. Asthma Surgical History Surgical History S/P epidural steroid injection History of section History of basal cell carcinoma excision History of bunionectomy of both great toes History of appendectomy History of tonsillectomy and adenoidectomy History of hysterectomy (~1984) Family History Family History Father Family history of elevated blood lipids Family history of diabetes mellitus in first degree relative Family history of coronary artery disease Patient's father is Family history of heart disease in male family member before age 55 Mother Family history of coronary artery disease Patient's mother is Family history of emphysema Family history of heart disease in male family member before age 55 Family history of mental disorder Depression Sibling Heart disease Other Diabetes mellitus Family history of cardiovascular disease Hypertension Social History Social History Social History: Date of last mammogram: 08/22/22 @ [facility] (normal) Flu: yes (2022) Tetanus and Pneumonia: no (2022) Dexa Scan: yes (unknown date) Colonoscopy: yes Carol drinks coffee/tea 1-2 cups/day. Surrogate decision maker: Escobar Olea, . Code status: Full code. Travels to [place] for Winter, drives in their camper. Smoking packs per day: 1 Smoking cigarettes per day: 20.0 Years smoked: 30 Smoking pack-years: 30.00 Smoking status: Former smoker Tobacco type: cigarettes Second hand tobacco smoke exposure: Yes Smoking end date: 03/06/09 Additional smoking assessment comments: DENIES ANY FORM OF TOBACCO USE Alcohol intake: current Drinks per week: 7 Alcohol use details: Wine every night Substance use: never Substance use type: does not use Do You Feel Safe in your Home?: Yes Lack of Transportation: No Lack of Food: Never True Current Housing: I Have Housing Concerned About Future Housing: No Difficulty Paying Gas/Electric Bills: No Difficulty Paying for Meds: No Currently Unemployed: No Education: Master's Degree or Higher Difficulty w/ Childcare or Family Care: No Living arrangements: with family Occupation/Education: retired Gender identity (if verbalized by the patient): Female Spiritual care concerns: No Agree to blood products: Yes Meds Home Medications and Allergies Home Medications Medication Instructions Recorded Confirmed Type magnesium 200 mg tablet 200 mg PO DAILY 08/26/19 07/16/24 History lactobacillus combination no.9 4 4,000 mmu cells PO DAILY 07/06/20 07/16/24 History billion cell capsule (Adult 50 Plus Probiotic) mecobalamin (vitamin B12) 1,000 1,000 mcg sublingual DAILY 07/07/21 07/16/24 History mcg disintegrating tablet,sublingual albuterol sulfate 90 mcg/actuation See Rx Instructions .Route 12/09/22 07/16/24 Rx aerosol inhaler .COMPLEX #8.5 ea pantoprazole 40 mg tablet,delayed See Rx Instructions .Route 08/09/23 07/16/24 Rx release .COMPLEX #180 tabs peak flow meter #1 ea 08/16/23 07/16/24 Rx montelukast 10 mg tablet 10 mg PO QHS #90 tabs 09/14/23 07/16/24 Rx dicyclomine 20 mg tablet 20 mg PO BID #180 tabs 10/06/23 07/16/24 Rx bupropion HCl 100 mg tablet 100 mg PO BID #180 tabs 11/02/23 07/16/24 Rx atorvastatin 20 mg tablet 20 mg PO DAILY #90 tabs 01/10/24 07/16/24 Rx acetaminophen 500 mg tablet 1,000 mg PO Q6H PRN pain 06/10/24 07/16/24 History (Acetaminophen Pain Relief) calcium 600 mg (as 1 tablet PO DAILY 06/10/24 07/16/24 History carbonate)-vitamin D3 5 mcg (200 unit) tablet cetirizine 10 mg capsule (All Day 10 mg PO DAILY 06/10/24 07/16/24 History Allergy (cetirizine)) hydroxyzine HCl 25 mg tablet 25 mg PO TID PRN itching #30 tabs 06/28/24 07/16/24 Rx ondansetron HCl 4 mg tablet 4 mg PO Q8H PRN nausea and 07/09/24 07/16/24 Rx vomiting #30 tabs oxycodone-acetaminophen 5 mg-325 1 - 2 tablet PO Q4-6H PRN pain 7 07/09/24 07/16/24 Rx mg tablet days #30 tabs ondansetron HCl 4 mg tablet 4 mg PO Q8H PRN nausea and 07/16/24 07/16/24 Rx vomiting #10 tabs rivaroxaban 10 mg tablet (Xarelto) 10 mg PO DAILY 07/16/24 07/16/24 History Allergies Allergy/AdvReac Type Severity Reaction Status Date / Time meperidine AdvReac Severe Nausea and Verified 07/16/24 16:08 Vomiting propoxyphene AdvReac Unknown Nausea and Verified 07/16/24 16:08 Vomiting Vital Signs Vital Signs - 24 hr 07/16/24 15:50 07/16/24 16:16 07/16/24 16:46 Temperature 98.3 F Pulse Rate 96 93 88 Respiratory Rate 24 H 17 20 Blood Pressure 108/59 L 111/64 110/64 Pulse Oximetry 98 99 97 Oxygen Delivery Room Air 07/16/24 17:31 07/16/24 17:51 07/16/24 17:57 Temperature Pulse Rate 92 92 94 Respiratory Rate 17 14 18 Blood Pressure 127/83 134/96 H 113/89 Pulse Oximetry 97 100 100 Oxygen Delivery 07/16/24 18:00 07/16/24 18:15 07/16/24 19:04 Temperature Pulse Rate 98 93 94 Respiratory Rate 19 23 H 19 Blood Pressure 123/91 H 123/82 129/79 Pulse Oximetry 100 93 100 Oxygen Delivery 07/16/24 19:31 07/16/24 21:05 07/16/24 22:00 Temperature 98.1 F Pulse Rate 94 96 89 Respiratory Rate 14 15 Blood Pressure 119/66 116/62 Pulse Oximetry 99 100 Oxygen Delivery 07/16/24 22:05 07/16/24 23:00 07/17/24 00:00 Temperature 98.0 F Pulse Rate 98 98 109 H Respiratory Rate 16 16 Blood Pressure 126/61 Pulse Oximetry 94 94 Oxygen Delivery Room Air 07/17/24 02:00 07/17/24 03:58 07/17/24 04:00 Temperature 98.2 F Pulse Rate 91 93 94 Respiratory Rate 16 Blood Pressure 128/65 Pulse Oximetry 94 Oxygen Delivery 07/17/24 04:30 07/17/24 06:00 07/17/24 07:52 Temperature 98.3 F Pulse Rate 94 91 91 Respiratory Rate 16 20 Blood Pressure 129/65 Pulse Oximetry 94 100 Oxygen Delivery Room Air Exam 2 Const: General: uncomfortable HENMT: Mouth: Yes moist mucous membranes Eyes: General: appearance normal, both eyes and all related structures S clera: sclerae normal Resp: Effort & Inspection: normal respiratory effort GI: GI Palp: Yes Soft to palpation, Yes Tenderness to palpation present (GI) (Epigastric and RUQ with guarding) and Yes Guarding due to palpation present (GI) Auscultation: normal bowel sounds Skin: Other: small healing abrasion to right upper tors0 Neuro: Speech: normal speech Extrem: General: normal to inspection Psych: Affect: Anxious affect present Results Labs 07/16/24 16:07 07/16/24 16:07 Labs: Short CBC 07/16/24 Range/Units 16:07 WBC 13.1 H (4.5-10.0) K/mm3 Hgb 11.7 L (12.0-15.0) g/dL Hct 35.7 L (37.0-47.0) % Plt Count 580 H D (150-375) k/mm3 BMP 07/16/24 16:07 Sodium 138 Potassium 3.8 Chloride 101 Carbon Dioxide 21 L BUN 12 Creatinine 0.52 L Glucose 81 Calcium 9.9 Cardiac Enzymes 07/16/24 07/16/24 07/16/24 Range/Units 16:07 19:01 22:08 Troponin I 0.761 H* 0.781 H* 0.670 H* (0.000-0.034) ng/mL 07/17/24 Range/Units 01:18 Troponin I 0.575 H* (0.000-0.034) ng/mL Liver Function 07/16/24 Range/Units 16:07 Total Bilirubin 0.6 (0.2-1.3) mg/dL AST 38 H (14-36) U/L ALT 18 (6-35) U/L Alkaline Phosphatase 165 H (38-126) U/L Albumin 4.8 (3.5-5.1) g/dL Urine 07/16/24 Range/Units 19:32 Urine Color Yellow (Yellow) Urine Appearance Clear (Clear) Urine pH 8.5 (5.0-9.0) Ur Specific Clarence > 1.045 H (1.001-1.035) Urine Protein Negative (Negative) mg/dL Urine Glucose (UA) Negative (Negative) mg/dL
[2024-07-17] MEDS: ALBUTEROL SULFATE (*SP) AEROSOL 1 PUFF 2 PUFF INHALATION (08:34)
[2024-07-17] MEDS: METOCLOPRAMIDE HCL INJ 10 MG/2 ML VIAL 5 MG IV PUSH ×2 (08:41→19:30)
[2024-07-17] MEDS: MORPHINE SULFATE (*CRX) 2 MG/ML INJ IV PUSH ×3 (08:41→20:26)
[2024-07-17 08:43] LABS: Hematocrit 30.2 % (37.0-47.0); Hemoglobin 9.4 g/dL (12.0-15.0); Mean Corpuscular HGB Conc 31.1 g/dl (32-36); Mean Corpuscular Volume 102.7 fl (80-100); Mean Platelet Volume 9.7 fl (7.4-10.4); Platelet Count Result 419 k/mm3 (150-375); Red Blood Count 2.94 M/mm3 (4.2-5.4); White Blood Count 11.5 K/mm3 (4.5-10.0)
[2024-07-17] MEDS: PANTOPRAZOLE SODIUM IV 40 MG VIAL IV PUSH ×2 (08:43→20:26)
[2024-07-17 09:04] LABS: Alanine Aminotransferase 13 U/L (6-35); Albumin Level 3.4 g/dL (3.5-5.1); Alkaline Phosphatase 112 U/L (38-126); Anion Gap 10 mmol/L (4-12); Aspartate Amino Transferase 30 U/L (14-36); Bilirubin,Total 0.5 mg/dL (0.2-1.3); Blood Urea Nitrogen 9 mg/dL (7-17); Calcium 7.9 mg/dL (8.4-10.2); Carbon Dioxide 17 mmol/L (22-30); Chloride 107 mmol/L (98-107); Estimated CRCL calculation 78 ml/min; Estimated Glomerular Filt Rate > 60; Glucose 78 mg/dL (65-110); Potassium 3.4 mmol/L (3.4-5.0); Sodium 134 mmol/L (137-145)
[2024-07-17 09:48] LABS: Hepatitis B Surface Antigen Negative (Negative)
[2024-07-17 09:54] LABS: HAV RESULT Negative (Negative); Hepatitis B Core IgM Result Negative (Negative)
[2024-07-17 10:05] LABS: Hepatitis C Virus Antibody Negative (Negative)
--- NOTE | 2024-07-17 10:27 | P.CONCA_ITS ---
Assessment and Plan Assessment and plan (1) Elevated troponin: Code(s): R79.89 - Other specified abnormal findings of blood chemistry Status: Acute (2) Hyperlipidemia: Code(s): E78.5 - Hyperlipidemia, unspecified Status: Acute Plan Problem list: Nausea, emesis, epigastric pain- subsided with Reglan and morphine History of GERD, gastritis Alcohol use disorder Elevated troponin without chest pain or shortness of breath; EKG sinus rhythm with nonspecific T-wave abnormalities Hyperlipidemia Plan: -Troponins are elevated and peaked. EKG sinus rhythm with nonspecific T-wave abnormalities. She is without any chest pain, shortness of breath or other cardiac symptoms. GI symptoms of nausea, emesis, and epigastric abdominal pain resolved with reglan and morphine. The troponin leak is most likely secondary to stress of ongoing GI issues. She had a negative exercise treadmill stress test in 2020. She underwent a right hip replacement surgery recently without any cardiac issues. In the absence of any chest pain or cardiac symptoms, recommend medical management and treatment of her acute GI issue as per primary team. If she develops any new chest pain/SOB/diaphoresis or other cardiac symptoms please call cardiology. Otherwise, she can get an outpatient stress test after discharge -EKG PRN for any chest pain or SOB -She is on Xarelto post hip repair. Continue this for 6 months -Continue statin -Check and replace electrolytes to keep K>4 and Mg>2 History of Present Illness History of Present Illness Consult date/time: 07/17/24 10:27 Reason For Visit: intractable vomiting, elevated troponin, stress Narrative: 68-year-old female with history of alcohol abuse, GERD, gastritis, osteoporosis, history of recent right hip replacement 2 weeks prior to this admission, history of blood clot, anxiety presents with chief complaint of nausea since Monday morning. She has occasional emesis. She reports epigastric abdominal pain off and on along with this. Since symptoms did not get better she came to the ER yesterday and was admitted for further workup and management. She reports continuous ongoing nausea and occasional emesis since admission. She had 1 emesis this morning. GI has been consulted and a CT abdomen was done which showed esophagitis, antral gastritis, and hepatic steatosis. GI is also planning a right upper quadrant ultrasound to look gallstones and an EGD. Troponin were noted to be elevated to 0.761 and down to 0.575. Cardiology is consulted for further recommendations. Patient denies any chest pain, shortness of breath, dizziness, lightheadedness, palpitations, presyncope, syncope, leg swelling, recent weight gain, orthopnea, PND. She does not have any chest pain with exertional activities prior to admission. She has family history of premature CAD with dad having an CO in his 30s. Mom has history of CAD also with CO at an early age. She has a brother who also has CAD. She has a history of blood clot and is on Eliquis after recent right hip replacement surgery 2 weeks ago. Workup: WBC: 11.5 Hemoglobin: 9.4 platelet count: 419,000 Creatinine: 0.47 Troponin: 0.761--0.781--0.670--0.575 EKG: Sinus rhythm, nonspecific T-wave abnormality Exercise stress CT abdomen: esophagitis, antral gastritis, and hepatic steatosis. Review of Systems 2 Review of Systems: A complete review of systems was performed and negative other than those mentioned HPI [facility] Past Medical History Medical History Spondylosis of cervical joint with myelopathy JLUIS (generalized anxiety disorder) GERD (gastroesophageal reflux disease) Anxiety Nicotine dependence, cigarettes, uncomplicated Osteoporosis Gastroesophageal reflux disease Gastritis On EGD [place] [address] Gonzalez. Asthma Surgical History Surgical History S/P epidural steroid injection History of section History of basal cell carcinoma excision History of bunionectomy of both great toes History of appendectomy History of tonsillectomy and adenoidectomy History of hysterectomy (~1984) Family History Family History Father Family history of elevated blood lipids Family history of diabetes mellitus in first degree relative Family history of coronary artery disease Patient's father is Family history of heart disease in male family member before age 55 Mother Family history of coronary artery disease Patient's mother is Family history of emphysema Family history of heart disease in male family member before age 55 Family history of mental disorder Depression Sibling Heart disease Other Diabetes mellitus Family history of cardiovascular disease Hypertension Social History Social History Social History: Date of last mammogram: 08/22/22 @ [facility] (normal) Flu: yes (2022) Tetanus and Pneumonia: no (2022) Dexa Scan: yes (unknown date) Colonoscopy: yes Carol drinks coffee/tea 1-2 cups/day. Surrogate decision maker: Escobar Olea, . Code status: Full code. Travels to [place] for Winter, drives in their camper. Smoking packs per day: 1 Smoking cigarettes per day: 20.0 Years smoked: 30 Smoking pack-years: 30.00 Smoking status: Former smoker Tobacco type: cigarettes Second hand tobacco smoke exposure: Yes Smoking end date: 03/06/09 Additional smoking assessment comments: DENIES ANY FORM OF TOBACCO USE Alcohol intake: current Drinks per week: 7 Alcohol use details: Wine every night Substance use: never Substance use type: does not use Do You Feel Safe in your Home?: Yes Lack of Transportation: No Lack of Food: Never True Current Housing: I Have Housing Concerned About Future Housing: No Difficulty Paying Gas/Electric Bills: No Difficulty Paying for Meds: No Currently Unemployed: No Education: Master's Degree or Higher Difficulty w/ Childcare or Family Care: No Living arrangements: with family Occupation/Education: retired Gender identity (if verbalized by the patient): Female Spiritual care concerns: No Agree to blood products: Yes Meds Home Medications and Allergies Home Medications Medication Instructions Recorded Confirmed Type magnesium 200 mg tablet 200 mg PO DAILY 08/26/19 07/16/24 History lactobacillus combination no.9 4 4,000 mmu cells PO DAILY 07/06/20 07/16/24 History billion cell capsule (Adult 50 Plus Probiotic) mecobalamin (vitamin B12) 1,000 1,000 mcg sublingual DAILY 07/07/21 07/16/24 History mcg disintegrating tablet,sublingual albuterol sulfate 90 mcg/actuation See Rx Instructions .Route 12/09/22 07/16/24 Rx aerosol inhaler .COMPLEX #8.5 ea pantoprazole 40 mg tablet,delayed See Rx Instructions .Route 08/09/23 07/16/24 Rx release .COMPLEX #180 tabs peak flow meter #1 ea 08/16/23 07/16/24 Rx montelukast 10 mg tablet 10 mg PO QHS #90 tabs 09/14/23 07/16/24 Rx dicyclomine 20 mg tablet 20 mg PO BID #180 tabs 10/06/23 07/16/24 Rx bupropion HCl 100 mg tablet 100 mg PO BID #180 tabs 11/02/23 07/16/24 Rx atorvastatin 20 mg tablet 20 mg PO DAILY #90 tabs 01/10/24 07/16/24 Rx acetaminophen 500 mg tablet 1,000 mg PO Q6H PRN pain 06/10/24 07/16/24 History (Acetaminophen Pain Relief) calcium 600 mg (as 1 tablet PO DAILY 06/10/24 07/16/24 History carbonate)-vitamin D3 5 mcg (200 unit) tablet cetirizine 10 mg capsule (All Day 10 mg PO DAILY 06/10/24 07/16/24 History Allergy (cetirizine)) hydroxyzine HCl 25 mg tablet 25 mg PO TID PRN itching #30 tabs 06/28/24 07/16/24 Rx ondansetron HCl 4 mg tablet 4 mg PO Q8H PRN nausea and 07/09/24 07/16/24 Rx vomiting #30 tabs oxycodone-acetaminophen 5 mg-325 1 - 2 tablet PO Q4-6H PRN pain 7 07/09/24 07/16/24 Rx mg tablet days #30 tabs ondansetron HCl 4 mg tablet 4 mg PO Q8H PRN nausea and 07/16/24 07/16/24 Rx vomiting #10 tabs rivaroxaban 10 mg tablet (Xarelto) 10 mg PO DAILY 07/16/24 07/16/24 History Allergies Allergy/AdvReac Type Severity Reaction Status Date / Time meperidine AdvReac Severe Nausea and Verified 07/16/24 16:08 Vomiting propoxyphene AdvReac Unknown Nausea and Verified 07/16/24 16:08 Vomiting Vital Signs Vital Signs - 24 hr 07/16/24 15:50 07/16/24 16:16 07/16/24 16:46 Temperature 36.8 C Pulse Rate 96 93 88 Respiratory Rate 24 H 17 20 Blood Pressure 108/59 L 111/64 110/64 Pulse Oximetry 98 99 97 Oxygen Delivery Room Air 07/16/24 17:31 07/16/24 17:51 07/16/24 17:57 Temperature Pulse Rate 92 92 94 Respiratory Rate 17 14 18 Blood Pressure 127/83 134/96 H 113/89 Pulse Oximetry 97 100 100 Oxygen Delivery 07/16/24 18:00 07/16/24 18:15 07/16/24 19:04 Temperature Pulse Rate 98 93 94 Respiratory Rate 19 23 H 19 Blood Pressure 123/91 H 123/82 129/79 Pulse Oximetry 100 93 100 Oxygen Delivery 07/16/24 19:31 07/16/24 21:05 07/16/24 22:00 Temperature 36.7 C Pulse Rate 94 96 89 Respiratory Rate 14 15 Blood Pressure 119/66 116/62 Pulse Oximetry 99 100 Oxygen Delivery 07/16/24 22:05 07/16/24 23:00 07/17/24 00:00 Temperature 36.7 C Pulse Rate 98 98 109 H Respiratory Rate 16 16 Blood Pressure 126/61 Pulse Oximetry 94 94 Oxygen Delivery Room Air 07/17/24 02:00 07/17/24 03:58 07/17/24 04:00 Temperature 36.8 C Pulse Rate 91 93 94 Respiratory Rate 16 Blood Pressure 128/65 Pulse Oximetry 94 Oxygen Delivery 07/17/24 04:30 07/17/24 06:00 07/17/24 07:52 Temperature 36.8 C Pulse Rate 94 91 91 Respiratory Rate 16 20 Blood Pressure 129/65 Pulse Oximetry 94 100 Oxygen Delivery Room Air 07/17/24 08:00 Temperature Pulse Rate Respiratory Rate Blood Pressure Pulse Oximetry 100 Oxygen Delivery Room Air Exam 2 Narrative: General: Alert oriented x3, no acute distress Neck: Supple, no JVD Chest: Bilaterally clear to auscultation, no rales or rhonchi Cardiac: S1, S2 +, regular rate, regular rhythm, no murmurs or rubs Extremities: No pedal edema, no skin rash Neurologic: Alert and oriented x3, no focal neurological deficits Results Labs and Meds 07/17/24 08:38 07/17/24 08:38 Lab results: Cardiac Enzymes 07/16/24 07/16/24 07/16/24 Range/Units 16:07 19:01 22:08 AST 38 H (14-36) U/L Troponin I 0.761 H* 0.781 H* 0.670 H* (0.000-0.034) ng/mL 07/17/24 07/17/24 Range/Units 01:18 08:38 AST 30 (14-36) U/L Troponin I 0.575 H* (0.000-0.034) ng/mL CBC 07/16/24 07/17/24 Range/Units 16:07 08:38 WBC 13.1 H 11.5 H (4.5-10.0) K/mm3 RBC 3.67 L 2.94 L (4.2-5.4) M/mm3 Hgb 11.7 L 9.4 L (12.0-15.0) g/dL Hct 35.7 L 30.2 L (37.0-47.0) % Plt Count 580 H D 419 H (150-375) k/mm3 Lymph # (Auto) 1.55 (0.9-3.2) K/mm3 Mckenzie # (Auto) 0.7 H (0.1-0.6) K/mm3 Eos # (Auto) 0.1 (0-0.3) K/mm3 Baso # (Auto) 0.1 (0.0-0.1) K/mm3 Comprehensive Metabolic Panel 07/16/24 07/17/24 Range/Units 16:07 08:38 Sodium 138 134 L (137-145) mmol/L Potassium 3.8 3.4 (3.4-5.0) mmol/L Chloride 101 107 (98-107) mmol/L Carbon Dioxide 21 L 17 L (22-30) mmol/L BUN 12 9 (7-17) mg/dL Creatinine 0.52 L 0.47 L (0.7-1.0) mg/dL Glucose 81 78 (65-110) mg/dL Calcium 9.9 7.9 L (8.4-10.2) mg/dL AST 38 H 30 (14-36) U/L ALT 18 13 (6-35) U/L Alkaline Phosphatase 165 H 112 (38-126) U/L Total Protein 8.0 6.0 L (6.3-8.2) g/dL Albumin 4.8 3.4 L (3.5-5.1) g/dL Intake and Output 07/16/24 07/17/24 07/17/24 23:59 07:59 15:59 Intake Total 1999 1480 Output Total 300 400 Balance 1999 1180 -400 Intake: IV 2000 1000 Sodium Chloride 0.9% IV 1,000 1999 1000 ml @ 150 mls/hr IV CONT .Q6H40M [facility] Rx#:[id number] Oral 480 Output: Urine 300 400 Patient Weight 07/17/24 23:59 Weight 55.6 kg
[2024-07-17] MEDS: ONDANSETRON INJ 4 MG/2 ML VIAL 8 MG IV PUSH ×3 (11:32→20:26)
[2024-07-17] MEDS: SUCRALFATE 1 GM TABLET PO ×3 (11:33→20:26)
--- NOTE | 2024-07-17 16:20 | P.PNIM_ITS ---
Progress Note: A&P Assessment and Plan (1) Anxiety and depression: Code(s): F41.9 - Anxiety disorder, unspecified; F32.9 - Major depressive disorder, single episode, unspecified Status: Acute (2) Anxiety: Code(s): F41.9 - Anxiety disorder, unspecified Status: Acute (3) Daily consumption of alcohol: Code(s): Z78.9 - Other specified health status Status: Acute (4) Elevated troponin: Code(s): R79.89 - Other specified abnormal findings of blood chemistry Status: Acute (5) Intractable vomiting: Code(s): R11.10 - Vomiting, unspecified Status: Acute (6) Abdominal pain: Code(s): R10.9 - Unspecified abdominal pain Status: Acute (7) Orthopedic aftercare for joint replacement: Code(s): Z47.1 - Aftercare following joint replacement surgery Status: Acute (8) Status post total hip replacement, right: Code(s): Z96.641 - Presence of right artificial hip joint Status: Acute Plan Nausea and vomiting CT scan is shows esophagitis and gastritis Possibly due to anxiety/stress Protonix 40 mg IV b.i.d. Sucralfate Lipase normal No evidence of bowel obstruction Zofran p.r.n. Trial of clear liquid for 24-48 hours and advance diet as tolerated, NPO after midnight for possible EGD Will check for H pylori GI consulted and appreciate recommendations Elevated troponin Possibly due to type 2 Reviewed EKG which shows sinus rhythm with occasional ventricular premature complex Troponin 0.7 Trend troponin follow Echo report cardiology on board Right total hip arthroplasty on 0 07/02/2024 Consult PT OT If needed will consult Ortho Continue Xarelto 10 mg p.o. q.d. Chronic alcoholism CIWA induced ativan Thiamine and folic acid Lorazepam 2 mg q.4 hours p.r.n. for anxiety Consider Bentyl 20 mg p.o. q.6 hours p.r.n. for abdominal discomfort Consider Methocarbamol 750 mg p.o. q.6 hours p.r.n. for muscle spasm Monitor development of withdrawal symptoms Monitor LFTs US unremarkable Hypoglycemic med protocol CBC and CMP including Mag and phos Medication reconciliation pending DVT prophylaxis lovenox before surgery and switch to Noac after discharge for 6 M Subjective Date/time seen: 07/17/24 16:20 Interval history: per HPI: A 60-year-old female with a past medical history of recent right hip surgery 2 weeks ago on 07/02/2024 presented to the ED due to vomiting. Pertinent ED labs: WBC 13.1, hemoglobin 11.7, hematocrit 35.7, platelet 580, sodium 138, potassium 3.8, carbon dioxide 21, anion gap 16, creatinine 0.5, glucose 86 Troponin 0.781 Abdominal/pelvis CT shows esophagitis and antral gastritis. The patient is admitted to the setting of nausea and vomiting. GI will be consulted regarding esophagitis and antral gastritis. Patient will be NPO and started on PPI twice a day and sucralfate, elevated troponin possibly due to type 2 RI. An echocardiogram will be ordered, and Cardiology will be consulted. Patient has a remote history of a blood clot during her in 1973 and another recent clot on her left arm 4 years ago when she was living in [place] but some reason she says was taking only ASA. Patient is currently on Xarelto 10 mg due to recent surgery, which will be continued. Patient reports that after the surgery on 07/02/2024, right hip with replacement, she went to her daughter's home, and then 2 days later, she returned to her house where she was living alone. The patient started having intractable vomiting from 9:00 p.m. yesterday. Patient denies using any NSAIDs. Patient reports having EGD in 2019, but does not remember when the colonoscopy was performed. Patient drinks a daily glass of wine, 9 oz. A previous smoker quit 20-30 years ago. 07/17/24 Patient was seen and examined at bedside. She is feeling better. Her nausea is better with Reglan. Denies any chest pain, shortness off breath. Still has epigastric pain. GI team on board. Recommended IV PPI. Possible endoscopy pending Cardiology recommendation. Elevated alkaline phosphatase. Liver ultrasound unremarkable. Continue to monitor Cardiac testing recommended echo follow-up with the stresses as outpatient Review of Systems Review of Systems: A complete review of systems was performed and negative other than those mentioned HPI All systems reviewed & are unremarkable except as noted in HPI and below Exam Narrative: General: Alert oriented x3, no acute distress Neck: Supple, no JVD Chest: Bilaterally clear to auscultation, no rales or rhonchi Cardiac: S1, S2 +, regular rate, regular rhythm, no murmurs or rubs Extremities: No pedal edema, no skin rash Neurologic: Alert and oriented x3, no focal neurological deficits Objective Data Vital Signs Vital Signs: Vital Signs - 24 hr 07/16/24 16:46 07/16/24 17:31 07/16/24 17:51 Temperature Pulse Rate 88 92 92 Respiratory Rate 20 17 14 Blood Pressure 110/64 127/83 134/96 H Pulse Oximetry 97 97 100 Oxygen Delivery 07/16/24 17:57 07/16/24 18:00 07/16/24 18:15 Temperature Pulse Rate 94 98 93 Respiratory Rate 18 19 23 H Blood Pressure 113/89 123/91 H 123/82 Pulse Oximetry 100 100 93 Oxygen Delivery 07/16/24 19:04 07/16/24 19:31 07/16/24 21:05 Temperature 98.1 F Pulse Rate 94 94 96 Respiratory Rate 19 14 15 Blood Pressure 129/79 119/66 116/62 Pulse Oximetry 100 99 100 Oxygen Delivery 07/16/24 22:00 07/16/24 22:05 07/16/24 23:00 Temperature 98.0 F Pulse Rate 89 98 98 Respiratory Rate 16 16 Blood Pressure 126/61 Pulse Oximetry 94 94 Oxygen Delivery Room Air 07/17/24 00:00 07/17/24 02:00 07/17/24 03:58 Temperature 98.2 F Pulse Rate 109 H 91 93 Respiratory Rate 16 Blood Pressure 128/65 Pulse Oximetry 94 Oxygen Delivery 07/17/24 04:00 07/17/24 04:30 07/17/24 06:00 Temperature Pulse Rate 94 94 91 Respiratory Rate 16 Blood Pressure Pulse Oximetry 94 Oxygen Delivery Room Air 07/17/24 07:52 07/17/24 08:00 07/17/24 08:00 Temperature 98.3 F Pulse Rate 91 91 Respiratory Rate 20 Blood Pressure 129/65 Pulse Oximetry 100 100 Oxygen Delivery Room Air 07/17/24 10:00 07/17/24 11:31 07/17/24 12:00 Temperature 98.2 F Pulse Rate 97 95 Respiratory Rate 16 Blood Pressure 117/59 L Pulse Oximetry 96 96 Oxygen Delivery Room Air 07/17/24 12:00 07/17/24 14:00 07/17/24 15:44 Temperature 98.2 F Pulse Rate 91 98 92 Respiratory Rate 16 Blood Pressure 120/67 Pulse Oximetry 100 Oxygen Delivery Intake/Output Intake/Output: Intake & Output 07/14/24 07/15/24 07/16/24 07/17/24 23:59 23:59 23:59 23:59 Intake Total 1999 2480 Output Total 870 Balance 1999 1610 Meds/Results Medications: Active Medications Generic Name Dose Route Start Last Admin Trade Name Freq PRN Reason Stop Dose Admin Acetaminophen 650 mg 07/16/24 19:15 Acetaminophen 325 Mg Tablet PO Q4H PRN Mild Pain (1-3) or Fever Albuterol 2 puff 07/17/24 08:25 07/17/24 08:34 Albuterol Sulfate (*Sp) Aerosol 1 Puff INHALATION 2 puff Q4HRT PRN Administration Shortness Of Breath Sodium Chloride 1,000 mls @ 150 mls/hr 07/16/24 19:15 07/17/24 11:32 Normal Saline Iv IV CONT 150 mls/hr .Q6H40M CISCO Administration Lorazepam 1 mg 07/16/24 19:15 Lorazepam Inj (*Crx) 2 Mg/Ml Vial IV PUSH Q6H PRN Anxiety Metoclopramide HCl 5 mg 07/17/24 08:33 07/17/24 08:41 Metoclopramide Hcl Inj 10 Mg/2 Ml Vial IV PUSH 5 mg Q6HR PRN Administration Nausea And Vomiting Morphine Sulfate 2 mg 07/17/24 08:33 07/17/24 16:01 Morphine Sulfate (*Crx) 2 Mg/Ml Inj IV PUSH 2 mg Q4H PRN Administration Pain Rated 7-10 Ondansetron HCl 4 mg 07/16/24 19:15 07/17/24 07:43 Ondansetron Inj 4 Mg/2 Ml Vial IV PUSH 4 mg Q4H PRN Administration Nausea Ondansetron HCl 8 mg 07/17/24 08:22 07/17/24 15:59 Ondansetron Inj 4 Mg/2 Ml Vial IV PUSH 8 mg Q4H PRN Administration Nausea And Vomiting Pantoprazole Sodium 40 mg 07/17/24 09:00 07/17/24 08:43 Pantoprazole Sodium Iv 40 Mg Vial IV PUSH 40 mg Q12HR [facility]ISCO Administration Perflutren Lipid Microsphere 0 ml 07/17/24 13:40 Perflutren Lipid Microspheres 1.5 Ml Vial Diluted To 10 Ml Total Volume IV PUSH 07/20/24 13:40 ONCE PRN adequate visualization Protocol Sucralfate 1 gm 07/16/24 21:15 07/17/24 11:33 Sucralfate 1 Gm Tablet PO 1 gm ACHS CISCO Administration Radiology Results: ITS Impressions Abdomen/Pelvis CT 07/16/24 17:50 IMPRESSION: Esophagitis and antral gastritis. Hepatic steatosis. Abdomen Ultrasound 07/17/24 11:33 Impression: No significant abnormality seen. Labs Labs: Laboratory Results - last 24 hr 07/16/24 07/16/24 07/16/24 16:03 16:07 19:01 WBC RBC Hgb Hct MCV MCH MCHC RDW Plt Count MPV ESR 81 H Sodium 138 Potassium 3.8 Chloride 101 Carbon Dioxide 21 L Anion Gap 16 H BUN 12 Creatinine 0.52 L Estim Creat Clear Calc 72 Estimated GFR > 60 Glucose 81 POC Capillary Glucose 86 Calcium 9.9 Total Bilirubin 0.6 AST 38 H ALT 18 Alkaline Phosphatase 165 H Troponin I 0.761 H* 0.781 H* Total Protein 8.0 Albumin 4.8 Lipase 83 TSH Urine Color Urine Appearance Urine pH Ur Specific [place] Urine Protein Urine Glucose (UA) Urine Ketones Ur Blood (Man) Urine Nitrate Urine Bilirubin Urine Urobilinogen Leukocyte Esterase Rfl Urine RBC Urine WBC Ur Squamous Epith Cells Urine Bacteria Urine Casts Hepatitis A IgM Ab Hep Bs Antigen Hep B Core IgM Ab Hepatitis C Ab Screen 07/16/24 07/16/24 07/17/24 19:32 22:08 01:18 WBC RBC Hgb Hct MCV MCH MCHC RDW Plt Count MPV ESR Sodium Potassium Chloride Carbon Dioxide Anion Gap BUN Creatinine Estim Creat Clear Calc Estimated GFR Glucose POC Capillary Glucose Calcium Total Bilirubin AST ALT Alkaline Phosphatase Troponin I 0.670 H* 0.575 H* Total Protein Albumin Lipase TSH Urine Color Yellow Urine Appearance Clear Urine pH 8.5 Ur Specific [place] > 1.045 H Urine Protein Negative Urine Glucose (UA) Negative Urine Ketones 2+ H Ur Blood (Man) Negative Urine Nitrate Negative Urine Bilirubin Negative Urine Urobilinogen 1.0 Leukocyte Esterase Rfl Trace H Urine RBC 0-2 Urine WBC 11-20 H Ur Squamous Epith Cells None seen Urine Bacteria None seen Urine Casts 0-2 Hepatitis A IgM Ab Hep Bs Antigen Hep B Core IgM Ab Hepatitis C Ab Screen 07/17/24 07/17/24 08:37 08:38 WBC 11.5 H RBC 2.94 L Hgb 9.4 L Hct 30.2 L MCV 102.7 H D MCH 32.0 MCHC 31.1 L RDW 12.0 Plt Count 419 H MPV 9.7 ESR Sodium 134 L Potassium 3.4 Chloride 107 Carbon Dioxide 17 L Anion Gap 10 BUN 9 Creatinine 0.47 L Estim Creat Clear Calc 78 Estimated GFR > 60 Glucose 78 POC Capillary Glucose Calcium 7.9 L Total Bilirubin 0.5 AST 30 ALT 13 Alkaline Phosphatase 112 Troponin I Total Protein 6.0 L Albumin 3.4 L Lipase TSH 1.550 Urine Color Urine Appearance Urine pH Ur Specific [place] Urine Protein Urine Glucose (UA) Urine Ketones Ur Blood (Man) Urine Nitrate Urine Bilirubin Urine Urobilinogen Leukocyte Esterase Rfl Urine RBC Urine WBC Ur Squamous Epith Cells Urine Bacteria Urine Casts Hepatitis A IgM Ab Negative Hep Bs Antigen Negative Hep B Core IgM Ab Negative Hepatitis C Ab Screen Negative
[2024-07-17] MEDS: DICYCLOMINE HCL 10 MG CAPSULE 20 MG PO (17:09)
[2024-07-17] MEDS: ENOXAPARIN 60 MG/0.6 ML SYRINGE 55 MG SUB-Q (20:27)
[2024-07-18] VITALS (20 sets, daily range): BP systolic 108–143; BP diastolic 52–80; PULSE 70–108; RESP 14–19; TEMP 36.6–36.9; O2SAT 94–100
[2024-07-18] MEDS: ONDANSETRON INJ 4 MG/2 ML VIAL 8 MG IV PUSH ×4 (00:17→13:35)
[2024-07-18] MEDS: MORPHINE SULFATE (*CRX) 2 MG/ML INJ IV PUSH ×3 (00:17→15:54)
[2024-07-18 04:04] LABS: Hematocrit 27.4 % (37.0-47.0); Hemoglobin 8.6 g/dL (12.0-15.0); Mean Corpuscular HGB Conc 31.4 g/dl (32-36); Mean Corpuscular Volume 101.9 fl (80-100); Mean Platelet Volume 9.7 fl (7.4-10.4); Platelet Count Result 380 k/mm3 (150-375); Red Blood Count 2.69 M/mm3 (4.2-5.4); Red Cell Distribution Width 11.8 % (11.5-14.5); White Blood Count 9.2 K/mm3 (4.5-10.0)
[2024-07-18 04:16] LABS: Alanine Aminotransferase 13 U/L (6-35); Albumin Level 3.2 g/dL (3.5-5.1); Alkaline Phosphatase 106 U/L (38-126); Anion Gap 13 mmol/L (4-12); Aspartate Amino Transferase 28 U/L (14-36); Bilirubin,Total 0.4 mg/dL (0.2-1.3); Blood Urea Nitrogen 7 mg/dL (7-17); Calcium 7.9 mg/dL (8.4-10.2); Carbon Dioxide 16 mmol/L (22-30); Chloride 104 mmol/L (98-107); Estimated CRCL calculation 73 ml/min; Estimated Glomerular Filt Rate > 60; Glucose 56 mg/dL (65-110); Magnesium 1.7 mg/dL (1.6-2.3); Potassium 3.1 mmol/L (3.4-5.0); Sodium 133 mmol/L (137-145)
[2024-07-18] MEDS: DEXTROSE 50% 25 GM/50 ML SYRINGE IV PUSH (04:31)
[2024-07-18] MEDS: DEXTROSE 5% 1,000 ML 1,000 ML 100 ML IV CONT (04:33)
[2024-07-18 04:59] LABS: Glucose Point of Care 203 mg/dl (65-105)
--- NOTE | 2024-07-18 09:18 | P.PNAN_ITS ---
Anes - Initial Pre Proc Eval Procedure: Operation Date: 07/18/24 15:00 Proposed Procedures p Esophagogastroduodenoscopy - Jordin Mar MD Date/Time: 07/18/24 09:18 Surgeon: Sharon Marrero MD Pre Op Diagnosis: intractable vomiting, elevated troponin, stress Patient Data Age: 68 Gender: F Height: 1.6 m Weight: 58.6 kg Last Vital Signs Temp 36.9 C 07/18/24 08:00 Pulse 91 07/18/24 08:00 Resp 16 07/18/24 08:00 BP 133/54 L 07/18/24 08:00 Pulse Ox 94 07/18/24 08:00 O2 Del Method Room Air 07/18/24 08:00 Allergies Allergy/AdvReac Type Severity Reaction Status Date / Time meperidine AdvReac Severe Nausea and Verified 07/16/24 16:08 Vomiting propoxyphene AdvReac Unknown Nausea and Verified 07/16/24 16:08 Vomiting Home Medications Medication Instructions Recorded Confirmed Type magnesium 200 mg tablet 200 mg PO DAILY 08/26/19 07/16/24 History lactobacillus combination no.9 4 4,000 mmu cells PO DAILY 07/06/20 07/16/24 History billion cell capsule (Adult 50 Plus Probiotic) mecobalamin (vitamin B12) 1,000 1,000 mcg sublingual DAILY 07/07/21 07/16/24 History mcg disintegrating tablet,sublingual albuterol sulfate 90 mcg/actuation See Rx Instructions .Route 12/09/22 07/16/24 Rx aerosol inhaler .COMPLEX #8.5 ea pantoprazole 40 mg tablet,delayed See Rx Instructions .Route 08/09/23 07/16/24 Rx release .COMPLEX #180 tabs peak flow meter #1 ea 08/16/23 07/16/24 Rx montelukast 10 mg tablet 10 mg PO QHS #90 tabs 09/14/23 07/16/24 Rx dicyclomine 20 mg tablet 20 mg PO BID #180 tabs 10/06/23 07/16/24 Rx bupropion HCl 100 mg tablet 100 mg PO BID #180 tabs 11/02/23 07/16/24 Rx atorvastatin 20 mg tablet 20 mg PO DAILY #90 tabs 01/10/24 07/16/24 Rx acetaminophen 500 mg tablet 1,000 mg PO Q6H PRN pain 06/10/24 07/16/24 History (Acetaminophen Pain Relief) calcium 600 mg (as 1 tablet PO DAILY 06/10/24 07/16/24 History carbonate)-vitamin D3 5 mcg (200 unit) tablet cetirizine 10 mg capsule (All Day 10 mg PO DAILY 06/10/24 07/16/24 History Allergy (cetirizine)) hydroxyzine HCl 25 mg tablet 25 mg PO TID PRN itching #30 tabs 06/28/24 07/16/24 Rx ondansetron HCl 4 mg tablet 4 mg PO Q8H PRN nausea and 07/09/24 07/16/24 Rx vomiting #30 tabs oxycodone-acetaminophen 5 mg-325 1 - 2 tablet PO Q4-6H PRN pain 7 07/09/24 07/16/24 Rx mg tablet days #30 tabs ondansetron HCl 4 mg tablet 4 mg PO Q8H PRN nausea and 07/16/24 07/16/24 Rx vomiting #10 tabs rivaroxaban 10 mg tablet (Xarelto) 10 mg PO DAILY 07/16/24 07/16/24 History Laboratory Tests 07/17/24 07/17/24 07/18/24 08:37 08:38 03:49 WBC 9.2 K/mm3 (4.5-10.0) RBC 2.69 L M/mm3 (4.2-5.4) Hgb 8.6 L g/dL (12.0-15.0) Hct 27.4 L % (37.0-47.0) MCV 101.9 H fl (80-100) MCH 32.0 pg (26-34) MCHC 31.4 L g/dl (32-36) RDW 11.8 % (11.5-14.5) Plt Count 380 H k/mm3 (150-375) MPV 9.7 fl (7.4-10.4) Sodium 133 L mmol/L (137-145) Potassium 3.1 L mmol/L (3.4-5.0) Chloride 104 mmol/L (98-107) Carbon Dioxide 16 L mmol/L (22-30) Anion Gap 13 H mmol/L (4-12) BUN 7 mg/dL (7-17) Creatinine 0.51 L mg/dL (0.7-1.0) Estim Creat Clear Calc 73 ml/min Estimated GFR > 60 (59 - ) Glucose 56 L* mg/dL (65-110) POC Capillary Glucose Calcium 7.9 L mg/dL (8.4-10.2) Magnesium 1.7 mg/dL (1.6-2.3) Total Bilirubin 0.4 mg/dL (0.2-1.3) AST 28 U/L (14-36) ALT 13 U/L (6-35) Alkaline Phosphatase 106 U/L (38-126) Total Protein 6.0 L g/dL (6.3-8.2) Albumin 3.2 L g/dL (3.5-5.1) TSH 1.550 uIU/mL (0.465-4.680) Hepatitis A IgM Ab Negative (Negative) Hep Bs Antigen Negative (Negative) Hep B Core IgM Ab Negative (Negative) Hepatitis C Ab Screen Negative (Negative) 07/18/24 04:55 WBC RBC Hgb Hct MCV MCH MCHC RDW Plt Count MPV Sodium Potassium Chloride Carbon Dioxide Anion Gap BUN Creatinine Estim Creat Clear Calc Estimated GFR Glucose POC Capillary Glucose 203 H mg/dl (65-105) Calcium Magnesium Total Bilirubin AST ALT Alkaline Phosphatase Total Protein Albumin TSH Hepatitis A IgM Ab Hep Bs Antigen Hep B Core IgM Ab Hepatitis C Ab Screen Patient hx anesthesia problems: none Family hx anesthesia problems: none Results Review: All pre-operative results and documents have been reviewed as part of the pre- operative evaluation. FORMERLY [facility] Past Medical History Medical History Spondylosis of cervical joint with myelopathy JLUIS (generalized anxiety disorder) GERD (gastroesophageal reflux disease) Anxiety Nicotine dependence, cigarettes, uncomplicated Osteoporosis Gastroesophageal reflux disease Gastritis On EGD [place] [address] Gonzalez. Asthma Surgical History Surgical History S/P epidural steroid injection History of section History of basal cell carcinoma excision History of bunionectomy of both great toes History of appendectomy History of tonsillectomy and adenoidectomy History of hysterectomy (~1984) Family History Family History Father Family history of elevated blood lipids Family history of diabetes mellitus in first degree relative Family history of coronary artery disease Patient's father is Family history of heart disease in male family member before age 55 Mother Family history of coronary artery disease Patient's mother is Family history of emphysema Family history of heart disease in male family member before age 55 Family history of mental disorder Depression Sibling Heart disease Other Diabetes mellitus Family history of cardiovascular disease Hypertension Social History Social History Social History: Date of last mammogram: 08/22/22 @ [facility] (normal) Flu: yes (2022) Tetanus and Pneumonia: no (2022) Dexa Scan: yes (unknown date) Colonoscopy: yes Carol drinks coffee/tea 1-2 cups/day. Surrogate decision maker: Escobar Olea, . Code status: Full code. Travels to [place] for Winter, drives in their camper. Smoking packs per day: 1 Smoking cigarettes per day: 20.0 Years smoked: 30 Smoking pack-years: 30.00 Smoking status: Former smoker Tobacco type: cigarettes Second hand tobacco smoke exposure: Yes Smoking end date: 03/06/09 Additional smoking assessment comments: DENIES ANY FORM OF TOBACCO USE Alcohol intake: current Drinks per week: 7 Alcohol use details: Wine every night Substance use: never Substance use type: does not use Do You Feel Safe in your Home?: Yes Lack of Transportation: No Lack of Food: Never True Current Housing: I Have Housing Concerned About Future Housing: No Difficulty Paying Gas/Electric Bills: No Difficulty Paying for Meds: No Currently Unemployed: No Education: Master's Degree or Higher Difficulty w/ Childcare or Family Care: No Living arrangements: with family Occupation/Education: retired Gender identity (if verbalized by the patient): Female Spiritual care concerns: No Agree to blood products: Yes Anes - Eval Final PreProcedure Day of Procedure 07/18/24 09:18 Patient weight: normal Heart: regular rate and rhythm Lungs: clear to auscultation Airway: Mallampati scale class II Neurological: alert and oriented Last oral intake: >/= 8 hours ASA classification: III Emergent: no Anesthetic plan: proceed Anesthesia type and monitoring: general GIVS and standard monitoring Results Review: All pre-operative results and documents have been reviewed as part of the pre- operative evaluation. Informed Consent: The patient's anesthetic plan and its attendant risks and benefits were discussed with the patient/family/POA. Questions were solicited and answers provided to the satisfaction of the patient/family/POA.
[2024-07-18 09:19] LABS: Glucose Point of Care 57 mg/dl (65-105)
[2024-07-18] MEDS: LACTATED RINGERS 1,000 ML 150 ML IV CONT (09:36)
[2024-07-18 09:50] LABS: Glucose Point of Care 116 mg/dl (65-105)
[2024-07-18] MEDS: KCL 20 MEQ/SW 100 ML 100 ML 50 MEQ IVPB (10:41)
[2024-07-18] MEDS: MAGNESIUM SULF 2 GM/WATER 50ML 2 GM/50 ML BAG IVPB (10:41)
[2024-07-18] MEDS: DEXTROSE 10% 1,000 ML 100 ML IV CONT (10:42)
[2024-07-18] MEDS: PROMETHAZINE HCL 25 MG/ML AMPUL 12.5 MG IV PUSH (11:40)
[2024-07-18 11:43] LABS: Glucose Point of Care 63 mg/dl (65-105)
[2024-07-18] MEDS: ALBUTEROL SULFATE (*SP) AEROSOL 1 PUFF 2 PUFF INHALATION (12:12)
[2024-07-18] MEDS: ENOXAPARIN 60 MG/0.6 ML SYRINGE 55 MG SUB-Q (12:22)
--- NOTE | 2024-07-18 12:54 | PM.IMPN ---
Progress Note: A&P Assessment and Plan (1) Anxiety and depression: Code(s): F41.9 - Anxiety disorder, unspecified; F32.9 - Major depressive disorder, single episode, unspecified Status: Acute (2) Anxiety: Code(s): F41.9 - Anxiety disorder, unspecified Status: Acute (3) Daily consumption of alcohol: Code(s): Z78.9 - Other specified health status Status: Acute (4) Elevated troponin: Code(s): R79.89 - Other specified abnormal findings of blood chemistry Status: Acute (5) Intractable vomiting: Code(s): R11.10 - Vomiting, unspecified Status: Acute (6) Abdominal pain: Code(s): R10.9 - Unspecified abdominal pain Status: Acute (7) Orthopedic aftercare for joint replacement: Code(s): Z47.1 - Aftercare following joint replacement surgery Status: Acute (8) Status post total hip replacement, right: Code(s): Z96.641 - Presence of right artificial hip joint Status: Acute Plan Nausea and vomiting CT scan is shows esophagitis and gastritis EGD unremarkable 07/18/24 Protonix 40 mg IV b.i.d. Sucralfate Lipase normal No evidence of bowel obstruction Zofran p.r.n. Trial of clear liquid for 24-48 hours and advance diet as tolerated, GI team on board Elevated troponin Possibly due to type 2 Reviewed EKG which shows sinus rhythm with occasional ventricular premature complex Troponin 0.7 Trend troponin Echo unremarkable cardiology on board Right total hip arthroplasty on 0 07/02/2024 Consult PT OT Continue Xarelto 10 mg p.o. q.d. Chronic alcoholism CIWA induced ativan Thiamine and folic acid Lorazepam 2 mg q.4 hours p.r.n. for anxiety Consider Bentyl 20 mg p.o. q.6 hours p.r.n. for abdominal discomfort Consider Methocarbamol 750 mg p.o. q.6 hours p.r.n. for muscle spasm Monitor development of withdrawal symptoms Monitor LFTs US unremarkable Hypoglycemic med protocol CBC and CMP including Mag and phos Medication reconciliation pending DVT prophylaxis Noac after discharge for 6 M Subjective Date/time seen: 07/18/24 12:54 Interval history: per HPI: A 60-year-old female with a past medical history of recent right hip surgery 2 weeks ago on 07/02/2024 presented to the ED due to vomiting. Pertinent ED labs: WBC 13.1, hemoglobin 11.7, hematocrit 35.7, platelet 580, sodium 138, potassium 3.8, carbon dioxide 21, anion gap 16, creatinine 0.5, glucose 86 Troponin 0.781 Abdominal/pelvis CT shows esophagitis and antral gastritis. The patient is admitted to the setting of nausea and vomiting. GI will be consulted regarding esophagitis and antral gastritis. Patient will be NPO and started on PPI twice a day and sucralfate, elevated troponin possibly due to type 2 AK. An echocardiogram will be ordered, and Cardiology will be consulted. Patient has a remote history of a blood clot during her in 1973 and another recent clot on her left arm 4 years ago when she was living in [place] but some reason she says was taking only ASA. Patient is currently on Xarelto 10 mg due to recent surgery, which will be continued. Patient reports that after the surgery on 07/02/2024, right hip with replacement, she went to her daughter's home, and then 2 days later, she returned to her house where she was living alone. The patient started having intractable vomiting from 9:00 p.m. yesterday. Patient denies using any NSAIDs. Patient reports having EGD in 2019, but does not remember when the colonoscopy was performed. Patient drinks a daily glass of wine, 9 oz. A previous smoker quit 20-30 years ago. 07/17/24 Patient was seen and examined at bedside. She is feeling better. Her nausea is better with Reglan. Denies any chest pain, shortness off breath. Still has epigastric pain. GI team on board. Recommended IV PPI. Possible endoscopy pending Cardiology recommendation. Elevated alkaline phosphatase. Liver ultrasound unremarkable. Continue to monitor Cardiac testing recommended echo follow-up with the stresses as outpatient 07/18/24 patient was seen and examined at bedside th morning. still is feeling nauseated. Gi team on board. patient underwent EGD which was unremarkable Review of Systems Review of Systems: A complete review of systems was performed and negative other than those mentioned HPI All systems reviewed & are unremarkable except as noted in HPI and below Exam Narrative: General: Alert oriented x3, no acute distress Neck: Supple, no JVD Chest: Bilaterally clear to auscultation, no rales or rhonchi Cardiac: S1, S2 +, regular rate, regular rhythm, no murmurs or rubs Extremities: No pedal edema, no skin rash Neurologic: Alert and oriented x3, no focal neurological deficits Objective Data Vital Signs Vital Signs: Vital Signs - 24 hr 07/17/24 14:00 07/17/24 15:44 07/17/24 16:00 Temperature 98.2 F Pulse Rate 98 92 Respiratory Rate 16 Blood Pressure 120/67 Pulse Oximetry 100 100 Oxygen Delivery Room Air 07/17/24 16:00 07/17/24 18:00 07/17/24 19:56 Temperature 98.5 F Pulse Rate 91 89 95 Respiratory Rate 16 Blood Pressure 131/66 Pulse Oximetry 98 Oxygen Delivery 07/17/24 20:00 07/17/24 20:20 07/17/24 22:00 Temperature Pulse Rate 92 95 91 Respiratory Rate 16 Blood Pressure Pulse Oximetry 98 Oxygen Delivery Room Air 07/17/24 23:45 07/17/24 23:58 07/18/24 00:00 Temperature 98.7 F Pulse Rate 103 H 114 H 99 Respiratory Rate 18 16 Blood Pressure 129/57 L Pulse Oximetry 98 95 Oxygen Delivery Room Air 07/18/24 02:00 07/18/24 03:59 07/18/24 04:00 Temperature Pulse Rate 104 H 97 108 H Respiratory Rate 16 Blood Pressure Pulse Oximetry Oxygen Delivery Room Air 07/18/24 04:08 07/18/24 06:00 07/18/24 08:00 Temperature 98.1 F 98.4 F Pulse Rate 95 87 91 Respiratory Rate 16 16 Blood Pressure 141/64 H 133/54 L Pulse Oximetry 95 94 Oxygen Delivery 07/18/24 08:00 07/18/24 08:00 07/18/24 09:33 Temperature 97.9 F Pulse Rate 96 96 Respiratory Rate 19 Blood Pressure 128/57 L Pulse Oximetry 94 97 Oxygen Delivery Room Air Room Air 07/18/24 09:43 07/18/24 09:53 07/18/24 10:03 Temperature Pulse Rate 96 94 93 Respiratory Rate 19 14 14 Blood Pressure 143/80 H 132/67 123/68 Pulse Oximetry 97 97 100 Oxygen Delivery Room Air Room Air Room Air 07/18/24 10:03 Temperature Pulse Rate Respiratory Rate Blood Pressure Pulse Oximetry 100 Oxygen Delivery Room Air Intake/Output Intake/Output: Intake & Output 07/15/24 07/16/24 07/17/24 07/18/24 23:59 23:59 23:59 23:59 Intake Total 1999 4562.5 1047.5 Output Total 1470 1000 Balance 1999 3092.5 47.5 Meds/Results Medications: Active Medications Generic Name Dose Route Start Last Admin Trade Name Freq PRN Reason Stop Dose Admin Acetaminophen 1,000 mg 07/17/24 16:33 Acetaminophen 500 Mg Tablet PO Q6H PRN pain 1-3 Albuterol 2 puff 07/17/24 08:25 07/18/24 12:12 Albuterol Sulfate (*Sp) Aerosol 1 Puff INHALATION 2 puff Q4HRT PRN Administration Shortness Of Breath Albuterol 2 puff 07/17/24 16:35 Albuterol Sulfate (*Sp) Aerosol 1 Puff INHALATION Q4H PRN SHORTNES OF BREATH OR WHEEZING Atorvastatin Calcium 20 mg 07/18/24 09:00 07/18/24 12:09 Atorvastatin 20 Mg Tablet PO Not Given DAILY [facility] Calcium Carbonate 500 mg 07/18/24 09:00 07/18/24 12:09 Calcium/Vitamin D 500 Mg/5 Mcg (200 I.U.) Tablet PO Not Given QAM [facility] Cyanocobalamin 1,000 mcg 07/18/24 09:00 07/18/24 12:10 Cyanocobalamin 1,000 Mcg Tablet PO Not Given QAM [facility] Dicyclomine HCl 20 mg 07/17/24 17:00 07/18/24 12:10 Dicyclomine Hcl 10 Mg Capsule PO Not Given BID [facility] Enoxaparin Sodium 55 mg 07/17/24 21:00 07/18/24 12:22 Enoxaparin 60 Mg/0.6 Ml Syringe SUB-Q 55 mg Q12HR [facility] Administration Dextrose 1,000 mls @ 100 mls/hr 07/18/24 08:50 07/18/24 10:42 Dextrose 10% IV CONT 100 mls/hr .Q10H [facility] Administration Potassium Chloride 100 mls @ 50 mls/hr 07/18/24 15:00 Kcl 20 Meq/Sw 100 Ml IVPB 07/18/24 16:59 ONCE ONE Lorazepam 1 mg 07/16/24 19:15 Lorazepam Inj (*Crx) 2 Mg/Ml Vial IV PUSH Q6H PRN Anxiety Magnesium Oxide 200 mg 07/18/24 09:00 07/18/24 12:10 Magnesium Oxide 200 Mg Tablet PO Not Given DAILY [facility] Metoclopramide HCl 5 mg 07/17/24 08:33 07/17/24 19:30 Metoclopramide Hcl Inj 10 Mg/2 Ml Vial IV PUSH 5 mg Q6HR PRN Administration Nausea And Vomiting Morphine Sulfate 2 mg 07/17/24 08:33 07/18/24 04:33 Morphine Sulfate (*Crx) 2 Mg/Ml Inj IV PUSH 2 mg Q4H PRN Administration Pain Rated 7-10 Ondansetron HCl 4 mg 07/16/24 19:15 07/17/24 07:43 Ondansetron Inj 4 Mg/2 Ml Vial IV PUSH 4 mg Q4H PRN Administration Nausea Ondansetron HCl 8 mg 07/17/24 08:22 07/18/24 08:26 Ondansetron Inj 4 Mg/2 Ml Vial IV PUSH 8 mg Q4H PRN Administration Nausea And Vomiting Pantoprazole Sodium 40 mg 07/19/24 09:00 Pantoprazole 40 Mg Tablet PO QAM [facility] Perflutren Lipid Microsphere 0 ml 07/17/24 13:40 Perflutren Lipid Microspheres 1.5 Ml Vial Diluted To 10 Ml Total Volume IV PUSH 07/20/24 13:40 ONCE PRN adequate visualization Protocol Promethazine HCl 12.5 mg 07/18/24 08:06 07/18/24 11:40 Promethazine Hcl 25 Mg/Ml Ampul IV PUSH 12.5 mg Q4H PRN Administration Nausea And Vomiting Radiology Results: ITS Impressions Abdomen/Pelvis CT 07/16/24 17:50 IMPRESSION: Esophagitis and antral gastritis. Hepatic steatosis. Abdomen Ultrasound 07/17/24 11:33 Impression: No significant abnormality seen. Labs Labs: Laboratory Results - last 24 hr 07/18/24 07/18/24 07/18/24 03:49 04:55 08:37 WBC 9.2 RBC 2.69 L Hgb 8.6 L Hct 27.4 L MCV 101.9 H MCH 32.0 MCHC 31.4 L RDW 11.8 Plt Count 380 H MPV 9.7 Sodium 133 L Potassium 3.1 L Chloride 104 Carbon Dioxide 16 L Anion Gap 13 H BUN 7 Creatinine 0.51 L Estim Creat Clear Calc 73 Estimated GFR > 60 Glucose 56 L* POC Capillary Glucose 203 H 63 L Calcium 7.9 L Magnesium 1.7 Total Bilirubin 0.4 AST 28 ALT 13 Alkaline Phosphatase 106 Total Protein 6.0 L Albumin 3.2 L 07/18/24 07/18/24 09:17 09:47 WBC RBC Hgb Hct MCV MCH MCHC RDW Plt Count MPV Sodium Potassium Chloride Carbon Dioxide Anion Gap BUN Creatinine Estim Creat Clear Calc Estimated GFR Glucose POC Capillary Glucose 57 L* 116 H Calcium Magnesium Total Bilirubin AST ALT Alkaline Phosphatase Total Protein Albumin
[2024-07-18 13:46] LABS: Glucose Point of Care 105 mg/dl (65-105)
[2024-07-18] MEDS: POTASSIUM CHLORIDE INJ 40 MEQ in DEXTROSE 10% 1,000 ML 100 ML IV CONT (15:55)
[2024-07-18 16:54] LABS: Glucose Point of Care 120 mg/dl (65-105)
[2024-07-18] MEDS: DICYCLOMINE HCL 10 MG CAPSULE 20 MG PO (17:30)
[2024-07-18] MEDS: buPROPion HCL 100 MG TABLET PO (17:30)
[2024-07-18] MEDS: ACETAMINOPHEN 500 MG TABLET 1000 MG PO (19:09)
[2024-07-18 20:22] LABS: Glucose Point of Care 127 mg/dl (65-105)
[2024-07-18 20:22] LABS: Glucose Point of Care 144 mg/dl (65-105)
[2024-07-19] VITALS (19 sets, daily range): BP systolic 122–133; BP diastolic 55–70; PULSE 80–91; RESP 16–20; TEMP 36.4–37.2; O2SAT 95–100
[2024-07-19 00:01] LABS: Glucose Point of Care 122 mg/dl (65-105)
[2024-07-19 03:59] LABS: Glucose Point of Care 98 mg/dl (65-105)
[2024-07-19] MEDS: DEXTROSE 10% 1,000 ML 100 ML IV CONT ×3 (04:20→20:14)
[2024-07-19 07:49] LABS: Glucose Point of Care 103 mg/dl (65-105)
[2024-07-19 08:23] LABS: Anion Gap 8 mmol/L (4-12); Calcium 8.8 mg/dL (8.4-10.2); Carbon Dioxide 25 mmol/L (22-30); Chloride 103 mmol/L (98-107); Estimated CRCL calculation 82 ml/min; Estimated Glomerular Filt Rate > 60; Glucose 107 mg/dL (65-110); Potassium 3.5 mmol/L (3.4-5.0); Sodium 136 mmol/L (137-145)
[2024-07-19 08:24] LABS: Blood Urea Nitrogen < 2 mg/dL (7-17)
[2024-07-19 08:41] LABS: Hematocrit 31.6 % (37.0-47.0); Hemoglobin 10.4 g/dL (12.0-15.0); Mean Corpuscular HGB Conc 32.9 g/dl (32-36); Mean Corpuscular Hemoglobin 32.2 pg (26-34); Mean Corpuscular Volume 97.8 fl (80-100); Platelet Count Result 456 k/mm3 (150-375); Red Blood Count 3.23 M/mm3 (4.2-5.4); Red Cell Distribution Width 11.8 % (11.5-14.5); White Blood Count 7.7 K/mm3 (4.5-10.0)
[2024-07-19] MEDS: MAGNESIUM OXIDE 200 MG TABLET PO (09:04)
[2024-07-19] MEDS: buPROPion HCL 100 MG TABLET PO ×2 (09:05→16:50)
[2024-07-19] MEDS: PANTOPRAZOLE 40 MG TABLET PO (09:05)
[2024-07-19] MEDS: RIVAROXABAN 10 MG TABLET PO (09:05)
[2024-07-19] MEDS: ATORVASTATIN 20 MG TABLET PO (09:05)
[2024-07-19] MEDS: DICYCLOMINE HCL 10 MG CAPSULE 20 MG PO ×2 (09:05→16:50)
[2024-07-19] MEDS: CALCIUM/VITAMIN D 500 MG/5 MCG (200 I.U.) TABLET PO (09:05)
[2024-07-19] MEDS: CYANOCOBALAMIN 1,000 MCG TABLET 1000 MCG PO (09:05)
[2024-07-19] MEDS: PROMETHAZINE HCL 25 MG/ML AMPUL 12.5 MG IV PUSH (09:12)
[2024-07-19] MEDS: polyethylene glycoL 3350 17 GM POWD.PACK PO (09:17)
[2024-07-19] MEDS: METOCLOPRAMIDE HCL INJ 10 MG/2 ML VIAL 5 MG IV PUSH ×2 (11:35→16:50)
[2024-07-19 11:59] LABS: Glucose Point of Care 112 mg/dl (65-105)
--- NOTE | 2024-07-19 13:00 | P.PNIM_ITS ---
Progress Note: A&P Assessment and Plan (1) Anxiety and depression: Code(s): F41.9 - Anxiety disorder, unspecified; F32.9 - Major depressive disorder, single episode, unspecified Status: Acute (2) Anxiety: Code(s): F41.9 - Anxiety disorder, unspecified Status: Acute (3) Daily consumption of alcohol: Code(s): Z78.9 - Other specified health status Status: Acute (4) Elevated troponin: Code(s): R79.89 - Other specified abnormal findings of blood chemistry Status: Acute (5) Intractable vomiting: Code(s): R11.10 - Vomiting, unspecified Status: Acute (6) Abdominal pain: Code(s): R10.9 - Unspecified abdominal pain Status: Acute (7) Orthopedic aftercare for joint replacement: Code(s): Z47.1 - Aftercare following joint replacement surgery Status: Acute (8) Status post total hip replacement, right: Code(s): Z96.641 - Presence of right artificial hip joint Status: Acute (9) Constipation: Qualifiers: Constipation type: unspecified constipation type Qualified Code(s): K59.00 - Constipation, unspecified Code(s): K59.00 - Constipation, unspecified Status: Acute (10) Hypokalemia: Code(s): E87.6 - Hypokalemia Status: Acute Plan Nausea and vomiting CT scan showed esophagitis and gastritis EGD unremarkable 07/18/24 Protonix 40 mg IV b.i.d. Lipase normal No evidence of bowel obstruction Zofran p.r.n. advance diet as tolerated, GI team on board Elevated troponin Possibly due to type 2 Reviewed EKG which shows sinus rhythm with occasional ventricular premature complex Troponin 0.7 Trend troponin Echo unremarkable cardiology on board Right total hip arthroplasty on 0 07/02/2024 Consult PT OT Continue Xarelto 10 mg p.o. q.d. Chronic alcoholism CIWA induced ativan Thiamine and folic acid Lorazepam 2 mg q.4 hours p.r.n. for anxiety Consider Bentyl 20 mg p.o. q.6 hours p.r.n. for abdominal discomfort Consider Methocarbamol 750 mg p.o. q.6 hours p.r.n. for muscle spasm Monitor development of withdrawal symptoms Monitor LFTs US unremarkable Hypoglycemic med protocol CBC and CMP including Mag and phos Medication reconciliation pending DVT prophylaxis Noac after discharge for 6 M constipation miralax hypokalemia replete as needed Subjective Date/time seen: 07/19/24 13:00 Interval history: per HPI: A 60-year-old female with a past medical history of recent right hip surgery 2 weeks ago on 07/02/2024 presented to the ED due to vomiting. Pertinent ED labs: WBC 13.1, hemoglobin 11.7, hematocrit 35.7, platelet 580, sodium 138, potassium 3.8, carbon dioxide 21, anion gap 16, creatinine 0.5, glucose 86 Troponin 0.781 Abdominal/pelvis CT shows esophagitis and antral gastritis. The patient is admitted to the setting of nausea and vomiting. GI will be consulted regarding esophagitis and antral gastritis. Patient will be NPO and started on PPI twice a day and sucralfate, elevated troponin possibly due to type 2 DC. An echocardiogram will be ordered, and Cardiology will be consulted. Patient has a remote history of a blood clot during her in 1973 and another recent clot on her left arm 4 years ago when she was living in [place] but some reason she says was taking only ASA. Patient is currently on Xarelto 10 mg due to recent surgery, which will be continued. Patient reports that after the surgery on 07/02/2024, right hip with replacement, she went to her daughter's home, and then 2 days later, she returned to her house where she was living alone. The patient started having intractable vomiting from 9:00 p.m. yesterday. Patient denies using any NSAIDs. Patient reports having EGD in 2019, but does not remember when the colonoscopy was performed. Patient drinks a daily glass of wine, 9 oz. A previous smoker quit 20-30 years ago. 07/17/24 Patient was seen and examined at bedside. She is feeling better. Her nausea is better with Reglan. Denies any chest pain, shortness off breath. Still has epigastric pain. GI team on board. Recommended IV PPI. Possible endoscopy pending Cardiology recommendation. Elevated alkaline phosphatase. Liver ultrasound unremarkable. Continue to monitor Cardiac testing recommended echo follow-up with the stresses as outpatient 07/18/24 patient was seen and examined at bedside th morning. still is feeling nauseated. Gi team on board. patient underwent EGD which was unremarkable 07/19/24 patinet was seen and examined at bedside. he is feeling fine denies any chets pain, SOB. has some epigastric pain. nausea is improving.miralax ordered for constipation. Review of Systems Review of Systems: A complete review of systems was performed and negative other than those mentioned HPI All systems reviewed & are unremarkable except as noted in HPI and below Exam Narrative: General: Alert oriented x3, no acute distress Neck: Supple, no JVD Chest: Bilaterally clear to auscultation, no rales or rhonchi Cardiac: S1, S2 +, regular rate, regular rhythm, no murmurs or rubs Extremities: No pedal edema, no skin rash Neurologic: Alert and oriented x3, no focal neurological deficits Objective Data Vital Signs Vital Signs: Vital Signs - 24 hr 07/18/24 14:00 07/18/24 16:00 07/18/24 16:00 Temperature Pulse Rate 92 98 Respiratory Rate Blood Pressure Pulse Oximetry 100 Oxygen Delivery Room Air 07/18/24 18:00 07/18/24 19:44 07/18/24 19:52 Temperature Pulse Rate 95 95 86 Respiratory Rate 14 Blood Pressure Pulse Oximetry 100 Oxygen Delivery Room Air 07/18/24 19:59 07/18/24 21:41 07/18/24 23:57 Temperature 98.5 F 98.2 F Pulse Rate 84 70 91 Respiratory Rate 16 16 Blood Pressure 114/52 L 108/62 Pulse Oximetry 98 95 Oxygen Delivery 07/19/24 00:00 07/19/24 00:00 07/19/24 02:00 Temperature Pulse Rate 80 80 80 Respiratory Rate 16 Blood Pressure Pulse Oximetry 95 Oxygen Delivery Room Air 07/19/24 04:00 07/19/24 04:00 07/19/24 05:00 Temperature 98.9 F Pulse Rate 81 81 86 Respiratory Rate 16 20 Blood Pressure 129/68 Pulse Oximetry 95 98 Oxygen Delivery Room Air 07/19/24 06:00 07/19/24 07:54 07/19/24 08:00 Temperature 97.7 F Pulse Rate 89 83 85 Respiratory Rate 16 Blood Pressure 125/55 L Pulse Oximetry 99 Oxygen Delivery 07/19/24 10:00 07/19/24 11:00 07/19/24 12:00 Temperature 97.6 F Pulse Rate 87 91 90 Respiratory Rate 16 Blood Pressure 126/67 Pulse Oximetry 100 Oxygen Delivery 07/19/24 12:07 07/19/24 12:08 Temperature Pulse Rate Respiratory Rate Blood Pressure 133/70 122/66 Pulse Oximetry Oxygen Delivery Intake/Output Intake/Output: Intake & Output 07/16/24 07/17/24 07/18/24 07/19/24 23:59 23:59 23:59 23:59 Intake Total 1999 4562.5 2109.2 915 Output Total 1470 3100 1000 Balance 1999 3092.5 -990.8 -85 Meds/Results Medications: Active Medications Generic Name Dose Route Start Last Admin Trade Name Freq PRN Reason Stop Dose Admin Acetaminophen 1,000 mg 07/17/24 16:33 07/18/24 19:09 Acetaminophen 500 Mg Tablet PO 1,000 mg Q6H PRN Administration pain 1-3 Albuterol 2 puff 07/17/24 08:25 07/18/24 12:12 Albuterol Sulfate (*Sp) Aerosol 1 Puff INHALATION 2 puff Q4HRT PRN Administration Shortness Of Breath Albuterol 2 puff 07/17/24 16:35 Albuterol Sulfate (*Sp) Aerosol 1 Puff INHALATION Q4H PRN SHORTNES OF BREATH OR WHEEZING Atorvastatin Calcium 20 mg 07/18/24 09:00 07/19/24 09:05 Atorvastatin 20 Mg Tablet PO 20 mg DAILY CISCO Administration Bupropion HCl 100 mg 07/18/24 17:00 07/19/24 09:05 Bupropion Hcl 100 Mg Tablet PO 100 mg BID CISCO Administration Calcium Carbonate 500 mg 07/18/24 09:00 07/19/24 09:05 Calcium/Vitamin D 500 Mg/5 Mcg (200 I.U.) Tablet PO 500 mg QAM CISCO Administration Cyanocobalamin 1,000 mcg 07/18/24 09:00 07/19/24 09:05 Cyanocobalamin 1,000 Mcg Tablet PO 1,000 mcg QAM CISCO Administration Dicyclomine HCl 20 mg 07/17/24 17:00 07/19/24 09:05 Dicyclomine Hcl 10 Mg Capsule PO 20 mg BID CISCO Administration Dextrose 1,000 mls @ 100 mls/hr 07/18/24 08:50 07/19/24 09:17 Dextrose 10% IV CONT 100 mls/hr .Q10H CISCO Administration Lorazepam 1 mg 07/16/24 19:15 Lorazepam Inj (*Crx) 2 Mg/Ml Vial IV PUSH Q6H PRN Anxiety Magnesium Oxide 200 mg 07/18/24 09:00 07/19/24 09:04 Magnesium Oxide 200 Mg Tablet PO 200 mg DAILY CISCO Administration Metoclopramide HCl 5 mg 07/17/24 08:33 07/19/24 11:35 Metoclopramide Hcl Inj 10 Mg/2 Ml Vial IV PUSH 5 mg Q6HR PRN Administration Nausea And Vomiting Morphine Sulfate 2 mg 07/17/24 08:33 07/18/24 15:54 Morphine Sulfate (*Crx) 2 Mg/Ml Inj IV PUSH 2 mg Q4H PRN Administration Pain Rated 7-10 Ondansetron HCl 8 mg 07/17/24 08:22 07/18/24 13:35 Ondansetron Inj 4 Mg/2 Ml Vial IV PUSH 8 mg Q4H PRN Administration Nausea And Vomiting Pantoprazole Sodium 40 mg 07/19/24 09:00 07/19/24 09:05 Pantoprazole 40 Mg Tablet PO 40 mg QAM CISCO Administration Perflutren Lipid Microsphere 0 ml 07/17/24 13:40 Perflutren Lipid Microspheres 1.5 Ml Vial Diluted To 10 Ml Total Volume IV PUSH 07/20/24 13:40 ONCE PRN adequate visualization Protocol Polyethylene Glycol 17 gm 07/19/24 09:10 07/19/24 09:17 Polyethylene Glycol 3350 17 Gm Powd.Pack PO 17 gm QAM CISCO Administration Promethazine HCl 12.5 mg 07/18/24 08:06 07/19/24 09:12 Promethazine Hcl 25 Mg/Ml Ampul IV PUSH 12.5 mg Q4H PRN Administration Nausea And Vomiting Rivaroxaban 10 mg 07/19/24 09:00 07/19/24 09:05 Rivaroxaban 10 Mg Tablet PO 10 mg DAILY CISCO Administration Radiology Results: ITS Impressions Abdomen/Pelvis CT 07/16/24 17:50 IMPRESSION: Esophagitis and antral gastritis. Hepatic steatosis. Abdomen Ultrasound 07/17/24 11:33 Impression: No significant abnormality seen. Labs Labs: Laboratory Results - last 24 hr 07/18/24 07/18/24 07/18/24 13:38 16:49 18:24 WBC RBC Hgb Hct MCV MCH MCHC RDW Plt Count MPV Sodium Potassium Chloride Carbon Dioxide Anion Gap BUN Creatinine Estim Creat Clear Calc Estimated GFR Glucose POC Capillary Glucose 105 120 H 127 H Calcium Magnesium 07/18/24 07/18/24 07/19/24 20:05 23:59 03:56 WBC RBC Hgb Hct MCV MCH MCHC RDW Plt Count MPV Sodium Potassium Chloride Carbon Dioxide Anion Gap BUN Creatinine Estim Creat Clear Calc Estimated GFR Glucose POC Capillary Glucose 144 H 122 H 98 Calcium Magnesium 07/19/24 07/19/24 07/19/24 07:41 08:01 11:38 WBC 7.7 RBC 3.23 L Hgb 10.4 L Hct 31.6 L MCV 97.8 MCH 32.2 MCHC 32.9 RDW 11.8 Plt Count 456 H MPV 10.0 Sodium 136 L Potassium 3.5 Chloride 103 Carbon Dioxide 25 Anion Gap 8 BUN < 2 L Creatinine 0.45 L Estim Creat Clear Calc 82 Estimated GFR > 60 Glucose 107 POC Capillary Glucose 103 112 H Calcium 8.8 Magnesium 2.0
[2024-07-19 16:07] LABS: Glucose Point of Care 111 mg/dl (65-105)
--- NOTE | 2024-07-19 16:28 | WPDGIPROGNO ---
Progress Note: A&P Assessment and Plan (1) Epigastric pain: Code(s): R10.13 - Epigastric pain Status: Acute Assessment and Plan: overall better no major findings in egd tolerating more and less nauseous probably home tomorrow will follow as needed she can make an appointment in our office in few weeks (2) Nausea and vomiting in adult: Code(s): R11.2 - Nausea with vomiting, unspecified Status: Acute (3) Hepatic steatosis: Code(s): K76.0 - Fatty (change of) liver, not elsewhere classified Status: Acute (4) Dehydration: Code(s): E86.0 - Dehydration Status: Resolved Subjective Date/time seen: 07/19/24 16:28 Interval history: egd no major findings, bx reviewed- no h pylori she is doing better with promethazine and reglan eating more and less dry heaving hoping to go home tomorrow Review of Systems Review of Systems: All systems reviewed & are unremarkable except as noted in HPI and below Exam Const: General: comfortable and no acute distress HENMT: Face/Nose/Sinus: Normal nares present Eyes: General: appearance normal, both eyes and all related structures Resp: Auscultation: clear to auscultation bilaterally Cardio: Rate: regular rate Rhythm: regular rhythm GI: Inspection: non-distended GI Palp: Yes Soft to palpation Skin: General skin exam: normal color Neuro: Speech: normal speech Extrem: General: normal to inspection Psych: Mental Status: mental status grossly normal Objective Data Vital Signs Vital Signs: Vital Signs - 24 hr 07/18/24 18:00 07/18/24 19:44 07/18/24 19:52 Temperature Pulse Rate 95 95 86 Respiratory Rate 14 Blood Pressure Pulse Oximetry 100 Oxygen Delivery Room Air 07/18/24 19:59 07/18/24 21:41 07/18/24 23:57 Temperature 98.5 F 98.2 F Pulse Rate 84 70 91 Respiratory Rate 16 16 Blood Pressure 114/52 L 108/62 Pulse Oximetry 98 95 Oxygen Delivery 07/19/24 00:00 07/19/24 00:00 07/19/24 02:00 Temperature Pulse Rate 80 80 80 Respiratory Rate 16 Blood Pressure Pulse Oximetry 95 Oxygen Delivery Room Air 07/19/24 04:00 07/19/24 04:00 07/19/24 05:00 Temperature 98.9 F Pulse Rate 81 81 86 Respiratory Rate 16 20 Blood Pressure 129/68 Pulse Oximetry 95 98 Oxygen Delivery Room Air 07/19/24 06:00 07/19/24 07:54 07/19/24 08:00 Temperature 97.7 F Pulse Rate 89 83 85 Respiratory Rate 16 Blood Pressure 125/55 L Pulse Oximetry 99 Oxygen Delivery 07/19/24 10:00 07/19/24 11:00 07/19/24 12:00 Temperature 97.6 F Pulse Rate 87 91 90 Respiratory Rate 16 Blood Pressure 126/67 Pulse Oximetry 100 Oxygen Delivery 07/19/24 12:07 07/19/24 12:08 07/19/24 14:00 Temperature Pulse Rate 86 Respiratory Rate Blood Pressure 133/70 122/66 Pulse Oximetry Oxygen Delivery 07/19/24 16:00 Temperature 97.7 F Pulse Rate 85 Respiratory Rate 16 Blood Pressure 129/57 L Pulse Oximetry 97 Oxygen Delivery Intake/Output Intake/Output: Intake & Output 07/16/24 07/17/24 07/18/24 07/19/24 23:59 23:59 23:59 23:59 Intake Total 1999 4562.5 2109.2 915 Output Total 1470 3100 1000 Balance 1999 3092.5 -990.8 -85 Meds/Results Medications: Active Medications Generic Name Dose Route Start Last Admin Trade Name Freq PRN Reason Stop Dose Admin Acetaminophen 1,000 mg 07/17/24 16:33 07/18/24 19:09 Acetaminophen 500 Mg Tablet PO 1,000 mg Q6H PRN Administration pain 1-3 Albuterol 2 puff 07/17/24 08:25 07/18/24 12:12 Albuterol Sulfate (*Sp) Aerosol 1 Puff INHALATION 2 puff Q4HRT PRN Administration Shortness Of Breath Albuterol 2 puff 07/17/24 16:35 Albuterol Sulfate (*Sp) Aerosol 1 Puff INHALATION Q4H PRN SHORTNES OF BREATH OR WHEEZING Atorvastatin Calcium 20 mg 07/18/24 09:00 07/19/24 09:05 Atorvastatin 20 Mg Tablet PO 20 mg DAILY CISCO Administration Bupropion HCl 100 mg 07/18/24 17:00 07/19/24 09:05 Bupropion Hcl 100 Mg Tablet PO 100 mg BID CISCO Administration Calcium Carbonate 500 mg 07/18/24 09:00 07/19/24 09:05 Calcium/Vitamin D 500 Mg/5 Mcg (200 I.U.) Tablet PO 500 mg QAM CISCO Administration Cyanocobalamin 1,000 mcg 07/18/24 09:00 07/19/24 09:05 Cyanocobalamin 1,000 Mcg Tablet PO 1,000 mcg QAM CISCO Administration Dicyclomine HCl 20 mg 07/17/24 17:00 07/19/24 09:05 Dicyclomine Hcl 10 Mg Capsule PO 20 mg BID CISCO Administration Dextrose 1,000 mls @ 100 mls/hr 07/18/24 08:50 07/19/24 09:17 Dextrose 10% IV CONT 100 mls/hr .Q10H CISCO Administration Lorazepam 1 mg 07/16/24 19:15 Lorazepam Inj (*Crx) 2 Mg/Ml Vial IV PUSH Q6H PRN Anxiety Magnesium Oxide 200 mg 07/18/24 09:00 07/19/24 09:04 Magnesium Oxide 200 Mg Tablet PO 200 mg DAILY CISCO Administration Metoclopramide HCl 5 mg 07/17/24 08:33 07/19/24 11:35 Metoclopramide Hcl Inj 10 Mg/2 Ml Vial IV PUSH 5 mg Q6HR PRN Administration Nausea And Vomiting Morphine Sulfate 2 mg 07/17/24 08:33 07/18/24 15:54 Morphine Sulfate (*Crx) 2 Mg/Ml Inj IV PUSH 2 mg Q4H PRN Administration Pain Rated 7-10 Ondansetron HCl 8 mg 07/17/24 08:22 07/18/24 13:35 Ondansetron Inj 4 Mg/2 Ml Vial IV PUSH 8 mg Q4H PRN Administration Nausea And Vomiting Pantoprazole Sodium 40 mg 07/19/24 09:00 07/19/24 09:05 Pantoprazole 40 Mg Tablet PO 40 mg QAM CISCO Administration Perflutren Lipid Microsphere 0 ml 07/17/24 13:40 Perflutren Lipid Microspheres 1.5 Ml Vial Diluted To 10 Ml Total Volume IV PUSH 07/20/24 13:40 ONCE PRN adequate visualization Protocol Polyethylene Glycol 17 gm 07/19/24 09:10 07/19/24 09:17 Polyethylene Glycol 3350 17 Gm Powd.Pack PO 17 gm QAM CISCO Administration Promethazine HCl 12.5 mg 07/18/24 08:06 07/19/24 09:12 Promethazine Hcl 25 Mg/Ml Ampul IV PUSH 12.5 mg Q4H PRN Administration Nausea And Vomiting Rivaroxaban 10 mg 07/19/24 09:00 07/19/24 09:05 Rivaroxaban 10 Mg Tablet PO 10 mg DAILY CISCO Administration Radiology Results: ITS Impressions Abdomen/Pelvis CT 07/16/24 17:50 IMPRESSION: Esophagitis and antral gastritis. Hepatic steatosis. Abdomen Ultrasound 07/17/24 11:33 Impression: No significant abnormality seen. Labs Labs: Laboratory Results - last 24 hr 07/18/24 07/18/24 07/18/24 16:49 18:24 20:05 WBC RBC Hgb Hct MCV MCH MCHC RDW Plt Count MPV Sodium Potassium Chloride Carbon Dioxide Anion Gap BUN Creatinine Estim Creat Clear Calc Estimated GFR Glucose POC Capillary Glucose 120 H 127 H 144 H Calcium Magnesium 07/18/24 07/19/24 07/19/24 23:59 03:56 07:41 WBC RBC Hgb Hct MCV MCH MCHC RDW Plt Count MPV Sodium Potassium Chloride Carbon Dioxide Anion Gap BUN Creatinine Estim Creat Clear Calc Estimated GFR Glucose POC Capillary Glucose 122 H 98 103 Calcium Magnesium 07/19/24 07/19/24 07/19/24 08:01 11:38 15:45 WBC 7.7 RBC 3.23 L Hgb 10.4 L Hct 31.6 L MCV 97.8 MCH 32.2 MCHC 32.9 RDW 11.8 Plt Count 456 H MPV 10.0 Sodium 136 L Potassium 3.5 Chloride 103 Carbon Dioxide 25 Anion Gap 8 BUN < 2 L Creatinine 0.45 L Estim Creat Clear Calc 82 Estimated GFR > 60 Glucose 107 POC Capillary Glucose 112 H 111 H Calcium 8.8 Magnesium 2.0
[2024-07-19 20:15] LABS: Glucose Point of Care 126 mg/dl (65-105)
[2024-07-19 23:45] LABS: Glucose Point of Care 111 mg/dl (65-105)
[2024-07-20] VITALS (11 sets, daily range): BP systolic 121–137; BP diastolic 54–58; PULSE 80–98; RESP 12–18; TEMP 36.7–36.8; O2SAT 94–99
[2024-07-20] MEDS: METOCLOPRAMIDE HCL INJ 10 MG/2 ML VIAL 5 MG IV PUSH ×2 (00:35→13:10)
[2024-07-20 04:03] LABS: Hematocrit 29.6 % (37.0-47.0); Hemoglobin 9.7 g/dL (12.0-15.0); Mean Corpuscular HGB Conc 32.8 g/dl (32-36); Mean Corpuscular Hemoglobin 32.1 pg (26-34); Mean Platelet Volume 9.6 fl (7.4-10.4); Platelet Count Result 397 k/mm3 (150-375); Red Blood Count 3.02 M/mm3 (4.2-5.4); Red Cell Distribution Width 11.9 % (11.5-14.5); White Blood Count 7.6 K/mm3 (4.5-10.0)
[2024-07-20 04:15] LABS: Anion Gap 5 mmol/L (4-12); Blood Urea Nitrogen < 2 mg/dL (7-17); Calcium 8.7 mg/dL (8.4-10.2); Carbon Dioxide 31 mmol/L (22-30); Chloride 103 mmol/L (98-107); Estimated CRCL calculation 68 ml/min; Estimated Glomerular Filt Rate > 60; Glucose 106 mg/dL (65-110); Sodium 139 mmol/L (137-145)
[2024-07-20] MEDS: DEXTROSE 10% 1,000 ML 100 ML IV CONT (05:59)
[2024-07-20 07:36] LABS: Glucose Point of Care 113 mg/dl (65-105)
[2024-07-20] MEDS: ATORVASTATIN 20 MG TABLET PO (09:54)
[2024-07-20] MEDS: MAGNESIUM OXIDE 200 MG TABLET PO (09:54)
[2024-07-20] MEDS: buPROPion HCL 100 MG TABLET PO (09:54)
[2024-07-20] MEDS: CYANOCOBALAMIN 1,000 MCG TABLET 1000 MCG PO (09:54)
[2024-07-20] MEDS: polyethylene glycoL 3350 17 GM POWD.PACK PO (09:54)
[2024-07-20] MEDS: DICYCLOMINE HCL 10 MG CAPSULE 20 MG PO (09:54)
[2024-07-20] MEDS: PANTOPRAZOLE 40 MG TABLET PO (09:54)
[2024-07-20] MEDS: CALCIUM/VITAMIN D 500 MG/5 MCG (200 I.U.) TABLET PO (09:54)
[2024-07-20] MEDS: RIVAROXABAN 10 MG TABLET PO (09:54)
[2024-07-20 11:35] LABS: Glucose Point of Care 107 mg/dl (65-105)
[2024-07-20] MEDS: METOCLOPRAMIDE HCL 5 MG TABLET PO (13:11)
[2024-07-20] MEDS: POTASSIUM CHLORIDE 20 MEQ ER TABLET 40 MEQ PO (13:13)
--- NOTE | 2024-07-20 13:41 | PM.DS ---
DS: Admitting Diagnosis Discharge Date 07/20/24 Admitting Diagnosis N/V , epigastric pain, esophagitis/gastritis DS: Discharge Diagnosis Discharge Diagnosis (1) Anxiety and depression: Code(s): F41.9 - Anxiety disorder, unspecified; F32.9 - Major depressive disorder, single episode, unspecified Status: Acute (2) Anxiety: Code(s): F41.9 - Anxiety disorder, unspecified Status: Acute (3) Daily consumption of alcohol: Code(s): Z78.9 - Other specified health status Status: Acute (4) Elevated troponin: Code(s): R79.89 - Other specified abnormal findings of blood chemistry Status: Acute (5) Intractable vomiting: Code(s): R11.10 - Vomiting, unspecified Status: Acute (6) Abdominal pain: Code(s): R10.9 - Unspecified abdominal pain Status: Acute (7) Orthopedic aftercare for joint replacement: Code(s): Z47.1 - Aftercare following joint replacement surgery Status: Acute (8) Status post total hip replacement, right: Code(s): Z96.641 - Presence of right artificial hip joint Status: Acute (9) Constipation: Qualifiers: Constipation type: unspecified constipation type Qualified Code(s): K59.00 - Constipation, unspecified Code(s): K59.00 - Constipation, unspecified Status: Acute (10) Hypokalemia: Code(s): E87.6 - Hypokalemia Status: Acute Plan Nausea and vomiting CT scan showed esophagitis and gastritis EGD unremarkable 07/18/24 PPI 40 mg BID Lipase normal No evidence of bowel obstruction Zofran p.r.n. tolerated advance diet , GI team on board Elevated troponin Possibly due to type 2 Reviewed EKG which shows sinus rhythm with occasional ventricular premature complex Troponin 0.7 Trend troponin Echo unremarkable cardiology on board Right total hip arthroplasty on 0 07/02/2024 Consult PT OT Continue Xarelto 10 mg p.o. q.d. Chronic alcoholism CIWA induced ativan Thiamine and folic acid Lorazepam 2 mg q.4 hours p.r.n. for anxiety Consider Bentyl 20 mg p.o. q.6 hours p.r.n. for abdominal discomfort Consider Methocarbamol 750 mg p.o. q.6 hours p.r.n. for muscle spasm Monitor development of withdrawal symptoms Monitor LFTs US unremarkable Hypoglycemic med protocol CBC and CMP including Mag and phos Medication reconciliation pending DVT prophylaxis Noac after discharge for 6 M constipation miralax hypokalemia replete as needed DS: Summary Hospital Course Hospital Course: per HPI: A 60-year-old female with a past medical history of recent right hip surgery 2 weeks ago on 07/02/2024 presented to the ED due to vomiting. Pertinent ED labs: WBC 13.1, hemoglobin 11.7, hematocrit 35.7, platelet 580, sodium 138, potassium 3.8, carbon dioxide 21, anion gap 16, creatinine 0.5, glucose 86 Troponin 0.781 Abdominal/pelvis CT shows esophagitis and antral gastritis. The patient is admitted to the setting of nausea and vomiting. GI will be consulted regarding esophagitis and antral gastritis. Patient will be NPO and started on PPI twice a day and sucralfate, elevated troponin possibly due to type 2 VT. An echocardiogram will be ordered, and Cardiology will be consulted. Patient has a remote history of a blood clot during her in 1973 and another recent clot on her left arm 4 years ago when she was living in [place] but some reason she says was taking only ASA. Patient is currently on Xarelto 10 mg due to recent surgery, which will be continued. Patient reports that after the surgery on 07/02/2024, right hip with replacement, she went to her daughter's home, and then 2 days later, she returned to her house where she was living alone. The patient started having intractable vomiting from 9:00 p.m. yesterday. Patient denies using any NSAIDs. Patient reports having EGD in 2019, but does not remember when the colonoscopy was performed. Patient drinks a daily glass of wine, 9 oz. A previous smoker quit 20-30 years ago. 07/20/24 Patient was admitted and started on zofran and reglan and IVF. GI team on board. Recommended IV PPI. cardiology team was consulted and patient was cleared for EGD. EGD on 07/18/24was unremarkable. after EGD she was feeling bteer. her nausea was improving. patient tolerated diet. she is thinking Reglan helping her. Cardiac testing recommended follow-up with the stresses as outpatient GI team on board kadie can be discharged home. she is feeling comfortable to go home. Status at Discharge Overall status at discharge: patient is progressing back to baseline Time Spent with Patient Time attestation: Total time spent providing and/or coordinating discharge services: Time spent: Greater than 30 minutes Exam Narrative: General: Alert oriented x3, no acute distress Neck: Supple, no JVD Chest: Bilaterally clear to auscultation, no rales or rhonchi Cardiac: S1, S2 +, regular rate, regular rhythm, no murmurs or rubs Extremities: No pedal edema, no skin rash Neurologic: Alert and oriented x3, no focal neurological deficits DS: Data Data Completed and Pending Completed studies during hospitalization: Pending at discharge 07/18/24 09:39 Surgical [PTH] Routine Labs on day of discharge: Labs from last 24 hours 07/20/24 07/20/24 07/20/24 11:27 07:30 03:46 WBC 7.6 RBC 3.02 L Hgb 9.7 L Hct 29.6 L MCV 98.0 MCH 32.1 MCHC 32.8 RDW 11.9 Plt Count 397 H MPV 9.6 Sodium 139 Potassium 3.0 L Chloride 103 Carbon Dioxide 31 H Anion Gap 5 BUN < 2 L Creatinine 0.55 L Estim Creat Clear Calc 68 Estimated GFR > 60 Glucose 106 POC Capillary Glucose 107 H 113 H Calcium 8.7 07/19/24 07/19/24 07/19/24 23:26 20:11 15:45 WBC RBC Hgb Hct MCV MCH MCHC RDW Plt Count MPV Sodium Potassium Chloride Carbon Dioxide Anion Gap BUN Creatinine Estim Creat Clear Calc Estimated GFR Glucose POC Capillary Glucose 111 H 126 H 111 H Calcium Discharge Plan Discharge Attending physician on discharge: Sharon Marrero Consulting providers: Karla Santos Discharging Clinician: Sharon Marrero Anticipated Discharge Date/Time: 07/20/24 13:48 Patient Disposition: Home Activity: as tolerated Diet: heart healthy Patient Instructions: Antibiotic Form, Rivaroxaban (By mouth), Acute Nausea and Vomiting (GEN), Abdominal Pain (GEN), Blood Thinners (GEN), High Troponin Levels (GEN) Patient Language: Nepali Stand Alone Forms: General Discharge Information Follow-up/Referrals: Renetta Roper MD [Primary Care Provider] - 1 Week Jordin Mar MD [Physician] - Call for Appointment Karla Santos MD [Physician] - Call for Appointment Discharge Medications: New metoclopramide HCl 5 mg Tablet 5 mg PO ACHS Qty: 15 0RF polyethylene glycol 3350 [Miralax] 17 gram Powder In Packet 17 g PO QAM Qty: 20 0RF Continued magnesium 200 mg Tablet 200 mg PO DAILY albuterol sulfate 90 mcg/actuation HFA aerosol inhaler See Rx Instructions .ROUTE .COMPLEX Qty: 8.5 6RF Dose Instruction: INHALE 2 PUFFS BY MOUTH EVERY 4 HOURS NEEDED Rx Instructions: INHALE 2 PUFFS BY MOUTH EVERY 4 HOURS NEEDED montelukast 10 mg tablet 10 mg PO QHS Qty: 90 3RF Adult 50 Plus Probiotic 4 billion cell capsule 4,000 mmu cells PO DAILY Rx Instructions: administer with a meal mecobalamin (vitamin B12) 1,000 mcg tablet,disintegrating 1,000 mcg sublingual DAILY Rx Instructions: place tablet under tongue and allow to dissolve for at least30 secs before swallowing (DME) peak flow meter See Rx Instructions .Route .MEDSUPPLY Qty: 1 0RF Rx Instructions: As directed daily calcium carbonate-vitamin D3 600 mg-5 mcg (200 unit) tablet 1 tablet PO DAILY All Day Allergy (cetirizine) 10 mg capsule 10 mg PO DAILY acetaminophen [Acetaminophen Pain Relief] 500 mg tablet 1,000 mg PO Q6H PRN (Reason: pain) Xarelto 10 mg tablet 10 mg PO DAILY pantoprazole 40 mg tablet,delayed release (DR/EC) See Rx Instructions .ROUTE .COMPLEX Qty: 180 3RF Dose Instruction: TAKE ONE TABLET BY MOUTH TWICE A DAY Rx Instructions: TAKE ONE TABLET BY MOUTH TWICE A DAY dicyclomine 20 mg tablet 20 mg PO BID Qty: 180 3RF bupropion HCl 100 mg tablet 100 mg PO BID Qty: 180 2RF atorvastatin 20 mg tablet 20 mg PO DAILY Qty: 90 1RF hydroxyzine HCl 25 mg tablet 25 mg PO TID PRN (Reason: itching) Qty: 30 0RF oxycodone-acetaminophen 5-325 mg tablet 1 - 2 tablet PO Q4-6H PRN (Reason: pain) 7 Days Qty: 30 0RF ondansetron HCl 4 mg tablet 4 mg PO Q8H PRN (Reason: nausea and vomiting) Qty: 10 0RF Discontinued ondansetron HCl 4 mg tablet 4 mg PO Q8H PRN (Reason: nausea and vomiting) Qty: 30 0RF Date of admission: 07/17/24 10:45 Primary Care Provider: Renetta Roper Admitting Provider: Roberto Jaimes Attending physician on admission: Sharon Marrero Condition: Stable Care Plan Goals: please follow with GI and cardiology clinic as outpatient. please follow with PCp for cardiac stress test as outpatient.
== END 2024-07-20 15:18 | disposition home or self-care (01) | DRG 391 ==
LOC: ANHED 19:22 → ANHIMU 20:42
PROVIDERS: Internal Medicine Gastroenterology; Nurse Practitioner; Admitting Provider Internal Medicine; Emergency Provider Emergency Medicine; PCP Family Medicine; Visit Provider Internal Medicine
PROC: 0DJ08ZZ Inspection of Upper Intestinal Tract, Via Natural or Artificial Opening Endoscopic (ICD-10-PCS; principal; 2024-07-18 15:00)
DX: K29.70 Gastritis, unspecified, without bleeding (principal); I21.A1 Myocardial infarction type 2; M47.12 Other spondylosis with myelopathy, cervical region; K20.90 Esophagitis, unspecified without bleeding; F41.1 Generalized anxiety disorder; F32.9 Major depressive disorder, single episode, unspecified; E78.5 Hyperlipidemia, unspecified; K21.9 Gastro-esophageal reflux disease without esophagitis; M81.0 Age-related osteoporosis without current pathological fracture; J45.909 Unspecified asthma, uncomplicated; K76.0 Fatty (change of) liver, not elsewhere classified; Z96.641 Presence of right artificial hip joint; F10.20 Alcohol dependence, uncomplicated; Z85.828 Personal history of other malignant neoplasm of skin; Z90.49 Acquired absence of other specified parts of digestive tract; Z90.710 Acquired absence of both cervix and uterus; Z87.891 Personal history of nicotine dependence; E87.6 Hypokalemia; K59.00 Constipation, unspecified
CPT/HCPCS: 36415; 74177; 76705; 80048; 80053; 80074; 81001; 82948; 83690; 83735; 84443; 84484; 85025; 85027; 85652; 87086; 88305; 93005; 93306; 94640; 96361; 96374; 96375; 96376; 99285; A9270; G0378; J1650; J2060; J2270; J2405; J2470; J2550; J2704; J2765; J3475; J3480; J7030; J7070; J7120; Q9967

== ENCOUNTER 2024-08-20 09:27 | Outpatient (CLI) | payer MEDICARE, SELFPAY ==
[2024-08-20 10:12] LABS: Basophils Absolute Auto 0.1 K/mm3 (0.0-0.1); Basophils Percent Auto 0.5 % (0.2-1.2); Eosinophils Absolute Auto 0.2 K/mm3 (0-0.3); Eosinophils Percent Auto 2.1 % (0-4.4); Hematocrit 36.4 % (37.0-47.0); Hemoglobin 11.6 g/dL (12.0-15.0); Immature Granulocyte Absolute 0.04 K/mm3 (0.00-0.031); Immature Granulocyte Percent A 0.4 % (0-0.5); Lymphocytes Absolute Auto 1.66 K/mm3 (0.9-3.2); Mean Corpuscular HGB Conc 31.9 g/dl (32-36); Mean Corpuscular Hemoglobin 31.5 pg (26-34); Mean Corpuscular Volume 98.9 fl (80-100); Mean Platelet Volume 9.9 fl (7.4-10.4); Monocytes Absolute Auto 0.5 K/mm3 (0.1-0.6); Monocytes Percent Auto 5.8 % (2.6-8.5); Neutrophils Absolute Auto 6.7 K/mm3 (1.3-6.7); Neutrophils Percent Auto 73.2 % (45.5-73.1); Platelet Count Result 413 k/mm3 (150-375); Red Blood Count 3.68 M/mm3 (4.2-5.4); Red Cell Distribution Width 12.4 % (11.5-14.5); White Blood Count 9.2 K/mm3 (4.5-10.0)
--- OUTSIDE RECORDS SUMMARY | 2024-08-20 10:19 | XMS_ITS | Encounter Summary ---
Author Organization [facility] Address [address] [place] [address] Care Team Providers Care Health Services Director Name Role Phone Gloria Mendieta MD Primary Care Provider + [phone] Renetta Roper MD Primary Care Provider [phone] Renetta Roper MD Primary Care Provider [phone] Renetta Roper MD Primary Care Provider [phone] Encounter Details Date Type Department Care Team (Late st Contact Info) Description 12/11/2019 Telephone [facility] [address] [place] [address] Transcribed Order, Provider Social History Tobacco Use Types Packs/Day Years Used Date Smoking Tobacco: Former Comments Unknown Sex and Gender Information Value Date Recorded Sex Assigned at Not on file Legal Sex Female 7:08 PM LEAD MEDICAL TECHNOLOGIST Gender Identity Not on file Sexual Orientation Not on file documented as of this encounter Plan of Treatment Not on file documented as of this encounter Visit Diagnoses Not on filedocumented in this encounter Care Teams Health Services Director Relationship Specialty Start Date End Date Gloria Mendieta MD PCP - General 09/12/18 12/10/20 Renetta Roper MD PCP - General Family Medicine 12/11/20 11/20/22 Renetta Roper MD PCP - General Family Medicine 11/21/22 12/05/23 Renetta Roper MD [address] [place] [address] [place] [address] PCP - General Family Medicine 12/06/23 documented as of this encounter
--- OUTSIDE RECORDS SUMMARY | 2024-08-20 10:19 | XMS_ITS | Referral Summary ---
Author Organization [facility] Address [address] [place] [address] Care Team Providers Care Distilling Department Supervisor Name Role Phone Renetta Roper MD Primary Care Provider [phone] Encounters Date Type Department Care Team Description 07/23/2024 Telephone [facility] [place] [address] Dhiraj Dorsey MD Scheduling Appointments from Last 3 Months Allergies No known active allergies Active Problems Problem Noted Date Diagnosed Date Constipation 07/17/2012 Social History Tobacco Use Types Packs/Day Years Used Date Smoking Tobacco: Former Cigarettes 1 34 0 12/04/1975 - 12/03/2009 Comments:2022. 34 pack hx has new quit date 11/2009 Comments Unknown Sex and Gender Information Value Date Recorded Sex Assigned at Not on file Legal Sex Female 7:08 PM SPRAY MIXER Gender Identity Not on file Sexual Orientation Not on file Last Filed Vital Signs Vital Sign Reading Time Taken Comments Blood Pressure 129/78 07/23/2012 2:16 PM CDT Pulse 74 07/23/2012 2:16 PM CDT Temperature - - Respiratory Rate - - Oxygen Saturation - - Inhaled Oxygen Concentration - - Weight 55.8 kg (123 lb) 01/07/2022 1:20 PM CDT Height 157.5 cm (5' 2) 01/07/2022 1:20 PM CDT Body Mass Index 22.5 01/07/2022 1:20 PM CDT Plan of Treatment Not on file Procedures Procedure Name Priority Date/Time Associated Diagnosis Comments CT LUNG CANCER SCREENING Schedule Routine, Read Routine (OP Routine) 01/17/2024 11:06 AM SPRAY MIXER Nicotine dependence, cigarettes, uncomplicated from Last 3 Months or Most Recently Relevant to Health Maintenance Results * CT Lung Cancer Screening (01/17/2024 11:06 AM SPRAY MIXER) Anatomical Region Laterality Modality Chest N/A Computed Tomogra phy 01/17/2024 11:2 4 AM SPRAY MIXER Impressions 01/17/2024 11:24 AM SPRAY MIXER 1. LungRADS Category 2 (benign) . Recommend [...] Elvis Giraldo M.D. Narrative 01/17/2024 11:24 AM SPRAY MIXER EXAMINATION: Lung cancer screening CT of the [...] Most Recently Relevant to Health Maintenance Insurance [employer] [facility] [place] [address] AET[employer] MEDICARE Care Teams Distilling Department Supervisor Relationship Specialty Start Date End Date Renetta Roper MD [address] [place] [address] PCP - General Family Medicine 12/06/23
--- OUTSIDE RECORDS SUMMARY | 2024-08-20 10:19 | XMS_ITS | Clinical Summary ---
Author Organization [facility] Address [address] [address] Care Team Providers Care Sales Support Advisor Name Role Phone Gloria Vaughn MD Primary Care Provider [phone] Source Comments [facility],non-owned Affiliates and Associated Physician Practices is amultiple site organization consisting of ambulatory clinics and hospital sitesin [place], [place], [place]. This disclosure is being madepursuant to the Care Everywhere program and may not contain all information available regarding this patient. Last updated 17.[facility] Allergies Active Allergy Reactions Criticality Noted Date [...] 11:37 AM CDT Height 157.5 cm (5' 2) 10/22/2018 11:37 AM CDT Body Mass Index [...] 2023-2 5 season) 2023 DEPRESSION SCREENING 03/06/2024 MEDICARE AWV CALENDAR YEAR 2024 INFLUENZA VACCINE (Season Ended) 2024 Respiratory Syncytial [...] age to complete this topic Insurance [employer] MEDICARE ADV SELF PAY NO INSURANCE Member Subscriber Plan / Payer (Ef fective for All Dates) Name:Carol Hamilton Member ID:Not on file Relation to Subscriber:Not on file Name:CAROL HAMILTON Subscriber ID:Not on file (Home) Address: [address] [place] [address] Payer ID:Not on file Group ID:Not on file Type:Self Pay Address: [place], [place] [employer] Care Teams Sales Support Advisor Relationship Specialty Start Date End Date Gloria Vaughn MD PCP - General Family Medicine 07/30/18
--- OUTSIDE RECORDS SUMMARY | 2024-08-20 10:19 | XMS_ITS | Patient Health Record ---
Author Organization [facility] Address [address] [place] [address] Care Team Providers Care Copy Worker Name Role Phone Bhupinder Del Valle D.O Unavailable [phone] Reason For Referral No Information Medications Medication SIG (Take, Route, Frequency, Duration) Notes Start Date End Date Status Medrol (Guicho) 4 MG as directed Orally a s directed for 6 days 05/08/2017 Active Bactrim DS 800-160 MG 1 tablet Orally Tw ice a day for 10 day(s) 05/08/2017 Active Pantoprazole Sodium Active ProAir HFA 108 (90 Base) MCG/ACT 2 puffs as needed Inhalation every 6 hrs Active Social History Tobacco Use: Social History Observation Description Date Details (start date - stop date) Former Smoker NA - NA Alcohol Question Answer Notes Did you have a drink contain ing alcohol in the past year? Yes How often did you have a dri nk containing alcohol in the past year? Four or more times a week (4 points) How many drinks did you have on a typical day when you were drinking in the past year? 1 or 2 (0 points) Points 4 Interpretation Positive Smoking Question Answer Notes Are you a: former smoker How long has it been since y ou last smoked? 5-10 years Additional Findings: Tobacco User Heavy cigarett e smoker (20-39 cigs/day) Plan Of Treatment No Information
--- OUTSIDE RECORDS SUMMARY | 2024-08-20 10:19 | XMS_ITS | Clinical Summary ---
Author Organization [facility] Address [address] [place] [address] Care Team Providers Care Flash Drier Operator Name Role Phone Renetta Roper MD Primary Care Provider [phone] Allergies No known active allergies Active Problems Problem Noted Date Diagnosed Date Constipation 07/17/2012 Encounters Date Type Department Care Team Description 07/23/2024 Telephone [facility] Ophthalmology [facility] [place] [address] Dhiraj Dorsey MD Scheduling Appointments from Last 3 Months Social History Tobacco Use Types Packs/Day Years Used Date Smoking Tobacco: Former Cigarettes 1 34 0 12/04/1975 - 12/03/2009 Comments:2022. 34 pack hx has new quit date 11/2009 Comments Unknown Sex and Gender Information Value Date Recorded Sex Assigned at Not on file Legal Sex Female 7:08 PM SHIP FITTER Gender Identity Not on file Sexual Orientation [...] Read Routine (OP Routine) 01/17/2024 11:06 AM SHIP FITTER Nicotine dependence, cigarettes, uncomplicated from Last 3 Months or Most Recently Relevant to Health Maintenance Results * CT Lung Cancer Screening (01/17/2024 11:06 AM SHIP FITTER) Anatomical Region Laterality Modality Chest N/A Computed Tomogra phy 01/17/2024 11:2 4 AM SHIP FITTER Impressions 01/17/2024 11:24 AM SHIP FITTER 1. LungRADS Category 2 (benign) . Recommend [...] Elvis Giraldo M.D. Narrative 01/17/2024 11:24 AM SHIP FITTER EXAMINATION: Lung cancer screening CT of the [...] Most Recently Relevant to Health Maintenance Insurance [facility] MEDICARE [facility] MEDICARE Address: [address] [address] [place] [address] [facility] MEDICARE [facility] Care Teams Flash Drier Operator Relationship Specialty Start Date End Date Renetta Roper MD [address] [place] [address] PCP - General Family Medicine 12/06/23
[2024-08-20 10:30] LABS: Alanine Aminotransferase 13 U/L (6-35); Albumin Level 4.6 g/dL (3.5-5.1); Alkaline Phosphatase 85 U/L (38-126); Anion Gap 10 mmol/L (4-12); Aspartate Amino Transferase 23 U/L (14-36); Bilirubin,Total 0.4 mg/dL (0.2-1.3); Blood Urea Nitrogen 6 mg/dL (7-17); Calcium 9.9 mg/dL (8.4-10.2); Carbon Dioxide 25 mmol/L (22-30); Chloride 104 mmol/L (98-107); Cholesterol 199 mg/dL (0-200); Estimated Glomerular Filt Rate > 60; Glucose 109 mg/dL (65-110); HDL Direct 84 mg/dL; Iron 111 ug/dL (37-170); Potassium 4.2 mmol/L (3.4-5.0); Sodium 139 mmol/L (137-145); Total Protein 7.7 g/dL (6.3-8.2); Triglycerides 98 mg/dL (<150)
[2024-08-20 10:40] LABS: Percent Iron Saturation 47 % (20-50)
[2024-08-20 10:41] LABS: LDL Cholesterol Direct 83 mg/dL
[2024-08-20 10:49] LABS: Free T4 Free Thyroxine 0.88 ng/dL (0.78-2.19)
[2024-08-20 11:00] LABS: Thyroid Stimulating Hormone 0.931 uIU/mL (0.465-4.680)
[2024-08-20 11:40] LABS: Vitamin B12 > 1000.0 pg/mL (239-931)
== END 2024-08-20 09:28 | disposition home or self-care (01) ==
PROVIDERS: PCP Family Medicine; Visit Provider Student in an Organized Health Care Education/Training Program
DX: E78.5 Hyperlipidemia, unspecified (principal); K76.0 Fatty (change of) liver, not elsewhere classified; K21.9 Gastro-esophageal reflux disease without esophagitis; E87.6 Hypokalemia; R53.83 Other fatigue; D64.9 Anemia, unspecified
CPT/HCPCS: 36415; 80053; 80061; 82607; 82728; 82746; 83540; 83550; 84439; 84443; 85025

== ENCOUNTER 2024-11-21 01:08 | Day surgery (SDC) | payer MEDICARE, SELFPAY ==
--- OUTSIDE RECORDS SUMMARY | 2024-07-22 12:30 | XMS_ITS ---
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 Allergies Social History Sex Assigned At : Social History Observation Description Sex Assigned At Female Encounters Encounter Location Date Provider Diagnosis [facility] [address] [place] [address] 07/22/2024 Iris Carmona Plan Of Treatment No Information Progress Notes * Carol HAMILTONDOB:1955 (68 yo F)Acc No.[id number]:07/22/2024 Progress Notes Patient: Carol VALLADARES Provider: PAULETTE Centeno :1955 A ge:68 Y S ex:Female Date:07/22/2024 Address:[address] [place], [place] [id number] Pcp:Renetta Roper Subjective: * Chief Complaints: * 1 . BELT BUCKLE MAKER Allergies. * Medical History: Objective: * Vitals: Assessment: Plan: * Treatment: * Billing Information: * Visit Code: * Procedure Codes: * Electronic signature of Iris Carmona DNP, FNP-C on 11/21/2024 at 01:11 AM CDT Sign off status: Pending * Provider: PAULETTE Centeno-Clay Date: 0 07/22/2024 Generated for Helenai ng/Faolnnyg/eTransmitting on: 0 11/21/2024 01:11 AM CDT
[2024-11-05 15:30] VITALS: BMI 21.9
--- OUTSIDE RECORDS SUMMARY | 2024-11-21 01:11 | XMS_ITS | Patient Health Record ---
Author Organization [facility] Address [address] [place] [address] Care Team Providers Care Universal Banker Name Role Phone Bhupinder Del Valle D.O Unavailable [phone] Reason For Referral No Information Medications Medication [...]
--- OUTSIDE RECORDS SUMMARY | 2024-11-21 01:11 | XMS_ITS | Encounter Summary ---
Author Organization [facility] Address [address] [place] [address] Care Team Providers Care Printer Technician Name Role Phone Gloria Mendieta MD Primary Care Provider [phone] Renetta Roper MD Primary Care Provider [phone] Renetta Roper MD Primary Care Provider [phone] Renetta Roper MD Primary Care Provider [phone] Encounter Details Date Type Department Care Team (Late st Contact Info) Description 12/11/2019 Telephone [facility] - Imaging [address] [place] [address] Transcribed Order, Provider Social History Tobacco Use Types Packs/Day Years Used Date Smoking Tobacco: Former Comments Unknown Sex and Gender Information Value Date Recorded Sex Assigned at Not on file Legal Sex Female 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
--- OUTSIDE RECORDS SUMMARY | 2024-11-21 01:11 | XMS_ITS | Patient Health Record ---
Author Organization [facility] [place] ([address]) Address [address] [place] [address] Care Team Providers Care Data Officer Name Role Phone Renetta Roper Primary Care Provider Iris Malik [facility] [phone] Reason For Referral No Information Social History Sex Assigned At : Social History Observation Description Sex Assigned At Female Plan Of Treatment No Information Insurance Providers Payer Name Payer Address Payer Phone Subscriber Number Group Number Insured Name Patient Relationship to Insured Coverage Start Date Coverage End Date A[employer]na Medicare [address] [place] [address] [id number] Carol Cedeño Self - patient is the insured
--- OUTSIDE RECORDS SUMMARY | 2024-11-21 01:11 | XMS_ITS | Clinical Summary ---
Author Organization [facility] Address [address] [facility] [place] [address] Care Team Providers Care Brick Baker Name Role Phone Gloria Vaughn MD Primary Care Provider [phone] Source Comments [facility],non-owned Affiliates and Associated Physician Practices is amultiple site organization consisting of ambulatory clinics and hospital sitesin [place], [place], [place] and [place]. This disclosure is being madepursuant to the Care Everywhere program and may not contain all information available regarding this patient. Last updated 17.[facility] Allergies Active Allergy Reactions Criticality Noted Date [...] Description 12/05/2024 9:20 AM CDT Office Visit [facility] Health Orthopedics [address] [facility], [address] [place] [address] Dhiraj Hernandez, RUBY ON RAILS DEVELOPER-WHISKEY REGAUGER [address] [facility] [address] [place] [address] Health Maintenance Due Date Last [...] HAMILTON Subscriber ID:Not on file (Home) Address: [address] [place] [address] Payer ID:Not on file Group ID:Not on file Type:Self Pay Address: [place], [place] [employer] Care Teams Brick Baker Relationship Specialty Start Date End Date Gloria Vaughn MD PCP - General Family Medicine 07/30/18
[2024-11-21 09:13] VITALS: BP 111/52; PULSE 97; RESP 20; TEMP 36.1; O2SAT 99; BMI 21.6
--- NOTE | 2024-11-21 09:27 | WPDANESEPPF ---
Anes - Initial Pre Proc Eval Procedure: Operation Date: 11/21/24 10:30 Proposed Procedures p Diagnostic Colonoscopy - Jordin Mar MD Date/Time: 11/21/24 09:27 Surgeon: Jordin Mar MD Pre Op Diagnosis: Fatty (change of) liver, not elsewhere classified Patient Data Age: 68 Gender: F Height: 1.57 m Weight: 53.7 kg Last Vital Signs Temp 36.1 C L 11/21/24 09:13 Pulse 97 11/21/24 09:13 Resp 20 11/21/24 09:13 BP 111/52 L 11/21/24 09:13 Pulse Ox 99 11/21/24 09:13 O2 Del Method Room Air 11/21/24 09:13 Allergies Allergy/AdvReac Type Severity Reaction Status Date / Time acetaminophen (From Allergy Intermediate Nausea and Verified 11/21/24 09:12 Darvocet-N) Vomiting meperidine AdvReac Severe Nausea and Verified 11/21/24 09:12 Vomiting propoxyphene AdvReac Unknown Nausea and Verified 11/21/24 09:12 Vomiting Home Medications ?Medication ?Instructions ?Recorded ?Confirmed ?Type magnesium 200 mg tablet 200 mg PO DAILY 08/26/19 11/21/24 History lactobacillus combination no.9 4 4,000 mmu cells PO DAILY 07/06/20 11/05/24 History billion cell capsule (Adult 50 Plus Probiotic) mecobalamin (vitamin B12) 1,000 1,000 mcg sublingual .ever 07/07/21 11/05/24 History mcg disintegrating tablet,sublingual albuterol sulfate 90 mcg/actuation See Rx Instructions .Route 12/09/22 11/05/24 Rx aerosol inhaler .COMPLEX #8.5 ea montelukast 10 mg tablet 10 mg PO QHS #90 tabs 09/14/23 11/21/24 Rx calcium 600 mg (as 1 tablet PO DAILY 06/10/24 11/21/24 History carbonate)-vitamin D3 5 mcg (200 unit) tablet cetirizine 10 mg capsule (All Day 10 mg PO DAILY 06/10/24 11/21/24 History Allergy (cetirizine)) aspirin 81 mg tablet 81 mg PO DAILY 08/14/24 11/21/24 History atorvastatin 20 mg tablet 20 mg PO DAILY #90 tabs 08/16/24 11/21/24 Rx bupropion HCl 100 mg tablet 100 mg PO BID #180 tabs 08/22/24 11/21/24 Rx pantoprazole 40 mg tablet,delayed See Rx Instructions .Route 08/22/24 11/21/24 Rx release .COMPLEX #180 tabs ondansetron HCl 4 mg tablet 4 mg PO Q8H PRN nausea and 09/05/24 11/05/24 Rx vomiting #20 tabs dicyclomine 20 mg tablet 20 mg PO BID #180 tabs 10/03/24 11/21/24 Rx lorazepam 0.5 mg tablet 0.5 mg PO TID PRN anxiety #90 tabs 10/11/24 11/05/24 Rx hydroxyzine HCl 25 mg tablet 25 mg PO TID PRN itching #30 tabs 10/31/24 11/05/24 Rx Patient hx anesthesia problems: none Family hx anesthesia problems: none Results Review: All pre-operative results and documents have been reviewed as part of the pre-operative evaluation. [facility] Past Medical History Medical History Nausea and vomiting in adult Spondylosis of cervical joint with myelopathy JLUIS (generalized anxiety disorder) GERD (gastroesophageal reflux disease) Anxiety Nicotine dependence, cigarettes, uncomplicated Osteoporosis Gastroesophageal reflux disease Gastritis On EGD [place] [address] Gonzalez. Asthma Surgical History Surgical History Status post total hip replacement, right (~07/02/24) S/P epidural steroid injection History of section History of basal cell carcinoma excision History of bunionectomy of both great toes History of appendectomy History of tonsillectomy and adenoidectomy History of hysterectomy (~1984) Family History Family History Father Family history of elevated blood lipids Family history of diabetes mellitus in first degree relative Family history of coronary artery disease Patient's father is Family history of heart disease in male family member before age 55 Mother Family history of coronary artery disease Patient's mother is Family history of emphysema Family history of heart disease in male family member before age 55 Family history of mental disorder Depression Sibling Heart disease Other Diabetes mellitus Family history of cardiovascular disease Hypertension Social History Social History Social History: Date of last mammogram: 08/22/22 @ [facility] (normal) Flu: yes (2022) Tetanus and Pneumonia: no (2022) Dexa Scan: yes (unknown date) Colonoscopy: yes Carol drinks coffee/tea 1-2 cups/day. Surrogate decision maker: Escobar Olea, . Code status: Full code. Travels to [place] for Winter, drives in their camper. Smoking packs per day: 1 Smoking cigarettes per day: 20.0 Years smoked: 30 Smoking pack-years: 30.00 Smoking status: Former smoker Tobacco type: cigarettes Second hand tobacco smoke exposure: Yes Smoking end date: 03/06/09 Additional smoking assessment comments: DENIES ANY FORM OF TOBACCO USE Alcohol intake: current Drinks per week: 7 Alcohol use details: Wine every night Substance use: never Substance use type: does not use Do You Feel Safe in your Home?: Yes Lack of Transportation: No Lack of Food: Never True Current Housing: I Have Housing Concerned About Future Housing: No Difficulty Paying Gas/Electric Bills: No Difficulty Paying for Meds: No Currently Unemployed: No Education: Master's Degree or Higher Difficulty w/ Childcare or Family Care: No Living arrangements: with family Occupation/Education: retired Gender identity (if verbalized by the patient): Female Spiritual care concerns: No Agree to blood products: Yes Anes - Eval Final PreProcedure Day of Procedure 11/21/24 09:27 Patient weight: normal Heart: regular rate and rhythm Lungs: clear to auscultation Airway: Mallampati scale class II Neurological: alert and oriented Last oral intake: >/= 8 hours ASA classification: III Emergent: no Anesthetic plan: proceed Anesthesia type and monitoring: general GIVS and standard monitoring Results Review: All pre-operative results and documents have been reviewed as part of the pre-operative evaluation. Informed Consent: The patient's anesthetic plan and its attendant risks and benefits were discussed with the patient/family/POA. Questions were solicited and answers provided to the satisfaction of the patient/family/POA.
[2024-11-21] MEDS: LACTATED RINGERS 1,000 ML 150 ML IV CONT (09:32)
--- NOTE | 2024-11-21 09:37 | PM.HPGS ---
History of Present Illness History of Present Illness Consent: Risks, benefits, and alternatives have been discussed and questions answered. Patient agrees to proceed with procedure. Chief complaint: colon screen Narrative: Carol Olea is a 68 year old female here for screening colonoscopy, last one 2018 Review of Systems Review of Systems: All systems reviewed & are unremarkable except as noted in HPI and below PMFSH Past Medical History Medical History Nausea and vomiting in adult Spondylosis of cervical joint with myelopathy JLUIS (generalized anxiety disorder) GERD (gastroesophageal reflux disease) Anxiety Nicotine dependence, cigarettes, uncomplicated Osteoporosis Gastroesophageal reflux disease Gastritis On EGD in [address] Gonzalez. Asthma Surgical History Surgical History Status post total hip replacement, right (~07/02/24) S/P epidural steroid injection History of section History of basal cell carcinoma excision History of bunionectomy of both great toes History of appendectomy History of tonsillectomy and adenoidectomy History of hysterectomy (~1984) Family History Family History Father Family history of elevated blood lipids Family history of diabetes mellitus in first degree relative Family history of coronary artery disease Patient's father is Family history of heart disease in male family member before age 55 Mother Family history of coronary artery disease Patient's mother is Family history of emphysema Family history of heart disease in male family member before age 55 Family history of mental disorder Depression Sibling Heart disease Other Diabetes mellitus Family history of cardiovascular disease Hypertension Social History Social History Social History: Date of last mammogram: 08/22/22 @ [facility] (normal) Flu: yes (2022) Tetanus and Pneumonia: no (2022) Dexa Scan: yes (unknown date) Colonoscopy: yes Carol drinks coffee/tea 1-2 cups/day. Surrogate decision maker: Escobar Olea, . Code status: Full code. Travels to [place] for Winter, drives in their camper. Smoking packs per day: 1 Smoking cigarettes per day: 20.0 Years smoked: 30 Smoking pack-years: 30.00 Smoking status: Former smoker Tobacco type: cigarettes Second hand tobacco smoke exposure: Yes Smoking end date: 03/06/09 Additional smoking assessment comments: DENIES ANY FORM OF TOBACCO USE Alcohol intake: current Drinks per week: 7 Alcohol use details: Wine every night Substance use: never Substance use type: does not use Do You Feel Safe in your Home?: Yes Lack of Transportation: No Lack of Food: Never True Current Housing: I Have Housing Concerned About Future Housing: No Difficulty Paying Gas/Electric Bills: No Difficulty Paying for Meds: No Currently Unemployed: No Education: Master's Degree or Higher Difficulty w/ Childcare or Family Care: No Living arrangements: with family Occupation/Education: retired Gender identity (if verbalized by the patient): Female Spiritual care concerns: No Agree to blood products: Yes Meds Home Medications and Allergies Home Medications ?Medication ?Instructions ?Recorded ?Confirmed ?Type magnesium 200 mg tablet 200 mg PO DAILY 08/26/19 11/21/24 History lactobacillus combination no.9 4 4,000 mmu cells PO DAILY 07/06/20 11/05/24 History billion cell capsule (Adult 50 Plus Probiotic) mecobalamin (vitamin B12) 1,000 1,000 mcg sublingual .ever 07/07/21 11/05/24 History mcg disintegrating tablet,sublingual albuterol sulfate 90 mcg/actuation See Rx Instructions .Route 12/09/22 11/05/24 Rx aerosol inhaler .COMPLEX #8.5 ea montelukast 10 mg tablet 10 mg PO QHS #90 tabs 09/14/23 11/21/24 Rx calcium 600 mg (as 1 tablet PO DAILY 06/10/24 11/21/24 History carbonate)-vitamin D3 5 mcg (200 unit) tablet cetirizine 10 mg capsule (All Day 10 mg PO DAILY 06/10/24 11/21/24 History Allergy (cetirizine)) aspirin 81 mg tablet 81 mg PO DAILY 08/14/24 11/21/24 History atorvastatin 20 mg tablet 20 mg PO DAILY #90 tabs 08/16/24 11/21/24 Rx bupropion HCl 100 mg tablet 100 mg PO BID #180 tabs 08/22/24 11/21/24 Rx pantoprazole 40 mg tablet,delayed See Rx Instructions .Route 08/22/24 11/21/24 Rx release .COMPLEX #180 tabs ondansetron HCl 4 mg tablet 4 mg PO Q8H PRN nausea and 09/05/24 11/05/24 Rx vomiting #20 tabs dicyclomine 20 mg tablet 20 mg PO BID #180 tabs 10/03/24 11/21/24 Rx lorazepam 0.5 mg tablet 0.5 mg PO TID PRN anxiety #90 tabs 10/11/24 11/05/24 Rx hydroxyzine HCl 25 mg tablet 25 mg PO TID PRN itching #30 tabs 10/31/24 11/05/24 Rx Allergies Allergy/AdvReac Type Severity Reaction Status Date / Time acetaminophen (From Allergy Intermediate Nausea and Verified 11/21/24 09:12 Darvocet-N) Vomiting meperidine AdvReac Severe Nausea and Verified 11/21/24 09:12 Vomiting propoxyphene AdvReac Unknown Nausea and Verified 11/21/24 09:12 Vomiting Vital Signs Vital Signs - 24 hr 11/21/24 09:13 Temperature 97 F L Pulse Rate 97 Respiratory Rate 20 Blood Pressure 111/52 L Pulse Oximetry 99 Oxygen Delivery Room Air Exam Const: General: comfortable and no acute distress HENMT: Face/Nose/Sinus: Normal nares present Eyes: General: appearance normal, both eyes and all related structures Neck: Neck: no JVD Resp: Auscultation: clear to auscultation bilaterally Cardio: Rate: regular rate Rhythm: regular rhythm GI: Inspection: non-distended GI Palp: Yes Soft to palpation Skin: General skin exam: normal color Neuro: Speech: normal speech Extrem: General: normal to inspection Psych: Mental Status: mental status grossly normal Assessment and Plan Assessment and plan (1) Colon cancer screening: Code(s): Z12.11 - Encounter for screening for malignant neoplasm of colon Status: Acute Assessment and Plan: colonoscopy
--- NOTE | 2024-11-21 09:50 | S_PTH ---
PATIENT: Carol Olea LOC: [facility] Espino#:[id number] AGE/SX: 68/F ROOM: RE11/21/[address]: Jordin Mar MD : 1955 BED: DIS: 11/21/2024 SPEC #: [id number] RECD: 11/21/24 11:36 STATUS: PAUL REArtemio #: [id number] CARLOS: 11/21/24 09:[address]: Jordin Mar DEPT: [facility] Surgical RECD BY: Norma Taylor ENTERED: 11/21/24 11:36 SP TYPE: Surgical OTHR DR: Renetta Roper, Tissues: A - Colon Polypectomy Procedures: Hematoxylin and Eosin Stain Gross and Microscopic Level 4
[2024-11-21 09:51] VITALS: BP 99/47; PULSE 83; RESP 14; O2SAT 98
[2024-11-21 10:01] VITALS: BP 102/52; PULSE 86; RESP 18; O2SAT 99
[2024-11-21 10:11] VITALS: BP 125/74; PULSE 89; RESP 18; O2SAT 100
== END 2024-11-21 10:31 | disposition home or self-care (01) ==
PROVIDERS: PCP Family Medicine; Referring Provider Nurse Practitioner; Visit Provider Internal Medicine Gastroenterology
PROC: 0DJD8ZZ Inspection of Lower Intestinal Tract, Via Natural or Artificial Opening Endoscopic (ICD-10-PCS; CPT 45378; principal; 2024-11-21 10:30)
DX: Z12.11 Encounter for screening for malignant neoplasm of colon (principal); D12.0 Benign neoplasm of cecum; K64.8 Other hemorrhoids; K57.30 Diverticulosis of large intestine without perforation or abscess without bleeding; K21.9 Gastro-esophageal reflux disease without esophagitis; J45.909 Unspecified asthma, uncomplicated; M81.0 Age-related osteoporosis without current pathological fracture; F41.9 Anxiety disorder, unspecified; M47.12 Other spondylosis with myelopathy, cervical region; Z79.51 Long term (current) use of inhaled steroids; Z79.82 Long term (current) use of aspirin; Z98.890 Other specified postprocedural states; Z87.891 Personal history of nicotine dependence; Z85.828 Personal history of other malignant neoplasm of skin; Z87.19 Personal history of other diseases of the digestive system; Z82.49 Family history of ischemic heart disease and other diseases of the circulatory system
CPT/HCPCS: 45380; 88305; J2003; J2704; J7120

== ENCOUNTER 2024-11-26 17:19 | Outpatient (CLI) | payer MEDICARE, SELFPAY ==
--- OUTSIDE RECORDS SUMMARY | 2024-07-22 12:30 | XMS_ITS ---
Author Organization [facility] [place] ([address]) Address [address] [place] [address] Care Team Providers Care Torch Shearer Name Role Phone Renetta Roper Primary Care Provider Iris Malik [phone] REASON FOR VISIT ASSESSMENT CLINICIAN Allergies Social History Sex Assigned At : Social History Observation Description Sex Assigned At Female Encounters Encounter Location Date Provider Diagnosis [facility] [address] [place] [address] 07/22/2024 Iris Carmona Plan Of Treatment No Information Progress Notes * Carol HAMILTONDOB:1955 (68 yo F)Acc No.[id number]:07/22/2024 Progress Notes Patient: Carol VALLADARES Provider: PAULETTE Centeno-Clay :1955 A ge:68 Y S ex:Female Date:07/22/2024 Address:[address] [place], [place] [id number] Pcp:Renetta Roper Subjective: * Chief Complaints: * 1 . ASSESSMENT CLINICIAN Allergies. * Medical History: Objective: * Vitals: Assessment: Plan: * Treatment: * Billing Information: * Visit Code: * Procedure Codes: * Electronic signature of Iris Carmona DNP, FNP-C on 11/19/2024 at 04:56 PM CDT Sign off status: Pending * Provider: PAULETTE Centeno-C Date: 0 07/22/2024 Generated for Printi ng/Faxing/eTransmitting on: 0 11/19/2024 04:56 PM CDT
--- OUTSIDE RECORDS SUMMARY | 2024-07-22 12:30 | XMS_ITS ---
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 * Medical History: Objective: * Vitals: Assessment: Plan: * Treatment: * Billing Information: * Visit Code: * Procedure Codes: * Electronic signature of Iris Carmona DNP, FNP-C on 11/26/2024 at 05:23 PM CDT Sign off status: Pending * Provider: PAULETTE Centeno-Clay Date: 0 07/22/2024 Generated for Printi ng/Faxing/eTransmitting on: 0 11/26/2024 05:23 PM CDT
--- OUTSIDE RECORDS SUMMARY | 2024-11-19 16:56 | XMS_ITS | Clinical Summary ---
Author Organization [facility] Address [address] [place] [address] Care Team Providers Care Post Anesthesia Room Nurse Name Role Phone Renetta Roper MD Primary Care Provider [phone] Allergies Active Allergy Reactions Criticality Noted Date Comments Meperidine Nausea And Vomiting,Nausea & Vomiting High 07/30/2018 Nitrofurantoin Dizziness Low 07/31/2018 Propoxyphene Nausea & Vomiting Low 07/18/2024 Medications atorvastatin (LIPITOR) 20 mg tabletIndicatio ns:hyperlipidem ia Take 1 tablet (20 mg total) by mouth nightly 5 Active buPROPion (WELLBUTRIN) 100 mg tabletIndicatio ns:Anxiety with Depression Take 1 tablet (100 mg total) by mouth 2 (two) times a day 5 Active dicyclomine (BENTYL) 20 mg tabletIndicatio ns:Abdominal Pain with Cramps Take 1 tablet (20 mg total) by mouth 2 (two) times a day 5 Active LORazepam (ATIVAN) 0.5 mg tablet Take 1 tablet (0.5 mg total) by mouth 3 (three) times a day as needed (anxiety) Active montelukast (SINGULAIR) 10 mg tabletIndicatio ns:Seasonal Allergic Rhinitis Take 1 tablet (10 mg total) by mouth nightly at bedtime 5 Active ondansetron (ZOFRAN) 4 mg tablet Take 1 tablet (4 mg total) by mouth every 8 (eight) hours as needed for nausea or vomiting [address] (Protonix) 40 mg EC tabletIndicatio ns:Treatment of Non-Bleeding Gastric Disorder Take 1 tablet (40 mg total) by mouth 2 (two) times a day Active albuterol HFA (PROVENTIL HFA,VENTOLIN HFA,PROAIR HFA) 90 mcg/actuation inhaler Inhale 2 puffs every 6 (six) hours as needed for wheezing or shortness of breath Active aspirin 81 mg enteric coated tabletIndicatio ns:primary prevention of coronary heart disease Take 1 tablet (81 mg total) by mouth daily before breakfast Active lactobacillus combination no.4 3 billion cell capsuleIndicati ons:gut health Take 1 tablet by mouth nightly Active magnesium gluconate 200 mg tabletIndicatio ns:health Take 1 tablet (200 mg total) by mouth daily before breakfast Active hydrOXYzine (ATARAX) 25 mg tablet TAKE 1 TABLET BY MOUTH THREE TIMES A DAY NEEDED FOR ITCHING 5 Active calcium citrate-vitamin D3 200 mg-6.25 mcg (250 unit) tabletIndicatio ns:Hypocalcemia Prevention,Prev ention of Vitamin D Deficiency Take 1 tablet by mouth daily before breakfast Active cyanocobalamin (Vitamin B-12) 500 mcg tabletIndicatio ns:Prevention of Vitamin B12 Deficiency Take 1 tablet (500 mcg total) by mouth every other day Active cetirizine (ZyrTEC) 10 mg tabletIndicatio ns:Allergic Rhinitis Take 1 tablet (10 mg total) by mouth nightly Active acetaminophen (TYLENOL) 325 mg tablet Take 2 tablets (650 mg total) by mouth every 6 (six) hours as needed for pain Active Zf-A1-ghi-zinc- uil-oeed-aertn 600 mg calcium- 800 unit-40 mg tablet,chewable Take by mouth 25 Discontinu ed(Therapy completed) cyanocobalamin (Vitamin B-12) 1,000 mcg/mL injection 10/24/19 25 Discontinu ed(Therapy completed) Xarelto 10 mg tablet TAKE 1 TABLET BY MOUTH DAILY FOR 30 DAYS TAKE FOR 30 DAYS AFTER SURGERY. 5 10/24/19 25 Discontinu ed(Therapy completed) predniSONE (DELTASONE) 10 mg tablet Take 5 tabs (50mg) daily for 2 days, then take 4 tabs (40mg) daily for 2 days. Continue to decrease by 1 tab (10mg) every 2 days until gone. 30 tablet 10/24/19 25 Discontinu ed(Therapy completed) Active Problems Problem Noted Date Diagnosed Date Pseudophakia of right eye 11/13/2024 Age-related nuclear cataract of left eye 025 Constipation 07/17/2012 Encounters Date Type Department Care Team Description 11/14/2024 8:15 AM CDT Office Visit [facility] Medicine Ophthalmology [address] [place] [address] 2nd Floor [address] [place] [address] Dhiraj Dorsey MD Pseudophakia of right eye (Primary Dx) 11/13/2024 10:50 AM CDT - 11/13/2024 11:20 AM CDT Surgery [facility] at [address] [address] Dhiraj Dorsey MD EXTRACTION CATARACT WITH LENS IMPLANT. 11/13/2024 10:41 AM CDT Anesthesia Event [facility] at [address] [address] Kendall Rivero MD Brohi, Ashlee Renae, NP 11/13/2024 8:55 AM CDT - 11/13/2024 11:27 AM CDT Hospital Encounter [facility] at [address] [address] Dhiraj Dorsey MD Encounter for preoperative assessment (Primary Dx); Age-related nuclear cataract of both eyes Discharge Disposition: Discharge to home or self care 11/11/2024 Telephone [facility] Medicine Ophthalmology [address] [place] [address] 2nd Floor [address] [place] [address] Ashley Darling 10/17/2024 2:30 PM CDT Office Visit [facility] Medicine Ophthalmology [address] [place] [address] Floor [address] [place] [address] Dhiraj Dorsey MD Age-related nuclear cataract of both eyes 10/13/2024 10:15 AM CDT Office Visit [facility] at [address] [address] Jolene Peck PA Rash and nonspecific skin eruption (Primary Dx) 10/03/2024 [facility] [address] [facility] 2nd Floor [address] [place] [address] Ashley Darling 10/03/2024 Telephone [facility] Medicine Ophthalmology [address] [place] [address] Dhiraj Dorsey MD 09/30/2024 Telephone [facility] Medicine Ophthalmology [address] [facility] 2nd Floor [address] [place] [address] Ashley Darling 09/25/2024 Telephone [facility] Medicine Ophthalmology [address] [place] [address] Dhiraj Dorsey MD surgery 09/19/2024 3:15 PM CDT Office Visit [facility] Medicine Ophthalmology [address] [facility] 2nd Floor [address] [place] [address] Dhiraj Dorsey MD Age-related nuclear cataract of both eyes (Primary Dx) from Last 3 Months Immunizations Immunization Administration Dates Next Due Influenza, Quadrivalent, Spl it, Preservative Free, Intramuscular 11/24/2017 Pneumococcal Polysaccharide PPV23 12/17/2008 TD Preservative Free 12/18/2003 Tdap 07/30/2015 Surgical History Surgery Date Site/Laterality Comments TOTAL HIP ARTHROPLASTY 06/04/2024 - 07/03/2024 Right APPENDECTOMY 03/06/1960 - 03/05/1961 as a child HYSTERECTOMY 03/06/1984 - 03/05/1985 BUNIONECTOMY 03/06/1994 - 03/05/1995 Bilateral TONSILLECTOMY 03/06/1962 - 03/05/1963 COLONOSCOPY 03/06/2019 - 03/05/2020 CATARACT EXTRACTION EXTRACAPSULAR W/ INTRAOCULAR LENS IMPLANTATION 11/13/2024 Eye/Right Procedure: EXTRACTION CATARACT WITH LENS IMPLANT.; Surgeon: Dhiraj Dorsey MD; Location: [facility] Operating Room; Service: Ophthalmology; Laterality: Right; Medical devices from this surgery are in the Medical Devices section. Medical History Medical History Date Comments Cataract OU Hyperlipidemia Treated with sta tin PONV (postoperative nausea and vomiting) PONV X 1 day postop after hip replacement 06/2024 but then was hospitalized X 1 week 2nd week after surgery for prolonged/delayed N/V (pt denies any opioid use at time of delayed N/V) Family History Medical History Relation Name Comments No Known Problems Brother No Known Problems Father No Known Problems Mother Anesthesia problems Sister PONV Relation Name Status Comments Brother Father Mother Sister Social History Tobacco Use Types Packs/Day Years Used Date Smoking Tobacco: Former Cigarettes 1 34 0 12/04/1975 - 12/03/2009 Tobacco Cessation:Counseling Given: Not Answered Alcohol Use Standard Drinks/Week Comments Yes 2 (1 standard drink = 0.6 oz pur e alcohol) AUDIT-C Answer Date Recorded Q1: How often do you have a drink containing alc ohol? 2-3 times a week 11/13/2024 Q2: How many drinks containi ng alcohol do you have on a typical day when you are drinking? 1 or 2 11/13/2024 Q3: How often do you have si x or more drinks on one occasion? Never 11/13/2024 Personal Safety Answer Date Recorded Have you ever been in or are you currently in a harmful physical or emotional relationship or is someone making you feel afraid or unsafe? 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 Gender Identity Not on file Sexual Orientation Not on file Obstetrics History Last Filed Vital Signs Vital Sign Reading Time Taken Comments Blood Pressure 146/64 11/13/2024 11:20 AM CDT Pulse 83 11/13/2024 11:20 AM CDT Temperature 36.2 C (97.2 F) 11/13/2024 11:07 AM CDT Respiratory Rate 15 11/13/2024 11:20 AM CDT Oxygen Saturation 100% 11/13/2024 11:20 AM CDT Inhaled Oxygen Concentration - - Weight 55.8 kg (123 lb 1.6 oz) 11/13/2024 9:25 A M CDT Height 157.5 cm (5' 2) 11/13/2024 9:25 AM CDT Body Mass Index 22.52 11/13/2024 9:25 AM CDT Plan of Treatment Health Maintenance Due Date Last Done Comments Breast Cancer Screening-Mammogram 1955 Colon Cancer Screening-Colonoscopy 1955 Depression Screening 1955 Hepatitis C Screening 1955 Osteoporosis Screening-Bone Density Scan 1955 Hepatitis B Screening 12/14/1973 Zoster Vaccine (1 of 2) 12/14/2005 Well Visit 65+ 12/14/2020 Influenza Vaccine (#1) 2024 , 12/31/2019, 11/24/2017 Lung Cancer Screening 01/17/2025 01/17/2024 , 01/11/2023, 01/07/2022, Additional history exists DTaP/Tdap/Td Vaccine (2 - Td or Tdap) 07/29/2025 07/30/2015, 12/18/2003 Fall Risk Assessment 11/13/2025 11/13/2024 Pneumococcal vaccine 65+ (3 of 3 - PCV20 or PCV21) 01/06/2026 01/06/2021, 12/17/2008 Medical Devices Implanted Type Area Sales Team Member Device Identifier Shelf Expiration Date Model / Serial / Lot [employer] Lens Iol [id number] [place] [employer] [id number] - [id number] - [id number] Implanted:Qty: 1 on 11/13/2024 by Dhiraj Dorsey MD at [facility] Lens [employer] [id number] 08/21/2027 [id number] / [id number] / Procedures Procedure Name Priority Date/Time Associated Diagnosis Comments EXTRACTION CATARACT WITH LENS IMPLANT. 11/13/2024 10:46 AM CDT Age-related nuclear cataract of both eyes Case Notes 11/08@0911: move case up to close gap per Ashley via email. BR IOL BIOMETRY - OU - BOTH EYES Routine 10/17/2024 3:02 PM CDT Age-related nuclear cataract of both eyes CT LUNG CANCER SCREENING Schedule Routine, Read Routine (OP Routine) 01/17/2024 11:06 AM SOLAR APPLICATIONS DEVELOPMENT ENGINEER Nicotine dependence, cigarettes, uncomplicated from Last 3 Months or Most Recently Relevant to Health Maintenance Results * IOL Biometry - OU - Both Eyes (10/17/2024 3:02 PM CDT) Anatomical Region Laterality Modality Head Ophthalmic Axial Measurements Narrative 10/17/2024 3:02 PM CDT Right Eye Lens style: CNA0T0. Lens power: +20.0 D. Target refraction: 0. Formula used: Birney II. us Dhiraj Dorsey MD OPHTH ULTRASOUND Final Resu lt * CT Lung Cancer Screening (01/17/2024 11:06 AM SOLAR APPLICATIONS DEVELOPMENT ENGINEER) Anatomical Region Laterality Modality Chest N/A Computed Tomogra phy 01/17/2024 11:2 4 AM SOLAR APPLICATIONS DEVELOPMENT ENGINEER Impressions 01/17/2024 11:24 AM SOLAR APPLICATIONS DEVELOPMENT ENGINEER 1. LungRADS Category 2 (benign) . Recommend [...] Elvis Giraldo M.D. Narrative 01/17/2024 11:24 AM SOLAR APPLICATIONS DEVELOPMENT ENGINEER EXAMINATION: Lung cancer screening CT of the [...] Most Recently Relevant to Health Maintenance Insurance [employer] [facility] MEDICARE ADVANTAGE [facility] MEDIC[facility] Address: [address] [address] [place] [address] [facility] MEDICARE [facility] MEDIC[facility] Care Teams Post Anesthesia Room Nurse Relationship Specialty Start Date End Date Renetta Roper MD PCP - General Family Medicine 12/06/23
--- OUTSIDE RECORDS SUMMARY | 2024-11-19 16:56 | XMS_ITS | Clinical Summary ---
Author Organization [facility] Address [address] [facility] [place] [address] Care Team Providers Care Bias Binding Folder Name Role Phone Gloria Vaughn MD Primary Care Provider [phone] Source Comments [facility],non-owned Affiliates and Associated Physician Practices is amultiple site organization consisting of ambulatory clinics and hospital sitesin [place], [place], [place] and [place]. This disclosure is being madepursuant to the Care Everywhere program and may not contain all information available regarding this patient. Last updated 17.[facility] Allergies Active Allergy Reactions Criticality Noted Date [...] 10/22/2018 11:37 AM CDT Plan of Treatment Upcoming Encounters Date Type Department Care Team (Late st Contact Info) Description 12/05/2024 9:20 AM CDT Office Visit [facility] Health Orthopedics [address] [facility], [address] [place] [address] Dhiraj Hernandez, SOFTWARE QUALITY ASSURANCE SPECIALIST-CHAIR MENDER [address] [facility] [address] [place] [address] Health Maintenance Due Date Last Done Comments [...] 12/14/2005 ZOSTER VACCINE (1 of 2) 12/14/2005 DEPRESSION SCREENING 03/06/2024 MEDICARE AWV CALENDAR YEAR 2024 COVID-19 VACCINE (1 - 2023-2 5 season) 2024 INFLUENZA VACCINE (#1) 2024 Respiratory Syncytial Virus (RSV) Vaccine Pt: [...] patient's age to complete this topic Insurance [employer] MEDICARE ADV SELF PAY NO INSURANCE Member Subscriber Plan / Payer (Ef fective for All Dates) Name:Carol Hamilton Member ID:Not on file Relation to Subscriber:Not on file Name:CAROL HAMILTON Subscriber ID:Not on file (Home) Address: [address] [place] [address] Payer ID:Not on file Group ID:Not on file Type:Self Pay Address: [place], [place] [employer] Care Teams Bias Binding Folder Relationship Specialty Start Date End Date Gloria Vaughn MD PCP - General Family Medicine 07/30/18
--- OUTSIDE RECORDS SUMMARY | 2024-11-19 16:56 | XMS_ITS | Patient Health Record ---
Author Organization [facility] [place] ([address]) Address [address] [place] [address] Care Team Providers Care Filter Press Tender Head Name Role Phone Renetta Roper Primary Care Provider Iris Malik [facility] [phone] Reason For Referral No Information Social History Sex Assigned At : Social History Observation Description Sex Assigned At Female Plan Of Treatment No Information Insurance Providers Payer Name Payer Address Payer Phone Subscriber Number Group Number Insured Name Patient Relationship to Insured Coverage Start Date Coverage End Date Aetna Medicare [address] [place] [address] [id number] Carol Cedeño Self - patient is the insured
--- OUTSIDE RECORDS SUMMARY | 2024-11-19 16:57 | XMS_ITS | Encounter Summary ---
Author Organization [facility] Address [address] [place] [address] Care Team Providers Care Civil Structural Designer Name Role Phone Gloria Mendieta MD Primary Care Provider [phone] Renetta Roper MD Primary Care Provider Renetta Roper MD Primary Care Provider [phone] Renetta Roper MD Primary Care Provider [phone] Encounter Details Date Type Department Care Team (Late st Contact Info) Description 12/11/2019 Telephone [facility] - Imaging [address] [place] [address] Transcribed Order, Provider Social History Tobacco Use Types Packs/Day Years Used Date Smoking Tobacco: Former Comments Unknown Sex and Gender Information Value Date Recorded Sex Assigned at Not on file Legal Sex Female 7: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
--- OUTSIDE RECORDS SUMMARY | 2024-11-19 16:57 | XMS_ITS | Patient Health Record ---
Author Organization [facility] Address [address] [place] [address] Care Team Providers Care Underwater Hunter Name Role Phone Bhupinder Del Valle D.O Unavailable [phone] Reason For Referral No Information Medications Medication SIG (Take, Route, Frequency, Duration) Notes Start Date End Date Status Medrol (Guicho) 4 MG as directed Orally a s directed; Duration: 6 days 05/08/2017 Active Bactrim DS 800-160 MG 1 tablet Orally Tw ice a day; Duration: 10 day(s) 05/08/2017 Active Pantoprazole Sodium Active [...]
--- OUTSIDE RECORDS SUMMARY | 2024-11-26 17:23 | XMS_ITS | Clinical Summary ---
Author Organization [facility] Address [address] [place] [address] Care Team Providers Care Market Maker Name Role Phone Renetta Roper MD Primary Care Provider [phone] Allergies Active Allergy Reactions Criticality Noted Date Comments Meperidine Nausea And Vomiting,Nausea & Vomiting High 07/30/2018 Nitrofurantoin Dizziness Low 07/31/2018 Propoxyphene Nausea & Vomiting Low 07/18/2024 Medications atorvastatin (LIPITOR) 20 mg tabletIndication s:hyperlipidemia Take 1 tablet (20 mg total) by mouth nightly 5 Active buPROPion (WELLBUTRIN) 100 mg tabletIndication s:Anxiety with Depression Take 1 tablet (100 mg total) by mouth 2 (two) times a day 5 Active dicyclomine (BENTYL) 20 mg tabletIndication s:Abdominal Pain with Cramps Take 1 tablet (20 mg total) by mouth 2 (two) times a day 5 Active LORazepam (ATIVAN) 0.5 mg tablet Take 1 tablet (0.5 mg total) by mouth 3 (three) times a day as needed (anxiety) Active montelukast (SINGULAIR) 10 mg tabletIndication s:Seasonal Allergic Rhinitis Take 1 tablet (10 mg total) by mouth nightly at bedtime 5 Active ondansetron (ZOFRAN) 4 mg tablet Take 1 tablet (4 mg total) by mouth every 8 (eight) hours as needed for nausea or vomiting [address] (Protonix) 40 mg EC tabletIndication s:Treatment of Non-Bleeding Gastric Disorder Take 1 tablet (40 mg total) by mouth 2 (two) times a day Active albuterol HFA (PROVENTIL HFA,VENTOLIN HFA,PROAIR HFA) 90 mcg/actuation inhaler Inhale 2 puffs every 6 (six) hours as needed for wheezing or shortness of breath Active aspirin 81 mg enteric coated tabletIndication s:primary prevention of coronary heart disease Take 1 tablet (81 mg total) by mouth daily before breakfast Active lactobacillus combination no.4 3 billion cell capsuleIndicatio ns:gut health Take 1 tablet by mouth nightly Active magnesium gluconate 200 mg tabletIndication s:health Take 1 tablet (200 mg total) by mouth daily before breakfast Active hydrOXYzine (ATARAX) 25 mg tablet TAKE 1 TABLET BY MOUTH THREE TIMES A DAY NEEDED FOR ITCHING 5 Active calcium citrate-vitamin D3 200 mg-6.25 mcg (250 unit) tabletIndication s:Hypocalcemia Prevention,Preve ntion of Vitamin D Deficiency Take 1 tablet by mouth daily before breakfast Active cyanocobalamin (Vitamin B-12) 500 mcg tabletIndication s:Prevention of Vitamin B12 Deficiency Take 1 tablet (500 mcg total) by mouth every other day Active cetirizine (ZyrTEC) 10 mg tabletIndication s:Allergic Rhinitis Take 1 tablet (10 mg total) by mouth nightly Active acetaminophen (TYLENOL) 325 mg tablet Take 2 tablets (650 mg total) by mouth every 6 (six) hours as needed for pain Active Active Problems Problem Noted Date Diagnosed Date Pseudophakia of right eye 11/13/2024 Age-related nuclear cataract of left eye 025 Constipation 07/17/2012 Encounters Date Type Department Care Team Description 11/14/2024 8:15 AM CDT Office Visit [facility] Medicine Ophthalmology [address] 2nd [address] [place] [address] Dhiraj Dorsey MD Pseudophakia of right eye (Primary Dx) 11/13/2024 10:50 AM CDT - 11/13/2024 11:20 AM CDT Surgery [facility] Surgery at [address] [address] Dhiraj Dorsey MD EXTRACTION CATARACT WITH LENS IMPLANT. 11/13/2024 10:41 AM CDT Anesthesia Event [facility] Surgery at [address] [address] Kendall Rivero MD Brohi, Ashlee Renae, NP 11/13/2024 8:55 AM CDT - 11/13/2024 11:27 AM CDT Hospital Encounter [facility] Surgery at [address] [address] Dhiraj Dorsey MD Encounter for preoperative assessment (Primary Dx); Age-related nuclear cataract of both eyes Discharge Disposition: Discharge to home or self care 11/11/2024 [facility]phone [facility] [address] [place] [address] 2nd Floor [address] [place] [phone] Ashley Darling 10/17/2024 2:30 PM CDT [facility] [address] [place] [address] Floor [address] [place] [phone] Dhiraj Dorsey MD Age-related nuclear cataract of both eyes 10/13/2024 10:15 AM CDT Office Visit [facility] Care at [address] [address] Jolene Peck PA Rash and nonspecific skin eruption (Primary Dx) 10/03/2024 [facility] [address] [facility] [address] [facility] 2nd Floor [address] [place] [phone] Ashley Darling 10/03/2024 [facility] [address] [place] [address] Dhiraj Dorsey MD 09/30/2024 [facility]phone [facility] [address] Floor [address] [place] [phone] Ashley Darling 09/25/2024 Telephone [facility] Ophthalmology [address] [place] [address] Dhiraj Dorsey MD surgery 09/19/2024 3:15 PM CDT Office Visit [facility] Medicine Ophthalmology [address] [place] [address] Dhiraj Dorsey MD Age-related nuclear cataract of [...] LENS IMPLANT.; Surgeon: Dhiraj Dorsey MD; Location: [facility] Operating Room; Service: Ophthalmology; Laterality: Right; [...] on file Legal Sex Female 7:08 PM PAPER HANDLER Gender Identity Not on file Sexual Orientation [...] 01/06/2021, 12/17/2008 Medical Devices Implanted Type Area Banquet Attendant Device Identifier Shelf Expiration Date Model / Serial / Lot [employer] Lens Iol [id number] Brian Uva Autonom Cna0t0.200 - [id number] - [id number] Implanted:Qty: 1 on 11/13/2024 by Dhiraj Dorsey MD at [facility] Lens [employer] [id number] 08/21/2027 CNA0T0.200 / [id number] / Procedures Procedure Name Priority Date/Time [...] Read Routine (OP Routine) 01/17/2024 11:06 AM PAPER HANDLER Nicotine dependence, cigarettes, uncomplicated from Last 3 Months or Most Recently Relevant to Health Maintenance Results * IOL Biometry - OU - Both Eyes (10/17/2024 3:02 PM CDT) Anatomical Region Laterality Modality Head Ophthalmic Axial Measurements Narrative 10/17/2024 3:02 PM CDT Right Eye Lens style: CNA0T0. Lens power: +20.0 D. Target refraction: 0. Formula used: Melissa II. us Dhiraj Dorsey MD OPHTH ULTRASOUND Final Resu lt * CT Lung Cancer Screening (01/17/2024 11:06 AM PAPER HANDLER) Anatomical Region Laterality Modality Chest N/A Computed Tomogra phy 01/17/2024 11:2 4 AM PAPER HANDLER Impressions 01/17/2024 11:24 AM PAPER HANDLER 1. LungRADS Category 2 (benign) . Recommend [...] Elvis Giraldo M.D. Narrative 01/17/2024 11:24 AM PAPER HANDLER EXAMINATION: Lung cancer screening CT of the [...] Most Recently Relevant to Health Maintenance Insurance [employer] [facility] MEDICARE [employer]VANTAGE [facility] MEDIC[facility] Address: [address] [address] [place] [address] [employer] MEDICARE T MEDICARE Care Teams Market Maker Relationship Specialty Start Date End Date Renetta Roper MD PCP - General Family Medicine 12/06/23
--- OUTSIDE RECORDS SUMMARY | 2024-11-26 17:23 | XMS_ITS | Clinical Summary ---
Author Organization [facility] Address [address] [place] [address] Care Team Providers Care Mechanical Drafter Name Role Phone Gloria Vaughn MD Primary Care Provider [phone] Source Comments [facility],non-owned Affiliates and Associated Physician Practices is amultiple site organization consisting of ambulatory clinics and hospital sitesin [place], [place], [place] and [place]. This disclosure is being madepursuant to the Care Everywhere program and may not contain all information available regarding this patient. Last updated 17.[facility] Allergies Active Allergy Reactions Criticality Noted Date [...] Description 12/05/2024 9:20 AM CDT Office Visit [facility] Health Orthopedics [address] [place] [address] Dhiraj Hernandez, PUBLIC HEALTH MICROBIOLOGIST-HANDKERCHIEF CUTTER [address] [place] [address] Health Maintenance Due Date Last [...] [place] Subscriber ID:Not on file (Home) Address: [address] [place] [id number] Payer ID:Not on file Group ID:Not on file Type:Self Pay Address: [place], [place] [employer] Care Teams Mechanical Drafter Relationship Specialty Start Date End Date Gloria Vaughn MD PCP - General Family Medicine 07/30/18
--- OUTSIDE RECORDS SUMMARY | 2024-11-26 17:23 | XMS_ITS | Patient Health Record ---
Author Organization [facility] [place] ([address]) Address [address] [place] [address] Care Team Providers Care Geophysical E Logger Name Role Phone Renetta Roper Primary Care Provider Iris Malik [facility] [phone] Reason For Referral No Information Social History Sex Assigned At : Social History Observation Description Sex Assigned At Female Plan Of Treatment No Information Insurance Providers Payer Name Payer Address Payer Phone Subscriber Number Group Number Insured Name Patient Relationship to Insured Coverage Start Date Coverage End Date [employer] Medicare [address] [place] [address] [id number] Carol Cedeño Self - patient is the insured
--- OUTSIDE RECORDS SUMMARY | 2024-11-26 17:24 | XMS_ITS | Encounter Summary ---
Author Organization [facility] Address [address] [place] [address] Care Team Providers Care New Accounts Representative Name Role Phone Gloria Mendieta MD Primary Care Provider [phone] Renetta Roper MD Primary Care Provider [phone] Renetta Roper MD Primary Care Provider [phone] Renetta Roper MD Primary Care Provider [phone] Encounter Details Date Type Department Care Team (Late st Contact Info) Description 12/11/2019 Telephone [facility] - [facility] [address] [place] [address] Transcribed Order, Provider Social History Tobacco Use Types Packs/Day Years Used Date Smoking Tobacco: Former Comments Unknown Sex and Gender Information Value Date Recorded Sex Assigned at Not on file Legal Sex Female 7:08 PM UNDERLAY STITCHER Gender Identity Not on file Sexual Orientation Not on file documented as of this encounter Plan of Treatment Not on file documented as of this encounter Visit Diagnoses Not on filedocumented in this encounter Care Teams New Accounts Representative Relationship Specialty Start Date End Date Gloria Mendieta MD PCP - General 09/12/18 12/10/20 Renetta Roper MD PCP - General Family Medicine 12/11/20 11/20/22 Renetta Roper MD PCP - General Family Medicine 11/21/22 12/05/23 Renetta Roper MD PCP - General Family Medicine 12/06/23 documented as of this encounter
--- OUTSIDE RECORDS SUMMARY | 2024-11-26 17:24 | XMS_ITS | Patient Health Record ---
Author Organization [facility] Address [address] [place] [address] Care Team Providers Care Valuation Consultant Name Role Phone Bhupinder Del Valle D.O Unavailable [phone] Reason For Referral No Information Medications Medication [...]
[2024-11-26 17:45] LABS: Hematocrit 34.5 % (37.0-47.0); Hemoglobin 11.3 g/dL (12.0-15.0); Immature Granulocyte Percent A 0.5 % (0-0.5); Lymphocytes Absolute Auto 1.93 K/mm3 (0.9-3.2); Mean Corpuscular HGB Conc 32.8 g/dl (32-36); Mean Corpuscular Hemoglobin 31.8 pg (26-34); Mean Corpuscular Volume 97.2 fl (80-100); Nucleated Red Blood Cells Absolute Auto 0.000 K/mm3 (0.0-0.012); Nucleated Red Blood Cells Perc 0.0 % (0.0-0.2); Platelet Count Result 290 k/mm3 (150-375); Red Blood Count 3.55 M/mm3 (4.2-5.4); White Blood Count 8.9 K/mm3 (4.5-10.0)
[2024-11-26 17:58] LABS: Alanine Aminotransferase 13 U/L (6-35); Albumin Level 4.5 g/dL (3.5-5.1); Alkaline Phosphatase 85 U/L (38-126); Anion Gap 7 mmol/L (4-12); Aspartate Amino Transferase 28 U/L (14-36); Bilirubin,Total 0.3 mg/dL (0.2-1.3); Blood Urea Nitrogen 14 mg/dL (7-17); Calcium 9.2 mg/dL (8.4-10.2); Carbon Dioxide 29 mmol/L (22-30); Chloride 100 mmol/L (98-107); Estimated Glomerular Filt Rate > 60; Glucose 86 mg/dL (65-110); Potassium 3.8 mmol/L (3.4-5.0); Sodium 136 mmol/L (137-145); Total Protein 7.3 g/dL (6.3-8.2)
[2024-11-26 18:14] LABS: Free T4 Free Thyroxine 0.95 ng/dL (0.78-2.19)
[2024-11-26 18:34] LABS: Thyroid Stimulating Hormone 3.280 uIU/mL (0.465-4.680)
== END 2024-11-26 17:20 | disposition home or self-care (01) ==
LOC: ANHLAB 17:22
PROVIDERS: PCP Family Medicine
DX: Z79.899 Other long term (current) drug therapy (principal)
CPT/HCPCS: 36415; 80053; 83615; 84439; 84443; 85025

== ENCOUNTER 2024-12-19 15:49 | Outpatient (CLI) | payer MEDICARE, SELFPAY ==
--- OUTSIDE RECORDS SUMMARY | 2024-07-22 12:30 | XMS_ITS ---
Author Organization [facility] [place] ([address]) Address [address] [place] [address] Care Team Providers Care Elevator Runner Name Role Phone Renetta Roper Primary Care Provider Iris Malik [phone] REASON FOR VISIT IS ANALYST Allergies Social History Sex Assigned At : Social History Observation Description Sex Assigned At Female Encounters Encounter Location Date Provider Diagnosis [facility] [address] [place] [address] 07/22/2024 Iris Carmona Plan Of Treatment No Information Progress Notes * Carol HAMILTONDOB:1955 (69 yo F)Acc No.[id number]:07/22/2024 Progress Notes Patient: Carol VALLADARES Provider: PAULETTE Centeno :1955 A ge:68 Y S ex:Female Date:07/22/2024 Address:[address] [place], [place] [id number] Pcp:Renetta Roper Subjective: * Chief Complaints: * 1 . IS ANALYST Allergies. * Medical History: Objective: * Vitals: Assessment: Plan: * Treatment: * Billing Information: * Visit Code: * Procedure Codes: * Electronic signature of Iris Carmona DNP, FNP-C on 12/19/2024 at 05:45 PM CDT Sign off status: Pending * Provider: PAULETTE Centeno-Clay Date: 0 07/22/2024 Generated for Printi ng/Faxing/eTransmitting on: 1 05:45 PM CDT
--- OUTSIDE RECORDS SUMMARY | 2024-12-19 17:45 | XMS_ITS | Clinical Summary ---
Author Organization [facility] Address [address] [place] [address] Care Team Providers Care Information Resources Manager Name Role Phone Renetta Roper MD Primary Care Provider [phone] Allergies Active Allergy Reactions Criticality Noted Date [...] Encounters Date Type Department Care Team Description 11/28/2024 10:45 AM CDT Office Visit [facility] Medicine Ophthalmology [address] [facility] 2nd Floor [address] [place] [address] Dhiraj Dorsey MD Pseudophakia of right eye (Primary Dx) 11/14/2024 8:15 AM CDT Office Visit [facility] Medicine Ophthalmology [address] [facility] 2nd Floor [address] [place] [address] Dhiraj Dorsey MD Pseudophakia of right eye (Primary Dx) 11/13/2024 10:50 AM CDT - 11/13/2024 11:20 AM CDT Surgery [facility] Surgery at [address] [address] Dhiraj Dorsey MD EXTRACTION CATARACT WITH LENS IMPLANT. 11/13/2024 10:41 AM CDT Anesthesia Event [facility] Surgery at [address] [address] Kendall Rivero MD Brohi, Ashlee Renae, NP 11/13/2024 8:55 AM CDT - 11/13/2024 11:27 AM CDT Hospital Encounter [facility] Surgery at [address] [address] Dhiraj Dorsey MD Encounter for preoperative assessment (Primary Dx); Age-related nuclear cataract of both eyes Discharge Disposition: Discharge to home or self care 11/11/2024 [facility] [address] [place] [address] Ashley Darling 10/17/2024 2:30 PM CDT Office Visit [facility] Medicine Ophthalmology [address] [place] [phone] Dhiraj Dorsey MD Age-related nuclear cataract of both eyes 10/13/2024 10:15 AM CDT Office Visit [facility] at [address] [address] Jolene Peck PA Rash and nonspecific skin eruption (Primary Dx) 10/03/2024 [facility] [address] [place] [address] Ashley Darling 10/03/[address] [facility] Medicine Ophthalmology [address] [place] [address] Dhiraj Dorsey MD 09/30/[address] [facility] Medicine Ophthalmology [address] [facility] 2nd Floor [address] [place] [address] Ashley Darling 09/25/[address] 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 Gender Identity Not on file Sexual Orientation [...] Influenza Vaccine (#1) 2024 , 12/31/2019, 11/24/2017 DTaP/Tdap/Td Vaccine (2 - Td or Tdap) 07/29/2025, 12/18/2003 Fall Risk Assessment 11/13/2025 11/13/2024 Pneumococcal vaccine 65+ (3 of 3 - PCV20 or PCV21) 01/06/2026 01/06/2021, 12/17/2008 Medical Devices Implanted Type Area Crankshaft Straightener Device Identifier Shelf Expiration Date Model / Serial / Lot [employer] Lens Iol Cna0t0.200 [employer] [id number] - [id number] - [id number] Implanted:Qty: 1 on 11/13/2024 by Dhiraj Dorsey MD at [facility] Lens [employer] [id number] 08/21/2027 CNA0T0.200 / [id number] / Procedures Procedure Name Priority Date/Time Associated Diagnosis Comments EXTRACTION CATARACT WITH LENS IMPLANT. 11/13/2024 10:46 AM CDT Age-related nuclear cataract of both eyes Case Notes 11/08@0911: move case up to close gap per Ashley via email. BR IOL BIOMETRY - OU - BOTH EYES Routine 10/17/2024 3:02 PM CDT Age-related nuclear cataract of both eyes from Last 3 Months Results * IOL Biometry - OU - Both Eyes (10/17/2024 3:02 PM CDT) Anatomical Region Laterality Modality Head Ophthalmic Axial Measurements Narrative 10/17/2024 3:02 PM CDT Right Eye Lens style: CNA0T0. Lens power: +20.0 D. Target refraction: 0. Formula used: [place] II. us Dhiraj Dorsey MD OPHTH ULTRASOUND Final Resu lt from Last 3 Months Insurance [employer] [facility] UHC MEDICARE ADVANTAGE [facility] MEDICARE [facility] MEDICARE Care Teams Information Resources Manager Relationship Specialty Start Date End Date Renetta Roper MD PCP - General Family Medicine 12/06/23
--- OUTSIDE RECORDS SUMMARY | 2024-12-19 17:45 | XMS_ITS | Patient Health Record ---
Author Organization [facility] [place] ([address]) Address [address] [place] [address] Care Team Providers Care Tent Finisher Name Role Phone Renetta Roper Primary Care Provider Iris Malik [facility] [phone] Reason For Referral No Information Social History Sex Assigned At : Social History Observation Description Sex Assigned At Female Plan Of Treatment No Information Insurance Providers Payer Name Payer Address Payer Phone Subscriber Number Group Number Insured Name Patient Relationship to Insured Coverage Start Date Coverage End Date Aetna Medicare [address] [place] [address] [id number] Carol Cedeño Self - patient is the insured
--- OUTSIDE RECORDS SUMMARY | 2024-12-19 17:45 | XMS_ITS | Clinical Summary ---
Author Organization [facility] Address [address] [place] [address] Care Team Providers Care Steel Barrel Reamer Name Role Phone Gloria Vaughn MD Primary Care Provider [phone] Source Comments [facility],non-owned Affiliates and Associated Physician Practices is amultiple site organization consisting of ambulatory clinics and hospital sitesin [place], [place], [place] and [place]. This disclosure is being madepursuant to the Care Everywhere program and may not contain all information available regarding this patient. Last updated 17.[facility] Allergies Active Allergy Reactions Criticality Noted Date [...] Relation to Subscriber:Not on file Name:CAROL HAMILTON Cosmo Subscriber ID:Not on file (Home) Address: [address] [place] [address] Payer ID:Not on file Group ID:Not on file Type:Self Pay Address: [place], [place] [employer] Care Teams Steel Barrel Reamer Relationship Specialty Start Date End Date Gloria Vaughn MD PCP - General Family Medicine 07/30/18
--- OUTSIDE RECORDS SUMMARY | 2024-12-19 17:46 | XMS_ITS | Patient Health Record ---
Author Organization [facility] Address [address] [place] [address] Care Team Providers Care Public Speaking Instructor Name Role Phone Bhupinder Del Valle D.O Unavailable [phone] Reason For Referral No Information Medications Medication [...]
--- OUTSIDE RECORDS SUMMARY | 2024-12-19 17:46 | XMS_ITS | Encounter Summary ---
Author Organization [facility] Address [address] [place] [address] Care Team Providers Care Bar Assistant Name Role Phone Gloria Mendieta MD Primary Care Provider [phone] Renetta Roper MD Primary Care Provider [phone] Renetta Roper MD Primary Care Provider [phone] Renetta Roper MD Primary Care Provider [phone] Encounter Details Date Type Department Care Team (Late st Contact Info) Description 12/11/2019 Telephone [facility] - Imaging [address] [place] [address] Transcribed Order, Provider Social History Tobacco Use Types Packs/Day Years Used Date Smoking Tobacco: Former Comments Unknown Sex and Gender Information Value Date Recorded Sex Assigned at Not on file 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
== END 2024-12-19 15:50 | disposition home or self-care (01) ==
LOC: ANHLAB 15:52
PROVIDERS: PCP Family Medicine
DX: Z79.899 Other long term (current) drug therapy (principal)
CPT/HCPCS: 86480

== ENCOUNTER 2025-01-23 15:24 | Outpatient (CLI) | payer MEDICARE, SELFPAY ==
--- OUTSIDE RECORDS SUMMARY | 2024-07-22 11:30 | XMS_ITS ---
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 SUPERVISOR Allergies Social History Sex Assigned At : Social History Observation Description Sex Assigned At Female Encounters Encounter Location Date Provider Diagnosis [facility] [address] [place] [address] 07/22/2024 Iris Carmona Plan Of Treatment No Information Progress Notes * Carol HAMILTONDOB:1955 (69 yo F)Acc No.[id number]:07/22/2024 Progress Notes Patient: Carol VALLADARES Provider: PAULETTE Centeno-Clay :1955 A ge:68 Y S ex:Female Date:07/22/2024 Address:[address] [place], [place] [id number] Pcp:Renetta Roper Subjective: * Chief Complaints: * 1 . 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 * Medical History: Objective: * Vitals: Assessment: Plan: * Treatment: * Billing Information: * Visit Code: * Procedure Codes: * Electronic signature of Iris Carmona DNP, FNP-C on 01/23/2025 at 06:08 PM CLINICAL SUPERVISOR Sign off status: Pending * Provider: PAULETTE Centeno-Clay Date: 0 07/22/2024 Generated for Printi ng/Faxing/eTransmitting on: 1 03/25/2024 06:08 PM CLINICAL SUPERVISOR
--- NOTE | ~2025-01-23 | MM_ITS ---
EXAMINATION: MM screening mirza BI w dave HISTORY: Screening TECHNIQUE: Craniocaudal and mediolateral oblique 3-D tomosynthesis images were obtained and synthetic 2-D images were generated. CAD analysis was submitted and interpreted. COMPARISON: Comparison to multiple prior studies sequentially, with oldest reviewed study dated 02/28/2018. BREAST PARENCHYMAL COMPOSITION: Not dense: There are scattered areas of fibroglandular density. FINDINGS: There is a focal asymmetry in the lower outer quadrant of the right breast, middle-posterior depth. The left breast is stable without evidence for malignancy. IMPRESSION: 1. Focal right breast asymmetry lower outer quadrant, middle-posterior depth. 2. Additional mammographic views and possible breast ultrasound are recommended. BI-RADS Category 0: Incomplete: Needs additional imaging evaluation. Reviewed, dictated and finalized at location O. RICT SALES COORDINATOR IMPRESSION: 1. Focal right breast asymmetry lower outer quadrant, middle-posterior depth. 2. Additional mammographic views and possible breast ultrasound are recommended . BI-RADS Category 0: Incomplete: Needs additional imaging evaluation.
--- OUTSIDE RECORDS SUMMARY | 2025-01-23 18:08 | XMS_ITS | Patient Health Record ---
Author Organization [facility] [place] ([address]) Address [address] [place] [address] Care Team Providers Care Ac/Dc Rewinder Name Role Phone Renetta Roper Primary Care Provider Iris Malik [facility] [phone] Reason For Referral No Information Social History Sex Assigned At : Social History Observation Description Sex Assigned At Female Plan Of Treatment No Information Insurance Providers Payer Name Payer Address Payer Phone Subscriber Number Group Number Insured Name Patient Relationship to Insured Coverage Start Date Coverage End Date Aetna Medicare [address] [place] [address] [id number] Carol Cedeño Self - patient is the insured
--- OUTSIDE RECORDS SUMMARY | 2025-01-23 18:08 | XMS_ITS | Encounter Summary ---
Author Organization [facility] Address [address] [place] [address] Care Team Providers Care Fryer Operator Name Role Phone Gloria Mendieta MD Primary Care Provider [phone] Renetta Roper MD Primary Care Provider [phone] Renetta Roper MD Primary Care Provider [phone] Renetta Roper MD Primary Care Provider [phone] Encounter Details Date Type Department Care Team (Late st Contact Info) Description 12/11/[address] 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
--- OUTSIDE RECORDS SUMMARY | 2025-01-23 18:08 | XMS_ITS | Patient Health Record ---
Author Organization [facility] Address [address] [place] [address] Care Team Providers Care Sensor Technician Name Role Phone Bhupinder Del Valle D.O Unavailable [phone] Reason For Referral No Information Medications Medication SIG (Take, Route, Frequency, Duration) Notes Start Date End Date Status Medrol (Guicho) 4 MG Tablet as directed Ora lly as directed; Duration: 6 days 05/08/2017 Active Bactrim DS 800-160 MG Tablet 1 tablet Orally Twice a day; Duration: 10 day(s) 05/08/2017 Active Pantoprazole Sodium Active ProAir HFA 108 (90 Base) MCG/ACT Aerosol Solution 2 puffs as needed Inhalation every 6 hrs Active Social History Tobacco Use: Social History Observation Description Date Details (start date - stop date) Former Smoker NA - NA Social History Drug/Alcohol: Social Info Question Answer Notes Alcohol Did you have a drink containing alcohol i n the past year? Yes How often did you have a drink containing alcohol in the past year? Four or more times a week (4 points) How many drinks did you have on a typical day when you were drinking in the past year? 1 or 2 (0 points) Points 4 Interpretation Positive Tobacco Use: Social Info Question Answer Notes Smoking Are you a: former smoker How long has it been since you last smoked? 5-10 years Additional Findings: Tobacco User Heavy cigarett e smoker (20-39 cigs/day) Plan Of Treatment No Information
--- OUTSIDE RECORDS SUMMARY | 2025-01-23 18:08 | XMS_ITS | Clinical Summary ---
Author Organization [facility] Address [address] [place] [address] Care Team Providers Care Ec Teacher Name Role Phone Gloria Vaughn MD Primary Care Provider [phone] Source Comments [facility],non-owned Affiliates and Associated Physician Practices is amultiple site organization consisting of ambulatory clinics and hospital sitesin [place], [place], [place] and [place]. This disclosure is being madepursuant to the Care Everywhere program and may not contain all information available regarding this patient. Last updated 17.[facility] Allergies Active Allergy Reactions Criticality Noted Date [...] CALENDAR YEAR 2024 COVID-19 VACCINE (1 - 2024-2 6 season) 2024 INFLUENZA VACCINE (#1) 2024 Respiratory [...] Cosmo Subscriber ID:Not on file (Home) Address: [address] [place] [phone] Payer ID:Not on file Group ID:Not on file Type:Self Pay Address: [place], [place] [employer] Care Teams Ec Teacher Relationship Specialty Start Date End Date Gloria Vaughn MD PCP - General Family Medicine 07/30/18
--- OUTSIDE RECORDS SUMMARY | 2025-01-23 18:08 | XMS_ITS | Clinical Summary ---
Author Organization [facility] Address [address] [place] [address] Care Team Providers Care Oriental Medicine Practitioner Name Role Phone Renetta Roper MD Primary Care Provider [phone] Allergies Active Allergy Reactions Criticality Noted Date [...] Encounters Date Type Department Care Team Description 01/02/2025 Telephone [facility] - Imaging [address] [place] [address] Clementina Parks RN 11/28/2024 10:45 AM CDT Office Visit [facility] Medicine Ophthalmology [address] [facility] 2nd Floor [address] [place] [address] Dhiraj Dorsey MD Pseudophakia of right eye (Primary Dx) 11/14/2024 8:15 AM CDT Office Visit [facility] Medicine Ophthalmology [address] [facility] 2nd Floor [address] [place] [address] Dhiraj Dorsey MD Pseudophakia of right eye (Primary Dx) 11/13/2024 10:50 AM CDT - 11/13/2024 11:20 AM CDT Surgery [facility] Surgery at [address] [address] Dhiraj Dorsey MD EXTRACTION CATARACT WITH LENS IMPLANT. 11/13/2024 10:41 AM CDT Anesthesia Event [facility] Surgery at [address] [address] Kendall Rivero MD Brohi, Ashlee Renae, NP 11/13/2024 8:55 AM CDT - 11/13/2024 11:27 AM CDT Hospital Encounter [facility] Surgery at [address] [address] Dhiraj Dorsey MD Encounter for preoperative assessment (Primary Dx); Age-related nuclear cataract of both eyes Discharge Disposition: Discharge to home or self care 11/11/2024 Telephone [facility] Medicine Ophthalmology [address] [place] [address] 2nd Floor [address] [place] [address] Ashley Darling from Last 3 Months Immunizations Immunization Administration [...] LENS IMPLANT.; Surgeon: Dhiraj Dorsey MD; Location: 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 Gender Identity Not on file Sexual Orientation [...] 01/06/2021, 12/17/2008 Medical Devices Implanted Type Area Manager Social Services Device Identifier Shelf Expiration Date Model / Serial / Lot [employer] Lens Iol Cna0t0.200 [employer] Cna0t0.200 - [id number] - [id number] Implanted:Qty: 1 on 11/13/2024 by Dhiraj Dorsey MD at [facility] Lens [employer] [id number] 08/21/2027 CNA0T0.200 / [id number] / Procedures Procedure Name Priority Date/Time Associated Diagnosis Comments EXTRACTION CATARACT WITH LENS IMPLANT. 11/13/2024 10:46 AM CDT Age-related nuclear cataract of both eyes Case Notes 11/08@0911: move case up to close gap per Ashley via email. BR from Last 3 Months [facility] AD[facility]AGE [facility] MEDICARE Address: [address] [address] [place] [address] [facility] MEDICARE [facility] MEDIC[facility] Address: [address] [place] [address] [facility] Care Teams Oriental Medicine Practitioner Relationship Specialty Start Date End Date Renetta Roper MD PCP - General Family Medicine 12/06/23
== END 2025-01-23 15:25 | disposition home or self-care (01) ==
LOC: ANHFOHIMG 15:26
PROVIDERS: PCP Family Medicine; Visit Provider Obstetrics & Gynecology
DX: Z12.31 Encounter for screening mammogram for malignant neoplasm of breast (principal); R92.8 Other abnormal and inconclusive findings on diagnostic imaging of breast
CPT/HCPCS: 77063; 77067